=== PATIENT | male | born 1980 | race Caucasian/White ===

== ENCOUNTER 2018-01-22 21:05 | Emergency (ER) | payer SELFPAY ==
[2018-01-22 21:10] VITALS: BP 150/83; PULSE 120; RESP 18; TEMP 98.2
--- NOTE | 2018-01-22 21:35 | ED ---
General Adult HPI - General Chief complaint: Skin/Abscess/Foreign Body Stated complaint: Bug Bite/Leg Time Seen by Provider: 01/22/18 21:23 Source: patient, RN notes reviewed Mode of arrival: ambulatory Limitations: no limitations - History of Present Illness Initial comments: Patient 37-year-old male presented to the emergency room today with chief complaint of an abscess located to the perineum area. Patient states with a small bug bite that he noticed yesterday. States slightly larger this morning so he popped and squeezed the area. He states he got some bloody drainage out of it. Patient does not that swelling has gone down. He states he was concerned she's had similar this in the past Antibiotics for them. Patient denies any other complaints or symptoms currently. Patient denies any recent fever, chills, shortness of breath, chest pain, back pain, abdominal pain, nausea or vomiting, numbness or tingling, headaches or visual changes, or any other complaints. - Related Data Previous Rx's Medication Instructions Recorded Sulfamethox-Tmp 800-160Mg [Bactrim 1 tab PO Q12HR #20 tab 01/22/18 DS 800-160 mg] Allergies Allergy/AdvReac Type Severity Reaction Status Date / Time No Known Allergies Allergy Verified 01/22/18 21:10 Review of Systems ROS Statement: Those systems with pertinent positive or pertinent negative responses have been documented in the HPI. ROS Other: All systems not noted in ROS Statement are negative. Past Medical History Additional Past Medical History / Comment(s): ulcerative colitis, History of Any Multi-Drug Resistant Organisms: None Reported Past Surgical History: No Surgical Hx Reported Past Psychological History: No Psychological Hx Reported Smoking Status: Current every day smoker Past Alcohol Use History: Rare Past Drug Use History: Marijuana General Exam - General Exam Comments Initial Comments: General: The patient is awake and alert, in no distress, and does not appear acutely ill. Eye: Pupils are equal, round and reactive to light, extra-ocular movements are intact. No nystagmus. There is normal conjunctiva bilaterally. No signs of icterus. Ears, nose, mouth and throat: There are moist mucous membranes and no oral lesions. Neck: The neck is supple, there is no tenderness or JVD. Musculoskeletal: Normal ROM, no tenderness. Strength 5/5. Sensation intact. Pulses equal bilaterally 2+. Neurological: A&O x 3. CN II-XII intact, There are no obvious motor or sensory deficits. Coordination appears grossly intact. Speech is normal. Skin: Skin is warm and dry and no rashes. Mild swelling to the left perineal area. No real fluctuant abscess. Ulcerated area no current drainage. Measures approximately half to 1 cm in size. Not involved into the scrotum. Psychiatric: Cooperative, appropriate mood & affect, normal judgment. Limitations: no limitations Course Vital Signs 01/22/18 21:06 Temperature 98.2 F Pulse Rate 120 H Respiratory 18 Rate Blood Pressure 150/83 O2 Sat by Pulse 97 Oximetry Medical Decision Making - Medical Decision Making Patient is a small abscess to the left side of the perineum. Patient advised to do sitz baths or warm compresses. Will be given antibiotic to cover for infection advised return if symptoms increase or worsen. Disposition Clinical Impression: Abscess Disposition: HOME SELF-CARE Condition: Good Instructions: Abscess (ED) Additional Instructions: Please use antibiotic as prescribed warm compresses the areas discussed. Please follow-up with family doctor in the next 2 days of symptoms have not improved. Please return to emergency room if the symptoms increase or worsen or for any other concerns. Prescriptions: Sulfamethox-Tmp 800-160Mg [Bactrim DS 800-160 mg] 1 tab PO Q12HR #20 tab Is patient prescribed a controlled substance at d/c from ED?: No Referrals: None,Stated [Primary Care Provider] - 1-2 days Time of Disposition: 21:35
== END 2018-01-22 21:39 | disposition home or self-care (01) ==
LOC: EC 21:05
DX: L02.215 Cutaneous abscess of perineum (principal); F17.200 Nicotine dependence, unspecified, uncomplicated
CPT/HCPCS: 99282

== ENCOUNTER 2020-04-09 05:43 | Inpatient (IN) | payer OTHER ==
[2020-04-09] MEDS ORDERED: MORPHINE SULFATE 4 MG/ML SYRINGE IVP STA (06:16)
--- NOTE | 2020-04-09 06:18 | ED ---
Abdominal Pain HPI - General Chief Complaint: Abdominal Pain Stated Complaint: GI Issues Time Seen by Provider: 04/09/20 06:02 Source: patient, RN/MD, EMS, RN notes reviewed, old records reviewed Mode of arrival: EMS Limitations: no limitations - History of Present Illness Initial Comments: Patient is a 39-year-old male presents emergency department today for evaluation with complaints of flareup of ulcerative colitis for the past 3 weeks. Patient states that he's been having bloody stools. Patient reports that he was initially treated today at [facility] transferred due to an abnormal CT finding of the spleen. At that time the ER doctor consult to surgery and patient's admitting physician Dr. Plata recommended transfer to this facility to have further intervention with interventional radiology on regards to the spleen abnormality. Patient states that he was treated due to the bloody stools and colitis with IV antibiotics and steroids. Does complain of some. Umbilical pain. He states he typically can manage his ulcerative colitis flareups with diet changes, denies history of GI specialist.. After being incarcerated and discharged from detention on February 28 3 weeks he started to have this flareup. Patient states that he has had no fevers or chills. Patient denies any abdominal or back trauma in the past few weeks. - Related Data Previous Rx's Medication Instructions Recorded Sulfamethox-Tmp 800-160Mg [Bactrim 1 tab PO Q12HR #20 tab 01/22/18 DS 800-160 mg] Allergies Allergy/AdvReac Type Severity Reaction Status Date / Time No Known Allergies Allergy Verified 01/22/18 21:10 Review of Systems ROS Statement: Those systems with pertinent positive or pertinent negative responses have been documented in the HPI. ROS Other: All systems not noted in ROS Statement are negative. Past Medical History Additional Past Medical History / Comment(s): ulcerative colitis, History of Any Multi-Drug Resistant Organisms: None Reported Past Surgical History: No Surgical Hx Reported Past Psychological History: No Psychological Hx Reported Smoking Status: Current every day smoker Past Alcohol Use History: Rare Past Drug Use History: Marijuana General Exam - General Exam Comments Initial Comments: Alert and oriented 39-year-old male. No significant distress. Limitations: no limitations General appearance: alert, in no apparent distress Head exam: Present: atraumatic, normocephalic, normal inspection Eye exam: Present: normal appearance, PERRL, EOMI. Absent: scleral icterus, conjunctival injection, periorbital swelling ENT exam: Present: normal exam, mucous membranes moist Neck exam: Present: normal inspection. Absent: tenderness, meningismus, lymphadenopathy Respiratory exam: Present: normal lung sounds bilaterally. Absent: respiratory distress, wheezes, rales, rhonchi, stridor Cardiovascular Exam: Present: regular rate, normal rhythm, normal heart sounds. Absent: systolic murmur, diastolic murmur, rubs, gallop, clicks GI/Abdominal exam: Present: soft, tenderness (LLQ tenderness), normal bowel sounds. Absent: distended, guarding, rebound, rigid Back exam: Present: normal inspection Neurological exam: Present: alert, oriented X3, CN II-XII intact Psychiatric exam: Present: normal affect, normal mood Skin exam: Present: warm, dry, intact, normal color. Absent: rash Course Vital Signs 04/09/20 05:45 Temperature 98.2 F Pulse Rate 86 Respiratory 16 Rate Blood Pressure 107/92 O2 Sat by Pulse 97 Oximetry Medical Decision Making - Medical Decision Making 39-year-old male history of ulcerative colitis and reported flareup for the past 3 weeks with bloody stool presents emergency room today for a transfer from [facility]. He had an abnormal computed tomography scan finding showing 3 cm cortical cysts on the spleen which could relate to trauma but was a change compared to previous exam. There is also evidence of colitis. Patient's white blood cell count 16,000. Hemoglobin of 10.7. No previous chemical sick. Per. He is not on blood thinners. He did have a positive occult. Patient was transferred here for further evaluation due to the spleen finding and consult interventional radiology. Patient was 29 treated at this time with Levaquin and Flagyl. We'll continue this. He was given steroids as well. Patient will be admitted at this time to admitting physician (Dr. Plata), will consult surgery (Dr. Foster) and interventional radiology. PEr previous [facility] ER record these physician's are already aware of the transfer. - Lab Data Labs from [facility] reviewed. A did receive 15.4. Hemoglobin of 10.4. Platelets of 452. Lymphocytes of 10.1. Sodium 127. Potassium 3.7. Chloride 95. CO2 24. BUN 11. Creatinine 1.0. Glucose 111. Calcium 9.0. AST 23. ALT 28. ALP 73. Protein 8.2. Albumin 2.7. Lipase 42. Urinalysis negative for infection. Urine drug screen is positive for marijuana. CRP of 21.8. Sed rate 81. Fecal occult was positive. - Radiology Data Radiology results: report reviewed CT impression shows wall thickening on the right colon could relate to some colitis that appears new compared old exam. Fluid levels and rectum consistent with diarrhea. Patchy atelectasis along base. Had infiltration of liver and change. There is heterogeneity of the spleen with small simple cortical cyst measuring 3 cm. This could relate to trauma and is a change compared old exam. Acute spleen laceration is possible. Measures 2 cm in depth. Abnormal right colon is a change compared to old exam. This was read by Dr. Russo. Disposition Clinical Impression: Ulcerative colitis, Spleen anomaly Clinical Impression: (Ruled Out): Acute infection of female upper reproductive tract Disposition: ADMITTED IP TO THIS HOSP Condition: Stable Is patient prescribed a controlled substance at d/c from ED?: No Referrals: None,Stated [Primary Care Provider] - 1-2 days Time of Disposition: 06:24
[2020-04-09] MEDS ORDERED: MORPHINE SULFATE 4 MG/ML SYRINGE IV PRN (06:27)
[2020-04-09] MEDS ORDERED: ONDANSETRON 4 MG/2 ML VIAL IVP PRN (06:27)
[2020-04-09] MEDS ORDERED: LEVOFLOXACIN 750MG-D5W PMX 750 MG in DEXTROSE/WATER 1 150ML.BAG IVPB STA (06:27)
[2020-04-09] MEDS ORDERED: NALOXONE 0.4 MG/ML 1 ML VIAL IV PRN (06:27)
[2020-04-09] MEDS ORDERED: metroNIDAZOLE-NS PMX 500 MG in SALINE 1 100ML.BAG IVPB STA (06:28)
[2020-04-09] MEDS ORDERED: LEVOFLOXACIN 750MG-D5W PMX 750 MG in DEXTROSE/WATER 1 150ML.BAG IVPB SCH (06:30)
[2020-04-09] MEDS ORDERED: metroNIDAZOLE-NS PMX 500 MG in SALINE 1 100ML.BAG IVPB SCH (06:30)
[2020-04-09] MEDS: SODIUM CHLORIDE 0.9% 1,000 ML IV SCH ×3 (06:48→22:09)
[2020-04-09] MEDS: HYDROmorphone 0.5 MG/0.5 ML SYRINGE IVP PRN ×2 (06:51→09:35)
[2020-04-09 07:09] LABS: Basophils % (A) 0 %; Eosinophils # (A) 0.1 k/uL (0-0.7); Eosinophils % (A) 0 %; HCT 34.6 % (39.0-53.0); HGB 10.6 gm/dL (13.0-17.5); Hypochromasia Marked; Lymphocytes # (A) 0.6 k/uL (1.0-4.8); Lymphocytes % (A) 4 %; MCH 21.6 pg (25.0-35.0); MCHC 30.5 g/dL (31.0-37.0); MCV 70.6 fL (80.0-100.0); Mean Platelet Volume 6.2; Microcytosis Moderate; Monocytes # (A) 0.1 k/uL (0-1.0); Monocytes % (A) 1 %; Neutrophils # (A) 12.2 k/uL (1.3-7.7); Neutrophils % (A) 94 %; Platelet Count 355 k/uL (150-450); RDW 13.8 % (11.5-15.5); WBC 13.1 k/uL (3.8-10.6)
[2020-04-09] MEDS: PANTOPRAZOLE 40 MG/10 ML VIAL IV SCH (09:37)
--- NOTE | 2020-04-09 11:59 | P.GSCN ---
History of Present Illness Consult date: 04/09/20 History of present illness: This 39-year-old male presented to the hospital with a chief complaint of bloody bowel movements and abdominal pain. He has a known history of ulcerative colitis. He states this flares up occasionally especially when [facility]. He recently was incarcerated and states that his diet changed during that time and he noticed that his flareups started. These usually managed with medication that he is unsure of at the [facility]. He does not have a regular physician he follows up with. His last colonoscopy he states his in 2017 and he states he was told that there is no abnormalities. He states he has flareups occasionally couple times a year. Today he still is having abdominal pain minimal in his left lower quadrant. Past Medical History Additional Past Medical History / Comment(s): ulcerative colitis, History of Any Multi-Drug Resistant Organisms: None Reported Past Surgical History: No Surgical Hx Reported Past Psychological History: No Psychological Hx Reported Smoking Status: Current every day smoker Past Drug Use History: Marijuana - Past Family History Father Family Medical History: Seizure Disorder Medications and Allergies Home Medications Medication Instructions Recorded Confirmed Type Ibuprofen [Motrin Ib] 600 mg PO Q8H PRN 04/09/20 04/09/20 History Allergies Allergy/AdvReac Type Severity Reaction Status Date / Time No Known Allergies Allergy Verified 04/09/20 06:43 Surgical - Exam Osteopathic Statement: *. No significant issues noted on an osteopathic st ructural exam other than those noted in the History and Physical/Consult. Vital Signs Temp Pulse Resp BP Pulse Ox 98.2 F 86 16 107/92 97 04/09/20 05:45 04/09/20 05:45 04/09/20 05:45 04/09/20 05:45 04/09/20 05:45 - General well developed, well nourished, no distress - Neck trachea midline - Respiratory normal expansion, normal respiratory effort - Cardiovascular Rhythm: regular - Abdomen Nontender nondistended no rebound rigidity or guarding Abdomen: soft - Psychiatric oriented to time, oriented to person, oriented to place Results - Labs 04/09/20 07:01 Abnormal Lab Results - Last 24 Hours (Table) 04/09/20 Range/Units 07:01 WBC 13.1 H (3.8-10.6) k/uL Hgb 10.6 L (13.0-17.5) gm/dL Hct 34.6 L (39.0-53.0) % MCV 70.6 L (80.0-100.0) fL MCH 21.6 L (25.0-35.0) pg MCHC 30.5 L (31.0-37.0) g/dL Neutrophils # 12.2 H (1.3-7.7) k/uL Lymphocytes # 0.6 L (1.0-4.8) k/uL Assessment and Plan Assessment: Ulcerative colitis Plan: Patient appears to be having a exacerbation of ulcerative colitis. Recommend medical management no surgical management recommended at this time CT was discussed with radiologist to did state that there was no concern for splenic laceration upon looking at old images. There is a questionable cyst or lesion on the spleen which be worked up by primary care physician as an outpatient. Continue monitor hemoglobin. Follow-up GI Rec
[2020-04-09 12:27] LABS: HCT 32.7 % (39.0-53.0); Hypochromasia Marked; MCHC 30.6 g/dL (31.0-37.0); MCV 71.9 fL (80.0-100.0); Mean Platelet Volume 6.7; Microcytosis Slight; Platelet Count 366 k/uL (150-450); RBC 4.56 m/uL (4.30-5.90); RDW 13.9 % (11.5-15.5); WBC 13.5 k/uL (3.8-10.6)
[2020-04-09] MEDS ORDERED: DICYCLOMINE 10 MG CAP PO PRN (12:38)
[2020-04-09] MEDS: HYDROmorphone 1 MG/ML 1 ML SYRINGE IVP PRN ×3 (13:29→22:18)
[2020-04-09 13:47] VITALS: BMI 24.4
--- NOTE | 2020-04-09 14:22 | P.HPIM ---
History of Present Illness H&P Date: 04/09/20 Chief Complaint: Abdominal pain This is a 39-year-old male patient with past medical history of ulcerative colitis, tobacco use and dependence, marijuana use. Patient does not have a PCP and has not followed with a GI physician in many years. He states he was diagnosed with ulcerative colitis when he was 15 years of age and he is not on any treatment at that time. He states that he is normally able to manage the ulcerative colitis and control symptoms with diet at home but unfortunately he was recently incarcerated. While he was incarcerated, patient was on sulfasal azine 1000 mg twice daily for 5 weeks he was in long-term. He was released from long-term on February 28 and he felt good at that time. For the past 2-3 weeks he has had increasing stool with small amount of blood in it, joint soreness. He states he had an episode with significant left-sided lateral abdominal pain about one and half weeks ago that was so severe he couldn't stand up. He thought it was rela federico to ulcerative colitis but this particular pain had resolved. He is now having pain in the left upper quadrant. Patient initially presented to [facility] and CAT scan was concerning for wall thickening on the right colon could relate colitis and appears new. Fluid levels and rectum consistent with diarrhea. Patchy atelectasis along the base. There is heterogeneity of the spleen was small simple cortical cyst 3 cm. This could relate to trauma and is new. Acute splenic laceration is possible and measures 2 cm in depth. Lab work at [facility] revealed WBC 15.4, hemoglobin 10.4, platelet count 452. Sodium 127, potassium 3.7, chloride 95, CO2 24, BUN 11 creatinine 1. Blood sugar 111. AST 23, ALT 28, alkaline phosphatase 73. Albumin 2.7. Lipase 42. Urinalysis negative for infection. Urine drug screen positive for marijuana. CRP 21.8. Sed rate 81. Stool for occult blood positive. [facility] Patient states that since last evening he has had 3 stools, minimal blood. He complains of pain in the left upper quadrant with deep breathing. He is hungry and would like to have diet advanced. Patient will be started on clear liquid diet. He states his last colonoscopy was in 2016 or 2017 at [facility]. Consult in place with GI and general surgery. Patient was seen by Dr. Echevarria and CAT scan was reviewed by him and radiologist and no concern for splenic laceration was conclusion. Questionable cyst on the spleen could be worked up as an outpatient. Review of Systems Constitutional: Reports fatigue, Reports poor appetite, Reports weight loss, Denies chills, Denies fever, Denies weakness Eyes: denies blurred vision, denies pain Ears, nose, mouth and throat: Denies headache, Denies nasal congestion, Denies nasal discharge, Denies sore throat, Denies vertigo Cardiovascular: Denies chest pain, Denies decreased exercise tolerance, Denies dyspnea on exertion, Denies leg edema, Denies lightheadedness, Denies shortness of breath, Denies syncope Respiratory: Denies cough, Denies cough with sputum, Denies dyspnea, Denies excessive sputum, Denies hemoptysis, Denies home oxygen, Denies respiratory infections, Denies sleep apnea, Denies wheezing Gastrointestinal: Reports abdominal pain, Reports diarrhea, Reports loss of appetite, Reports melena, Denies nausea, Denies vomiting Genitourinary: Denies dysuria, Denies urinary frequency, Denies urinary retention Musculoskeletal: Reports redness of joints (joint discomfort), Denies frequent falls, Denies gait dysfunction, Denies leg numbness/tingling, Denies myalgias Integumentary: Denies pruritus, Denies rash, Denies wounds Neurological: Denies change in mentation, Denies change in speech, Denies gait dysfunction, Denies numbness, Denies vertigo, Denies weakness Psychiatric: Denies anxiety, Denies depression Endocrine: Denies fatigue, Denies weight change Past Medical History Additional Past Medical History / Comment(s): ulcerative colitis History of Any Multi-Drug Resistant Organisms: None Reported Past Surgical History: No Surgical Hx Reported Past Psychological History: No Psychological Hx Reported Smoking Status: Current every day smoker Additional Past Alcohol Use History / Comment(s): Patient is a smoker of less than one pack per day since he was 15 years of age. He has history of drinking 4-5 times per week, liquor but since 2007 he only drinks about 2 times per year. He uses marijuana on a regular basis including edibles. The patient is single and lives alone. Past Drug Use History: Marijuana - Past Family History Father Family Medical History: Seizure Disorder Additional Family Medical History / Comment(s): Father is alive at age 64 with history of seizures and hypertension. Mother Additional Family Medical History / Comment(s): Mother in her late 50s with complications from CABG. Brother(s) Additional Family Medical History / Comment(s): Patient has 2 brothers with no major medical problems. He does not have any sisters. He does not have any children. No family members have ulcerative colitis. Medications and Allergies Home Medications Medication Instructions Recorded Confirmed Type Ibuprofen [Motrin Ib] 600 mg PO Q8H PRN 04/09/20 04/09/20 History Allergies Allergy/AdvReac Type Severity Reaction Status Date / Time No Known Allergies Allergy Verified 04/09/20 06:43 Physical Exam Vitals: Vital Signs Temp Pulse Pulse Resp BP BP Pulse Ox 04/09/20 08:20 98.3 F 79 18 114/60 97 04/09/20 07:39 98.2 F 77 18 110/64 97 04/09/20 07:00 78 18 117/71 96 04/09/20 05:45 98.2 F 86 16 107/92 97 Intake and Output 04/08/20 04/09/20 04/09/20 22:59 06:59 14:59 Other: Voiding Method Toilet Weight 83.915 kg 83.915 kg Gen: This is a 39-year-old male. He is resting in bed and appears comfortable and in no acute distress. HEENT: Head is atraumatic, normocephalic. Pupils equal, round. Sclerae is anicteric. Oral mucous membranes are slightly dry. NECK: Supple. No JVD. No lymphadenopathy. No thyromegaly. LUNGS: Clear to auscultation. No wheezes or rhonchi. No intercostal retractions. HEART: Regular rate and rhythm. No murmur. ABDOMEN: Soft. Bowel sounds are present. No masses. Left upper quadrant tenderness. EXTREMITIES: No pedal edema. No calf tenderness. Dorsalis pedis +2 bilaterally. Enlarged MPJ bilaterally NEUROLOGICAL: Patient is awake, alert and oriented x3. Cranial nerves 2 through 12 are grossly intact. Results CBC & Chem 7: 04/09/20 12:01 Labs: Abnormal Lab Results - Last 24 Hours (Table) 04/09/20 04/09/20 Range/Units 07:01 12:01 WBC 13.1 H 13.5 H (3.8-10.6) k/uL Hgb 10.6 L 10.0 L (13.0-17.5) gm/dL Hct 34.6 L 32.7 L (39.0-53.0) % MCV 70.6 L 71.9 L (80.0-100.0) fL MCH 21.6 L 22.0 L (25.0-35.0) pg MCHC 30.5 L 30.6 L (31.0-37.0) g/dL Neutrophils # 12.2 H (1.3-7.7) k/uL Lymphocytes # 0.6 L (1.0-4.8) k/uL Thrombosis Risk Factor Assmnt - DVT/VTE Prophylaxis DVT/VTE Prophylaxis: Pharmacologic Prophylaxis ordered - Choose All That Apply Any of the Below Risk Factors Present?: No Other Risk Factors: No Other congenital or acquired thrombophilia - If yes, enter type in comment: No Thrombosis Risk Factor Assessment Level: Very Low Risk Assessment and Plan Plan: 1. Acute exacerbation of ulcerative colitis. Consult with GI. Continue Levaquin 500 mg IV daily, Flagyl 500 mg 3 times IV daily, IV fluids and 130s cc per hour. Patient will be started on Bentyl 10 mg 3 times daily. Dilaudid increased to 1 mg every 3 hours as needed and morphine discontinued. 2. Splenic laceration ruled out by radiology and general surgery. Consult with Dr. Swathi serrano. 3. Possible cysts on the spleen. Workup as outpatient. 4. Tobacco use and dependence. Nicotine patch. 5. GI prophylaxis. Protonix 40 mg IV daily. 6. DVT prophylaxis. Heparin subcu. 7. Regular marijuana use. Patient will be admitted to the hospital for a minimum of 2 night stay. Discharge plan: home Impression and plan of care have been directed as dictated by the signing physician. Teri Walter nurse practitioner acting as scribe for signing physician.
[2020-04-09] MEDS: NICOTINE 21MG/24HR PATCH TRANSDERM SCH (15:06)
[2020-04-09] MEDS: HEPARIN SODIUM,PORCINE 5,000 UNIT/ML 1 ML VIAL SQ SCH ×2 (15:06→23:40)
[2020-04-09] MEDS: metroNIDAZOLE-NS PMX 500 MG in SALINE 1 100ML.BAG IVPB SCH ×2 (15:06→22:09)
--- NOTE | 2020-04-09 17:48 | P.GSCN ---
History of Present Illness Consult date: 04/09/20 Reason for Consult: splenic angiogram History of present illness: Interventional Radiology consultation and recommendations: Patient presents with inflammatory bowel disease exacerbation. Splenic abnormalities seen on CT A/P performed at [facility] demonstrated multiple hypodensities and small perisplenic fluid vs hematoma. IR consulted for splenic angiogram. There was question of anterior splenic linear laceration, however upon additio nal review and comparison, this was also present on a [facility] [address] exam and related to splenic fold/lobular contour. The small perisplenic fluid/hematoma is new. The splenic hypodensities are also new, and wide differential includes age indeterminate hematomas or infarcts, cysts, hemangiomas. Splenic abscesses considered less likely at this time but are included in the differential. Patient is hemodynamically stable with no evidence of acute splenic hemorrhage at this time. No invention recommended at this time. If patient becomes hemodynamically unstable, consider CTA to assess for active hemorrhage. As far as the splenic lesions and small persplenic hematoma/fluid, patient reports several weeks of symptoms, and they are age indeterminate. Recommend short term repeat CT abdomen with contrast within a day or 2 to assess for any resolution/worsening. Past Medical History Additional Past Medical History / Comment(s): ulcerative colitis History of Any Multi-Drug Resistant Organisms: None Reported Past Surgical History: No Surgical Hx Reported Past Psychological History: No Psychological Hx Reported Smoking Status: Current every day smoker Additional Past Alcohol Use History / Comment(s): Patient is a smoker of less than one pack per day since he was 15 years of age. He has history of drinking 4-5 times per week, liquor but since 2007 he only drinks about 2 times per year. He uses marijuana on a regular basis including edibles. The patient is single and lives alone. Past Drug Use History: Marijuana - Past Family History Father Family Medical History: Seizure Disorder Additional Family Medical History / Comment(s): Father is alive at age 64 with history of seizures and hypertension. Mother Additional Family Medical History / Comment(s): Mother in her late 50s with complications from CABG. Brother(s) Additional Family Medical History / Comment(s): Patient has 2 brothers with no major medical problems. He does not have any sisters. He does not have any children. No family members have ulcerative colitis. Medications and Allergies Home Medications Medication Instructions Recorded Confirmed Type Ibuprofen [Motrin Ib] 600 mg PO Q8H PRN 04/09/20 04/09/20 History Allergies Allergy/AdvReac Type Severity Reaction Status Date / Time No Known Allergies Allergy Verified 04/09/20 06:43 Surgical - Exam Osteopathic Statement: *. No significant issues noted on an osteopathic structural exam other than those noted in the History and Physical/Consult. Vital Signs Temp Pulse Resp BP Pulse Ox 98.2 F 86 16 107/92 97 04/09/20 05:45 04/09/20 05:45 04/09/20 05:45 04/09/20 05:45 04/09/20 05:45 Results - Labs 04/09/20 12:01 Abnormal Lab Results - Last 24 Hours (Table) 04/09/20 04/09/20 Range/Units 07:01 12:01 WBC 13.1 H 13.5 H (3.8-10.6) k/uL Hgb 10.6 L 10.0 L (13.0-17.5) gm/dL Hct 34.6 L 32.7 L (39.0-53.0) % MCV 70.6 L 71.9 L (80.0-100.0) fL MCH 21.6 L 22.0 L (25.0-35.0) pg MCHC 30.5 L 30.6 L (31.0-37.0) g/dL Neutrophils # 12.2 H (1.3-7.7) k/uL Lymphocytes # 0.6 L (1.0-4.8) k/uL
[2020-04-09 18:28] LABS: HCT 31.9 % (39.0-53.0); HGB 9.6 gm/dL (13.0-17.5); Hypochromasia Marked; MCH 21.1 pg (25.0-35.0); MCV 70.5 fL (80.0-100.0); Mean Platelet Volume 7.6; Microcytosis Moderate; Platelet Count 390 k/uL (150-450); RBC 4.53 m/uL (4.30-5.90); RDW 13.8 % (11.5-15.5); WBC 15.2 k/uL (3.8-10.6)
[2020-04-09 20:00] LABS: Erythrocyte Sedimentation Rate 77 mm/Hr (0-15)
[2020-04-09] MEDS: sulfaSALAzine 500 MG TAB PO SCH (22:09)
[2020-04-10 01:20] LABS: HCT 29.8 % (39.0-53.0); Hypochromasia Marked; MCH 21.8 pg (25.0-35.0); MCHC 30.3 g/dL (31.0-37.0); MCV 71.9 fL (80.0-100.0); Mean Platelet Volume 7.3; Microcytosis Slight; Platelet Count 389 k/uL (150-450); RBC 4.15 m/uL (4.30-5.90); WBC 15.4 k/uL (3.8-10.6)
[2020-04-10] MEDS: HYDROmorphone 1 MG/ML 1 ML SYRINGE IVP PRN ×6 (04:38→23:30)
[2020-04-10] MEDS: SODIUM CHLORIDE 0.9% 1,000 ML IV SCH ×3 (04:38→17:06)
[2020-04-10] MEDS: metroNIDAZOLE-NS PMX 500 MG in SALINE 1 100ML.BAG IVPB SCH ×3 (05:32→20:04)
--- NOTE | 2020-04-10 07:21 | P.CONS ---
History of Present Illness - Reason for Consult Consult date: 04/09/20 colitis Requesting physician: Adalid Plata - Chief Complaint diarrhea - History of Present Illness 39-year-old male with a medical history significant for ulcerative colitis, tobacco abuse and marijuana use who presented to the hospital due to concerns of diarrhea and abdominal pain. Patient has known history of ulcerative colitis diagnosed at the age of 15 and treated in the past with steroid therapy [id number] agents. Last colonoscopy in 2016 at [facility] was significant for discontinuous active colitis. The patient presents to the hospital with com plaints of abdominal pain and frequent loose bowel movements. The patient reports having loose watery stools approximately 8 per day worsened over the past 2 days prior to presentation. Baseline patient has 2-3 bowel movements per day. He reports his last episode of active colitis was in December which time he was treated with prednisone and antibiotic therapy. Patienthad a computed tomography scan significant for wall thickening of the right colon which could relate to colitis performed prior to his transfer from outside hospital. Currently he is receiving antibiotic therapy with levofloxacin and Flagyl. Laboratory evaluation significant for WBC 13.1, hemoglobin 10.6, platelet count [id number]. Review of Systems REVIEW OF SYSTEMS: CONSTITUTIONAL: Denies any fevers, chills, weight change or fatigue. CARDIOVASCULAR: Denies any chest pain, palpitations high or low blood pressures RESPIRATORY: Denies any shortness of breath, hemoptysis or cough. GENITOURINARY: No dysuria or hematuria. MUSCULOSKELETAL: No weakness reported. SKIN: Denies any new rashes or lesions, jaundice or pallor. PSYCHIATRIC: Denies any depression or anxiety. NEUROLOGY: Denies headache, denies any new focal deficits. EARS/NOSE/THROAT: No recent hearing change, congestion, nasal discharge or sore throat. EYES: No pain in eyes, discharge or change in vision. GASTROINTESTINAL: As per HPI. Past Medical History Additional Past Medical History / Comment(s): ulcerative colitis History of Any Multi-Drug Resistant Organisms: None Reported Past Surgical History: No Surgical Hx Reported Past Psychological History: No Psychological Hx Reported Smoking Status: Current every day smoker Additional Past Alcohol Use History / Comment(s): Patient is a smoker of less than one pack per day since he was 15 years of age. He has history of drinking 4-5 times per week, liquor but since 2007 he only drinks about 2 times per year. He uses marijuana on a regular basis including edibles. The patient is single and lives alone. Past Drug Use History: Marijuana - Past Family History Father Family Medical History: Seizure Disorder Additional Family Medical History / Comment(s): Father is alive at age 64 with history of seizures and hypertension. Mother Additional Family Medical History / Comment(s): Mother in her late 50s with complications from CABG. Brother(s) Additional Family Medical History / Comment(s): Patient has 2 brothers with no major medical problems. He does not have any sisters. He does not have any children. No family members have ulcerative colitis. Medications and Allergies Home Medications Medication Instructions Recorded Confirmed Type Ibuprofen [Motrin Ib] 600 mg PO Q8H PRN 04/09/20 04/09/20 History Allergies Allergy/AdvReac Type Severity Reaction Status Date / Time No Known Allergies Allergy Verified 04/09/20 06:43 Physical Exam Vitals: Vital Signs Temp Pulse Pulse Resp BP BP Pulse Ox 04/09/20 15:00 97.9 F 80 18 116/65 96 04/09/20 08:20 98.3 F 79 18 114/60 97 04/09/20 07:39 98.2 F 77 18 110/64 97 04/09/20 07:00 78 18 117/71 96 04/09/20 05:45 98.2 F 86 16 107/92 97 Intake and Output 04/09/20 04/09/20 04/09/20 06:59 14:59 22:59 Other: Voiding Method Toilet # Voids 3 Weight 83.915 kg 83.915 kg On physical examination, patient appears comfortable in no apparent distress. HEAD: Normocephalic, atraumatic. EYES: No scleral icterus. No conjunctival injection. MOUTH: No lesions, tongue midline. NECK: Trachea midline, no gross abnormalities. CHEST: Clear to auscultation with no wheezing or rhonchi appreciated. HEART: Regular rate and rhythm. ABDOMEN: Soft, mildly tender to palpation. Bowel sounds are positive. No organomegaly. No guarding or rigidity. EXTREMITIES: No pedal edema. SKIN: No rashes, no jaundice. NEUROLOGIC: Alert and oriented x3. No focal deficits. Results CBC & Chem 7: 04/10/20 00:25 Labs: Abnormal Lab Results - Last 24 Hours (Table) 04/09/20 04/09/20 Range/Units 07:01 12:01 WBC 13.1 H 13.5 H (3.8-10.6) k/uL Hgb 10.6 L 10.0 L (13.0-17.5) gm/dL Hct 34.6 L 32.7 L (39.0-53.0) % MCV 70.6 L 71.9 L (80.0-100.0) fL MCH 21.6 L 22.0 L (25.0-35.0) pg MCHC 30.5 L 30.6 L (31.0-37.0) g/dL Neutrophils # 12.2 H (1.3-7.7) k/uL Lymphocytes # 0.6 L (1.0-4.8) k/uL CT scan - abdomen: report reviewed (computed tomography scan of the abdomen significant for right-sided colitis) Assessment and Plan (1) Diarrhea Narrative/Plan: 39-year-old male with a medical history significant for tobacco abuse as well as ulcerative colitis diagnosed at the age of 15 currently not on medical treatment who presented due to worsening diarrhea. Computed tomography scan at outside facility showed right-sided colitis. Patient has been having increased frequency of bowel movements worsened over the 2 days prior to presentation up to 8 loose bowel movements per day. He reports last taking antibiotic therapy and prednisone therapy in December of this year. In the past he has been treated with 5ASA agents, but he is never been treated with any biologic therapy. Last colonoscopy in 2016 showed active colitis throughout the colon in discontinuous fashion. Symptoms likely related to a exacerbation of his inflammatory bowel disease, testing for Clostridium difficile will be ordered to rule out underlying infection. Current Visit: Yes Status: Acute Code(s): R19.7 - DIARRHEA, UNSPECIFIED SNOMED Code(s): 98528435 (2) Ulcerative colitis Current Visit: Yes Status: Acute Code(s): K51.90 - ULCERATIVE COLITIS, U NSPECIFIED, WITHOUT COMPLICATIONS SNOMED Code(s): 92317403 Plan: supportive care Okay for full liquid diet Continue antibiotic therapy Testing for Clostridium difficile order, if negative will initiate steroid therapy Continue monitor ESR and CRP Patient will need follow-up after discharge for continued management We'll reinitiate treatment with 5ASA agent Thank you for allowing us to participate in care of the patient
[2020-04-10] MEDS ORDERED: LEVOFLOXACIN 750MG-D5W PMX 750 MG in DEXTROSE/WATER 1 150ML.BAG IVPB SCH (08:00)
[2020-04-10] MEDS: NICOTINE 21MG/24HR PATCH TRANSDERM SCH ×2 (08:55→09:11)
[2020-04-10] MEDS: sulfaSALAzine 500 MG TAB PO SCH ×2 (08:55→20:04)
[2020-04-10] MEDS: PANTOPRAZOLE 40 MG/10 ML VIAL IV SCH (08:55)
[2020-04-10] MEDS: HEPARIN SODIUM,PORCINE 5,000 UNIT/ML 1 ML VIAL SQ SCH ×3 (08:55→23:38)
[2020-04-10] MEDS: LEVOFLOXACIN 500MG-D5W PMX 500 MG in DEXTROSE/WATER 1 100ML.BAG IVPB SCH (09:01)
[2020-04-10] MEDS: methylPREDNISolone SOD SUCCI 40 MG/ML 1 ML VIAL IV SCH ×3 (09:54→23:39)
--- NOTE | 2020-04-10 12:47 | P.PN ---
Subjective Progress Note Date: 04/10/20 Patient seen and examined at bedside. States abdominal pain is better. Asked once again about any recent trauma to the abdomen or to the left side of his body and patient denies. Objective - Vital Signs Vital signs: Vital Signs Temp 98.1 F 04/10/20 07:00 Pulse 67 04/10/20 07:00 Resp 18 04/10/20 07:00 BP 115/71 04/10/20 07:00 Pulse Ox 98 04/10/20 07:00 Intake & Output 04/09/20 04/10/20 04/10/20 18:59 06:59 18:59 Intake Total 1600 Balance 1600 Weight 83.915 kg Intake: Intake, IV Titration 1500 Amount Sodium Chloride 0.9% 1, 1300 000 ml @ 130 mls/hr IV . Q7H42M [facility] Rx#:[id number] metroNIDAZOLE-NS PMX 500 200 mg In Saline 1 100ml.bag @ 100 mls/hr IVPB Q8H [facility] Rx#:[id number] Oral 100 Other: Voiding Method Toilet Toilet # Voids 3 1 # Bowel Movements 1 - Constitutional General appearance: Present: cooperative, no acute distress - Respiratory Details: No difficulty with respiration - Gastrointestinal Gastrointestinal Comment(s): Soft, generalized soreness, nondistended, no rebound, no guarding - Psychiatric Psychiatric: Present: A&O x's 3 - Labs CBC & Chem 7: 04/10/20 00:25 Labs: Abnormal Lab Results - Last 24 Hours (Table) 04/09/20 04/09/20 04/10/20 Range/Units 12:01 17:52 00:25 WBC 15.2 H 15.4 H (3.8-10.6) k/uL RBC 4.15 L (4.30-5.90) m/uL Hgb 9.6 L 9.0 L (13.0-17.5) gm/dL Hct 31.9 L 29.8 L (39.0-53.0) % MCV 70.5 L 71.9 L (80.0-100.0) fL MCH 21.1 L 21.8 L (25.0-35.0) pg MCHC 30.0 L 30.3 L (31.0-37.0) g/dL ESR 77 H (0-15) mm/Hr C-Reactive Protein (0.0-0.8) mg/dL 04/10/20 Range/Units 05:15 WBC (3.8-10.6) k/uL RBC (4.30-5.90) m/uL Hgb (13.0-17.5) gm/dL Hct (39.0-53.0) % MCV (80.0-100.0) fL MCH (25.0-35.0) pg MCHC (31.0-37.0) g/dL ESR (0-15) mm/Hr C-Reactive Protein 5.6 H (0.0-0.8) mg/dL Assessment and Plan (1) Spleen anomaly Narrative/Plan: Following hemoglobin. Hemoglobin has gone from 10.6-9.0. No other signs of blood loss shock. He is not tachycardic or hypotensive. We'll continue to monitor. At this point, low likelihood of active splenic bleed. Current Visit: Yes Status: Acute Code(s): Q89.09 - CONGENITAL MALFORMATIONS OF SPLEEN SNOMED Code(s): 13754647 (2) Ulcerative colitis Narrative/Plan: Continue GI recommendations. IV antibiotics. Current Visit: Yes Status: Acute Code(s): K51.90 - ULCERATIVE COLITIS, UNSPECIFIED, WITHOUT COMPLICATIONS SNOMED Code(s): 82918144
--- NOTE | 2020-04-10 12:59 | P.PN ---
Subjective Progress Note Date: 04/10/20 Principal diagnosis: Ulcerative colitis The patient was seen and examined at bedside. He states that his diarrhea has improved some. He states he had 2 bowel movements yesterday evening that were loose, however nonbloody. His Clostridium difficile stool testing came back negative. He has been on a full liquid diet and is tolerating well. Denies any abdominal pain, nausea, or vomiting. Objective - Vital Signs Vital signs: Vital Signs Temp 98.1 F 04/10/20 07:00 Pulse 67 04/10/20 07:00 Resp 18 04/10/20 07:00 BP 115/71 04/10/20 07:00 Pulse Ox 98 04/10/20 07:00 Intake & Output 04/09/20 04/10/20 04/10/20 18:59 06:59 18:59 Intake Total 1600 Balance 1600 Weight 83.915 kg Intake: Intake, IV Titration 1500 Amount Sodium Chloride 0.9% 1, 1300 000 ml @ 130 mls/hr IV . Q7H42M [facility] Rx#:[id number] metroNIDAZOLE-NS PMX 500 200 mg In Saline 1 100ml.bag @ 100 mls/hr IVPB Q8H [facility] Rx#:[id number] Oral 100 Other: Voiding Method Toilet Toilet # Voids 3 1 # Bowel Movements 1 - Exam General appearance: The patient is alert, oriented, in no acute distress. HET: Head is normocephalic and atraumatic. Conjunctiva pink. Sclera and icteric. Neck: Supple without lymphadenopathy. Abdomen: Soft, mild tenderness in the lower abdomen, nondistended with bowel sounds. No guarding or rigidity. Extremities: Normal skin color and turgor. No pedal edema Neurological: No focal deficits. Alert and oriented 3. - Labs CBC & Chem 7: 04/10/20 00:25 Labs: Abnormal Lab Results - Last 24 Hours (Table) 04/09/20 04/09/20 04/10/20 Range/Units 12:01 17:52 00:25 WBC 13.5 H 15.2 H 15.4 H (3.8-10.6) k/uL RBC 4.15 L (4.30-5.90) m/uL Hgb 10.0 L 9.6 L 9.0 L (13.0-17.5) gm/dL Hct 32.7 L 31.9 L 29.8 L (39.0-53.0) % MCV 71.9 L 70.5 L 71.9 L (80.0-100.0) fL MCH 22.0 L 21.1 L 21.8 L (25.0-35.0) pg MCHC 30.6 L 30.0 L 30.3 L (31.0-37.0) g/dL ESR 77 H (0-15) mm/Hr Assessment and Plan (1) Diarrhea Narrative/Plan: This a 39-year-old male with a medical history significant for tobacco abuse as well as ulcerative colitis who was diagnosed at the age of 15. He is currently not on any medical treatment who presented due to worsening of diarrhea. Computed tomography scan at outside facility showed right-sided colitis. Patient has been having increased frequency of bowel movements worsen over the last 2 days prior to presentation up to 8 loose bowel movements per day. He reports is taking antibiotic therapy and prednisone therapy in December of this year. In the past he has been treated with 5-MELY agents, but he has never been treated with any biologic therapy. His last colonoscopy was in 2016 that showed active colitis throughout the colon and discontinuous fashion. Symptoms likely related to an exacerbation of his inflammatory bowel disease, testing for Clostridium difficile was ordered to rule out underlying infection, which was negative. Current Visit: Yes Status: Acute Code(s): R19.7 - DIARRHEA, UNSPECIFIED SNOMED Code(s): 92019977 (2) Ulcerative colitis Current Visit: Yes Status: Acute Code(s): K51.90 - ULCERATIVE COLITIS, UNSPECIFIED, WITHOUT COMPLICATIONS SNOMED Code(s): 79249689 Plan: Supportive care Increased to a low fiber diet Continue antibiotic therapy Testing for Clostridium difficile ordered, results negative Continue to monitor ESR and CRP Sulfalazine started Will add Solu-Medrol 20 mg IV every 8 hours The patient will need follow-up after discharge for continued management Thank you for allowing us to participate in the care of the patient The impression and plan of care has been dictated as directed. I performed a history and examination of this patient, discussed the same with the dictator. I agree with the dictator's note ,documented as a scribe. Any additional findings or plans will be noted.
--- NOTE | 2020-04-10 15:39 | P.PN ---
Subjective Progress Note Date: 04/10/20 This is a 39-year-old male patient with past medical history of ulcerative colitis, tobacco use and dependence, marijuana use. Patient does not have a PCP and has not followed with a GI physician in many years. He states he was diagnosed with ulcerative colitis when he was 15 years of age and he is not on any treatment at that time. He states that he is normally able to manage the ulcerative colitis and control symptoms with diet at home but unfortunately he was recently incarcerated. While he was incarcerated, patient was on sulfasalazine 1000 mg twice daily for 5 weeks he was in penitentiary. He was released from penitentiary on February 28 and he felt good at that time. For the past 2-3 weeks he has had increasing stool with small amount of blood in it, joint soreness. He states he had an episode with significant left-sided lateral abdominal pain about one and half weeks ago that was so severe he couldn't stand up. He thought it was related to ulcerative colitis but this particular pain had resolved. He is now having pain in the left upper quadrant. Patient initially presented to [facility] and CAT scan was concerning for wall thickening on the right colon could relate colitis and appears new. Fluid levels and rectum consistent with diarrhea. Patchy atelectasis along the base. There is heterogeneity of the spleen was small simple cortical cyst 3 cm. This could relate to trauma and is new. Acute splenic laceration is possible and measures 2 cm in depth. Lab work at [facility] revealed WBC 15.4, hemoglobin 10.4, platelet count 452. Sodium 127, potassium 3.7, chloride 95, CO2 24, BUN 11 creatinine 1. Blood sugar 111. AST 23, ALT 28, alkaline phosphatase 73. Albumin 2.7. Lipase 42. Urinalysis negative for infection. Urine drug screen positive for marijuana. CRP 21.8. Sed rate 81. Stool for occult blood positive. Patient was then transferred to [facility] Patient states that since last evening he has had 3 stools, minimal blood. He complains of pain in the left upper quadrant with deep breathing. He is hungry and would like to have diet advanced. Patient will be started on clear liquid diet. He states his last colonoscopy was in 2016 or 2017 at [facility]. Consult in place with GI and general surgery. Patient was seen by Dr. Echevarria and CAT scan was reviewed by him and radiologist and no concern for splenic laceration was conclusion. Questionable cyst on the spleen could be worked up as an outpatient. 04/10: The patient has had a couple bowel movements that are loose but starting to form, no blood. He is tolerating a full liquid diet. GI his started him on sulfasalazine 1000 mg twice daily and Solu-Medrol 20 mg IV every 8 hours. Liliana ent complains of not sleeping well. Patient has been afebrile, heart rate 67, blood pressure 115/71, pulse ox 98% on room air. Repeat CBC reveals WBC of 15.4, hemoglobin 9, platelet count 389. C-reactive protein is 5.6. C. difficile toxin was negative. Objective - Vital Signs Vital signs: Vital Signs Temp 98.1 F 04/10/20 07:00 Pulse 67 04/10/20 07:00 Resp 18 04/10/20 07:00 BP 115/71 04/10/20 07:00 Pulse Ox 98 04/10/20 07:00 Intake & Output 04/09/20 04/10/20 04/10/20 18:59 06:59 18:59 Intake Total 1600 Balance 1600 Weight 83.915 kg Intake: Intake, IV Titration 1500 Amount Sodium Chloride 0.9% 1, 1300 000 ml @ 130 mls/hr IV . Q7H42M [facility] Rx#:[id number] metroNIDAZOLE-NS PMX 500 200 mg In Saline 1 100ml.bag @ 100 mls/hr IVPB Q8H [facility] Rx#:[id number] Oral 100 Other: Voiding Method Toilet Toilet # Voids 3 1 # Bowel Movements 1 - Exam Review of Systems Constitutional: Reports fatigue, Reports poor appetite, Reports weight loss, Denies chills, Denies fever, Denies weakness Eyes: denies blurred vision, denies pain Ears, nose, mouth and throat: Denies headache, Denies nasal congestion, Denies nasal discharge, Denies sore throat, Denies vertigo Cardiovascular: Denies chest pain, Denies decreased exercise tolerance, Denies dyspnea on exertion, Denies leg edema, Denies lightheadedness, Denies shortness of breath, Denies syncope Respiratory: Denies cough, Denies cough with sputum, Denies dyspnea, Denies excessive sputum, Denies hemoptysis, Denies home oxygen, Denies respiratory infections, Denies sleep apnea, Denies wheezing Gastrointestinal: Reports abdominal pain, Reports diarrhea, Reports loss of appetite, Reports melena, Denies nausea, Denies vomiting Genitourinary: Denies dysuria, Denies urinary retention Musculoskeletal: Reports redness of joints (joint discomfort), Denies frequent falls, Denies gait dysfunction, Denies leg numbness/tingling, Denies myalgias Integumentary: Denies pruritus, Denies rash, Denies wounds Neurological: Denies change in mentation, Denies change in speech, Denies gait dysfunction, Denies numbness, Denies vertigo, Denies weakness Psychiatric: Denies anxiety, Denies depression Endocrine: Denies fatigue, Denies weight change Physical examination Gen: This is a 39-year-old male. He is resting in bed and appears comfortable and in no acute distress. HEENT: Head is atraumatic, normocephalic. Pupils equal, round. Sclerae is anicteric. Oral mucous membranes are slightly dry. NECK: Supple. No JVD. No lymphadenopathy. No thyromegaly. LUNGS: Clear to auscultation. No wheezes or rhonchi. No intercostal retractions. HEART: Regular rate and rhythm. No murmur. ABDOMEN: Soft. Bowel sounds are present. No masses. mild left upper quadrant tenderness. EXTREMITIES: No pedal edema. No calf tenderness. Dorsalis pedis +2 bilaterally. Enlarged MPJ bilaterally NEUROLOGICAL: Patient is awake, alert and oriented x3. Cranial nerves 2 through 12 are grossly intact. - Labs CBC & Chem 7: 04/10/20 00:25 Labs: Abnormal Lab Results - Last 24 Hours (Table) 04/09/20 04/09/20 04/10/20 Range/Units 12:01 17:52 00:25 WBC 15.2 H 15.4 H (3.8-10.6) k/uL RBC 4.15 L (4.30-5.90) m/uL Hgb 9.6 L 9.0 L (13.0-17.5) gm/dL Hct 31.9 L 29.8 L (39.0-53.0) % MCV 70.5 L 71.9 L (80.0-100.0) fL MCH 21.1 L 21.8 L (25.0-35.0) pg MCHC 30.0 L 30.3 L (31.0-37.0) g/dL ESR 77 H (0-15) mm/Hr C-Reactive Protein (0.0-0.8) mg/dL 04/10/20 Range/Units 05:15 WBC (3.8-10.6) k/uL RBC (4.30-5.90) m/uL Hgb (13.0-17.5) gm/dL Hct (39.0-53.0) % MCV (80.0-100.0) fL MCH (25.0-35.0) pg MCHC (31.0-37.0) g/dL ESR (0-15) mm/Hr C-Reactive Protein 5.6 H (0.0-0.8) mg/dL Assessment and Plan Plan: 1. Acute exacerbation of ulcerative colitis. Consult with GI appreciated. Continue Levaquin 500 mg IV daily, Flagyl 500 mg 3 times IV daily, IV fluids. Continue Bentyl 10 mg 3 times daily. Dilaudid increased to 1 mg every 3 hours as needed and morphine discontinued. GI started the patient on sulfasalazine 1000 mg twice daily and IV Solu-Medrol 20 mg IV every 8 hours. Patient will follow up with GI in the office. 2. Splenic laceration ruled out by radiology and general surgery. Consult with Dr. Echevarria appreciated. 3. Possible cysts on the spleen. Workup as outpatient. 4. Tobacco use and dependence. Nicotine patch. 5. GI prophylaxis. Protonix 40 mg IV daily. 6. DVT prophylaxis. Heparin subcu. 7. Regular marijuana use. Discharge plan: home most likely on Monday Impression and plan of care have been directed as dictated by the signing physician. Teri Walter nurse practitioner acting as scribe for signing physician.
[2020-04-11] MEDS: HYDROmorphone 1 MG/ML 1 ML SYRINGE IVP PRN ×2 (03:39→06:20)
[2020-04-11] MEDS: SODIUM CHLORIDE 0.9% 1,000 ML IV SCH (03:43)
[2020-04-11] MEDS: metroNIDAZOLE-NS PMX 500 MG in SALINE 1 100ML.BAG IVPB SCH (05:26)
[2020-04-11 06:33] LABS: Basophils % (A) 0 %; Eosinophils # (A) 0.1 k/uL (0-0.7); Eosinophils % (A) 1 %; HCT 31.9 % (39.0-53.0); HGB 9.7 gm/dL (13.0-17.5); Hypochromasia Marked; Lymphocytes # (A) 0.7 k/uL (1.0-4.8); Lymphocytes % (A) 7 %; MCH 21.9 pg (25.0-35.0); MCHC 30.4 g/dL (31.0-37.0); Mean Platelet Volume 8.3; Microcytosis Slight; Monocytes # (A) 0.3 k/uL (0-1.0); Monocytes % (A) 3 %; Neutrophils # (A) 9.4 k/uL (1.3-7.7); Neutrophils % (A) 90 %; Platelet Count 427 k/uL (150-450); RBC 4.42 m/uL (4.30-5.90); RDW 13.9 % (11.5-15.5); WBC 10.5 k/uL (3.8-10.6)
[2020-04-11 07:41] VITALS: BP 126/75; PULSE 61; RESP 17; TEMP 98.1
[2020-04-11] MEDS: methylPREDNISolone SOD SUCCI 40 MG/ML 1 ML VIAL IV SCH (08:00)
[2020-04-11] MEDS: PANTOPRAZOLE 40 MG/10 ML VIAL IV SCH (09:00)
[2020-04-11] MEDS ORDERED: SODIUM CHLORIDE 0.9% 1,000 ML IV SCH (09:15)
[2020-04-11] MEDS ORDERED: HYDROmorphone 1 MG/ML 1 ML SYRINGE IVP PRN (09:24)
[2020-04-11] MEDS ORDERED: methylPREDNISolone SOD SUCCI 40 MG/ML 1 ML VIAL IV SCH (09:30)
[2020-04-11] MEDS: HEPARIN SODIUM,PORCINE 5,000 UNIT/ML 1 ML VIAL SQ SCH (09:35)
[2020-04-11] MEDS: LEVOFLOXACIN 500MG-D5W PMX 500 MG in DEXTROSE/WATER 1 100ML.BAG IVPB SCH (09:36)
[2020-04-11] MEDS: sulfaSALAzine 500 MG TAB PO SCH (09:36)
[2020-04-11] MEDS: NICOTINE 21MG/24HR PATCH TRANSDERM SCH (09:37)
--- NOTE | 2020-04-11 09:37 | P.PN ---
Subjective Progress Note Date: 04/11/20 This is a 39-year-old male patient with past medical history of ulcerative colitis, tobacco use and dependence, marijuana use. Patient does not have a PCP and has not followed with a GI physician in many years. He states he was diagnosed with ulcerative colitis when he was 15 years of age and he is not on any treatment at that time. He states that he is normally able to manage the ulcerative colitis and control symptoms with diet at home but unfortunately he was recently incarcerated. While he was incarcerated, patient was on sulfasalazine 1000 mg twice daily for 5 [facility] on [facility] 28 and he felt good at that time. For the past 2-3 weeks he has had increasing stool with small amount of blood in it, joint soreness. He states he had an episode with significant left-sided lateral abdominal pain about one and half weeks ago that was so severe he couldn't stand up. He thought it was related to ulcerative colitis but this particular pain had resolved. He is now having pain in the left upper quadrant. Patient initially presented to [facility] and CAT scan was concerning for wall thickening on the right colon could relate colitis and appears new. Fluid levels and rectum consistent with diarrhea. Patchy atelectasis along the base. There is heterogeneity of the spleen was small simple cortical cyst 3 cm. This could relate to trauma and is new. Acute splenic laceration is possible and measures 2 cm in depth. Lab work at [facility] revealed WBC 15.4, hemoglobin 10.4, platelet count 452. Sodium 127, potassium 3.7, chloride 95, CO2 24, BUN 11 creatinine 1. Blood sugar 111. AST 23, ALT 28, alkaline phosphatase 73. Albumin 2.7. Lipase 42. Urinalysis negative for infection. Urine drug screen positive for marijuana. CRP 21.8. Sed rate 81. Stool for occult blood positive. Patient was then transferred to [facility] and [facility] Patient states that since last evening he has had 3 stools, minimal blood. He complains of pain in the left upper quadrant with deep breathing. He is hungry and would like to have diet advanced. Patient will be started on clear liquid diet. He states his last colonoscopy was in 2016 or 2017 at [facility]. Consult in place with GI and general surgery. Patient was seen by Dr. Echevarria and CAT scan was reviewed by him and radiologist and no concern for splenic laceration was conclusion. Questionable cyst on the spleen could be worked up as an outpatient. 04/10: The patient has had a couple bowel movements that are loose but starting to form, no blood. He is tolerating a full liquid diet. GI his started him on sulfasalazine 1000 mg twice daily and Solu-Medrol 20 mg IV every 8 hours. Liliana ent complains of not sleeping well. Patient has been afebrile, heart rate 67, blood pressure 115/71, pulse ox 98% on room air. Repeat CBC reveals WBC of 15.4, hemoglobin 9, platelet count 389. C-reactive protein is 5.6. C. difficile toxin was negative. 04/11: Patient sitting up in bed in no apparent distress, he denies any chest pain or shortness breath is abdominal tenderness, he denies any nausea or vomiting his diarrhea is better, we will discontinue Dilaudid and start the patient on [place] 7.5/325 one tablet every 12 hours as needed, we will discontinue centimeters start the patient on prednisone 40 mg orally once every day, discontinue IV Protonix and we will plan to discharge the patient later on today. Patient is follow-up with me as an outpatient in the next week Objective - Vital Signs Vital signs: Vital Signs Temp 98.1 F 04/11/20 07:00 Pulse 61 04/11/20 07:00 Resp 17 04/11/20 07:00 BP 126/75 04/11/20 07:00 Pulse Ox 100 04/11/20 07:00 Intake & Output 04/10/20 04/11/20 04/11/20 18:59 06:59 18:59 Intake Total 1480 1370 Output Total 0 Balance 1480 1370 Intake: Intake, IV Titration 1240 1370 Amount Levofloxacin 500Mg-D5w 100 Pmx 500 mg In Dextrose/ Water 1 100ml.bag @ 100 mls/hr IVPB Q24HR ARETHA Rx# :[id number] Sodium Chloride 0.9% 1, 1040 1170 000 ml @ 130 mls/hr IV . Q7H42M ARETHA Rx#:[id number] metroNIDAZOLE-NS PMX 500 100 200 mg In Saline 1 100ml.bag @ 100 mls/hr IVPB Q8H ARETHA Rx#:[id number] Oral 240 Output: Stool 0 Other: Voiding Method Toilet Toilet # Voids 1 5 # Bowel Movements 2 3 - Exam - Exam Review of Systems Constitutional: Reports fatigue, Reports poor appetite, Reports weight loss, Denies chills, Denies fever, Denies weakness Eyes: denies blurred vision, denies pain Ears, nose, mouth and throat: Denies headache, Denies nasal congestion, Denies nasal discharge, Denies sore throat, Denies vertigo Cardiovascular: Denies chest pain, Denies decreased exercise tolerance, Denies dyspnea on exertion, Denies leg edema, Denies lightheadedness, Denies shortness of breath, Denies syncope Respiratory: Denies cough, Denies cough with sputum, Denies dyspnea, Denies excessive sputum, Denies hemoptysis, Denies home oxygen, Denies respiratory infections, Denies sleep apnea, Denies wheezing Gastrointestinal: Reports abdominal pain, Reports diarrhea, Reports loss of appetite, Reports melena, Denies nausea, Denies vomiting Genitourinary: Denies dysuria, Denies urinary retention Musculoskeletal: Reports redness of joints (joint discomfort), Denies frequent falls, Denies gait dysfunction, Denies leg numbness/tingling, Denies myalgias Integumentary: Denies pruritus, Denies rash, Denies wounds Neurological: Denies change in mentation, Denies change in speech, Denies gait dysfunction, Denies numbness, Denies vertigo, Denies weakness Psychiatric: Denies anxiety, Denies depression Endocrine: Denies fatigue, Denies weight change Physical examination Gen: This is a 39-year-old male. He is resting in bed and appears comfortable and in no acute distress. HEENT: Head is atraumatic, normocephalic. Pupils equal, round. Sclerae is anicteric. Oral mucous membranes are slightly dry. NECK: Supple. No JVD. No lymphadenopathy. No thyromegaly. LUNGS: Clear to auscultation. No wheezes or rhonchi. No intercostal retractions. HEART: Regular rate and rhythm. No murmur. ABDOMEN: Soft. Bowel sounds are present. No masses. mild left upper quadrant tenderness. EXTREMITIES: No pedal edema. No calf tenderness. Dorsalis pedis +2 bilaterally. Enlarged MPJ bilaterally NEUROLOGICAL: Patient is awake, alert and oriented x3. Cranial nerves 2 through 12 are grossly intact. - Labs CBC & Chem 7: 04/11/20 05:13 Labs: Abnormal Lab Results - Last 24 Hours (Table) 04/10/20 04/11/20 Range/Units 05:15 05:13 Hgb 9.7 L (13.0-17.5) gm/dL Hct 31.9 L (39.0-53.0) % MCV 72.0 L (80.0-100.0) fL MCH 21.9 L (25.0-35.0) pg MCHC 30.4 L (31.0-37.0) g/dL Neutrophils # 9.4 H (1.3-7.7) k/uL Lymphocytes # 0.7 L (1.0-4.8) k/uL C-Reactive Protein 5.6 H (0.0-0.8) mg/dL Assessment and Plan Assessment: Assessment and Plan Plan: 1. Acute exacerbation of ulcerative colitis. Consult with GI appreciated. We will change patient to Levaquin 500 mg orally once every day as well as Flagyl 500 mg orally 3 times every day, continue Bentyl 10 mg orally twice every day as needed, continue sulfasalazine 1000 mg orally twice every day, switch the patient to oral prednisone 40 mg orally once every day and taper over the next few weeks. Discontinue Dilaudid and start the patient on Lorida 7.5/25 one tablet orally twice every day, hopefully patient will be discharged home later on today.. 2. Splenic laceration ruled out by radiology and general surgery. After discussing the matter with general surgery there is no evidence of any splenic laceration. 3. Possible cysts on the spleen. Workup as outpatient. 4. Tobacco use and dependence. Nicotine patch. 5. GI prophylaxis. Protonix 40 mg orally once every day.. 6. DVT prophylaxis. Heparin subcu. 7. Regular marijuana use. Discharge plan: home today.
--- NOTE | 2020-04-11 09:38 | P.DS ---
Providers Date of admission: 04/09/20 06:27 Expected date of discharge: 04/11/20 Attending physician: Adalid Plata Consults: 04/09/20 06:27 Consult Physician Stat Consulting Provider: Cate Foster Consult Reason/Comments: UC, Abnormal spleen on CT Do you want consulting provider notified?: Yes 04/09/20 09:14 Consult Physician Stat Consulting Provider: Shawn Sheth Consult Reason/Comments: ulcerative colitis exacerbation Do you want consulting provider notified?: Yes Primary care physician: Stated None Hospital Course: This is a 39-year-old male patient with past medical history of ulcerative colitis, tobacco use and dependence, marijuana use. Patient does not have a PCP and has not followed with a GI physician in many years. He states he was diagnosed with ulcerative colitis when he was 15 years of age and he is not on any treatment at that time. He states that he is normally able to manage the ulcerative colitis and control symptoms with diet at home but unfortunately he was recently incarcerated. While he was incarcerated, patient was on sulfasalazine 1000 mg twice daily for 5 weeks [facility] on February 28 and he felt good at that time. For the past 2-3 weeks he has had increasing stool with small amount of blood in it, joint soreness. He states he had an episode with significant left-sided lateral abdominal pain about one and half weeks ago that was so severe he couldn't stand up. He thought it was related to ulcerative colitis but this particular pain had resolved. He is now having pain in the left upper quadrant. Patient initially presented to [facility] and CAT scan was concerning for wall thickening on the right colon could relate colitis and appears new. Fluid levels and rectum consistent with diarrhea. Patchy atelectasis along the base. There is heterogeneity of the spleen was small simple cortical cyst 3 cm. This could relate to trauma and is new. Acute splenic laceration is possible and measures 2 cm in depth. Lab work at [facility] revealed WBC 15.4, hemoglobin 10.4, platelet count 452. Sodium 127, potassium 3.7, chloride 95, CO2 24, BUN 11 creatinine 1. Blood sugar 111. AST 23, ALT 28, alkaline phosphatase 73. Albumin 2.7. Lipase 42. Urinalysis negative for infection. Urine drug screen positive for marijuana. CRP 21.8. Sed rate 81. Stool for occult blood positive. Patient was then transferred to [facility] Patient states that since last evening he has had 3 stools, minimal blood. He complains of pain in the left upper quadrant with deep breathing. He is hungry and would like to have diet advanced. Patient will be started on clear liquid diet. He states h is last colonoscopy was in 2015 or 2016 at [facility]. Consult in place with GI and general surgery. Patient was seen by Dr. Echevarria and CAT scan was reviewed by him and radiologist and no concern for splenic laceration was conclusion. Questionable cyst on the spleen could be worked up as an outpatient. 04/10: The patient has had a couple bowel movements that are loose but starting to form, no blood. He is tolerating a full liquid diet. GI his started him on sulfasalazine 1000 mg twice daily and Solu-Medrol 20 mg IV every 8 hours. Patient complains of not sleeping well. Patient has been afebrile, heart rate 67, blood pressure 115/71, pulse ox 98% on room air. Repeat CBC reveals WBC of 15.4, hemoglobin 9, platelet count 389. C-reactive protein is 5.6. C. difficile toxin was negative. 04/11: Patient sitting up in bed in no apparent distress, he denies any chest pain or shortness breath is abdominal tenderness, he denies any nausea or vomiting his diarrhea is better, we will discontinue Dilaudid and start the patient on [place] 7.5/325 one tablet every 12 hours as needed, we will discontinue centimeters start the patient on prednisone 40 mg orally once every day, discontinue IV Protonix and we will plan to discharge the patient later on today. Patient is follow-up with me as an outpatient in the next week Discharge diagnoses: 1. Acute exacerbation of ulcerative colitis. 2. Splenic laceration ruled out by radiology and general surgery. 3. Possible cysts on the spleen. 4. Tobacco use and dependence. Patient Condition at Discharge: Stable Plan - Discharge Summary Discharge Rx Participant: Yes New Discharge Prescriptions: No Action Ibuprofen [Motrin Ib] 600 mg PO Q8H PRN PRN Reason: Pain Or Fever > 100.5 Discharge Medication List Ibuprofen [Motrin Ib] 600 mg PO Q8H PRN 04/09/20 [History] Follow up Appointment(s)/Referral(s): Adalid Plata MD [STAFF PHYSICIAN] - 1 Week Shawn Sheth MD [STAFF PHYSICIAN] - 1 Week Discharge Disposition: HOME SELF-CARE
[2020-04-11] MEDS ORDERED: LEVOFLOXACIN 500 MG TAB PO STA (09:39)
[2020-04-11 12:59] LABS: Erythrocyte Sedimentation Rate 59 mm/Hr (0-15)
[2020-04-11] MEDS ORDERED: metroNIDAZOLE 500 MG TAB PO SCH (16:00)
[2020-04-12] MEDS ORDERED: PANTOPRAZOLE 40 MG TABLET PO SCH (07:30)
[2020-04-12] MEDS ORDERED: predniSONE 20 MG TAB PO SCH (09:00)
== END 2020-04-11 16:24 | disposition home or self-care (01) | DRG 386 ==
LOC: EC 05:43 → 4SSUR 06:27
PROVIDERS: ADMIT Internal Medicine; ATTEND Internal Medicine
DX: K51.90 Ulcerative colitis, unspecified, without complications (principal); J98.11 Atelectasis; D73.4 Cyst of spleen; F17.200 Nicotine dependence, unspecified, uncomplicated; Z71.3 Dietary counseling and surveillance; Z82.49 Family history of ischemic heart disease and other diseases of the circulatory system; Z82.0 Family history of epilepsy and other diseases of the nervous system
CPT/HCPCS: 36415; 85025; 85027; 85652; 86140; 87324; 96374; 99285

== ENCOUNTER 2020-05-12 01:44 | Inpatient (IN) | payer OTHER ==
[2020-05-12] MEDS ORDERED: SODIUM CHLORIDE 0.9% 1,000 ML IV STA ×2 (02:44)
--- NOTE | 2020-05-12 03:55 | ED ---
Abdominal Pain HPI - General Chief Complaint: Abdominal Pain Stated Complaint: abd pain Time Seen by Provider: 05/12/20 02:18 Source: patient Mode of arrival: ambulatory Limitations: no limitations - History of Present Illness Initial Comments: Al is a 39-year-old male with a history of ulcerative colitis which she reports was diagnosed 15 years old. Patient has previously been on medications but nothing recently. He was admitted in April for diarrhea advised that he had colitis and was discharged home on oral antibiotics. Patient reports that since that time he's developed worsening diarrhea, has multiple episodes of diarrhea daily. He's also had worsening abdominal pain over the past week and today the pain became unbearable. Patient also notes a significant weight loss since his admission last month he has lost 13 kg Patient has also developed sores in his mouth which limited his ability to eat or drink. Patient states that he just feels like he is getting sicker and sicker needs some help. 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 He has been tested for HIV in the past and was negative. - Related Data Previous Rx's Medication Instructions Recorded Dicyclomine [Bentyl] 10 mg PO TID PRN #90 cap 04/11/20 HYDROcodone/APAP 7.5-325MG [[place] 1 tab PO Q6H PRN 3 Days #12 tab 04/11/20 7.5-325] Levofloxacin [Levaquin] 500 mg PO ONCE #10 tab 04/11/20 Nicotine 21Mg/24Hr Patch [Habitrol] 1 patch TRANSDERM DAILY #30 patch 04/11/20 Pantoprazole [Protonix] 40 mg PO AC-BRKFST #30 tablet.dr 04/11/20 metroNIDAZOLE [Flagyl] 500 mg PO TID #30 tab 04/11/20 predniSONE [Deltasone] 40 mg PO DAILY #16 tab 04/11/20 sulfaSALAzine [Azulfidine] 1,000 mg PO BID #60 tab 04/11/20 Allergies Allergy/AdvReac Type Severity Reaction Status Date / Time No Known Allergies Allergy Verified 05/12/20 02:03 Review of Systems ROS Statement: Those systems with pertinent positive or pertinent negative responses have been documented in the HPI. ROS Other: All systems not noted in ROS Statement are negative. Past Medical History Additional Past Medical History / Comment(s): ulcerative colitis, spleen problems, Hep C History of Any Multi-Drug Resistant Organisms: None Reported Past Surgical History: No Surgical Hx Reported Past Psychological History: No Psychological Hx Reported Smoking Status: Current every day smoker Past Alcohol Use History: None Reported Past Drug Use History: Marijuana - Past Family History Father Family Medical History: Seizure Disorder Additional Family Medical History / Comment(s): Father is alive at age 64 with history of seizures and hypertension. Mother Additional Family Medical History / Comment(s): Mother in her late 50s with complications from CABG. Brother(s) Additional Family Medical History / Comment(s): Patient has 2 brothers with no major medical problems. He does not have any sisters. He does not have any children. No family members have ulcerative colitis. General Exam - General Exam Comments Initial Comments: Physical Exam GENERAL: Chronically ill appearing HENT: Normocephalic, Atraumatic. Temporal wasting White plaque on tongue - discolored from recent blue/gree drink Ulcers on buccal mucosa and tongue EYES: PERRL, EOMI PULMONARY: Unlabored respirations. No audible rales rhonchi or wheezing was noted. CARDIOVASCULAR: tachycardic, regular ABDOMEN: Scaphoid Diffuse mild tenderness SKIN: Sallow, skin tenting : Deferred NEUROLOGIC: Patient is alert and oriented x3. Moving all extremities spontaneously MUSCULOSKELETAL: Normal extremities with adequate strength and full range of motion. No lower extremity swelling or edema. No calf tenderness. PSYCHIATRIC: Normal psychiatric evaluation. Limitations: no limitations Course Vital Signs 05/12/20 05/12/20 01:57 06:00 Temperature 98.2 F Pulse Rate 117 H 70 Respiratory 20 18 Rate Blood Pressure 131/88 140/50 O2 Sat by Pulse 100 96 Oximetry Medical Decision Making - Medical Decision Making Chronically ill appearing male Labs and imaging ordered labs with multiple significant abnormalities most noted for leukocytosis Computed tomography scan was obtained and again confirms colitis now suggestive of a possible mass in the spleen as opposed to previous concern for traumatic injury patient care was discussed with his primary care physician Dr. Plata who admitted the patient last month, states that the patient hasn't followed up, stress to him my concern over the patient's weight loss and very gaunt appearance, he will accept the readmission, recommends Flagyl and Zosyn for antibiotics, steroids for ulcerative colitis flare and a consult to GI. admission orders were placed - Lab Data Result diagrams: 05/12/20 04:05 05/12/20 04:05 Lab Results 05/12/20 05/12/20 05/12/20 Range/Units 04:05 04:05 04:05 WBC 17.9 H (3.8-10.6) k/uL RBC 4.83 (4.30-5.90) m/uL Hgb 9.4 L (13.0-17.5) gm/dL Hct 32.0 L (39.0-53.0) % MCV 66.2 L D (80.0-100.0) fL MCH 19.4 L (25.0-35.0) pg MCHC 29.2 L (31.0-37.0) g/dL RDW 16.0 H (11.5-15.5) % Plt Count 635 H (150-450) k/uL Neutrophils % Not Reportable Neutrophils % (Manual) 83 % Lymphocytes % Not Reportable Lymphocytes % (Manual) 12 % Monocytes % Not Reportable Monocytes % (Manual) 5 % Eosinophils % Not Reportable Basophils % Not Reportable Neutrophils # Not Reportable Neutrophils # (Manual) 14.86 H (1.3-7.7) k/uL Lymphocytes # Not Reportable Lymphocytes # (Manual) 2.15 (1.0-4.8) k/uL Monocytes # Not Reportable Monocytes # (Manual) 0.90 (0-1.0) k/uL Eosinophils # Not Reportable Basophils # Not Reportable Nucleated RBCs 0 (0-0) /100 WBC Manual Slide Review Performed Hypochromasia Marked Poikilocytosis Slight Microcytosis Marked Sodium 130 L (137-145) mmol/L Potassium 3.5 (3.5-5.1) mmol/L Chloride 98 (98-107) mmol/L Carbon Dioxide 23 (22-30) mmol/L Anion Gap 9 mmol/L BUN 10 (9-20) mg/dL Creatinine 0.79 (0.66-1.25) mg/dL Est GFR (CKD-EPI)AfAm >90 (>60 ml/min/1.73 sqM) Est GFR (CKD-EPI)NonAf >90 (>60 ml/min/1.73 sqM) Glucose 126 H (74-99) mg/dL Plasma Lactic Acid Terence (0.7-2.0) mmol/L Calcium 9.2 (8.4-10.2) mg/dL Total Bilirubin 0.4 (0.2-1.3) mg/dL AST 42 (17-59) U/L ALT 32 (4-49) U/L Alkaline Phosphatase 99 (38-126) U/L Total Protein 7.7 (6.3-8.2) g/dL Albumin 3.3 L (3.5-5.0) g/dL Amylase 34 (30-110) U/L Lipase 16 L (23-300) U/L Urine Color Yellow Urine Appearance Cloudy (Clear) Urine pH 6.0 (5.0-8.0) Ur Specific [place] 1.023 (1.001-1.035) Urine Protein 2+ H (Negative) Urine Glucose (UA) Trace H (Negative) Urine Ketones Negative (Negative) Urine Blood Negative (Negative) Urine Nitrite Negative (Negative) Urine Bilirubin Negative (Negative) Urine Urobilinogen <2.0 (<2.0) mg/dL Ur Leukocyte Esterase Negative (Negative) Urine RBC 2 (0-5) /hpf Urine WBC 15 H (0-5) /hpf Ur Squamous Epith Cells 1 (0-4) /hpf Hyaline Casts 72 H (0-2) /lpf Urine Mucus Many H (None) /hpf 05/12/20 Range/Units 04:05 WBC (3.8-10.6) k/uL RBC (4.30-5.90) m/uL Hgb (13.0-17.5) gm/dL Hct (39.0-53.0) % MCV (80.0-100.0) fL MCH (25.0-35.0) pg MCHC (31.0-37.0) g/dL RDW (11.5-15.5) % Plt Count (150-450) k/uL Neutrophils % Neutrophils % (Manual) % Lymphocytes % Lymphocytes % (Manual) % Monocytes % Monocytes % (Manual) % Eosinophils % Basophils % Neutrophils # Neutrophils # (Manual) (1.3-7.7) k/uL Lymphocytes # Lymphocytes # (Manual) (1.0-4.8) k/uL Monocytes # Monocytes # (Manual) (0-1.0) k/uL Eosinophils # Basophils # Nucleated RBCs (0-0) /100 WBC Manual Slide Review Hypochromasia Poikilocytosis Microcytosis Sodium (137-145) mmol/L Potassium (3.5-5.1) mmol/L Chloride (98-107) mmol/L Carbon Dioxide (22-30) mmol/L Anion Gap mmol/L BUN (9-20) mg/dL Creatinine (0.66-1.25) mg/dL Est GFR (CKD-EPI)AfAm (>60 ml/min/1.73 sqM) Est GFR (CKD-EPI)NonAf (>60 ml/min/1.73 sqM) Glucose (74-99) mg/dL Plasma Lactic Acid Terence 1.5 (0.7-2.0) mmol/L Calcium (8.4-10.2) mg/dL Total Bilirubin (0.2-1.3) mg/dL AST (17-59) U/L ALT (4-49) U/L Alkaline Phosphatase (38-126) U/L Total Protein (6.3-8.2) g/dL Albumin (3.5-5.0) g/dL Amylase (30-110) U/L Lipase (23-300) U/L Urine Color Urine Appearance (Clear) Urine pH (5.0-8.0) Ur Specific [place] (1.001-1.035) Urine Protein (Negative) Urine Glucose (UA) (Negative) Urine Ketones (Negative) Urine Blood (Negative) Urine Nitrite (Negative) Urine Bilirubin (Negative) Urine Urobilinogen (<2.0) mg/dL Ur Leukocyte Esterase (Negative) Urine RBC (0-5) /hpf Urine WBC (0-5) /hpf Ur Squamous Epith Cells (0-4) /hpf Hyaline Casts (0-2) /lpf Urine Mucus (None) /hpf Disposition Clinical Impression: Ulcerative colitis, Spleen anomaly, Diarrhea, Weight loss, unintentional Disposition: ADMITTED IP TO THIS [facility] Condition: Serious Is patient prescribed a controlled substance at d/c from ED?: No Referrals: Adalid Plata MD [Primary Care Provider] - 1-2 days
[2020-05-12 04:41] LABS: HGB 9.4 gm/dL (13.0-17.5); Hypochromasia Marked; MCH 19.4 pg (25.0-35.0); MCHC 29.2 g/dL (31.0-37.0); Mean Platelet Volume 6.1; Microcytosis Marked; Platelet Count 635 k/uL (150-450); Poikilocytosis Slight; RBC 4.83 m/uL (4.30-5.90); WBC 17.9 k/uL (3.8-10.6)
[2020-05-12 04:42] LABS: Appearance,Urine Cloudy (Clear); Bilirubin,Urine Negative (Negative); Blood,Urine Negative (Negative); Color,Urine Yellow; Glucose,Urine (UA) Trace (Negative); Hyaline Casts,Urine 72 /lpf (0-2); Ketones,Urine Negative (Negative); Leukocyte Esterase,Urine Negative (Negative); MCV 66.2 fL (80.0-100.0); Mucus,Urine Many /hpf; Nitrite,Urine Negative (Negative); Protein,Urine 2+ (Negative); RBC,Urine 2 /hpf (0-5); Specific Gravity,Urine 1.023 (1.001-1.035); Squamous Epithelial Cell,Urine 1 /hpf (0-4); Urobilinogen,Urine <2.0 mg/dL (<2.0); WBC,Urine 15 /hpf (0-5)
[2020-05-12 04:45] LABS: ALT 32 U/L (4-49); AST 42 U/L (17-59); African American GFR (CKD) >90 (>60 ml/min/1.73 sqM); Albumin 3.3 g/dL (3.5-5.0); Alkaline Phosphatase 99 U/L (38-126); Amylase 34 U/L (30-110); Anion Gap 9 mmol/L; Blood Urea Nitrogen 10 mg/dL (9-20); Calcium 9.2 mg/dL (8.4-10.2); Carbon Dioxide 23 mmol/L (22-30); Chloride 98 mmol/L (98-107); Glucose 126 mg/dL (74-99); Lipase 16 U/L (23-300); Non-African American GFR(CKD) >90 (>60 ml/min/1.73 sqM); Potassium 3.5 mmol/L (3.5-5.1); Sodium 130 mmol/L (137-145); Total Bilirubin 0.4 mg/dL (0.2-1.3); Total Protein 7.7 g/dL (6.3-8.2)
[2020-05-12 04:58] LABS: Lymphocytes # (M) 2.15 k/uL (1.0-4.8); Neutrophils # (M) 14.86 k/uL (1.3-7.7); Neutrophils % (M) 83 %; Nucleated Red Blood Cells 0 /100 WBC (0-0); Total Cells Counted 100
--- NOTE | 2020-05-12 05:09 | XR ---
EXAM: XR Abdomen, 1 View CLINICAL HISTORY: Abdominal pain TECHNIQUE: Frontal supine view of the abdomen/pelvis. COMPARISON: No relevant prior studies available. FINDINGS: Gastrointestinal tract: Unremarkable. No dilation. Organs: The spleen appears enlarged. Bones/joints: Unremarkable. IMPRESSION: No acute findings. Splenomegaly.
--- NOTE | 2020-05-12 06:03 | CT ---
EXAM: CT Abdomen and Pelvis With Intravenous Contrast CLINICAL HISTORY: Abdominal pain. TECHNIQUE: Axial computed tomography images of the abdomen and pelvis with intravenous contrast. CTDI is 16.47 mGy and DLP is 767.4 mGy-cm. This CT exam was performed using one or more of the following dose reduction techniques: automated exposure control, adjustment of the mA and/or kV according to patient size, and/or use of iterative reconstruction technique. COMPARISON: Previous study April 08, 2020 FINDINGS: Lung bases: Unremarkable. No mass. No consolidation. ABDOMEN: Liver: Hepatic steatosis. Gallbladder and bile ducts: Unremarkable. No calcified stones. No ductal dilation. Pancreas: Unremarkable. No mass. No ductal dilation. Spleen: There is been interval increase in splenic size. There is also significant enlargement of numerous low-density lesions within the spleen concerning for metastases. Adrenals: Unremarkable. No mass. Kidneys and ureters: Unremarkable. No solid mass. No hydronephrosis. Stomach and bowel: Wall thickening of the right colon with mild infiltrates or changes in the surrounding fat consistent with nonspecific colitis. There is also more equivocal wall thickening in the left:. Chest No obstruction. PELVIS: Appendix: No findings to suggest acute appendicitis. Bladder: Unremarkable. No mass. Reproductive: Unremarkable as visualized. ABDOMEN and PELVIS: Intraperitoneal space: Unremarkable. No free air. No significant fluid collection. Bones/joints: No acute fracture. No dislocation. Soft tissues: Unremarkable. Vasculature: Unremarkable. No abdominal aortic aneurysm. Lymph nodes: Unremarkable. No enlarged lymph nodes. IMPRESSION: Findings suggestive of right colon colitis. Enlarging spleen with enlarging irregular low-density lesions. Recommend further evaluation with PET, abdominal MRI or biopsy.
[2020-05-12] MEDS ORDERED: NALOXONE 0.4 MG/ML 1 ML VIAL IV PRN (07:15)
[2020-05-12] MEDS ORDERED: ONDANSETRON 4 MG/2 ML VIAL IVP PRN (07:15)
[2020-05-12] MEDS ORDERED: metroNIDAZOLE-NS PMX 500 MG in SALINE 1 100ML.BAG IVPB STA (07:19)
[2020-05-12] MEDS: methylPREDNISolone SOD SUCCI 40 MG/ML 1 ML VIAL IV SCH ×3 (09:50→23:45)
[2020-05-12] MEDS: PANTOPRAZOLE 40 MG/10 ML VIAL IV SCH (09:50)
[2020-05-12] MEDS: SODIUM CHLORIDE 0.9% 1,000 ML IV SCH ×3 (09:52→22:35)
[2020-05-12] MEDS ORDERED: metroNIDAZOLE-NS PMX 500 MG in SALINE 1 100ML.BAG IVPB ONE (10:00)
[2020-05-12] MEDS: HYDROmorphone 0.5 MG/0.5 ML SYRINGE IVP PRN ×3 (10:14→21:42)
[2020-05-12] MEDS: PIPERACILLIN-TAZOBACTAM 3.375 GM in SODIUM CHLORIDE 0.9% 100 ML IVPB SCH ×3 (11:29→18:14)
[2020-05-12 12:39] LABS: HIV 2 AB Non-Reactive (Non-Reactive); HIV AB P24 Non-Reactive (Non-Reactive); HIV P24 AG Non-Reactive (Non-Reactive)
[2020-05-12] MEDS: MORPHINE SULFATE 4 MG/ML SYRINGE IV PRN ×3 (14:21→23:40)
--- NOTE | 2020-05-12 15:04 | P.HPIM ---
History of Present Illness H&P Date: 05/12/20 This is a 39-year-old male patient recently established with me during hospitalization last month but did not follow up in the office as instructed. He has past medical history of ulcerative colitis, tobacco use and dependence, marijuana use. He was recently hospitalized for acute ulcerative colitis and that time was seen by GI. He was started on sulfasalazine 1000 mg twice daily at that time, discharged on tapering prednisone and Flagyl/Levaquin. Patient complains of worsening diarrhea with multiple episodes daily as well as worsening abdominal pain over the past week. Pain became unbearable and he came into the hospital. He does complain of weight loss and sores on his mouth that are limiting his ability to eat or drink. He was afebrile, heart rate 117 initially, blood pressure 131/88 and pulse ox 100%. White count was 17.9, hemoglobin 9.4, platelet count 625. Sodium 130, potassium 3.5, creatinine 0.79, blood sugar 126. Liver function tests normal. Lactic acid 1.5. C. difficile toxin negative. HIV negative. CAT scan of the abdomen and pelvis with IV contrast revealed right colon colitis. Enlarging spleen with enlarging irregular low density lesions. Recommend further evaluation with PET scan, abdominal MRI or biopsy. Patient was made nothing by mouth, IV fluids were started as well as Flagyl and Zosyn, IV Solu-Medrol and consult with GI. Review of Systems Constitutional: Reports anorexia, Reports fatigue, Reports malaise, Reports poor appetite, Reports weakness, Reports weight loss Eyes: denies blurred vision, denies pain Ears, nose, mouth and throat: Reports mouth pain, Denies headache, Denies sore throat Cardiovascular: Denies chest pain, Denies edema, Denies syncope Respiratory: Denies cough, Denies cough with sputum, Denies dyspnea, Denies hemoptysis Gastrointestinal: Reports abdominal pain, Reports diarrhea, Reports loss of appetite, Reports nausea, Denies vomiting Genitourinary: Denies dysuria, Denies urinary frequency, Denies urinary retention Musculoskeletal: Denies frequent falls, Denies gait dysfunction, Denies muscle w eakness, Denies myalgias Integumentary: Denies pruritus, Denies rash, Denies wounds Neurological: Denies change in mentation, Denies change in speech, Denies numbness, Denies weakness Psychiatric: Denies anxiety, Denies depression Past Medical History Additional Past Medical History / Comment(s): ulcerative colitis, spleen problems, Hep C History of Any Multi-Drug Resistant Organisms: None Reported Past Surgical History: No Surgical Hx Reported Past Psychological History: No Psychological Hx Reported Smoking Status: Current every day smoker Past Alcohol Use History: None Reported Additional Past Alcohol Use History / Comment(s): Patient is a smoker of less than one pack per day since he was 15 years of age. He has history of drinking 4-5 times per week, liquor but since 2007 he only drinks about 2 times per year. He uses marijuana on a regular basis including edibles. The patient is single and lives alone. Past Drug Use History: Marijuana - Past Family History Father Family Medical History: Seizure Disorder Additional Family Medical History / Comment(s): Father is alive at age 64 with history of seizures and hypertension. Mother Additional Family Medical History / Comment(s): Mother in her late 50s with complications from CABG. Brother(s) Additional Family Medical History / Comment(s): Patient has 2 brothers with no major medical problems. He does not have any sisters. He does not have any children. No family members have ulcerative colitis. Medications and Allergies Home Medications Medication Instructions Recorded Confirmed Type No Known Home Medications 05/12/20 05/12/20 History Allergies Allergy/AdvReac Type Severity Reaction Status Date / Time No Known Allergies Allergy Verified 05/12/20 07:46 Physical Exam Vitals: Vital Signs Temp Pulse Resp BP Pulse Ox 05/12/20 06:00 70 18 140/50 96 05/12/20 01:57 98.2 F 117 H 20 131/88 100 Intake and Output 05/11/20 05/12/20 05/12/20 22:59 06:59 14:59 Other: Weight 70.307 kg Gen: This is a 39-year-old male. He is resting in bed and appears comfortable and in no acute distress. HEENT: Head is atraumatic, normocephalic. Pupils equal, round. Sclerae is anicteric. Oral mucous membranes are slightly dry. NECK: Supple. No JVD. No lymphadenopathy. No thyromegaly. LUNGS: Clear to auscultation. No wheezes or rhonchi. No intercostal retractions. HEART: Regular rate and rhythm. No murmur. ABDOMEN: Soft. Bowel sounds are present. No masses. Left upper quadrant tende rness. EXTREMITIES: No pedal edema. No calf tenderness. Dorsalis pedis +2 bilaterally. Enlarged MPJ bilaterally NEUROLOGICAL: Patient is awake, alert and oriented x3. Cranial nerves 2 through 12 are grossly intact. Results CBC & Chem 7: 05/12/20 04:05 05/12/20 04:05 Labs: Abnormal Lab Results - Last 24 Hours (Table) 05/12/20 05/12/20 05/12/20 Range/Units 04:05 04:05 04:05 WBC 17.9 H (3.8-10.6) k/uL Hgb 9.4 L (13.0-17.5) gm/dL Hct 32.0 L (39.0-53.0) % MCV 66.2 L D (80.0-100.0) fL MCH 19.4 L (25.0-35.0) pg MCHC 29.2 L (31.0-37.0) g/dL RDW 16.0 H (11.5-15.5) % Plt Count 635 H (150-450) k/uL Neutrophils # (Manual) 14.86 H (1.3-7.7) k/uL Sodium 130 L (137-145) mmol/L Glucose 126 H (74-99) mg/dL Albumin 3.3 L (3.5-5.0) g/dL Lipase 16 L (23-300) U/L Urine Protein 2+ H (Negative) Urine Glucose (UA) Trace H (Negative) Urine WBC 15 H (0-5) /hpf Hyaline Casts 72 H (0-2) /lpf Urine Mucus Many H (None) /hpf Thrombosis Risk Factor Assmnt - DVT/VTE Prophylaxis DVT/VTE Prophylaxis: Pharmacologic Prophylaxis ordered Assessment and Plan Assessment: Assessment and Plan Plan: 1. Acute exacerbation of ulcerative colitis. Consult with GI. we will start Zosyn 3.375 gr IVPB q 6 hours and Metronidazole 500 mg IVPB q 8 hours, we will start Solu-medrol 40 mg IVP q 8 hours, GI consult, npo for now and pain control, we will check stool for cultures, gram stain, WBCs and O+P. 2. Spleen mass. we will consult to rule out lymphoma. 3. Leukocytosis due to acute colitis, we will continue with IVF and IV antibiotics. 4. Aphthous stomatitis. we will start Oralone paste 0.1% apply bid along with magic mouth wash. 5. GI prophylaxis. Protonix 40 mg IV daily. 6. DVT prophylaxis. Heparin subcu. 7. Regular marijuana use. 8. IVDU in the form of heroin last use was in December, has been clean according to him. 9. Hepatitis C. we will consult GI. 10. Patient will be admitted to the hospital for a minimum of 2 night stay. 11. Discharge plan: home
[2020-05-12] MEDS: TRIAMCINOLONE ACET 0.1% ORAL PASTE 5 GM TUBE MUCOUS MEM SCH (17:38)
[2020-05-12] MEDS: sulfaSALAzine 500 MG TAB PO SCH (21:33)
[2020-05-13] MEDS: PIPERACILLIN-TAZOBACTAM 3.375 GM in SODIUM CHLORIDE 0.9% 100 ML IVPB SCH ×3 (03:41→18:16)
[2020-05-13] MEDS: HYDROmorphone 0.5 MG/0.5 ML SYRINGE IVP PRN ×4 (03:46→14:19)
[2020-05-13] MEDS: SODIUM CHLORIDE 0.9% 1,000 ML IV SCH ×3 (06:14→23:55)
[2020-05-13 07:16] LABS: Anisocytosis Slight; Basophils % (A) 0 %; Eosinophils % (A) 0 %; HCT 31.9 % (39.0-53.0); Hypochromasia Marked; Lymphocytes % (A) 8 %; MCH 19.9 pg (25.0-35.0); MCHC 28.4 g/dL (31.0-37.0); MCV 70.2 fL (80.0-100.0); Mean Platelet Volume 7.6; Microcytosis Moderate; Monocytes # (A) 0.2 k/uL (0-1.0); Monocytes % (A) 2 %; Neutrophils # (A) 11.1 k/uL (1.3-7.7); Neutrophils % (A) 89 %; Platelet Count 530 k/uL (150-450); Poikilocytosis Slight; RBC 4.54 m/uL (4.30-5.90); RDW 16.3 % (11.5-15.5); WBC 12.4 k/uL (3.8-10.6)
[2020-05-13] MEDS: methylPREDNISolone SOD SUCCI 40 MG/ML 1 ML VIAL IV SCH ×3 (08:06→23:55)
[2020-05-13] MEDS: PANTOPRAZOLE 40 MG/10 ML VIAL IV SCH (08:06)
[2020-05-13] MEDS: sulfaSALAzine 500 MG TAB PO SCH ×2 (08:06→21:19)
[2020-05-13] MEDS: MORPHINE SULFATE 4 MG/ML SYRINGE IV PRN ×2 (09:13→17:00)
[2020-05-13] MEDS: TRIAMCINOLONE ACET 0.1% ORAL PASTE 5 GM TUBE MUCOUS MEM SCH ×3 (09:15→18:16)
--- NOTE | 2020-05-13 10:57 | P.CONS ---
History of Present Illness - Reason for Consult Consult date: 05/12/20 Ulcerative colitis Requesting physician: Adalid Plata - Chief Complaint Diarrhea, blood per rectum - History of Present Illness 39-year-old male with a medical history significant for ulcerative colitis, tobacco abuse and marijuana use who presented to the hospital due to concerns of diarrhea and blood per rectum. Patient has known history of ulcerative colitis diagnosed at the age of 15 and treated in the past with steroid therapy and 5ASA agents and, however he was not recently on any treatment. Last colonoscopy in 2017 at [facility] was significant for discontinuous active colitis. The patient presents to the hospital with complaints of abdominal pain and frequent loose bowel movements and blood per rectum. The patient had recently been hospitalized at which time he was found to have elevation in his ESR and CRP as well as computed tomography scan findings of right-sided colitis as well as an enlarged spleen with multiple irregular lesions noted in recommendation for a PET scan. at that time the patient was treated with steroid therapy and restarted on a 5ASA agent. Symptomatically improved and was discharged home. He reports completing the short steroid taper however the patient once again developed symptoms of frequent loose watery bowel movements with associated blood per rectum. He did not follow up in the GI clinic. He reports that he could have up to 6 bowel movements per day with associated urgency. On current presentation he was found to have ESR 66, CRP 4.4, WBC 17.9, hemoglobin 9.6, platelet count 635,000 with total bilirubin 0.4, alkaline phosphatase 99, AST 42 and ALT 32. He denies any nausea or vomiting but complains of dry mouth. Repeat computed tomography scan again consistent with right-sided colitis and abnormalities of the spleen Review of Systems REVIEW OF SYSTEMS: CONSTITUTIONAL: Denies any fevers, chills, no fatigue but does report weight los s. CARDIOVASCULAR: Denies any chest pain, palpitations high or low blood pressures RESPIRATORY: Denies any shortness of breath, hemoptysis or cough. GENITOURINARY: No dysuria or hematuria. MUSCULOSKELETAL: No weakness reported. SKIN: Denies any new rashes or lesions, jaundice or pallor. PSYCHIATRIC: Denies any depression or anxiety. NEUROLOGY: Denies headache, denies any new focal deficits. EARS/NOSE/THROAT: No recent hearing change, congestion, nasal discharge or sore throat. EYES: No pain in eyes, discharge or change in vision. GASTROINTESTINAL: As per HPI. Past Medical History Additional Past Medical History / Comment(s): ulcerative colitis, spleen problems, Hep C History of Any Multi-Drug Resistant Organisms: None Reported Past Surgical History: No Surgical Hx Reported Past Psychological History: No Psychological Hx Reported Smoking Status: Current every day smoker Past Alcohol Use History: None Reported Additional Past Alcohol Use History / Comment(s): Patient is a smoker of less than one pack per day since he was 15 years of age. He has history of drinking 4-5 times per week, liquor but since 2007 he only drinks about 2 times per year. He uses marijuana on a regular basis including edibles. The patient is single and lives alone. Past Drug Use History: Marijuana - Past Family History Father Family Medical History: Seizure Disorder Additional Family Medical History / Comment(s): Father is alive at age 64 with history of seizures and hypertension. Mother Additional Family Medical History / Comment(s): Mother in her late 50s with complications from CABG. Brother(s) Additional Family Medical History / Comment(s): Patient has 2 brothers with no major medical problems. He does not have any sisters. He does not have any children. No family members have ulcerative colitis. Medications and Allergies Home Medications Medication Instructions Recorded Confirmed Type No Known Home Medications 05/12/20 05/12/20 History Allergies Allergy/AdvReac Type Severity Reaction Status Date / Time No Known Allergies Allergy Verified 05/12/20 07:46 Physical Exam Vitals: Vital Signs Temp Pulse Resp BP Pulse Ox 05/12/20 14:23 98.1 F 81 16 113/77 99 05/12/20 07:36 86 16 136/79 99 05/12/20 06:00 70 18 140/50 96 05/12/20 01:57 98.2 F 117 H 20 131/88 100 Intake and Output 05/12/20 05/12/20 05/12/20 06:59 14:59 22:59 Other: Weight 70.307 kg On physical examination, patient appears comfortable in no apparent distress. HEAD: Normocephalic, atraumatic. EYES: No scleral icterus. No conjunctival injection. MOUTH: No lesions, tongue midline. NECK: Trachea midline, no gross abnormalities. CHEST: Clear to auscultation with no wheezing or rhonchi appreciated. HEART: Regular rate and rhythm. ABDOMEN: Soft, thin and mildly tender to palpation. Bowel sounds are positive. No organomegaly. No guarding or rigidity. EXTREMITIES: No pedal edema. SKIN: No rashes, no jaundice. NEUROLOGIC: Alert and oriented x3. No focal deficits. Results CBC & Chem 7: 05/13/20 05:28 05/12/20 04:05 Labs: Abnormal Lab Results - Last 24 Hours (Table) 05/12/20 05/12/20 05/12/20 Range/Units 04:05 04:05 04:05 WBC 17.9 H (3.8-10.6) k/uL Hgb 9.4 L (13.0-17.5) gm/dL Hct 32.0 L (39.0-53.0) % MCV 66.2 L D (80.0-100.0) fL MCH 19.4 L (25.0-35.0) pg MCHC 29.2 L (31.0-37.0) g/dL RDW 16.0 H (11.5-15.5) % Plt Count 635 H (150-450) k/uL Neutrophils # (Manual) 14.86 H (1.3-7.7) k/uL ESR (0-15) mm/hr Sodium 130 L (137-145) mmol/L Glucose 126 H (74-99) mg/dL C-Reactive Protein (0.0-0.8) mg/dL Albumin 3.3 L (3.5-5.0) g/dL Lipase 16 L (23-300) U/L Urine Protein 2+ H (Negative) Urine Glucose (UA) Trace H (Negative) Urine WBC 15 H (0-5) /hpf Hyaline Casts 72 H (0-2) /lpf Urine Mucus Many H (None) /hpf 05/12/20 05/12/20 Range/Units 04:18 04:18 WBC (3.8-10.6) k/uL Hgb (13.0-17.5) gm/dL Hct (39.0-53.0) % MCV (80.0-100.0) fL MCH (25.0-35.0) pg MCHC (31.0-37.0) g/dL RDW (11.5-15.5) % Plt Count (150-450) k/uL Neutrophils # (Manual) (1.3-7.7) k/uL ESR 66 H (0-15) mm/hr Sodium (137-145) mmol/L Glucose (74-99) mg/dL C-Reactive Protein 4.4 H (0.0-0.8) mg/dL Albumin (3.5-5.0) g/dL Lipase (23-300) U/L Urine Protein (Negative) Urine Glucose (UA) (Negative) Urine WBC (0-5) /hpf Hyaline Casts (0-2) /lpf Urine Mucus (None) /hpf Microbiology - Last 24 Hours (Table) 05/12/20 04:05 Urine Culture - Preliminary Urine,Clean Catch CT scan - abdomen: report reviewed (Computed tomography scan with right-sided colitis again noted, as well as abnormalities of the spleen as dictated.) Assessment and Plan (1) Ulcerative colitis Narrative/Plan: 3-year-old male with a known history of ulcerative colitis diagnosed at the age of 15 who had been off of therapy and was recently seen for an exacerbation of his ulcerative colitis. Last colonoscopy was in 2017 at [facility] significant for discontinuous active colitis. He presented back to the hospital after completing his steroid taper in discontinuing 5ASA agents with complaints of blood per rectum and frequent loose bowel movements. ESR 66 and CRP 4.4. Hemoglobin 9.4 stable from prior hospitalization. Symptoms likely related to uncontrolled disease is a patient had completed steroids and stopped taking 5ASA agent, With plan to rule out C. diff infection. Current Visit: Yes Status: Acute Code(s): K51.90 - ULCERATIVE COLITIS, UNSPECIFIED, WITHOUT COMPLICATIONS SNOMED Code(s): 47447529 (2) Diarrhea Current Visit: Yes Status: Acute Code(s): R19.7 - DIARRHEA, UNSPECIFIED SNOMED Code(s): 59979385 (3) Weight loss, unintentional Current Visit: Yes Status: Acute Code(s): R63.4 - ABNORMAL WEIGHT LOSS SNOMED Code(s): 371389564 Plan: Supportive care Clear liquid diet Continue to monitor CBC, ESR and CRP IV steroid therapy initiated Mesalamine restarted Continue to monitor her symptomatically Again stressed the need for follow-up with GI after discharge as patient will need to remain on maintenance medication, and may require escalation of his therapy Thank you for allowing us to participate in the care of the patient
--- NOTE | 2020-05-13 14:07 | P.PN ---
Subjective Progress Note Date: 05/13/20 Principal diagnosis: Diarrhea, blood per rectum, ulcerative colitis She was seen and examined lying in bed. He states his abdominal pain has improved. Diarrhea has improved and is nonbloody. He states he had only 3 loose bowel movements through the night until this morning. He has been afebrile with no acute changes through the night. He is requesting his diabetes increased. Objective - Vital Signs Vital signs: Vital Signs Temp 97.8 F 05/13/20 07:00 Pulse 56 L 05/13/20 07:00 Resp 16 05/13/20 07:00 BP 106/70 05/13/20 07:00 Pulse Ox 99 05/13/20 07:00 Intake & Output 05/12/20 05/13/20 05/13/20 18:59 06:59 18:59 Intake Total 600 Balance 600 Weight 70.307 kg Intake: Oral 600 Other: # Voids 1 - Exam General appearance: The patient is alert, oriented, in no acute distress. Thin. HET: Head is normocephalic and atraumatic. Conjunctiva pink. Sclera anicteric. Neck: Supple without lymphadenopathy. Abdomen: Soft, thin, nontender, nondistended with bowel sounds. No guarding or rigidity. Extremities: Normal skin color and turgor. No pedal edema Neurological: No focal deficits. Alert and oriented 3. - Labs CBC & Chem 7: 05/13/20 05:28 05/12/20 04:05 Labs: Abnormal Lab Results - Last 24 Hours (Table) 05/12/20 05/13/20 05/13/20 Range/Units 04:18 05:28 05:28 WBC 12.4 H (3.8-10.6) k/uL Hgb 9.0 L (13.0-17.5) gm/dL Hct 31.9 L (39.0-53.0) % MCV 70.2 L (80.0-100.0) fL MCH 19.9 L (25.0-35.0) pg MCHC 28.4 L (31.0-37.0) g/dL RDW 16.3 H (11.5-15.5) % Plt Count 530 H (150-450) k/uL Neutrophils # 11.1 H (1.3-7.7) k/uL C-Reactive Protein 4.4 H (0.0-0.8) mg/dL Hep C IgG Ab Reactive A (Non-Reactive) 05/13/20 Range/Units 05:28 WBC (3.8-10.6) k/uL Hgb (13.0-17.5) gm/dL Hct (39.0-53.0) % MCV (80.0-100.0) fL MCH (25.0-35.0) pg MCHC (31.0-37.0) g/dL RDW (11.5-15.5) % Plt Count (150-450) k/uL Neutrophils # (1.3-7.7) k/uL C-Reactive Protein 3.6 H (0.0-0.8) mg/dL Hep C IgG Ab (Non-Reactive) Microbiology - Last 24 Hours (Table) 05/12/20 04:05 Urine Culture - Final Urine,Clean Catch 05/12/20 05:42 Blood Culture - Preliminary Blood No Growth after 24 hours Assessment and Plan (1) Ulcerative colitis Narrative/Plan: 39-year-old male with a known history of ulcerative colitis diagnosed at the age of 15 who had been off of therapy and was recently seen for an exacerbation of his ulcerative colitis. Last colonoscopy was in 2017 at [facility] significant for discontinuous active colitis. He presented back to the hospital after completing his steroid taper in discontinuing 5ASA agents with complaints of blood per rectum and frequent loose bowel movements. ESR 66 and CRP 4.4. Hemoglobin 9.4 stable from prior hospitalization. Symptoms likely related to uncontrolled disease is a patient had completed steroids and stopped taking 5ASA agent. C. difficile toxin was negative Current Visit: Yes Status: Acute Code(s): K51.90 - ULCERATIVE COLITIS, UNSPECIFIED, WITHOUT COMPLICATIONS SNOMED Code(s): 49843216 (2) Diarrhea Current Visit: Yes Status: Acute Code(s): R19.7 - DIARRHEA, UNSPECIFIED SNOMED Code(s): 49070356 (3) Weight loss, unintentional Current Visit: Yes Status: Acute Code(s): R63.4 - ABNORMAL WEIGHT LOSS SNOMED Code(s): 903654146 Plan: Supportive care Advance to full liquid diet Continue to monitor CBC, ESR and CRP Decrease IV Solu-Medrol to 20 mg IV every 8 hours Mesalamine restarted Continue antibiotics as ordered Continue to monitor her symptomatically Again stressed the need for follow-up with GI after discharge as patient will need to remain on maintenance medication, and may require escalation of his therapy Will need a 40 mg prednisone taper dose when going home to taper by 5mg weekly Thank you for allowing us to participate in the care of the patient The impression and plan of care has been dictated as directed. I performed a history and examination of this patient, discussed the same with the dictator. I agree with the dictator's note ,documented as a scribe. Any additional findings or plans will be noted.
--- NOTE | 2020-05-13 14:51 | P.PN ---
Subjective Progress Note Date: 05/13/20 This is a 39-year-old male patient recently established with me during hospitalization last month but did not follow up in the office as instructed. He has past medical history of ulcerative colitis, tobacco use and dependence, marijuana use. He was recently hospitalized for acute ulcerative colitis and that time was seen by GI. He was started on sulfasalazine 1000 mg twice daily at that time, discharged on tapering prednisone and Flagyl/Levaquin. Patient complains of worsening diarrhea with multiple episodes daily as well as worsening abdominal pain over the past week. Pain became unbearable and he came into the hospital. He does complain of weight loss and sores on his mouth that are limiting his ability to eat or drink. He was afebrile, heart rate 117 initially, blood pressure 131/88 and pulse ox 100%. White count was 17.9, hemoglobin 9.4, platelet count 625. Sodium 130, potassium 3.5, creatinine 0.79, blood sugar 126. Liver function tests normal. Lactic acid 1.5. C. difficile toxin negative. HIV negative. CAT scan of the abdomen and pelvis with IV contrast revealed right colon colitis. Enlarging spleen with enlarging irregular low density lesions. Recommend further evaluation with PET scan, abdominal MRI or biopsy. Patient was made nothing by mouth, IV fluids were started as well as Flagyl and Zosyn, IV Solu-Medrol and consult with GI. 05/13:Patient is doing a bit better today , he feels hungry, not able t sleep well last night, he denies any chest pain or shortness of breath, continues to have abdominal pain, no nausea, the stool continues to be foamy, and no blood in it today.we will advance his diet to soft diet and we will continue with monitoring, he asking to increase his pain medication for now. Objective - Vital Signs Vital signs: Vital Signs Temp 97.9 F 05/13/20 01:00 Pulse 70 05/13/20 01:00 Resp 18 05/13/20 01:00 BP 108/75 05/13/20 01:00 Pulse Ox 100 05/13/20 01:00 Intake & Output 05/12/20 05/12/20 05/13/20 06:59 18:59 06:59 Intake Total 600 Balance 600 Weight 70.307 kg 70.307 kg Intake: Oral 600 Other: # Voids 1 - Exam Review of Systems Constitutional: Reports anorexia, Reports fatigue, Reports malaise, Reports poor appetite, Reports weakness, Reports weight loss Eyes: denies blurred vision, denies pain Ears, nose, mouth and throat: Reports mouth pain, Denies headache, Denies sore throat Cardiovascular: Denies chest pain, Denies edema, Denies syncope Respiratory: Denies cough, Denies cough with sputum, Denies dyspnea, Denies hemoptysis Gastrointestinal: Reports abdominal pain, Reports diarrhea, Reports loss of appetite, Reports nausea, Denies vomiting Genitourinary: Denies dysuria, Denies urinary frequency, Denies urinary retention Musculoskeletal: Denies frequent falls, Denies gait dysfunction, Denies muscle weakness, Denies myalgias Integumentary: Denies pruritus, Denies rash, Denies wounds Neurological: Denies change in mentation, Denies change in speech, Denies numbness, Denies weakness Psychiatric: Denies anxiety, Denies depression en: This is a 39-year-old male. He is resting in bed in mild distress. HEENT: Head is atraumatic, normocephalic. Pupils equal, round. Sclerae is anicteric. Oral mucous membranes are slightly dry. NECK: Supple. No JVD. No lymphadenopathy. No thyromegaly. LUNGS: Clear to auscultation. No wheezes or rhonchi. No intercostal retractions. HEART: Regular rate and rhythm. No murmur. ABDOMEN: Soft. Bowel sounds are present. No masses. Left upper quadrant tenderness. EXTREMITIES: No pedal edema. No calf tenderness. Dorsalis pedis +2 bilaterally. Enlarged MPJ bilaterally NEUROLOGICAL: Patient is awake, alert and oriented x3. Cranial nerves 2 through 12 are grossly intact., mucous membranes of the mouth are dry with aphthous ulcers. - Labs CBC & Chem 7: 05/13/20 05:28 05/12/20 04:05 Labs: Abnormal Lab Results - Last 24 Hours (Table) 05/12/20 05/12/20 Range/Units 04:18 04:18 ESR 66 H (0-15) mm/hr C-Reactive Protein 4.4 H (0.0-0.8) mg/dL Microbiology - Last 24 Hours (Table) 05/12/20 04:05 Urine Culture - Preliminary Urine,Clean Catch Assessment and Plan Assessment: Assessment and Plan Plan: 1. Acute exacerbation of ulcerative colitis. we will start Zosyn 3.375 gr IVPB q 6 hours , we will continue Solu-medrol 20 mg IVP q 8 hours, we will continue with Sulfasalazine 1000 mg po bid, we will increase diet from clear liquids to soft diet, and we will adjust pain management , and we will continue to monitor. 2. Spleen mass. we will consult to rule out lymphoma. 3. Leukocytosis due to acute colitis, we will continue with IVF and IV antibiotics. 4. Aphthous stomatitis. we will start Oralone paste 0.1% apply bid along with magic mouth wash. 5. Anemia of chronic disease likely related to underlying ulcerative colitis. we will continue to monitor, we start Feso4 325 mg orally daily. 6. Hepatitis C. stable. 7. IV drug use in the form of Heroin. has been clean since December.. 8. Regular marijuana use. 9. GI prophylaxis we will continue with Protonix 40 mg IVP daily. 10. DVT prophylaxis. we will continue with bilateral Knee -high Ross hose. 11. Insomnia. we will start Melatonin 5 mg at bedtime. 12. disposition: back home with his brother.
[2020-05-13 15:46] VITALS: BMI 20.4
--- NOTE | 2020-05-13 17:25 | P.CONS ---
History of Present Illness - Reason for Consult Consult date: 05/13/20 Rule out lymphoma Requesting physician: Adalid Plata - Chief Complaint Diarrhea. - History of Present Illness Mr. Austin is a 39-year-old male patient who recently started following with Dr. Plata. He has known history of drug abuse, tobacco dependence and marijuana use. He has a known medical history of ulcerative colitis and was recently admitted with the same. GI evaluated at that time and he was started on sulfasalazine, and a course of antibiotics and tapering steroids. He re-presents to [facility] with complaints of worsening diarrhea, abdominal pain, and overall pain. Mucocytis and Weight loss, difficult to eat due to mouth sores. He had a CT abdomen and Pelvis which showed splenomegaly with enlarging low density lesions and Right colitis in colon. WBC - increased, Microcytic anemia Hemoglobin 9.2 today, mcv - 66.2. THis is likely secondary to ulcerative colitis and iron deficiency for GI blood loss. Review of Systems All systems: negative Constitutional: Reports as per HPI Past Medical History Additional Past Medical History / Comment(s): ulcerative colitis, spleen problems, Hep C History of Any Multi-Drug Resistant Organisms: None Reported Past Surgical History: No Surgical Hx Reported Past Anesthesia/Blood Transfusion Reactions: No Reported Reaction Past Psychological History: No Psychological Hx Reported Smoking Status: Current every day smoker Past Alcohol Use History: None Reported Additional Past Alcohol Use History / Comment(s): Patient is a smoker of less than one pack per day since he was 15 years of age. He has history of drinking 4-5 times per week, liquor but since 2007 he only drinks about 2 times per year. He uses marijuana on a regular basis including edibles. The patient is single and lives alone. Past Drug Use History: Marijuana - Past Family History Father Family Medical History: Seizure Disorder Additional Family Medical History / Comment(s): Father is alive at age 64 with history of seizures and hypertension. Mother Additional Family Medical History / Comment(s): Mother in her late 50s with complications from CABG. Brother(s) Additional Family Medical History / Comment(s): Patient has 2 brothers with no major medical problems. He does not have any sisters. He does not have any children. No family members have ulcerative colitis. Medications and Allergies Home Medications Medication Instructions Recorded Confirmed Type No Known Home Medications 05/12/20 05/12/20 History Allergies Allergy/AdvReac Type Severity Reaction Status Date / Time No Known Allergies Allergy Verified 05/12/20 07:46 Physical Exam Vitals: Vital Signs Temp Pulse Resp BP Pulse Ox 05/13/20 15:00 97.9 F 68 18 106/64 100 05/13/20 07:00 97.8 F 56 L 16 106/70 99 05/13/20 01:00 97.9 F 70 18 108/75 100 05/12/20 19:20 97.8 F 72 18 117/74 99 05/12/20 15:58 97.7 F 76 18 110/80 96 Intake and Output 05/13/20 05/13/20 05/13/20 06:59 14:59 22:59 Intake Total 400 Balance 400 Intake: Oral 400 Other: # Voids 1 2 # Bowel Movements 1 Weight 70.307 kg - Constitutional General appearance: cooperative, no acute distress - EENT Eyes: PERRLA, poor dentition ENT: NA/AT - Neck Neck: normal ROM - Respiratory Respiratory: bilateral: CTA, diminished - Cardiovascular Rhythm: regular Heart sounds: normal: S1, S2 - Gastrointestinal General gastrointestinal: hepatomegaly, soft, splenomegaly, tenderness - Integumentary Integumentary: pale - Neurologic non-focal - Musculoskeletal Musculoskeletal: generalized weakness, strength equal bilaterally - Psychiatric Psychiatric: A&O x's 3 Results CBC & Chem 7: 05/13/20 05:28 05/12/20 04:05 Labs: Abnormal Lab Results - Last 24 Hours (Table) 05/13/20 05/13/20 05/13/20 Range/Units 05:28 05:28 05:28 WBC 12.4 H (3.8-10.6) k/uL Hgb 9.0 L (13.0-17.5) gm/dL Hct 31.9 L (39.0-53.0) % MCV 70.2 L (80.0-100.0) fL MCH 19.9 L (25.0-35.0) pg MCHC 28.4 L (31.0-37.0) g/dL RDW 16.3 H (11.5-15.5) % Plt Count 530 H (150-450) k/uL Neutrophils # 11.1 H (1.3-7.7) k/uL C-Reactive Protein 3.6 H (0.0-0.8) mg/dL Hep C IgG Ab Reactive A (Non-Reactive) Microbiology - Last 24 Hours (Table) 05/12/20 04:05 Urine Culture - Final Urine,Clean Catch 05/12/20 05:42 Blood Culture - Preliminary Blood No Growth after [address] scan - abdomen: report reviewed CT scan - pelvis: report reviewed Assessment and Plan (1) Microcytic anemia Narrative/Plan: Likely secondary to Ulcerative Colitis multifactorial: GI blood loss and Chronic inflammation and possibly underlying liver disease with history Hep C and IVDA - Full Anemia work-up ordered and Iron or other nutritional deficiencies will be supplemented as appropriate - GI following and managing medications for ulcerative colitis, last colonoscopy ?2016 Current Visit: Yes Status: Acute Code(s): D50.9 - IRON DEFICIENCY ANEMIA, UNSPECIFIED SNOMED Code(s): 359488076 (2) Diarrhea Current Visit: Yes Status: Acute Code(s): R19.7 - DIARRHEA, UNSPECIFIED SNOMED Code(s): 66485705 (3) Spleen anomaly Narrative/Plan: Low denisity lesions seen in CT abdomen and Pelvis on spleen. - MRI of Spleen ordered to further evaluate - HIV testing, prior negative. Recheck today Current Visit: Yes Status: Acute Code(s): Q89.09 - CONGENITAL MALFORMATIONS OF SPLEEN SNOMED Code(s): 26419170 (4) Ulcerative colitis Current Visit: Yes Status: Acute Code(s): K51.90 - ULCERATIVE COLITIS, UNSPECIFIED, WITHOUT COMPLICATIONS SNOMED Code(s): 03218875 (5) Weight loss, unintentional Current Visit: Yes Status: Acute Code(s): R63.4 - ABNORMAL WEIGHT LOSS SNOMED Code(s): 158708805 Plan: Physician Attest: I have completed the full history and physical and developed the above impression and plan, agree with dictation by Zaina Pendleton NP, Dictated as a scribe
[2020-05-13] MEDS: MELATONIN 5 MG TABLET PO SCH (21:19)
[2020-05-13] MEDS: HYDROmorphone 1 MG/ML 1 ML SYRINGE IVP PRN ×2 (21:20→23:55)
[2020-05-13 21:33] LABS: Erythrocyte Sedimentation Rate 70 mm/Hr (0-15)
[2020-05-14] MEDS: MORPHINE SULFATE 4 MG/ML SYRINGE IV PRN ×5 (02:06→22:58)
[2020-05-14] MEDS: PIPERACILLIN-TAZOBACTAM 3.375 GM in SODIUM CHLORIDE 0.9% 100 ML IVPB SCH ×3 (02:09→18:37)
[2020-05-14] MEDS: HYDROmorphone 1 MG/ML 1 ML SYRINGE IVP PRN ×5 (03:15→20:29)
[2020-05-14 06:19] LABS: Anisocytosis Slight; Basophils % (A) 0 %; Eosinophils % (A) 0 %; HCT 25.7 % (39.0-53.0); Hypochromasia Marked; Lymphocytes # (A) 1.2 k/uL (1.0-4.8); Lymphocytes % (A) 11 %; MCH 19.1 pg (25.0-35.0); MCHC 27.9 g/dL (31.0-37.0); MCV 68.4 fL (80.0-100.0); Mean Platelet Volume 6.4; Microcytosis Marked; Monocytes # (A) 0.2 k/uL (0-1.0); Monocytes % (A) 2 %; Neutrophils # (A) 9.2 k/uL (1.3-7.7); Neutrophils % (A) 86 %; Platelet Count 491 k/uL (150-450); Poikilocytosis Slight; RBC 3.76 m/uL (4.30-5.90); RDW 16.5 % (11.5-15.5); Reticulocyte % 3.2 % (0.5-2.0); WBC 10.8 k/uL (3.8-10.6)
[2020-05-14 06:26] LABS: HGB 7.2 gm/dL (13.0-17.5)
[2020-05-14] MEDS: PANTOPRAZOLE 40 MG/10 ML VIAL IV SCH (08:43)
[2020-05-14] MEDS: methylPREDNISolone SOD SUCCI 40 MG/ML 1 ML VIAL IV SCH ×2 (08:43→16:18)
[2020-05-14] MEDS: TRIAMCINOLONE ACET 0.1% ORAL PASTE 5 GM TUBE MUCOUS MEM SCH ×3 (08:45→16:25)
[2020-05-14] MEDS: SODIUM CHLORIDE 0.9% 1,000 ML IV SCH ×2 (08:46→16:24)
[2020-05-14] MEDS: sulfaSALAzine 500 MG TAB PO SCH ×2 (08:48→20:32)
--- NOTE | 2020-05-14 10:19 | MR ---
EXAMINATION TYPE: MR abdomen wo/w con DATE OF EXAM: 05/14/2020 COMPARISON: CT abdomen and pelvis May 12, 2020. Outside CT April 08, 2020. HISTORY: Abdominal pain, abnormal CT. Abnormal findings in the spleen. History of ulcerative colitis. CONTRAST: Standard multiplanar, multisequence MRI departmental protocol utilizing 7 mL intravenous Gadavist roberta olinium contrast. Imaging is performed of the abdomen focusing on the spleen. FINDINGS: Spleen: Splenomegaly is redemonstrated. Postcontrast images show large areas of nonenhancement corres ponding to most recent CT which are enlarging in size from outside CT. There is a irregular shaped ar ea anteriorly measuring roughly 4.2 x 4.1 cm of T1 hypointensity and T2 hyperintensity and second mor e vague lobulated lesion posteriorly inferiorly slightly larger in size which may have internal septa . No surrounding ascites is present. The splenic artery has some tortuous course with no obvious fill ing defect identified. Other: Linear scarring and/or atelectasis in the left lung base is redemonstrated. There are geograph ic areas of signal dropout in the liver consistent with diffuse fatty infiltration. Gallbladder is co ntracted in appearance on current study and is best suboptimally evaluated. No biliary dilatation not ed. Pancreas and both adrenal glands remain within normal limits. There is a roughly 1 cm thin-walled cyst posteriorly in the left kidney mid to lower pole level axial image 17 series 501 redemonstrated . No hydronephrosis is present bilaterally. No suspicious small or large bowel dilatation. No intra-a bdominal ascites. Visualized osseous structures are intact. IMPRESSION: Worsening splenomegaly and enlarging cystic lesions in the spleen. Etiology uncertain. One must consi kory infectious process such as hydatid cyst other etiologies not excluded including cystic metastatic disease and atypical lymphoma. Inflammatory splenic granuloma also in differential. Vascular etiolog y not excluded though felt less likely. Wall not suspiciously thickened.
[2020-05-14 10:45] LABS: Ferritin 45.9 ng/mL (22.0-322.0)
[2020-05-14 10:46] LABS: Folate, Serum 6.2 ng/mL
[2020-05-14 10:54] LABS: % Iron Saturation 4.76 (15.00-50.00); African American GFR (CKD) 145.8 (60.0-200.0); Albumin 2.6 g/dL (3.80-4.90); Albumin/Globulin Ratio 1.04 (1.60-3.17); Anion Gap 5.9 mmol/L (4.00-12.00); C Reactive Protein 1.1 mg/dL (0.0-0.8); Calcium 8.1 mg/dL (8.7-10.3); Carbon Dioxide 21.1 mmol/L (21.6-31.8); Globulin 2.5 g/dL (1.6-3.3); Non-African American GFR(CKD) 125.8 (60.0-200.0); Potassium 4.3 mmol/L (3.5-5.5); Total Bilirubin 0.2 mg/dL (0.3-1.2); Total Protein 5.1 g/dL (6.2-8.2)
[2020-05-14 10:59] LABS: Free Kappa Lt Chain Qnt, Serum 3.09 mg/dL (0.33-1.94)
[2020-05-14 11:49] LABS: Protein, Total 5.1 g/dL (6.2-8.2)
[2020-05-14 16:48] LABS: HCV Qualitative Result DETECTED (Not detected); HCV Quant Log 6.79 (<1.08)
[2020-05-14] MEDS: MELATONIN 5 MG TABLET PO SCH (20:32)
[2020-05-14 21:48] LABS: HIV 2 AB Non-Reactive (Non-Reactive); HIV AB P24 Non-Reactive (Non-Reactive); HIV P24 AG Non-Reactive (Non-Reactive)
[2020-05-15] MEDS: HYDROmorphone 1 MG/ML 1 ML SYRINGE IVP PRN ×5 (00:55→21:01)
[2020-05-15] MEDS: methylPREDNISolone SOD SUCCI 40 MG/ML 1 ML VIAL IV SCH ×4 (00:55→23:34)
[2020-05-15] MEDS: PIPERACILLIN-TAZOBACTAM 3.375 GM in SODIUM CHLORIDE 0.9% 100 ML IVPB SCH ×3 (04:02→21:02)
[2020-05-15] MEDS: MORPHINE SULFATE 4 MG/ML SYRINGE IV PRN ×5 (04:02→22:41)
[2020-05-15] MEDS: SODIUM CHLORIDE 0.9% 1,000 ML IV SCH ×2 (04:08→15:04)
--- NOTE | 2020-05-15 06:32 | P.PN ---
Subjective Progress Note Date: 05/14/20 This is a 39-year-old male patient recently established with me during hospitalization last month but did not follow up in the office as instructed. He has past medical history of ulcerative colitis, tobacco use and dependence, marijuana use. He was recently hospitalized for acute ulcerative colitis and that time was seen by GI. He was started on sulfasalazine 1000 mg twice daily at that time, discharged on tapering prednisone and Flagyl/Levaquin. Patient complains of worsening diarrhea with multiple episodes daily as well as worsening abdominal pain over the past week. Pain became unbearable and he came into the hospital. He does complain of weight loss and sores on his mouth that are limiting his ability to eat or drink. He was afebrile, heart rate 117 initially, blood pressure 131/88 and pulse ox 100%. White count was 17.9, hemoglobin 9.4, platelet count 625. Sodium 130, potassium 3.5, creatinine 0.79, blood sugar 126. Liver function tests normal. Lactic acid 1.5. C. difficile toxin negative. HIV negative. CAT scan of the abdomen and pelvis with IV contrast revealed right colon colitis. Enlarging spleen with enlarging irregular low density lesions. Recommend further evaluation with PET scan, abdominal MRI or biopsy. Patient was made nothing by mouth, IV fluids were started as well as Flagyl and Zosyn, IV Solu-Medrol and consult with GI. 05/13:Patient is doing a bit better today , he feels hungry, not able t sleep well last night, he denies any chest pain or shortness of breath, continues to have abdominal pain, no nausea, the stool continues to be foamy, and no blood in it today.we will advance his diet to soft diet and we will continue with monitoring, he asking to increase his pain medication for now. 05/14: Patient is feeling better today, with better appetite, he denies any chest pain or shortness of breath, he continues to be weak, no blood stool and he still have some abdominal cramps, slept better last night and and he is Hep C titers were reviewed and confirmed, his hemoglobin did drop to 7.2 will likley require blood transfusion in AM, HIV titer were negative, we ill continue to monitor, was seen by GI and Hem-Onc , MRI of the abdomen showed a cystic mass with multiple possibilities from Hydatid cyst to cystic neoplasm such as lymphoma,. Objective - Vital Signs Vital signs: Vital Signs Temp 97.6 F 05/14/20 02:52 Pulse 65 05/14/20 02:52 Resp 17 05/14/20 02:52 BP 121/78 05/14/20 02:52 Pulse Ox 96 05/14/20 02:52 Intake & Output 05/13/20 05/13/20 05/14/20 06:59 18:59 06:59 Intake Total 600 Balance 600 Weight 70.307 kg Intake: Oral 600 Other: Voiding Method Toilet # Voids 1 2 # Bowel Movements 1 - Exam Review of Systems Constitutional: Reports anorexia, Reports fatigue, Reports malaise, Reports poor appetite, Reports weakness, Reports weight loss Eyes: denies blurred vision, denies pain Ears, nose, mouth and throat: Reports mouth pain, Denies headache, Denies sore throat Cardiovascular: Denies chest pain, Denies edema, Denies syncope Respiratory: Denies cough, Denies cough with sputum, Denies dyspnea, Denies hemoptysis Gastrointestinal: Reports abdominal pain, Reports diarrhea, Reports loss of appetite, Reports nausea, Denies vomiting Genitourinary: Denies dysuria, Denies urinary frequency, Denies urinary retention Musculoskeletal: Denies frequent falls, Denies gait dysfunction, Denies muscle weakness, Denies myalgias Integumentary: Denies pruritus, Denies rash, Denies wounds Neurological: Denies change in mentation, Denies change in speech, Denies numbness, Denies weakness Psychiatric: Denies anxiety, Denies depression en: This is a 39-year-old male. He is resting in bed in mild distress. HEENT: Head is atraumatic, normocephalic. Pupils equal, round. Sclerae is anicteric. Oral mucous membranes are slightly dry. NECK: Supple. No JVD. No lymphadenopathy. No thyromegaly. LUNGS: Clear to auscultation. No wheezes or rhonchi. No intercostal retractions. HEART: Regular rate and rhythm. No murmur. ABDOMEN: Soft. Bowel sounds are present. No masses. Left upper quadrant tenderness. EXTREMITIES: No pedal edema. No calf tenderness. Dorsalis pedis +2 bilaterally. Enlarged MPJ bilaterally NEUROLOGICAL: Patient is awake, alert and oriented x3. Cranial nerves 2 through 12 are grossly intact., mucous membranes of the mouth are dry with aphthous ulcers. - Labs CBC & Chem 7: 05/14/20 06:04 05/14/20 06:04 Labs: Abnormal Lab Results - Last 24 Hours (Table) 05/13/20 05/13/20 05/13/20 Range/Units 05:28 05:28 05:28 WBC 12.4 H (3.8-10.6) k/uL Hgb 9.0 L (13.0-17.5) gm/dL Hct 31.9 L (39.0-53.0) % MCV 70.2 L (80.0-100.0) fL MCH 19.9 L (25.0-35.0) pg MCHC 28.4 L (31.0-37.0) g/dL RDW 16.3 H (11.5-15.5) % Plt Count 530 H (150-450) k/uL Neutrophils # 11.1 H (1.3-7.7) k/uL ESR 70 H (0-15) mm/Hr C-Reactive Protein 3.6 H (0.0-0.8) mg/dL Hep C IgG Ab Reactive A (Non-Reactive) Microbiology - Last 24 Hours (Table) 05/12/20 04:05 Urine Culture - Final Urine,Clean Catch 05/12/20 05:42 Blood Culture - Preliminary Blood No Growth after 24 hours Assessment and Plan Assessment: Assessment and Plan Plan: 1. Acute exacerbation of ulcerative colitis. we will start Zosyn 3.375 gr IVPB q 6 hours , we will continue Solu-medrol 20 mg IVP q 8 hours, we will continue with Sulfasalazine 1000 mg po bid, we will increase diet from clear liquids to soft diet, and we will adjust pain management , and we will continue to monitor. 2. Spleen mass post MRO of the abdomen that showed cystic mass suggestive of either cystic neoplasm Vs infectious etiology such as Hydatid cyst or splenic granuloma. 3. Leukocytosis due to acute colitis. resolved. 4. Aphthous stomatitis. we will start Oralone paste 0.1% apply bid . 5. Iron deficiency anemia due to chronic blood loss and chronic inflammation due to ulcerative colitis and possibly chronic hepatitis C along wit IVDU. hgb is down to 7.2 may need blood transfusion in AM. 6. Hepatitis C. stable. viral loads is high. 7. IV drug use in the form of Heroin. has been clean since December.. he is nega tive for HIV. 8. Regular marijuana use. counseled against its use. 9. GI prophylaxis we will continue with Protonix 40 mg IVP daily. 10. DVT prophylaxis. we will continue with bilateral Knee -high Ross hose. 11. Insomnia. we will start Melatonin 5 mg at bedtime. 12. disposition: back home with his brother.
--- NOTE | 2020-05-15 06:56 | P.PN ---
Subjective Progress Note Date: 05/14/20 Principal diagnosis: ulcerative colitis, diarrhea, blood per rectum Patient is seen lying in bed. He reports only 2 nonbloody bowel movements today. Tolerating full liquid diet Objective - Vital Signs Vital signs: Vital Signs Temp 97.5 F L 05/14/20 12:55 Pulse 72 05/14/20 12:55 Resp 18 05/14/20 12:55 BP 105/62 05/14/20 12:55 Pulse Ox 100 05/14/20 12:55 Intake & Output 05/13/20 05/14/20 05/14/20 18:59 06:59 18:59 Weight 70.307 kg Other: Voiding Method Toilet # Voids 2 1 # Bowel Movements 1 - Exam On physical examination, patient appears comfortable in no apparent distress. HEAD: Normocephalic, atraumatic. EYES: No scleral icterus. No conjunctival injection. MOUTH: No lesions, tongue midline. NECK: Trachea midline, no gross abnormalities. ABDOMEN: Soft, mildly tender to palpation. Bowel sounds are positive. No organomegaly. No guarding or rigidity. EXTREMITIES: No pedal edema. SKIN: No rashes, no jaundice. NEUROLOGIC: Alert and oriented x3. No focal deficits. - Labs CBC & Chem 7: 05/14/20 06:04 05/14/20 06:04 Labs: Abnormal Lab Results - Last 24 Hours (Table) 05/13/20 05/14/20 05/14/20 Range/Units 05:28 06:04 06:04 WBC 10.8 H (3.8-10.6) k/uL RBC 3.76 L (4.30-5.90) m/uL Hgb 7.2 L D (13.0-17.5) gm/dL Hct 25.7 L (39.0-53.0) % MCV 68.4 L (80.0-100.0) fL MCH 19.1 L (25.0-35.0) pg MCHC 27.9 L (31.0-37.0) g/dL RDW 16.5 H (11.5-15.5) % Plt Count 491 H (150-450) k/uL Neutrophils # 9.2 H (1.3-7.7) k/uL ESR 70 H (0-15) mm/Hr Retic Count 3.2 H (0.5-2.0) % Carbon Dioxide 21.1 L (21.6-31.8) mmol/L Glucose 128 H (70-110) mg/dL Calcium 8.1 L (8.7-10.3) mg/dL Iron 10 L (65-175) ug/dL TIBC 210 L (228-460) ug/dL % Saturation 4.76 L (15.00-50.00) Total Bilirubin 0.2 L (0.3-1.2) mg/dL AST 38 H (14-35) U/L C-Reactive Protein 1.1 H (0.0-0.8) mg/dL Total Protein 5.1 L (6.2-8.2) g/dL Total Protein (PEP) (6.2-8.2) g/dL Albumin 2.60 L (3.80-4.90) g/dL Albumin/Globulin Ratio 1.04 L (1.60-3.17) g/dL Free [place] LC, Quant (0.33-1.94) mg/dL 05/14/20 Range/Units 06:04 WBC (3.8-10.6) k/uL RBC (4.30-5.90) m/uL Hgb (13.0-17.5) gm/dL Hct (39.0-53.0) % MCV (80.0-100.0) fL MCH (25.0-35.0) pg MCHC (31.0-37.0) g/dL RDW (11.5-15.5) % Plt Count (150-450) k/uL Neutrophils # (1.3-7.7) k/uL ESR (0-15) mm/Hr Retic Count (0.5-2.0) % Carbon Dioxide (21.6-31.8) mmol/L Glucose (70-110) mg/dL Calcium (8.7-10.3) mg/dL Iron (65-175) ug/dL TIBC (228-460) ug/dL % Saturation (15.00-50.00) Total Bilirubin (0.3-1.2) mg/dL AST (14-35) U/L C-Reactive Protein (0.0-0.8) mg/dL Total Protein (6.2-8.2) g/dL Total Protein (PEP) 5.1 L (6.2-8.2) g/dL Albumin (3.80-4.90) g/dL Albumin/Globulin Ratio (1.60-3.17) g/dL Free [place] LC, Quant 3.09 H (0.33-1.94) mg/dL Microbiology - Last 24 Hours (Table) 05/12/20 05:42 Blood Culture - Preliminary Blood No Growth after 48 hours 05/12/20 04:05 Urine Culture - Final Urine,Clean Catch Assessment and Plan (1) Ulcerative colitis Narrative/Plan: 3-year-old male with a known history of ulcerative colitis diagnosed at the age of 15 who had been off of therapy and was recently seen for an exacerbation of his ulcerative colitis. Last colonoscopy was in [address] [facility] significant for discontinuous active colitis. He presented back to the hospital after completing his steroid taper in discontinuing 5ASA agents with complaints of blood per rectum and frequent loose bowel movements. ESR 66 and CRP 4.4. Hemoglobin 9.4 stable from prior hospitalization. Symptoms likely related to uncontrolled disease is a patient had completed steroids and stopped taking 5ASA agent. Current Visit: Yes Status: Acute Code(s): K51.90 - ULCERATIVE COLITIS, UNSPECIFIED, WITHOUT COMPLICATIONS SNOMED Code(s): 95194467 (2) Diarrhea Current Visit: Yes Status: Acute Code(s): R19.7 - DIARRHEA, UNSPECIFIED SNOMED Code(s): 09898509 (3) Weight loss, unintentional Current Visit: Yes Status: Acute Code(s): R63.4 - ABNORMAL WEIGHT LOSS SNOMED Code(s): 266920305 (4) Hepatitis C Narrative/Plan: testing positive for hepatitis C, treatment kaylin. Current Visit: Yes Status: Acute Code(s): B19.20 - UNSPECIFIED VIRAL HEPATITIS C WITHOUT HEPATIC COMA SNOMED Code(s): 52596514 Plan: Supportive care full liquid diet, advance to low fiber low residual Continue to monitor CBC, ESR and CRP IV steroid therapy initiated Mesalamine restarted Continue to monitor her symptomatically Again stressed the need for follow-up with GI after discharge as patient will need to remain on maintenance medication, and may require escalation of his therapy, patient also will require follow-up for chronic hepatitis C Thank you for allowing us to participate in the care of the patient
[2020-05-15] MEDS: sulfaSALAzine 500 MG TAB PO SCH ×2 (08:25→21:02)
[2020-05-15] MEDS: PANTOPRAZOLE 40 MG/10 ML VIAL IV SCH (08:26)
[2020-05-15] MEDS ORDERED: FUROSEMIDE 10 MG/ML 2 ML VIAL IV PRN (09:16)
[2020-05-15] MEDS: TRIAMCINOLONE ACET 0.1% ORAL PASTE 5 GM TUBE MUCOUS MEM SCH ×3 (10:00→17:55)
--- NOTE | 2020-05-15 11:28 | CDI ---
Documentation Clarification Form Date: 05/15/2020 11:04:53 AM From: Sara Pitt RN, CCDS Admit Date: 05/12/2020 07:15:00 AM Patient Name: Al Austin Visit Number: [id number] Discharge Date: ATTENTION: The Clinical Documentation Specialists (CDI) and [facility] Coding Staff appreciate your assistance in clarifying documentation. Please respond to the clarification below the line at the bottom and electronically sign. The CDI & [facility] Coding staff will review the response and follow-up if needed. Please note: Queries are made part of the Legal Health Record. If you have any questions, please contact the author of this message via ITS. Dr. Adalid Plata ED and consults document unintentional weight loss, chronically ill appearing. He reports anorexia, fatigue, malaise, poor appetite, weakness. Please render your opinion of these findings. History/Risk Factors: Ulcerative Colitis, Splenomegaly, Hep C, Current smoker Clinical Indicators: 39-year-old male present on 05/12 to ED with complaints of worsening diarrhea with past medical history of ulcerative colitis. Patient complaints of weight loss and sores on his mouth that are limiting his ability to eat or drink. 05/12 Labs: WBC 17.9, HGB 9.4, HCT 32.0, Albumin 3.3(2.60 on 05/14); Total protein 7.7 (5.1 on 05/14) Current BMI: 20.4 Insufficient energy intake: Yes Weight Loss: 16 kg wt. loss in 3 months per dietary assessment Treatment: Dietary Consult: Yes, with Nutrition Education for colitis General/healthful diet Ensure TID Monitor PO In your professional opinion, can you please clarify if these findings signify one of the following conditions? Mild Protein-Calorie Malnutrition Moderate Protein-Calorie Malnutrition Severe Protein-Calorie Malnutrition Other condition, please specify Unable to determine (Last Revision: December 2018) Moderate protein calorie malnutrition _ MTDD
[2020-05-15 14:19] LABS: Gamma Globulin 1.38 g/dL (0.70-1.50)
--- NOTE | 2020-05-15 14:34 | P.PN ---
Subjective Progress Note Date: 05/15/20 This is a 39-year-old male patient recently established with me during hospitalization last month but did not follow up in the office as instructed. He has past medical history of ulcerative colitis, tobacco use and dependence, marijuana use. He was recently hospitalized for acute ulcerative colitis and that time was seen by GI. He was started on sulfasalazine 1000 mg twice daily at that time, discharged on tapering prednisone and Flagyl/Levaquin. Patient complains of worsening diarrhea with multiple episodes daily as well as worsening abdominal pain over the past week. Pain became unbearable and he came into the hospital. He does complain of weight loss and sores on his mouth that are limiting his ability to eat or drink. He was afebrile, heart rate 117 initially, blood pressure 131/88 and pulse ox 100%. White count was 17.9, hemoglobin 9.4, platelet count 625. Sodium 130, potassium 3.5, creatinine 0.79, blood sugar 126. Liver function tests normal. Lactic acid 1.5. C. difficile toxin negative. HIV negative. CAT scan of the abdomen and pelvis with IV contrast revealed right colon colitis. Enlarging spleen with enlarging irregular low density lesions. Recommend further evaluation with PET scan, abdominal MRI or biopsy. Patient was made nothing by mouth, IV fluids were started as well as Flagyl and Zosyn, IV Solu-Medrol and consult with GI. 05/13:Patient is doing a bit better today , he feels hungry, not able t sleep well last night, he denies any chest pain or shortness of breath, continues to have abdominal pain, no nausea, the stool continues to be foamy, and no blood in it today.we will advance his diet to soft diet and we will continue with monitoring, he asking to increase his pain medication for now. 05/14: Patient is feeling better today, with better appetite, he denies any chest pain or shortness of breath, he continues to be weak, no blood stool and he still have some abdominal cramps, slept better last night and and he is Hep C titers were reviewed and confirmed, his hemoglobin did drop to 7.2 will likley require blood transfusion in AM, HIV titer were negative, we ill continue to monitor, was seen by GI and Hem-Onc , MRI of the abdomen showed a cystic mass with multiple possibilities from Hydatid cyst to cystic neoplasm such as lymphoma,. 05/15: Patient be transfused 1 unit packed RBCs today. Repeat CBC tomorrow. Patient has been afebrile, heart rate 61, blood pressure 111/62, pulse ox 100% on room air. Urine culture finalized with no growth and blood culture no growth. C-reactive protein is down to 1.1. patient is continued on IV Solu- Medrol and IV antibiotics in the form of Zosyn. Patient hand stools during the night. No blood. He is eating 100% of his meals and tolerating without nausea or vomiting. Objective - Vital Signs Vital signs: Vital Signs Temp 97.8 F 05/15/20 03:08 Pulse 61 05/14/20 18:47 Resp 18 05/15/20 03:08 BP 114/72 05/15/20 03:08 Pulse Ox 98 05/15/20 03:08 Intake & Output 05/14/20 05/14/20 05/15/20 06:59 18:59 06:59 Other: Voiding Method Toilet Toilet # Voids 1 2 # Bowel Movements 2 - Exam Review of Systems Constitutional: Reports anorexia, Reports fatigue, Reports malaise, Reports poor appetite, Reports weakness, Reports weight loss Eyes: denies blurred vision, denies pain Ears, nose, mouth and throat: Reports mouth pain, Denies headache, Denies sore throat Cardiovascular: Denies chest pain, Denies edema, Denies syncope Respiratory: Denies cough, Denies cough with sputum, Denies dyspnea, Denies hemoptysis Gastrointestinal: Reports abdominal pain, Reports diarrhea, Reports loss of appetite, denies nausea, Denies vomiting Genitourinary: Denies dysuria, Denies urinary frequency, Denies urinary retention Musculoskeletal: Denies frequent falls, Denies gait dysfunction, Denies muscle weakness, Denies myalgias Integumentary: Denies pruritus, Denies rash, Denies wounds Neurological: Denies change in mentation, Denies change in speech, Denies numbness, Denies weakness Psychiatric: Denies anxiety, Denies depression en: This is a 39-year-old male. He is resting in bed in no distress. HEENT: Head is atraumatic, normocephalic. Pupils equal, round. Sclerae is anicteric. Oral mucous membranes are slightly dry. NECK: Supple. No JVD. No lymphadenopathy. No thyromegaly. LUNGS: Clear to auscultation. No wheezes or rhonchi. No intercostal retractions. HEART: Regular rate and rhythm. No murmur. ABDOMEN: Soft. Bowel sounds are present. No masses. Left upper quadrant tenderness. EXTREMITIES: No pedal edema. No calf tenderness. Dorsalis pedis +2 bilaterally. Enlarged MPJ bilaterally NEUROLOGICAL: Patient is awake, alert and oriented x3. Cranial nerves 2 through 12 are grossly intact., mucous membranes of the mouth are dry with aphthous ulcers. - Labs CBC & Chem 7: 05/14/20 06:04 05/14/20 06:04 Labs: Abnormal Lab Results - Last 24 Hours (Table) 05/13/20 05/14/20 05/14/20 Range/Units 05:28 06:04 06:04 Carbon Dioxide 21.1 L (21.6-31.8) mmol/L Glucose 128 H (70-110) mg/dL Calcium 8.1 L (8.7-10.3) mg/dL Iron 10 L (65-175) ug/dL TIBC 210 L (228-460) ug/dL % Saturation 4.76 L (15.00-50.00) Total Bilirubin 0.2 L (0.3-1.2) mg/dL AST 38 H (14-35) U/L C-Reactive Protein 1.1 H (0.0-0.8) mg/dL Total Protein 5.1 L (6.2-8.2) g/dL Total Protein (PEP) 5.1 L (6.2-8.2) g/dL Albumin 2.60 L (3.80-4.90) g/dL Albumin/Globulin Ratio 1.04 L (1.60-3.17) g/dL Free [place] LC, Quant 3.09 H (0.33-1.94) mg/dL HCV RNA Qual (PCR) DETECTED A (Not detected) Hepatitis C RNA Quant 6,185,237 H (<12) IU/mL HCV RNA PCR log copper roller handler printing/ml 6.79 H (<1.08) Microbiology - Last 24 Hours (Table) 05/12/20 05:42 Blood Culture - Preliminary Blood No Growth after 48 hours Assessment and Plan Assessment: Assessment and Plan Plan: 1. Acute exacerbation of ulcerative colitis. we will start Zosyn 3.375 gr IVPB q 6 hours, continue Solu-medrol 20 mg IVP q 8 hours, we will continue with Sulfasalazine 1000 mg po bid, we will increase diet from clear liquids to soft diet, and we will adjust pain management , and we will continue to monitor. 2. Spleen mass post MRO of the abdomen that showed cystic mass suggestive of either cystic neoplasm Vs infectious etiology such as Hydatid cyst or splenic granuloma. 3. Leukocytosis due to acute colitis. resolved. 4. Aphthous stomatitis. we will start Oralone paste 0.1% apply bid . 5. Iron deficiency anemia due to chronic blood loss and chronic inflammation due to ulcerative colitis and possibly chronic hepatitis C along wit IVDU. hgb is down to 7.2 may need blood transfusion in AM. 6. Hepatitis C. stable. viral loads is high. 7. IV drug use in the form of Heroin. has been clean since December.. he is negative for HIV. 8. Regular marijuana use. counseled against its use. 9. GI prophylaxis we will continue with Protonix 40 mg IVP daily. 10. DVT prophylaxis. we will continue with bilateral Knee -high Ross hose. 11. Insomnia. we will start Melatonin 5 mg at bedtime. 12. Moderate protein calorie malnutrition. Continue ensure 3 times daily disposition Discharge plan: back home with his brother.
--- NOTE | 2020-05-15 16:58 | PN ---
PROGRESS NOTE DATE OF SERVICE: 05/15/2020 Patient is a 39-year-old white male diagnosed with ulcerative colitis at age 15. He was admitted to hospital with recent flare-up of ulcerative colitis. Presently on Solu- Medrol 20 mg q.8 hours. He is feeling better. He had two bowel movements today. No bleeding. Abdominal pain is improving. PHYSICAL EXAMINATION: Appears comfortable, no apparent distress. Blood pressure 137/83, pulse rate 51, temperature 97.9. HEENT examination unremarkable. Conjunctivae pink, sclerae anicteric. Oral cavity no lesions. NECK: No JVD or lymph node enlargement. CHEST: Clear to auscultation. HEART: Regular rate and rhythm. ABDOMEN: Soft. Bowel sounds are positive. No organomegaly. EXTREMITIES: No pedal edema. NEURO: Alert and oriented x3. No focal deficits. WBC 10.8, hemoglobin 7.2, platelets 491. Sedimentation rate was 70 yesterday. Iron is 10, TIBC 210, iron saturation 4.7, and ferritin is 45. CRP is 1.1. IMPRESSION: 1. Exacerbation of ulcerative colitis, presently on IV Solu-Medrol 20 mg q.8 hours. Symptoms are gradually improving. 2. Iron deficiency anemia secondary to ulcerative colitis. RECOMMENDATIONS: 1. Continue with Solu-Medrol 20 mg q.8 hours. 2. Advance to a regular diet. 3. Repeat labs in the morning. 4. Start iron supplements for microcytic anemia for iron deficiency anemia. 5. The patient is being switched to oral steroids tomorrow morning. 6. We will follow with you closely/. Thank you for this consultation. MMODL / IJN: [id number] /
[2020-05-15] MEDS: MELATONIN 5 MG TABLET PO SCH (21:01)
[2020-05-15 21:29] LABS: African American GFR (CKD) 145.8 (60.0-200.0); Albumin 2.8 g/dL (3.80-4.90); Albumin/Globulin Ratio 0.93 (1.60-3.17); Calcium 8.3 mg/dL (8.7-10.3); Non-African American GFR(CKD) 125.8 (60.0-200.0); Potassium 4.6 mmol/L (3.5-5.5); Total Bilirubin 0.2 mg/dL (0.2-1.2); Total Protein 5.8 g/dL (6.2-8.2)
--- NOTE | 2020-05-15 21:33 | P.PN ---
Subjective Progress Note Date: 05/15/20 Vision continues to complain of some generalized abdominal discomfort, including left upper quadrant. He denied any fever, chills, nausea or vomiting. Bowel movements are still dose frequency is diminishing Objective - Vital Signs Vital signs: Vital Signs Temp 97.8 F 05/15/20 20:15 Pulse 60 05/15/20 20:15 Resp 16 05/15/20 20:15 BP 113/67 05/15/20 20:15 Pulse Ox 100 05/15/20 20:15 Intake & Output 05/15/20 05/15/20 05/16/20 06:59 18:59 06:59 Intake Total 400 310 Balance 400 310 Intake: Oral 400 Blood Product 0 310 Rc As-3 Unit 0 310 [id number] Other: Voiding Method Toilet # Voids 2 3 1 # Bowel Movements 2 - Constitutional General appearance: Present: no acute distress - EENT Eyes: Present: EOMI ENT: Present: hearing grossly normal, normal oropharynx - Respiratory Respiratory: bilateral: CTA - Cardiovascular Rhythm: regular Heart sounds: normal: S1, S2 - Gastrointestinal General gastrointestinal: Present: normal bowel sounds, soft, splenomegaly (3 fingers below costal margin extending towards midline) - Integumentary Integumentary: Present: normal - Neurologic Neurologic: Present: CNII-XII intact - Musculoskeletal Musculoskeletal: Present: generalized weakness, strength equal bilaterally - Psychiatric Psychiatric: Present: A&O x's 3, appropriate affect - Labs CBC & Chem 7: 05/14/20 06:04 05/14/20 06:04 Labs: Abnormal Lab Results - Last 24 Hours (Table) 05/14/20 05/15/20 Range/Units 06:04 11:43 Albumin (PEP) 2.00 L (3.80-4.90) g/dL [id number] 0.41 H (0.10-0.40) g/dL Crossmatch See Detail Microbiology - Last 24 Hours (Table) 05/12/20 05:42 Blood Culture - Preliminary Blood No Growth after 72 hours Assessment and Plan (1) Spleen anomaly Narrative/Plan: The patient's MRI Results reviewed with him. Also discussed in detail with the admitting service. MRI notes multiple differential diagnoses, and therefore a definite etiology is still not available. Based on the "cystic" nature described on MRI ischemic or lymphomatous lesions are less likely. Therefore concern for pathologic entity, which could potentially be involved in the patient's weight loss and other symptoms remains. It was discussed with the patient that those lesions are not amenable to biopsy. Abdominal imaging shows no other potential targets. He has no adenopathy on exam. Lab workup for splenomegaly/adenopathy also negative. Check imaging of the chest. If no other target is present, then splenectomy will need to be considered. Current Visit: Yes Status: Acute Code(s): Q89.09 - CONGENITAL MALFORMATIONS OF SPLEEN SNOMED Code(s): 73930840 (2) Microcytic anemia Narrative/Plan: Anemia labs show evidence of iron deficiency. Patient has been having some bleeding in the stool. Given his long-standing history of ulcerative colitis, GI workup with upper and lower endoscopy strongly recommended. Current Visit: Yes Status: Acute Code(s): D50.9 - IRON DEFICIENCY ANEMIA, UNSPECIFIED SNOMED Code(s): 769561509 Plan: Defer to the Admitting service and other consultants for management of his other medical problems
[2020-05-15] MEDS ORDERED: RX INFO: IV CONTRAST WAS GIVEN 1 EACH MISC MISCELLANE PRN (21:34)
[2020-05-16] MEDS: HYDROmorphone 1 MG/ML 1 ML SYRINGE IVP PRN ×6 (00:56→21:22)
[2020-05-16] MEDS: MORPHINE SULFATE 4 MG/ML SYRINGE IV PRN ×2 (03:09→08:13)
[2020-05-16] MEDS: PIPERACILLIN-TAZOBACTAM 3.375 GM in SODIUM CHLORIDE 0.9% 100 ML IVPB SCH ×3 (04:22→17:50)
[2020-05-16 07:17] LABS: Anisocytosis Slight; Basophils % (A) 0 %; Eosinophils # (A) 0.2 k/uL (0-0.7); Eosinophils % (A) 2 %; Hypochromasia Marked; Lymphocytes # (A) 2.3 k/uL (1.0-4.8); Lymphocytes % (A) 18 %; MCHC 29.6 g/dL (31.0-37.0); MCV 67.6 fL (80.0-100.0); Mean Platelet Volume 6.8; Microcytosis Marked; Monocytes # (A) 0.5 k/uL (0-1.0); Monocytes % (A) 3 %; Neutrophils % (A) 76 %; Platelet Count 515 k/uL (150-450); Poikilocytosis Moderate; RBC 4.73 m/uL (4.30-5.90); WBC 13.1 k/uL (3.8-10.6)
[2020-05-16 07:19] LABS: HGB 9.5 gm/dL (13.0-17.5)
[2020-05-16] MEDS: sulfaSALAzine 500 MG TAB PO SCH ×2 (08:12→20:07)
[2020-05-16] MEDS: TRIAMCINOLONE ACET 0.1% ORAL PASTE 5 GM TUBE MUCOUS MEM SCH ×3 (08:12→16:43)
[2020-05-16] MEDS: methylPREDNISolone SOD SUCCI 40 MG/ML 1 ML VIAL IV SCH (08:12)
[2020-05-16] MEDS: PANTOPRAZOLE 40 MG/10 ML VIAL IV SCH (08:12)
--- NOTE | 2020-05-16 10:02 | CT ---
"EXAMINATION TYPE: CT chest w con DATE OF EXAM: 05/16/2020 COMPARISON: CT abdomen pelvis 05/12/2020 HISTORY: Lymphadenopathy CT DLP: 306.5 mGycm Automated exposure control for dose reduction was used. CONTRAST: CT scan of the chest is performed with IV Contrast, patient injected with 100 mL of Isovue 300. FINDINGS: The spleen is enlarged. Peripheral areas of low-attenuation are again noted. At the inferio r margin of the spleen there is some gas density present at the peripheral margin which has progresse d compared to prior exam. LUNGS: The lungs show some changes as compared to prior, there is basilar atelectatic changes which i s progressed somewhat on the right with some minimal right pleural effusion, left lower lobe atelecta sis or possibly pneumonia with air bronchograms, small effusion which may be sympathetic, there is no concerning parenchymal mass or nodule identified. There is no pleural effusion or pneumothorax see n. The tracheobronchial tree is patent. MEDIASTINUM: There are no greater than 1 cm hilar or mediastinal lymph nodes. No pericardial effusi on is seen. AORTA: No additional significant abnormality is seen. OTHER: There is some local fluid the level of the patient's spleen, some local colonic wall thickeni ng. 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 Additional fin dings above. A Red level critical message alert has been initiated for Daniel Duffy MD~[id number] via the [employer] 0 | Critical Results System on 05/16/2020 9:58 AM. This message alert has been sent to Daniel Duffy MD~V [id number] via the preferences provided by the clinician for the receipt of Radiology Critical Findings. Message ID [id number]."
--- NOTE | 2020-05-16 10:46 | P.PN ---
Subjective Progress Note Date: 05/16/20 This is a 39-year-old male patient recently established with me during hospitalization last month but did not follow up in the office as instructed. He has past medical history of ulcerative colitis, tobacco use and dependence, marijuana use. He was recently hospitalized for acute ulcerative colitis and that time was seen by GI. He was started on sulfasalazine 1000 mg twice daily at that time, discharged on tapering prednisone and Flagyl/Levaquin. Patient complains of worsening diarrhea with multiple episodes daily as well as worsening abdominal pain over the past week. Pain became unbearable and he came into the hospital. He does complain of weight loss and sores on his mouth that are limiting his ability to eat or drink. He was afebrile, heart rate 117 initially, blood pressure 131/88 and pulse ox 100%. White count was 17.9, hemoglobin 9.4, platelet count 625. Sodium 130, potassium 3.5, creatinine 0.79, blood sugar 126. Liver function tests normal. Lactic acid 1.5. C. difficile toxin negative. HIV negative. CAT scan of the abdomen and pelvis with IV contrast revealed right colon colitis. Enlarging spleen with enlarging irregular low density lesions. Recommend further evaluation with PET scan, abdominal MRI or biopsy. Patient was made nothing by mouth, IV fluids were started as well as Flagyl and Zosyn, IV Solu-Medrol and consult with GI. 05/13:Patient is doing a bit better today , he feels hungry, not able t sleep well last night, he denies any chest pain or shortness of breath, continues to have abdominal pain, no nausea, the stool continues to be foamy, and no blood in it today.we will advance his diet to soft diet and we will continue with monitoring, he asking to increase his pain medication for now. 05/14: Patient is feeling better today, with better appetite, he denies any chest pain or shortness of breath, he continues to be weak, no blood stool and he still have some abdominal cramps, slept better last night and and he is Hep C titers were reviewed and confirmed, his hemoglobin did drop to 7.2 will likley require blood transfusion in AM, HIV titer were negative, we ill continue to monitor, was seen by GI and Hem-Onc , MRI of the abdomen showed a cystic mass with multiple possibilities from Hydatid cyst to cystic neoplasm such as lymphoma,. 05/15: Patient be transfused 1 unit packed RBCs today. Repeat CBC tomorrow. Patient has been afebrile, heart rate 61, blood pressure 111/62, pulse ox 100% on room air. Urine culture finalized with no growth and blood culture no growth. C-reactive protein is down to 1.1. patient is continued on IV Solu- Medrol and IV antibiotics in the form of Zosyn. Patient hand stools during the night. No blood. He is eating 100% of his meals and tolerating without nausea or vomiting. 05/16: Patient is laying down in bed is complaining increased pain in the left upper quadrant, he denies any fever or chills, he did receive 1 units of packed red blood cells his hemoglobin is better today, is a bit nauseated, is asking for pain medication, we took him off the morphine we will maintain the patient on Dilaudid 1 mg IV push every 3 hours, added Toradol 15 mg IV push every 6 hours as needed, computed tomography scan of the chest reviewed and showed possible screen infarct, we will consult general surgery for possible splenectomy for diagnostic and therapeutic purposes, patient was informed about the finding he will be staying in the hospital for now awaiting surgical input. Objective - Vital Signs Vital signs: Vital Signs Temp 98.8 F 05/16/20 07:00 Pulse 50 L 05/16/20 07:00 Resp 17 05/16/20 02:27 BP 142/84 05/16/20 07:00 Pulse Ox 99 05/16/20 07:00 Intake & Output 05/15/20 05/16/20 05/16/20 18:59 06:59 18:59 Intake Total 400 310 Balance 400 310 Intake: Oral 400 Blood Product 0 310 Rc As-3 Unit 0 310 [id number] Other: Voiding Method Toilet # Voids 3 1 - Exam Review of Systems Constitutional: Reports anorexia, Reports fatigue, Reports malaise, Reports poor appetite, Reports weakness, Reports weight loss Eyes: denies blurred vision, denies pain Ears, nose, mouth and throat: Reports mouth pain, Denies headache, Denies sore throat Cardiovascular: Denies chest pain, Denies edema, Denies syncope Respiratory: Denies cough, Denies cough with sputum, Denies dyspnea, Denies hemoptysis Gastrointestinal: Reports abdominal pain, Reports diarrhea, Reports loss of appetite, denies nausea, Denies vomiting Genitourinary: Denies dysuria, Denies urinary frequency, Denies urinary retention Musculoskeletal: Denies frequent falls, Denies gait dysfunction, Denies muscle weakness, Denies myalgias Integumentary: Denies pruritus, Denies rash, Denies wounds Neurological: Denies change in mentation, Denies change in speech, Denies numbness, Denies weakness Psychiatric: Denies anxiety, Denies depression en: This is a 39-year-old male. He is resting in bed in no distress. HEENT: Head is atraumatic, normocephalic. Pupils equal, round. Sclerae is anicteric. Oral mucous membranes are slightly dry. NECK: Supple. No JVD. No lymphadenopathy. No thyromegaly. LUNGS: Clear to auscultation. No wheezes or rhonchi. No intercostal retractions. HEART: Regular rate and rhythm. No murmur. ABDOMEN: Soft. Bowel sounds are present. No masses. Left upper quadrant tenderness. EXTREMITIES: No pedal edema. No calf tenderness. Dorsalis pedis +2 bilaterally. Enlarged MPJ bilaterally NEUROLOGICAL: Patient is awake, alert and oriented x3. Cranial nerves 2 through 12 are grossly intact., mucous membranes of the mouth are dry with aphthous ulcers. - Labs CBC & Chem 7: 05/16/20 07:02 05/15/20 11:43 Labs: Abnormal Lab Results - Last 24 Hours (Table) 05/14/20 05/15/20 05/15/20 Range/Units 06:04 11:43 11:43 WBC (3.8-10.6) k/uL Hgb (13.0-17.5) gm/dL Hct (39.0-53.0) % MCV (80.0-100.0) fL MCH (25.0-35.0) pg MCHC (31.0-37.0) g/dL RDW (11.5-15.5) % Plt Count (150-450) k/uL Neutrophils # (1.3-7.7) k/uL Glucose 144 H (70-110) mg/dL Calcium 8.3 L (8.7-10.3) mg/dL AST 44 H (14-35) U/L Total Protein 5.8 L (6.2-8.2) g/dL Albumin 2.80 L (3.80-4.90) g/dL Albumin (PEP) 2.00 L (3.80-4.90) g/dL Albumin/Globulin Ratio 0.93 L (1.60-3.17) g/dL [id number] 0.41 H (0.10-0.40) g/dL Crossmatch See Detail 05/16/20 Range/Units 07:02 WBC 13.1 H (3.8-10.6) k/uL Hgb 9.5 L D (13.0-17.5) gm/dL Hct 32.0 L (39.0-53.0) % MCV 67.6 L (80.0-100.0) fL MCH 20.0 L (25.0-35.0) pg MCHC 29.6 L (31.0-37.0) g/dL RDW 18.0 H (11.5-15.5) % Plt Count 515 H (150-450) k/uL Neutrophils # 10.0 H (1.3-7.7) k/uL Glucose (70-110) mg/dL Calcium (8.7-10.3) mg/dL AST (14-35) U/L Total Protein (6.2-8.2) g/dL Albumin (3.80-4.90) g/dL Albumin (PEP) (3.80-4.90) g/dL Albumin/Globulin Ratio (1.60-3.17) g/dL [id number]-4-Hqounxqtq (0.10-0.40) g/dL Crossmatch Microbiology - Last 24 Hours (Table) 05/12/20 05:42 Blood Culture - Preliminary Blood No Growth after 96 hours Assessment and Plan Assessment: Assessment and Plan Plan: 1. Acute exacerbation of ulcerative colitis. we will start Zosyn 3.375 gr IVPB q 6 hours, continue Solu-medrol 20 mg IVP q 8 hours, we will continue with Sulfasalazine 1000 mg po bid, we will increase diet from clear liquids to soft diet, and we will adjust pain management , and we will continue to monitor. 2. Spleen mass post MRI of the abdomen that showed cystic mass discussed with hematology oncology that this is unlikely be lymphoma, however because the computed tomography scan of the chest showed an infarct of the spleen we will consult general surgery for possible splenectomy at this point in time. 3. Leukocytosis due to acute colitis. resolved. 4. Aphthous stomatitis. we will start Oralone paste 0.1% apply bid . 5. Iron deficiency anemia due to chronic blood loss and chronic inflammation due to ulcerative colitis and possibly chronic hepatitis C along wit IVDU. hgb is do wn to 7.2 may need blood transfusion in AM. 6. Hepatitis C. stable. viral loads is high. 7. IV drug use in the form of Heroin. has been clean since December.. he is negative for HIV. 8. Regular marijuana use. counseled against its use. 9. GI prophylaxis we will continue with Protonix 40 mg IVP daily. 10. DVT prophylaxis. we will continue with bilateral Knee -high Ross hose. 11. Insomnia. we will start Melatonin 5 mg at bedtime. 12. Moderate protein calorie malnutrition. Continue ensure 3 times daily disposition Discharge plan: back home with his brother.
[2020-05-16] MEDS: KETOROLAC 15 MG/ML 1 ML VIAL IVP PRN ×2 (11:18→23:23)
[2020-05-16] MEDS: predniSONE 20 MG TAB PO SCH (11:19)
--- NOTE | 2020-05-16 11:56 | PN ---
PROGRESS NOTE HISTORY: The patient is a 39-year-old white male with history of longstanding history of ulcerative colitis, admitted to hospital with exacerbation of ulcerative colitis. He was started on Solu-Medrol 20 mg every 8 hours 3 days ago. He is gradually improving. He had no bowel movements today. He had 2 yesterday. Bleeding has subsided. Diet was advanced to a regular diet, tolerating well. PHYSICAL EXAMINATION: He appears comfortable. No apparent distress vital signs stable blood pressure 133/82, pulse rate 86 per minute and afebrile, HEENT examination unremarkable. Conjunctivae pink. Sclerae anicteric. Oral cavity no lesions neck no JVD or lymph node enlargement. CHEST: Clear to auscultation. HEART: Regular rate and rhythm. ABDOMEN: Soft. Bowel sounds are positive. No organomegaly. EXTREMITIES: No pedal edema. NEURO: He is alert and oriented x3. No focal deficits. LABS: From today, WBC 13.1, hemoglobin 9.5, MCV 67, platelets normal. He received one unit of PRBC transfusion yesterday. IMPRESSION: 1. Exacerbation of ulcerative colitis on IV Solu-Medrol 20 mg every 8 hours. The bleeding has subsided. He had only 2 bowel movements yesterday, doing much better. 2. Microcytic hypochromic anemia secondary to occult gastrointestinal blood loss from longstanding history of ulcerative colitis. RECOMMENDATIONS: 1. Discontinue IV Solu-Medrol. 2. Start oral prednisone 40 mg daily and he was advised to taper it by 5 mg every week on an outpatient basis. 3. Continue with iron supplementation. 4. Continue Protonix 40 mg daily. 5. Azulfidine 1 gram 4 times daily. 6. Follow up in office in [address] Sheth once he is discharged home. Thank you for this consultation. MMODL / IJN: [id number] /
--- NOTE | 2020-05-16 14:19 | P.GSCN ---
History of Present Illness Consult date: 05/16/20 History of present illness: 39-year-old male presents to the emergency department with complaints of abdominal pain. He is noted to have a history of ulcerative colitis and has had multiple flareups in the past. He was recently treated for a flareup within the last 6 weeks. He has had continued findings of splenic abnormalities over his last 2 admissions. He is also undergone a workup with hematology/oncology for this issue. He states that he has been in and out of skilled nursing and has a history with IV drug abuse. He states that the last time he has used IV drugs was in December or December of this year. He is currently being followed by gastroenterology for ulcerative colitis and consult has been placed due to recent findings of splenic abnormality. He has undergone workup with CT of the abdomen and pelvis along with MRI of the abdomen for evaluation of the spleen. A solid diagnosis of the splenic lesions has not been found as of yet. Most recent CT of the [facility] st was performed this morning. CT of the chest did catch the superior portion of the abdomen and spleen was examined. The spleen was known to have a inferior portion containing air. The patient states that he is having some left upper quadrant discomfort. He has not had any febrile episodes. No evidence of tachycardia throughout his admission. No signs of sepsis at this time. His blood cultures have been negative during this admission. Review of Systems All systems: negative Past Medical History Additional Past Medical History / Comment(s): ulcerative colitis, spleen problems, Hep C History of Any Multi-Drug Resistant Organisms: None Reported Past Surgical History: No Surgical Hx Reported Past Anesthesia/Blood Transfusion Reactions: No Reported Reaction Past Psychological History: No Psychological Hx Reported Smoking Status: Current every day smoker Past Alcohol Use History: None Reported Additional Past Alcohol Use History / Comment(s): Patient is a smoker of less than one pack per day since he was 15 years of age. He has history of drinking 4-5 times per week, liquor but since 2007 he only drinks about 2 times per year. He uses marijuana on a regular basis including edibles. The patient is single and lives alone. Past Drug Use History: Marijuana - Past Family History Father Family Medical History: Seizure Disorder Additional Family Medical History / Comment(s): Father is alive at age 64 with history of seizures and hypertension. Mother Additional Family Medical History / Comment(s): Mother in her late 50s with complications from CABG. Brother(s) Additional Family Medical History / Comment(s): Patient has 2 brothers with no major medical problems. He does not have any sisters. He does not have any children. No family members have ulcerative colitis. Medications and Allergies Home Medications Medication Instructions Recorded Confirmed Type No Known Home Medications 05/12/20 05/12/20 History Allergies Allergy/AdvReac Type Severity Reaction Status Date / Time No Known Allergies Allergy Verified 05/12/20 07:46 Surgical - Exam Osteopathic Statement: *. No significant issues noted on an osteopathic structural exam other than those noted in the History and Physical/Consult. Vital Signs Temp Pulse Resp BP Pulse Ox 98.2 F 117 H 20 131/88 100 05/12/20 01:57 05/12/20 01:57 05/12/20 01:57 05/12/20 01:57 05/12/20 01:57 - General well developed, well nourished, no distress - Eyes PERRL, normal ocular movement - ENT normal mucosa, no hearing loss - Neck trachea midline - Respiratory normal respiratory effort - Abdomen Soft, nontender, nondistended, no rebound, no guarding - Psychiatric oriented to time, oriented to person, oriented to place Results - Labs 05/16/20 07:02 05/15/20 11:43 Abnormal Lab Results - Last 24 Hours (Table) 05/14/20 05/15/20 05/15/20 Range/Units 06:04 11:43 11:43 WBC (3.8-10.6) k/uL Hgb (13.0-17.5) gm/dL Hct (39.0-53.0) % MCV (80.0-100.0) fL MCH (25.0-35.0) pg MCHC (31.0-37.0) g/dL RDW (11.5-15.5) % Plt Count (150-450) k/uL Neutrophils # (1.3-7.7) k/uL Glucose 144 H (70-110) mg/dL Calcium 8.3 L (8.7-10.3) mg/dL AST 44 H (14-35) U/L Total Protein 5.8 L (6.2-8.2) g/dL Albumin 2.80 L (3.80-4.90) g/dL Albumin (PEP) 2.00 L (3.80-4.90) g/dL Albumin/Globulin Ratio 0.93 L (1.60-3.17) g/dL Prygk-2-Unkobwapj 0.41 H (0.10-0.40) g/dL Crossmatch See Detail 05/16/20 Range/Units 07:02 WBC 13.1 H (3.8-10.6) k/uL Hgb 9.5 L D (13.0-17.5) gm/dL Hct 32.0 L (39.0-53.0) % MCV 67.6 L (80.0-100.0) fL MCH 20.0 L (25.0-35.0) pg MCHC 29.6 L (31.0-37.0) g/dL RDW 18.0 H (11.5-15.5) % Plt Count 515 H (150-450) k/uL Neutrophils # 10.0 H (1.3-7.7) k/uL Glucose (70-110) mg/dL Calcium (8.7-10.3) mg/dL AST (14-35) U/L Total Protein (6.2-8.2) g/dL Albumin (3.80-4.90) g/dL Albumin (PEP) (3.80-4.90) g/dL Albumin/Globulin Ratio (1.60-3.17) g/dL Jwqor-4-Xlenlgbdm (0.10-0.40) g/dL Crossmatch Microbiology - Last 24 Hours (Table) 05/12/20 05:42 Blood Culture - Preliminary Blood No Growth after 96 hours Diabetes panel 05/15/20 Range/Units 11:43 Sodium 138 (135-145) mmol/L Potassium 4.6 (3.5-5.5) mmol/L Chloride 108 (96-109) mmol/L Carbon Dioxide 22.0 (21.6-31.8) mmol/L BUN 9.0 (9.0-27.0) mg/dL Creatinine 0.6 (0.6-1.5) mg/dL Glucose 144 H (70-110) mg/dL Calcium 8.3 L (8.7-10.3) mg/dL AST 44 H (14-35) U/L ALT 42 (10-49) U/L Alkaline Phosphatase 91 (41-126) U/L Total Protein 5.8 L (6.2-8.2) g/dL Albumin 2.80 L (3.80-4.90) g/dL Calcium panel 05/15/20 Range/Units 11:43 Calcium 8.3 L (8.7-10.3) mg/dL Albumin 2.80 L (3.80-4.90) g/dL Pituitary panel 05/15/20 Range/Units 11:43 Sodium 138 (135-145) mmol/L Potassium 4.6 (3.5-5.5) mmol/L Chloride 108 (96-109) mmol/L Carbon Dioxide 22.0 (21.6-31.8) mmol/L BUN 9.0 (9.0-27.0) mg/dL Creatinine 0.6 (0.6-1.5) mg/dL Glucose 144 H (70-110) mg/dL Calcium 8.3 L (8.7-10.3) mg/dL Adrenal panel 05/15/20 Range/Units 11:43 Sodium 138 (135-145) mmol/L Potassium 4.6 (3.5-5.5) mmol/L Chloride 108 (96-109) mmol/L Carbon Dioxide 22.0 (21.6-31.8) mmol/L BUN 9.0 (9.0-27.0) mg/dL Creatinine 0.6 (0.6-1.5) mg/dL Glucose 144 H (70-110) mg/dL Calcium 8.3 L (8.7-10.3) mg/dL Total Bilirubin 0.2 (0.2-1.2) mg/dL AST 44 H (14-35) U/L ALT 42 (10-49) U/L Alkaline Phosphatase 91 (41-126) U/L Total Protein 5.8 L (6.2-8.2) g/dL Albumin 2.80 L (3.80-4.90) g/dL Assessment and Plan Plan: I discussed this case in depth with multiple of the physicians that are involved in the case. I did discuss with infectious disease, oncology and medical services. At this point, there is no certain etiology or diagnosis of the splenic lesions and a wide differential is noted at this time. So far, workup for splenic lymphoma has been negative. Hepatitis C panel has been positive. Patient is not showing any signs of sepsis at this time. Based on these findings, some expectation of positive blood cultures or systemic signs would be noted with a splenic abscess. Other consideration is that splenic infarct possibly secondary to previous IV drug abuse has resulted in this lesion. Patient is to have an evaluation by infectious disease and thought of possible IV antibiotic course with reevaluation of this area with a future computed tomography scan versus surgical planning for splenectomy. At this point, as the patient does not seem to have any systemic signs or picture of sepsis, we will await ID recommendations prior to planning any surgical intervention. We will continue to follow and make recommendations based on the patient's clinical progress.
--- NOTE | 2020-05-16 15:13 | P.PN ---
Subjective Progress Note Date: 05/16/20 Principal diagnosis: splenomegaly CT chest with possible splenic infarct and gas forming infection/phlegmon. Objective - Vital Signs Vital signs: Vital Signs Temp 98.8 F 05/16/20 07:00 Pulse 50 L 05/16/20 07:00 Resp 17 05/16/20 02:27 BP 142/84 05/16/20 07:00 Pulse Ox 99 05/16/20 07:00 Intake & Output 05/15/20 05/16/20 05/16/20 18:59 06:59 18:59 Intake Total 400 310 Balance 400 310 Intake: Oral 400 Blood Product 0 310 Rc As-3 Unit 0 310 [id number] Other: Voiding Method Toilet Toilet # Voids 3 1 3 - Exam Gen.: No acute distress. HEENT: No conjunctival pallor. No scleral icterus. Neck: Neck supple. Lungs: No respiratory distress. Heart: Regular rate. No lower extremity edema. Abdomen: Soft. MSK: Appropriate strength in all 4 extremities. Neuro: Alert and oriented 3. Skin: No jaundice. Psych: Appropriate affect. - Labs CBC & Chem 7: 05/16/20 07:02 05/15/20 11:43 Labs: Abnormal Lab Results - Last 24 Hours (Table) 05/15/20 05/15/20 05/16/20 Range/Units 11:43 11:43 07:02 WBC 13.1 H (3.8-10.6) k/uL Hgb 9.5 L D (13.0-17.5) gm/dL Hct 32.0 L (39.0-53.0) % MCV 67.6 L (80.0-100.0) fL MCH 20.0 L (25.0-35.0) pg MCHC 29.6 L (31.0-37.0) g/dL RDW 18.0 H (11.5-15.5) % Plt Count 515 H (150-450) k/uL Neutrophils # 10.0 H (1.3-7.7) k/uL Glucose 144 H (70-110) mg/dL Calcium 8.3 L (8.7-10.3) mg/dL AST 44 H (14-35) U/L Total Protein 5.8 L (6.2-8.2) g/dL Albumin 2.80 L (3.80-4.90) g/dL Albumin/Globulin Ratio 0.93 L (1.60-3.17) g/dL Crossmatch See Detail Microbiology - Last 24 Hours (Table) 05/12/20 05:42 Blood Culture - Preliminary Blood No Growth after 96 hours Assessment and Plan Assessment: splenomegaly splenic infarct microcytic anemia iron deficiency ulcerative colitis Plan: Mr. Austin is a very pleasant 39 yo male with multiple comorbidities here with abdominal pain. Work up with MRI abdomen revealed enlarged spleen with cystic lesions. CT chest obtained, which revealed findings concerning for possible splenic infarct and infection with possible gas forming organism/phlegmon. Continue supportive care and antibiotics. Surgery on board. Continue iron supplementation for his iron deficiency. Will continue to follow pt with you.
[2020-05-16] MEDS: MELATONIN 5 MG TABLET PO SCH (20:07)
[2020-05-16] MEDS ORDERED: methylPREDNISolone SOD SUCCI 40 MG/ML 1 ML VIAL IV SCH (21:00)
--- NOTE | 2020-05-17 00:05 | CONS ---
CONSULTATION DATE OF SERVICE: 05/16/2020. REASON FOR CONSULTATION: Spleen infection with concern for possible abscess versus infarct. HISTORY OF PRESENT ILLNESS: The patient is a 39-year-old male with a past medical history significant for ulcerative colitis in this patient who did have this disease for almost 16 years previously treated medication. Currently on no specific treatment for the same. Presented to the ER at [facility] 4 days ago on 05/12/2020 for evaluation of worsening diarrhea and abdominal pain. The patient symptoms had been getting worse for the last week or so. This patient complaining of multiple loose stools. He was also complaining of pain mostly lower abdominal area and some pain in the left upper quadrant, more of a dull aching intensity 5 to 6/10 and no radiation. Has felt nauseated but no vomiting. On presentation to hospital, the patient has been afebrile and no fever has been recorded since admission to the hospital. He did have a white count of 17.9 and came down to 10.8 yesterday and up to 13.1 today. The patient also did have mild elevated liver enzymes. Hepatitis C antibody and PCR came back positive. HIV testing was negative. The patient did have abdominal and pelvis CT on admission which did raise concern for right side colon colitis and enlarging spleen with large irregular low-density lesion. The patient also had a CT of the chest completed this morning which showed concern for possible infection of the spleen, tends to be within the inferior margin MRSA infection with gas-forming organism. The patient is currently being treated with Zosyn. Infectious Disease was consulted for further management and concern for abnormal CT. The patient does not look toxic. As mentioned earlier, he did not have any fever, some elevated white count which improved and slight worsening today. REVIEW OF SYSTEMS: Positive points have been mentioned in HPI. Rest of systems negative. PAST MEDICAL HISTORY: Chronic hepatitis, ulcerative colitis, . PAST SURGICAL HISTORY: No major surgery. SOCIAL HISTORY: Currently positive for smoking. Did admit to marijuana use. FAMILY HISTORY: Father history of seizure disorder, mother in her 50s complications of the heart, coronary artery bypass grafting. ALLERGIES: No known drug allergies. MEDICATIONS: The patient is currently on Dilaudid, Toradol, Melatonin, Narcan, Zofran, Protonix, Zosyn, sulfasalazine. PHYSICAL EXAMINATION: Blood pressure is 130/76, pulse of 52, temperature 97.8. He is 98% on room air. General description: The patient is a middle-aged male lying in bed in no distress. No tachypnea or accessory muscle of respiration use. HEENT: Shows slight pallor. No scleral icterus. Oral mucosa membranes dry. Neck: Trachea central. No thyromegaly. LUNGS unlabored breathing, clear to auscultation anteriorly. HEART S1, S2. Regular rate and rhythm. ABDOMEN: Soft, nontender. No guarding. No rigidity. No organomegaly. EXTREMITIES: No edema of the feet. SKIN examination: No rash or mass palpable. NEUROLOGIC: The patient is awake, alert, oriented. Mood and affect normal. LABS: Hemoglobin 9.5, white count 13.1, BUN of 9, creatinine 0.6. Electrolyte has been normal. ALT is normal. Blood culture negative. CT report mentioned above. DIAGNOSTIC IMPRESSION AND PLAN: Patient with abnormal CT as seen on the CT of the chest, possible infarct clinically not behaving as splenic abscess in this patient with no fever. Does not look toxic. Not bacteremic. PLAN: 1. May continue Zosyn empirically while his condition stabilizes. 2. If no worsening of his abdominal symptoms, no fever and culture remains negative, may transition to short course of oral antibiotic with plan for a repeat CT here in the next few weeks. If any worsening, he may need a splenectomy. If improvement, then to continue monitor closely. This was discussed in detail with the surgeon. Thank you for this consultation. We will follow this patient along with you. MMODL / IJN: [id number] /
[2020-05-17] MEDS: HYDROmorphone 1 MG/ML 1 ML SYRINGE IVP PRN ×6 (01:09→21:30)
[2020-05-17] MEDS: PIPERACILLIN-TAZOBACTAM 3.375 GM in SODIUM CHLORIDE 0.9% 100 ML IVPB SCH ×3 (02:42→17:55)
[2020-05-17 07:37] LABS: Anisocytosis Slight; Basophils % (A) 0 %; Eosinophils # (A) 0.1 k/uL (0-0.7); Eosinophils % (A) 1 %; HGB 10.1 gm/dL (13.0-17.5); Hypochromasia Marked; Lymphocytes # (A) 3.3 k/uL (1.0-4.8); Lymphocytes % (A) 21 %; MCH 20.3 pg (25.0-35.0); MCHC 28.9 g/dL (31.0-37.0); MCV 70.3 fL (80.0-100.0); Mean Platelet Volume 6.3; Microcytosis Marked; Monocytes # (A) 0.6 k/uL (0-1.0); Monocytes % (A) 4 %; Neutrophils # (A) 11.5 k/uL (1.3-7.7); Neutrophils % (A) 73 %; Platelet Count 531 k/uL (150-450); Poikilocytosis Slight; RBC 4.98 m/uL (4.30-5.90); RDW 18.2 % (11.5-15.5); WBC 15.8 k/uL (3.8-10.6)
[2020-05-17] MEDS: TRIAMCINOLONE ACET 0.1% ORAL PASTE 5 GM TUBE MUCOUS MEM SCH ×3 (07:40→15:52)
[2020-05-17] MEDS: PANTOPRAZOLE 40 MG/10 ML VIAL IV SCH (09:03)
[2020-05-17] MEDS: sulfaSALAzine 500 MG TAB PO SCH ×2 (09:03→20:23)
[2020-05-17] MEDS: predniSONE 20 MG TAB PO SCH (09:04)
--- NOTE | 2020-05-17 09:57 | P.PN ---
Subjective Progress Note Date: 05/17/20 This is a 39-year-old male patient recently established with me during hospitalization last month but did not follow up in the office as instructed. He has past medical history of ulcerative colitis, tobacco use and dependence, marijuana use. He was recently hospitalized for acute ulcerative colitis and that time was seen by GI. He was started on sulfasalazine 1000 mg twice daily at that time, discharged on tapering prednisone and Flagyl/Levaquin. Patient complains of worsening diarrhea with multiple episodes daily as well as worsening abdominal pain over the past week. Pain became unbearable and he came into the hospital. He does complain of weight loss and sores on his mouth that are limiting his ability to eat or drink. He was afebrile, heart rate 117 initially, blood pressure 131/88 and pulse ox 100%. White count was 17.9, hemoglobin 9.4, platelet count 625. Sodium 130, potassium 3.5, creatinine 0.79, blood sugar 126. Liver function tests normal. Lactic acid 1.5. C. difficile toxin negative. HIV negative. CAT scan of the abdomen and pelvis with IV contrast revealed right colon colitis. Enlarging spleen with enlarging irregular low density lesions. Recommend further evaluation with PET scan, abdominal MRI or biopsy. Patient was made nothing by mouth, IV fluids were started as well as Flagyl and Zosyn, IV Solu-Medrol and consult with GI. 05/13:Patient is doing a bit better today , he feels hungry, not able t sleep well last night, he denies any chest pain or shortness of breath, continues to have abdominal pain, no nausea, the stool continues to be foamy, and no blood in it today.we will advance his diet to soft diet and we will continue with monitoring, he asking to increase his pain medication for now. 05/14: Patient is feeling better today, with better appetite, he denies any chest pain or shortness of breath, he continues to be weak, no blood stool and he still have some abdominal cramps, slept better last night and and he is Hep C titers were reviewed and confirmed, his hemoglobin did drop to 7.2 will likley require blood transfusion in AM, HIV titer were negative, we ill continue to monitor, was seen by GI and Hem-Onc , MRI of the abdomen showed a cystic mass with multiple possibilities from Hydatid cyst to cystic neoplasm such as lymphoma,. 05/15: Patient be transfused 1 unit packed RBCs today. Repeat CBC tomorrow. Patient has been afebrile, heart rate 61, blood pressure 111/62, pulse ox 100% on room air. Urine culture finalized with no growth and blood culture no growth. C-reactive protein is down to 1.1. patient is continued on IV Solu- Medrol and IV antibiotics in the form of Zosyn. Patient hand stools during the night. No blood. He is eating 100% of his meals and tolerating without nausea or vomiting. 05/16: Patient is laying down in bed is complaining increased pain in the left upper quadrant, he denies any fever or chills, he did receive 1 units of packed red blood cells his hemoglobin is better today, is a bit nauseated, is asking for pain medication, we took him off the morphine we will maintain the patient on Dilaudid 1 mg IV push every 3 hours, added Toradol 15 mg IV push every 6 hours as needed, computed tomography scan of the chest reviewed and showed possible screen infarct, we will consult general surgery for possible splenectomy for diagnostic and therapeutic purposes, patient was informed about the finding he will be staying in the hospital for now awaiting surgical input. 05/17: Patient is sitting up in bed in no apparent distress is feeling better today he continues to have some pain in the left upper quadrant however not as bad as yesterday he did have a bowel movement is more firm than yesterday, he had no chest pain or chest with, I had a long conversation with the patient about the finding of the computed tomography scan and a consultation with general surgery and infectious disease at this time we'll continue the IV antibiotic for another day or so and then that when the patient is ready to get home we can switch him to oral antibiotic hold off any surgical intervention repeat his computed tomography scan about 2 weeks from now, it just too much risk to take his been out of his age with his underlying ulcerative colitis. We'll allow the patient to have a diet. Objective - Vital Signs Vital signs: Vital Signs Temp 98.0 F 05/17/20 07:00 Pulse 50 L 05/17/20 07:00 Resp 18 05/17/20 01:00 BP 152/77 05/17/20 07:00 Pulse Ox 99 05/17/20 07:00 Intake & Output 05/16/20 05/17/20 05/17/20 18:59 06:59 18:59 Intake Total 100 Balance 100 Intake: Intake, IV Titration 100 Amount Piperacillin-Tazobactam 3 100 .375 gm In Sodium Chloride 0.9% 100 ml @ 25 mls/hr IVPB Q8H [facility] Rx#: [id number] Other: Voiding Method Toilet Toilet # Voids 3 1 - Exam Review of Systems Constitutional: Reports anorexia, Reports fatigue, Reports malaise, Reports poor appetite, Reports weakness, Reports weight loss Eyes: denies blurred vision, denies pain Ears, nose, mouth and throat: Reports mouth pain, Denies headache, Denies sore throat Cardiovascular: Denies chest pain, Denies edema, Denies syncope Respiratory: Denies cough, Denies cough with sputum, Denies dyspnea, Denies hemoptysis Gastrointestinal: Reports abdominal pain, Reports diarrhea, Reports loss of appetite, denies nausea, Denies vomiting Genitourinary: Denies dysuria, Denies urinary frequency, Denies urinary retention Musculoskeletal: Denies frequent falls, Denies gait dysfunction, Denies muscle weakness, Denies myalgias Integumentary: Denies pruritus, Denies rash, Denies wounds Neurological: Denies change in mentation, Denies change in speech, Denies numbness, Denies weakness Psychiatric: Denies anxiety, Denies depression en: This is a 39-year-old male. He is resting in bed in no distress. HEENT: Head is atraumatic, normocephalic. Pupils equal, round. Sclerae is anicteric. Oral mucous membranes are slightly dry. NECK: Supple. No JVD. No lymphadenopathy. No thyromegaly. LUNGS: Clear to auscultation. No wheezes or rhonchi. No intercostal retractions. HEART: Regular rate and rhythm. No murmur. ABDOMEN: Soft. Bowel sounds are present. No masses. Left upper quadrant tenderness. EXTREMITIES: No pedal edema. No calf tenderness. Dorsalis pedis +2 bilaterally. Enlarged MPJ bilaterally NEUROLOGICAL: Patient is awake, alert and oriented x3. Cranial nerves 2 through 12 are grossly intact., mucous membranes of the mouth are dry with aphthous ulcers. - Labs CBC & Chem 7: 05/17/20 07:00 05/15/20 11:43 Labs: Abnormal Lab Results - Last 24 Hours (Table) 05/13/20 05/17/20 Range/Units 12:55 07:00 WBC 15.8 H (3.8-10.6) k/uL Hgb 10.1 L (13.0-17.5) gm/dL Hct 35.0 L (39.0-53.0) % MCV 70.3 L (80.0-100.0) fL MCH 20.3 L (25.0-35.0) pg MCHC 28.9 L (31.0-37.0) g/dL RDW 18.2 H (11.5-15.5) % Plt Count 531 H (150-450) k/uL Neutrophils # 11.5 H (1.3-7.7) k/uL Hepatitis C RNA Quant [id number] H (0-0) IU/mL Microbiology - Last 24 Hours (Table) 05/12/20 05:42 Blood Culture - Preliminary Blood No Growth after 120 hours Assessment and Plan Assessment: Assessment and Plan Plan: 1. Acute exacerbation of ulcerative colitis. we will start Zosyn 3.375 gr IVPB q 6 hours, discontinue insulin or continue prednisone 40 mg orally once every day, we will continue with Sulfasalazine 1000 mg po bid, we will advance diet as tolerated as the patient is steadily scheduled to be discharged home tomorrow morning. 2. Spleen mass post MRI of the abdomen that showed cystic mass discussed with hematology oncology that this is unlikely be lymphoma, however because the computed tomography scan of the chest showed an infarct of the spleen we will consult general surgery for possible splenectomy , after long conversation with general surgery as well as infectious disease and the patient himself we'll hold off any surgical intervention at this point in time continue the patient current IV antibiotic for another day that he will be switched to oral antibiotic and repeat computed tomography scan of the abdomen for further evaluation of of the splenic infarct in 2 weeks from now. 3. Leukocytosis due to acute colitis and the use of steroid. Monitor the CBC. 4. Aphthous stomatitis. Has been better using oral days. 5. Iron deficiency anemia due to chronic blood loss and chronic inflammation due to ulcerative colitis and possibly chronic hepatitis C along wit IVDU. his hemoglobin is better and 0.1. 6. Hepatitis C. stable. viral loads is high. 7. IV drug use in the form of Heroin. has been clean since December.. he is negative for HIV. 8. Regular marijuana use. counseled against its use. 9. GI prophylaxis we will continue with Protonix 40 mg orally once every day. 10. DVT prophylaxis. we will continue with bilateral Knee -high Ross hose. 11. Insomnia. we will start Melatonin 5 mg at bedtime. 12. Moderate protein calorie malnutrition. Continue ensure 3 times daily . 13. Discharge plan: Home tomorrow morning.
--- NOTE | 2020-05-17 10:17 | P.PN ---
Subjective Progress Note Date: 05/17/20 Patient seen and examined at bedside. No acute events. States abdominal pain is unchanged and is better with pain medication. Objective - Vital Signs Vital signs: Vital Signs Temp 98.0 F 05/17/20 07:00 Pulse 50 L 05/17/20 07:00 Resp 18 05/17/20 01:00 BP 152/77 05/17/20 07:00 Pulse Ox 99 05/17/20 07:00 Intake & Output 05/16/20 05/17/20 05/17/20 18:59 06:59 18:59 Intake Total 100 Balance 100 Intake: Intake, IV Titration 100 Amount Piperacillin-Tazobactam 3 100 .375 gm In Sodium Chloride 0.9% 100 ml @ 25 mls/hr IVPB Q8H [facility] Rx#: [id number] Other: Voiding Method Toilet Toilet Toilet # Voids 3 1 - Constitutional General appearance: Present: cooperative, no acute distress - Gastrointestinal Gastrointestinal Comment(s): Soft, nontender, nondistended, no rebound, no guarding - Labs CBC & Chem 7: 05/17/20 07:00 05/15/20 11:43 Labs: Abnormal Lab Results - Last 24 Hours (Table) 05/13/20 05/17/20 Range/Units 12:55 07:00 WBC 15.8 H (3.8-10.6) k/uL Hgb 10.1 L (13.0-17.5) gm/dL Hct 35.0 L (39.0-53.0) % MCV 70.3 L (80.0-100.0) fL MCH 20.3 L (25.0-35.0) pg MCHC 28.9 L (31.0-37.0) g/dL RDW 18.2 H (11.5-15.5) % Plt Count 531 H (150-450) k/uL Neutrophils # 11.5 H (1.3-7.7) k/uL Hepatitis C RNA Quant [id number] H (0-0) IU/mL Microbiology - Last 24 Hours (Table) 05/12/20 05:42 Blood Culture - Preliminary Blood No Growth after 120 hours Assessment and Plan Plan: 39-year-old male with splenomegaly and concern of splenic lesion. Case was discussed in depth with the primary team along with infectious disease and oncology. At this point, decision is for continuing antibiotics and rechecking CAT scan in 2 weeks to evaluate for progress. I did discuss with the patient with any significant worsening of symptoms or findings of sepsis, we may consider more urgent surgical intervention. However, at this time we will con tinue with the antibiotics as the patient does not appear septic. He will follow-up in the surgical clinic for further evaluation if he is discharged.
--- NOTE | 2020-05-17 10:41 | PN ---
PROGRESS NOTE DATE OF SERVICE: May 17, 2020 Patient is a 39-year-old white male admitted to hospital with exacerbation of ulcerative colitis. He was on IV steroids for 3 days. He was changed to oral prednisone yesterday. He is doing better. He had about 4 bowel movements yesterday and one bowel movement this morning. No bleeding. Abdominal pain is improving. The patient is being evaluated for a splenic lesion/splenic infarct and Dr. Foster was consulted yesterday. He does complain of some left upper quadrant abdominal pain. PHYSICAL EXAMINATION: He appears comfortable. No apparent distress. VITAL SIGNS: Stable. Blood pressure is 152/77, pulse rate 58, temperature 98. HEENT examination unremarkable. Conjunctivae pink. Sclerae anicteric. Oral cavity no lesions. Neck no JVD encouragement chest was clear to auscultation. HEART: Regular rate and rhythm. ABDOMEN: Soft. There was very mild tenderness in the left upper quadrant area. The rest of the abdomen was benign. EXTREMITIES: No pedal edema. NEURO: He is alert and oriented x3. No focal deficits. LABS: From today WBC 15.8, hemoglobin 10, platelets 531. IMPRESSION: 1. Acute exacerbation of ulcerative colitis on oral prednisone 40 mg daily, since yesterday he is doing better. No further bleeding. Diarrhea is improving. 2. Splenic lesion versus splenic abscess versus splenic infarct. Dr. Foster following the patient closely. He was started on antibiotics for possible splenic abscess. RECOMMENDATIONS: 1. Continue with prednisone 40 mg daily. 2. Continue with Azulfidine 1 gram 4 times daily. 3. Await further recommendations by Dr. Foster. 4. We will follow with you closely. Thank you for this consultation. MMODL / IJN: [id number] /
[2020-05-17] MEDS: KETOROLAC 15 MG/ML 1 ML VIAL IVP PRN ×2 (11:09→20:24)
[2020-05-17 12:09] LABS: Erythrocyte Sedimentation Rate 27 mm/Hr (0-15)
[2020-05-17] MEDS: MELATONIN 5 MG TABLET PO SCH (20:23)
[2020-05-18] MEDS: HYDROmorphone 1 MG/ML 1 ML SYRINGE IVP PRN ×5 (00:36→15:30)
[2020-05-18] MEDS: PIPERACILLIN-TAZOBACTAM 3.375 GM in SODIUM CHLORIDE 0.9% 100 ML IVPB SCH ×2 (02:03→10:33)
--- NOTE | 2020-05-18 04:28 | PN ---
PROGRESS NOTE DATE OF SERVICE: 05/17/2020 REASON FOR FOLLOWUP: Splenic lesion with question of infarct versus abscess. INTERVAL HISTORY: The patient is currently afebrile. He is feeling better. Breathing comfortably. Some discomfort to the left arm, but no worsening. No chest pain, shortness of breath or cough. PHYSICAL EXAMINATION: Blood pressure 120/74 with a pulse of 52, temperature 98.4. He is 99% on room air. General description is a middle-aged male lying in bed in no distress. RESPIRATORY SYSTEM: Unlabored breathing, clear to auscultation anteriorly. HEART: S1, S2, regular rate and rhythm. ABDOMEN: Soft, no tenderness. LABS: Hemoglobin is 10.3, white count 15.8. The patient's CRP came out to be 0.4. Blood culture negative. DIAGNOSTIC IMPRESSION AND PLAN: Patient with abnormality of the spleen, concern for possible infarct, not behaving as an abscess clinically in this patient with no fever. Blood culture has been negative and the patient's CRP came out to be less than 0.4. The patient is covered with empiric Zosyn. Will discuss further with a question of possible wait or watching versus surgical removal. His questions and concerns were answered. MMODL / IJN: [id number] /
[2020-05-18] MEDS ORDERED: PANTOPRAZOLE 40 MG TABLET PO SCH (07:30)
[2020-05-18] MEDS: sulfaSALAzine 500 MG TAB PO SCH (07:35)
[2020-05-18] MEDS: predniSONE 20 MG TAB PO SCH (07:35)
[2020-05-18] MEDS: TRIAMCINOLONE ACET 0.1% ORAL PASTE 5 GM TUBE MUCOUS MEM SCH (07:36)
[2020-05-18 07:46] VITALS: RESP 16
--- NOTE | 2020-05-18 08:29 | P.PN ---
Subjective Progress Note Date: 05/18/20 Patient seen and examined at bedside. No acute events. Tolerating diet. Objective - Vital Signs Vital signs: Vital Signs Temp 97.7 F 05/18/20 07:00 Pulse 54 L 05/18/20 07:00 Resp 16 05/18/20 07:00 BP 130/85 05/18/20 07:00 Pulse Ox 100 05/18/20 07:00 Intake & Output 05/17/20 05/18/20 05/18/20 18:59 06:59 18:59 Intake Total 900 200 296 Balance 900 200 296 Intake: Intake, IV Titration 200 Amount Piperacillin-Tazobactam 3 200 .375 gm In Sodium Chloride 0.9% 100 ml @ 25 mls/hr IVPB Q8H [facility] Rx#: [id number] Oral 900 296 Other: Voiding Method Toilet Toilet # Voids 3 - Constitutional General appearance: Present: cooperative, no acute distress - Respiratory Details: No difficulty with respiration - Gastrointestinal Gastrointestinal Comment(s): Soft, nontender, nondistended, no rebound, no guarding - Psychiatric Psychiatric: Present: A&O x's 3 - Labs CBC & Chem 7: 05/17/20 07:00 05/15/20 11:43 Labs: Abnormal Lab Results - Last 24 Hours (Table) 05/17/20 Range/Units 07:00 ESR 27 H (0-15) mm/Hr Microbiology - Last 24 Hours (Table) 05/12/20 05:42 Blood Culture - Final Blood No Growth after 144 hours Assessment and Plan Plan: 39-year-old male with splenomegaly and concern of splenic lesion. Case was discussed in depth with the primary team along with infectious disease and oncology. At this point, decision is for continuing antibiotics and rechecking CAT scan in 2 weeks to evaluate for progress. Apparent plan is for discharge today. The patient does understand the importance of following up closely for continued clinical decisions.
[2020-05-18] MEDS: KETOROLAC 15 MG/ML 1 ML VIAL IVP PRN (10:31)
--- NOTE | 2020-05-18 10:47 | P.DS ---
Providers Date of admission: 05/12/20 07:15 Expected date of discharge: 05/18/20 Attending physician: Adalid Plata Consults: 05/12/20 07:16 Consult Physician Urgent Consulting Provider: Shawn Sheth Consult Reason/Comments: ulcerative colitis Do you want consulting provider notified?: Yes, Notify in am 05/12/20 15:02 Consult Physician Routine Consulting Provider: Daniel Duffy Consult Reason/Comments: r/o lymphoma Do you want consulting provider notified?: Yes 05/16/20 10:25 Consult Physician Urgent Consulting Provider: Raheem Echevarria Consult Reason/Comments: Spleen infarct? Do you want consulting provider notified?: Yes 05/16/20 12:53 Consult Physician Routine Consulting Provider: Maryan Fields Consult Reason/Comments: Splenic lesion Do you want consulting provider notified?: Already Contacted Primary care physician: Adalid Plata [facility] Course: This is a 39-year-old male patient recently established with me during hospitalization last month but did not follow up in the office as instructed. He has past medical history of ulcerative colitis, tobacco use and dependence, marijuana use. He was recently hospitalized for acute ulcerative colitis and that time was seen by GI. He was started on sulfasalazine 1000 mg twice daily at that time, discharged on tapering prednisone and Flagyl/Levaquin. Patient complains of worsening diarrhea with multiple episodes daily as well as worsening abdominal pain over the past week. Pain became unbearable and he came into the hospital. He does complain of weight loss and sores on his mouth that are limiting his ability to eat or drink. He was afebrile, heart rate 117 initially, blood pressure 131/88 and pulse ox 100%. White count was 17.9, hemoglobin 9.4, platelet count 625. Sodium 130, potassium 3.5, creatinine 0.79, blood sugar 126. Liver function tests normal. Lactic acid 1.5. C. difficile toxin negative. HIV negative. CAT scan of the abdomen and pelvis with IV contrast revealed right colon colitis. Enlarging spleen with enlarging irregular low density lesions. Recommend further evaluation with PET scan, abdominal MRI or biopsy. Patient was made nothing by mouth, IV fluids were star federico as well as Flagyl and Zosyn, IV Solu-Medrol and consult with GI. 05/13:Patient is doing a bit better today , he feels hungry, not able t sleep well last night, he denies any chest pain or shortness of breath, continues to have abdominal pain, no nausea, the stool continues to be foamy, and no blood in it today.we will advance his diet to soft diet and we will continue with monitoring, he asking to increase his pain medication for now. 05/14: Patient is feeling better today, with better appetite, he denies any chest pain or shortness of breath, he continues to be weak, no blood stool and he still have some abdominal cramps, slept better last night and and he is Hep C titers were reviewed and confirmed, his hemoglobin did drop to 7.2 will bettie require blood transfusion in AM, HIV titer were negative, we ill continue to monitor, was seen by GI and Hem-Onc , MRI of the abdomen showed a cystic mass with multiple possibilities from Hydatid cyst to cystic neoplasm such as lymphoma,. 05/15: Patient be transfused 1 unit packed RBCs today. Repeat CBC tomorrow. Patient has been afebrile, heart rate 61, blood pressure 111/62, pulse ox 100% on room air. Urine culture finalized with no growth and blood culture no growth. C-reactive protein is down to 1.1. patient is continued on IV Solu- Medrol and IV antibiotics in the form of Zosyn. Patient hand stools during the night. No blood. He is eating 100% of his meals and tolerating without nausea or vomiting. 05/16: Patient is laying down in bed is complaining increased pain in the left upper quadrant, he denies any fever or chills, he did receive 1 units of packed red blood cells his hemoglobin is better today, is a bit nauseated, is asking for pain medication, we took him off the morphine we will maintain the patient on Dilaudid 1 mg IV push every 3 hours, added Toradol 15 mg IV push every 6 hours as needed, computed tomography scan of the chest reviewed and showed possible screen infarct, we will consult general surgery for possible splenectomy for diagnostic and therapeutic purposes, patient was informed about the finding he will be staying in the hospital for now awaiting surgical input. 05/17: Patient is sitting up in bed in no apparent distress is feeling better today he continues to have some pain in the left upper quadrant however not as bad as yesterday he did have a bowel movement is more firm than yesterday, he had no chest pain or chest with, I had a long conversation with the patient about the finding of the computed tomography scan and a consultation with general surgery and infectious disease at this time we'll continue the IV antibiotic for another day or so and then that when the patient is ready to get home we can switch him to oral antibiotic hold off any surgical intervention repeat his computed tomography scan about 2 weeks from now, it just too much risk to take his been out of his age with his underlying ulcerative colitis. We'll allow the patient to have a diet. 05/18: Patient is able to tolerate diet without any symptoms. No nausea or vomiting. Abdominal pain is also improved. Abdomen is soft. He has been afebrile, heart rate 54, blood pressure 130/85, pulse ox 100% on room air. Patient has been followed by Dr. Foster and Dr. Fields as well as GI during this hospitalization. Patient will be discharged home today in stable condition. Discharge diagnoses: 1. Acute exacerbation of ulcerative colitis. 2. Spleen mass post MRI of the abdomen that showed cystic mass discussed with hematology oncology that this is unlikely be lymphoma, however because the co mputed tomography scan of the chest showed an infarct of the spleen we will consult general surgery for possible splenectomy , after long conversation with general surgery as well as infectious disease and the patient himself we'll hold off any surgical intervention at this point. Repeat CAT scan in 2 weeks to evaluate progress. 3. Leukocytosis due to acute colitis and the use of steroid. 4. Aphthous stomatitis. 5. Iron deficiency anemia due to chronic blood loss and chronic inflammation due to ulcerative colitis and possibly chronic hepatitis C along wit IVDU. 6. Hepatitis C. stable. 7. IV drug use in the form of Heroin. 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 8. Regular marijuana use. counseled against its use. 9. Insomnia. we will start Melatonin 5 mg at bedtime. 10. Moderate protein calorie malnutrition. Discharge plan: Home Impression and plan of care have been directed as dictated by the signing physician. Teri Walter nurse practitioner acting as scribe for signing physician. Patient Condition at Discharge: Good Plan - Discharge Summary Discharge Rx Participant: Yes New Discharge Prescriptions: New Amoxicillin/Potassium Clav [Augmentin 875-125 Tablet] 1 tab PO BID 7 Days #14 tab sulfaSALAzine [Azulfidine] 1,000 mg PO BID #120 tab predniSONE 0 mg PO DIRECTED #30 tab Pantoprazole [Protonix] 40 mg PO AC-BRKFST #30 tablet. Discharge Medication List Amoxicillin/Potassium Clav [Augmentin 875-125 Tablet] 1 tab PO BID 7 Days #14 tab 05/18/20 [Rx] Pantoprazole [Protonix] 40 mg PO AC-BRKFST #30 tablet. 05/18/20 [Rx] predniSONE 0 mg PO DIRECTED #30 tab 05/18/20 [Rx] sulfaSALAzine [Azulfidine] 1,000 mg PO BID #120 tab 05/18/20 [Rx] Follow up Appointment(s)/Referral(s): Cate Foster DO [Doctor of Osteopathic Medicine] - 10 Days Adalid Plata MD [Primary Care Provider] - 1 Week Maria Antonia Gong MD [STAFF PHYSICIAN] - 2 Weeks Discharge Disposition: HOME SELF-CARE
--- NOTE | 2020-05-18 14:08 | PN ---
PROGRESS NOTE DATE OF SERVICE: 05/18/2020 REASON FOR FOLLOWUP: Abnormal CT and a question of splenic infarct with abscess. INTERVAL HISTORY: The patient is seen on rounds earlier today. The patient has been feeling better. Breathing comfortably. The patient's abdominal pain has improved. No nausea, no vomiting. No chest pain, shortness of breath, no cough. PHYSICAL EXAMINATION: Blood pressure 130/85, pulse of 56, temperature 97.7, he is 100% on room air. General description is a middle-aged male, up in the bed, in no distress. RESPIRATORY SYSTEM: Unlabored breathing, clear to auscultation anteriorly. HEART: S1, S2, regular rate and rhythm. ABDOMEN: Soft, no tenderness. EXTREMITIES: No edema of the feet. LAB: Hemoglobin is 10.8, white count of 15.8, creatinine 0.4. DIAGNOSTIC IMPRESSION AND PLAN: Patient abnormal CT of spleen, possible splenic infarct clinically with an abscess in a patient with no fever. Blood culture negative. CMV negative. He is going to be discharged with a short course of oral antibiotic. Follow closely with the surgeon. The patient has been advised if any development of fever and worsening, abdominal pain or vomiting, need to let us know or come back to the hospital. MMODL / IJN: [id number] /
[2020-05-18 15:03] VITALS: BP 106/65; PULSE 81; TEMP 98.1
--- NOTE | 2020-05-18 16:40 | PN ---
PROGRESS NOTE DATE OF DICTATION: 05/18/2020 Patient is a 39-year-old white male admitted to hospital with exacerbation of ulcerative colitis. He is on prednisone 40 mg daily, doing much better. Had 2 bowel movements today. He is being discharged home today. PHYSICAL EXAMINATION: Appears comfortable. VITAL SIGNS: Stable. Blood pressure 130/85, pulse rate 54, temperature 97.7. HEENT: Examination unremarkable, conjunctivae are pink, sclerae nonicteric, oral cavity no lesions. NECK: No JVD. No lymph node enlargement. CHEST: Clear to auscultation. HEART: Regular rate and rhythm. ABDOMEN: Soft, mild tenderness in the left upper quadrant area. Rest of the abdomen benign. EXTREMITIES: No pedal edema. SKIN: No rashes. NEUROLOGIC: Alert and oriented x3. No focal deficits. LABS: From yesterday WBC 15.8, hemoglobin 10, platelets 581, MCV 70. IMPRESSION: 1. Acute exacerbation of ulcerative colitis on oral steroids at prednisone 40 mg daily. The patient doing better. 2. Splenic infarct versus splenic abscess. ID and Dr. Foster following the patient closely. RECOMMENDATIONS: 1. Continue prednisone 40 mg daily and he was advised to taper it by 5 mg every week. 2. Continue Sulfate 1 g 4 times daily. 3. Follow up in the office in a week. Thank you for this consultation. MMODL / IJN: [id number] /
== END 2020-05-18 19:19 | disposition home or self-care (01) | DRG 386 ==
LOC: EC 01:44 → 6NMEDSUR 07:15 → 4SSUR 15:00
PROVIDERS: ADMIT Internal Medicine; ATTEND Internal Medicine
PROC: 30233N1 Transfusion of Nonautologous Red Blood Cells into Peripheral Vein, Percutaneous Approach (ICD-10-PCS; principal; 2020-05-15)
DX: K51.918 Ulcerative colitis, unspecified with other complication (principal); E44.0 Moderate protein-calorie malnutrition; K12.0 Recurrent oral aphthae; G47.00 Insomnia, unspecified; F11.11 Opioid abuse, in remission; Z68.20 Body mass index [BMI] 20.0-20.9, adult; F17.210 Nicotine dependence, cigarettes, uncomplicated; D73.89 Other diseases of spleen; D73.5 Infarction of spleen; B18.2 Chronic viral hepatitis C; D50.0 Iron deficiency anemia secondary to blood loss (chronic); E11.9 Type 2 diabetes mellitus without complications; Z82.0 Family history of epilepsy and other diseases of the nervous system; Z82.49 Family history of ischemic heart disease and other diseases of the circulatory system; D72.829 Elevated white blood cell count, unspecified; T38.0X5A Adverse effect of glucocorticoids and synthetic analogues, initial encounter; Z79.52 Long term (current) use of systemic steroids; Z79.899 Other long term (current) drug therapy
CPT/HCPCS: 36415; 71260; 74018; 74177; 74183; 80053; 81001; 82150; 82607; 82728; 82746; 83540; 83550; 83605; 83615; 83690; 83883; 83921; 84165; 85025; 85045; 85652; 86038; 86140; 86334; 86431; 86803; 86850; 86900; 86901; 86920; 87040; 87086; 87324; 87390; 87522; 96361; 96365; 96375; 99285

== ENCOUNTER 2021-03-18 20:09 | Inpatient (IN) | payer OTHER ==
[2021-03-18] MEDS ORDERED: AMPICILLIN-SULBACTAM 3 GM in SODIUM CHLORIDE 0.9% 100 ML IVPB STA (20:58)
--- NOTE | 2021-03-18 21:08 | ED ---
General Adult HPI - General Chief complaint: Abdominal Pain Stated complaint: Abd Pain Time Seen by Provider: 03/18/21 20:25 Source: patient Mode of arrival: ambulatory Limitations: no limitations - History of Present Illness Initial comments: Dictation was produced using [employer] dictation software. please excuse any grammatical, word or spelling errors. Chief Complaint: 40-year-old male presents with acute on chronic abdominal pain and purulent drainage from left jaw History of Present Illness: Patient is a 40-year-old male he has past medical history of ulcerative colitis, hepatitis C. Here for 2 reasons. First reason is for acute on chronic abdominal pain he states that he was admitted to the hospital diagnosed with ulcerative colitis earlier this year. He was prescribed UC medications however has not taken them since August. Last several days he's had worsening of acute on chronic ulcerative colitis pain. He localizes pain to the epigastric and lower suprapubic area. Complains of nausea. States that he's been having bloody diarrhea. Patient also reports several days of left lower jaw pain with purulent drainage from the gingival margin at the left lower jaw. Denies any fevers. He tried to drain it. The ROS documented in this emergency department record has been reviewed and confirmed by me. Those systems with pertinent positive or negative responses have been documented in the HPI. All other systems are other negative and/or noncontributory. PHYSICAL EXAM: General Impression: Alert and oriented x3, not in acute distress HEENT: Normocephalic atraumatic, extra-ocular movements intact, pupils equal and reactive to light bilaterally, mucous membranes moist. Oral exam: There is spontaneous purulent drainage coming from the lower jaw area, poor dentition Cardiovascular: Heart regular rate and rhythm Chest: Able to complete full sentences, no retractions, no tachypnea Abdomen: abdomen soft, diffuse mild tenderness with palpation, non-distended, no organomegaly Musculoskeletal: Pulses present and equal in all extremities, no peripheral edema Motor: no focal deficits noted Neurological: CN II-XII grossly intact, no focal motor or sensory deficits noted Skin: Intact with no visualized rashes Psych: Normal affect and mood ED course: 40-year-old male clinical presentation consistent with abdominal pain and dental abscess. Vital signs upon arrival are within acceptable limits. Even units and further abscess. Laboratory evaluation obtained showing white count of 18.5. Microcytic anemia look like iron deficiency. Metabolic panel is within acceptable limits. Abdominal labs are negative. Computed tomography scan abdomen and pelvis shows ileus. All other findings appear to be stable from recent CT scans. Patient reevaluated bedside still complains of pain. Patient be admitted for medical monitoring. Surgical be consulted. We do not have GI consult available today. Case discussed with Dr. tracy rawls except patient's care. - Related Data Previous Rx's Medication Instructions Recorded Amoxicillin/Potassium Clav 1 tab PO BID 7 Days #14 tab 05/18/20 [Augmentin 875-125 Tablet] Pantoprazole [Protonix] 40 mg PO AC-BRKFST #30 tablet. 05/18/20 predniSONE 0 mg PO DIRECTED #30 tab 05/18/20 sulfaSALAzine [Azulfidine] 1,000 mg PO BID #120 tab 05/18/20 Allergies Allergy/AdvReac Type Severity Reaction Status Date / Time No Known Allergies Allergy Verified 03/18/21 20:14 Review of Systems ROS Statement: Those systems with pertinent positive or pertinent negative responses have been documented in the HPI. ROS Other: All systems not noted in ROS Statement are negative. Past Medical History Additional Past Medical History / Comment(s): ulcerative colitis, spleen problems, Hep C History of Any Multi-Drug Resistant Organisms: None Reported Past Surgical History: No Surgical Hx Reported Past Anesthesia/Blood Transfusion Reactions: No Reported Reaction Past Psychological History: No Psychological Hx Reported Smoking Status: Current every day smoker Past Alcohol Use History: None Reported Past Drug Use History: Marijuana - Past Family History Father Family Medical History: Seizure Disorder Additional Family Medical History / Comment(s): Father is alive at age 64 with history of seizures and hypertension. Mother Additional Family Medical History / Comment(s): Mother in her late 50s with complications from CABG. Brother(s) Additional Family Medical History / Comment(s): Patient has 2 brothers with no major medical problems. He does not have any sisters. He does not have any children. No family members have ulcerative colitis. General Exam Limitations: no limitations Course Vital Signs 03/18/21 03/18/21 20:12 20:50 Temperature 97.9 F Pulse Rate 80 80 Respiratory 18 18 Rate Blood Pressure 139/84 129/79 O2 Sat by Pulse 98 98 Oximetry Medical Decision Making - Lab Data Result diagrams: 03/18/21 20:58 03/18/21 20:58 Lab Results 03/18/21 03/18/21 Range/Units 20:58 20:58 WBC 18.5 H (3.8-10.6) k/uL RBC 4.68 (4.30-5.90) m/uL Hgb 8.2 L (13.0-17.5) gm/dL Hct 29.4 L (39.0-53.0) % MCV 62.9 L (80.0-100.0) fL MCH 17.4 L (25.0-35.0) pg MCHC 27.7 L (31.0-37.0) g/dL RDW 16.6 H (11.5-15.5) % Plt Count 559 H (150-450) k/uL MPV 6.3 Neutrophils % 78 % Lymphocytes % 12 % Monocytes % 6 % Eosinophils % 2 % Basophils % 0 % Neutrophils # 14.5 H (1.3-7.7) k/uL Lymphocytes # 2.3 (1.0-4.8) k/uL Monocytes # 1.1 H (0-1.0) k/uL Eosinophils # 0.3 (0-0.7) k/uL Basophils # 0.1 (0-0.2) k/uL Manual Slide Review Performed Polychromasia Present Hypochromasia Marked Poikilocytosis Slight Anisocytosis Slight Microcytosis Marked Sodium 136 L (137-145) mmol/L Potassium 4.3 (3.5-5.1) mmol/L Chloride 102 (98-107) mmol/L Carbon Dioxide 23 (22-30) mmol/L Anion Gap 11 mmol/L BUN 13 (9-20) mg/dL Creatinine 0.70 (0.66-1.25) mg/dL Est GFR (CKD-EPI)AfAm >90 (>60 ml/min/1.73 sqM) Est GFR (CKD-EPI)NonAf >90 (>60 ml/min/1.73 sqM) Glucose 112 H (74-99) mg/dL Calcium 9.4 (8.4-10.2) mg/dL Total Bilirubin 0.5 (0.2-1.3) mg/dL AST 38 (17-59) U/L ALT 21 (4-49) U/L Alkaline Phosphatase 91 (38-126) U/L Total Protein 8.2 (6.3-8.2) g/dL Albumin 3.8 (3.5-5.0) g/dL Lipase 144 (23-300) U/L Disposition Clinical Impression: Dental abscess, Ileus Disposition: ADMITTED IP TO THIS HOSP Condition: Fair Referrals: Adalid Plata MD [Primary Care Provider] - 1-2 days
[2021-03-18 21:16] LABS: Anisocytosis Slight; Basophils # (A) 0.1 k/uL (0-0.2); Basophils % (A) 0 %; Eosinophils # (A) 0.3 k/uL (0-0.7); Eosinophils % (A) 2 %; HCT 29.4 % (39.0-53.0); HGB 8.2 gm/dL (13.0-17.5); Hypochromasia Marked; Lymphocytes # (A) 2.3 k/uL (1.0-4.8); Lymphocytes % (A) 12 %; MCH 17.4 pg (25.0-35.0); MCHC 27.7 g/dL (31.0-37.0); MCV 62.9 fL (80.0-100.0); Mean Platelet Volume 6.3; Microcytosis Marked; Monocytes # (A) 1.1 k/uL (0-1.0); Monocytes % (A) 6 %; Neutrophils # (A) 14.5 k/uL (1.3-7.7); Neutrophils % (A) 78 %; Platelet Count 559 k/uL (150-450); Poikilocytosis Slight; RBC 4.68 m/uL (4.30-5.90); RDW 16.6 % (11.5-15.5); WBC 18.5 k/uL (3.8-10.6)
[2021-03-18] MEDS ORDERED: MORPHINE SULFATE 4 MG/ML SYRINGE IV STA (21:20)
[2021-03-18] MEDS ORDERED: SODIUM CHLORIDE 0.9% 1,000 ML IV STA (21:21)
[2021-03-18 21:24] LABS: ALT 21 U/L (4-49); AST 38 U/L (17-59); African American GFR (CKD) >90 (>60 ml/min/1.73 sqM); Albumin 3.8 g/dL (3.5-5.0); Alkaline Phosphatase 91 U/L (38-126); Anion Gap 11 mmol/L; Blood Urea Nitrogen 13 mg/dL (9-20); Calcium 9.4 mg/dL (8.4-10.2); Carbon Dioxide 23 mmol/L (22-30); Chloride 102 mmol/L (98-107); Glucose 112 mg/dL (74-99); Lipase 144 U/L (23-300); Non-African American GFR(CKD) >90 (>60 ml/min/1.73 sqM); Potassium 4.3 mmol/L (3.5-5.1); Sodium 136 mmol/L (137-145); Total Bilirubin 0.5 mg/dL (0.2-1.3); Total Protein 8.2 g/dL (6.3-8.2)
[2021-03-18 21:53] LABS: Polychromasia Present
--- NOTE | 2021-03-18 22:20 | CT ---
EXAMINATION TYPE: CT abdomen pelvis w con DATE OF EXAM: 03/18/2021 COMPARISON: 05/12/2020 HISTORY: Severe abdominal pain CT DLP: 802.7 mGycm Automated exposure control for dose reduction was used. CONTRAST: Performed with IV Contrast, patient injected with 100 mL of Isovue 300. There is some linear density left posterior lung base. Heart size is normal. There is no pericardial effusion. There is no pleural effusion. Liver is intact. The bile ducts are not dilated. Gallbladder is intact. There are multiple cystic are as in the spleen. Stomach is intact there is no pancreatic mass. There is no adrenal mass. Kidneys show satisfactory contrast opacification. There is no hydronephrosi s. There are cysts in the left kidney that measure up to 2 cm. There is no evidence of solid renal ma ss. There is no retroperitoneal adenopathy. Ureters are not dilated. Bladder distends smoothly. There is no inguinal hernia. There is no mesenteric edema. There is no ascites or free air. There is no bowel obstruction. Appendi x not definitely seen. No sign of thickened appendix. There is wall thickening of the ascending colon and hepatic flexure of the colon. The bony structures are intact. There is no lumbar compression fracture. Bony pelvis is intact. The hip joints are intac t. IMPRESSION: Wall thickening of the right colon consistent with some nonspecific colitis and not significantly dif ferent than last exam. No bowel obstruction. Large bowel fluid levels down to the rectum consistent w ith diarrhea and ileus. 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 There is improvement in the atelectasis left lower lobe com pared to old exam.
[2021-03-18] MEDS ORDERED: NALOXONE 0.4 MG/ML 1 ML VIAL IV PRN (22:33)
[2021-03-18] MEDS ORDERED: TEMAZEPAM 15 MG CAP PO PRN (22:33)
[2021-03-18] MEDS: SODIUM CHLORIDE 0.9% 1,000 ML IV SCH (23:00)
[2021-03-18] MEDS: ONDANSETRON 4 MG/2 ML VIAL IVP PRN (23:43)
[2021-03-19] MEDS: MORPHINE SULFATE 4 MG/ML SYRINGE IV PRN ×7 (01:07→21:51)
[2021-03-19] MEDS: metroNIDAZOLE-NS PMX 500 MG in SALINE 1 100ML.BAG IVPB SCH ×2 (10:17→14:19)
[2021-03-19] MEDS: ONDANSETRON 4 MG/2 ML VIAL IVP PRN (10:57)
[2021-03-19] MEDS: PIPERACILLIN-TAZOBACTAM 3.375 GM in SODIUM CHLORIDE 0.9% 100 ML IVPB SCH ×2 (12:09→18:22)
--- NOTE | 2021-03-19 14:40 | P.HPIM ---
History of Present Illness H&P Date: 03/19/21 HISTORY OF PRESENT ILLNESS This is a 40-year-old male patient of Dr. Plata with past medical history of ulcerative colitis, tobacco use and dependence, marijuana use. He had 2 hospitalizations in 2019 for acute ulcerative colitis and that time was seen by GI. He was started on sulfasalazine 1000 mg twice daily but patient has not been taking medication since August. Patient had onset of acute on chronic abdominal pain to the epigastric and lower suprapubic area with nausea along with bloody diarrhea. He also complains of left lower jaw pain with purulent drainage from the tooth area. No fevers. Patient presented to [facility] emergency center for evaluation. Patient was afebrile, heart rate 80, blood pressure 139/84, pulse ox 98% on room air. WBC 18.5, hemoglobin 8.2, platelet count 559. Sodium 136, potassium 4.3, chloride 102, CO2 23, BUN 13 and creatinine 0.7. Blood sugar 112. Coronavirus not detected. CAT scan of the abdomen and pelvis with contrast revealed wall thickening of the right colon consistent with nonspecific colitis and not significantly different than last exam. No bowel obstruction. Large bowel fluid levels down to the rectum consistent with diarrhea and ileus. Patient [facility] and consult with general surgery. Patient has seen Dr. Foster in the past on 2 previous hospitalizations. REVIEW OF SYSTEMS Constitutional: No fever, no chills, no night sweats. No weight change. No weakness, fatigue or lethargy. No daytime sleepiness. EENT: No headache. No blurred vision or double vision, no loss of vision. No loss of Hearing, no ringing in the ears, no dizziness. No nasal drainage or congestion. No epistaxis. No sore throat. Reports dental pain. Lungs: No shortness of breath, cough, no sputum production. No wheezing. Cardiovascular: No chest pain, no lower extremity edema. No palpitations. No paroxysmal nocturnal dyspnea. No orthopnea. No lightheadedness or dizziness. No syncopal episodes. Abdominal: Reports abdominal pain. Reports nausea, no vomiting. Reports diarrhea. No constipation. Reports bloody or tarry stools.. Reports loss of appetite. Genitourinary: No dysuria, increased frequency, urgency. No urinary retention. Musculoskeletal: No myalgias. No muscle weakness, no gait dysfunction, no frequent falls. No back pain. No neck pain. Integumentary: No wounds, no lesions. No rash or pruritus. No unusual bruising. No change in hair or nails. Neurologic: No aphasia. No facial droop. No change in mentation. No head injury. No headache. No paralysis. No paresthesia. Psychiatric: No depression. No anxiety. No mood swings. Endocrine: No abnormal blood sugars. No weight change. No excessive sweating or thirst. No cold intolerance. MEDICAL HISTORY Ulcerative colitis Hepatitis C SURGICAL HISTORY None SOCIAL HISTORY Patient is a smoker of less than one pack per day since he was 15 years of age. He has history of drinking 4-5 times per week, liquor but since 2007 he only drinks about 2 times per year. He uses marijuana on a regular basis including edibles. The patient is single and lives alone. FAMILY HISTORY Father is alive at age 64 with history of seizures and hypertension. Mother in her late 50s with complications from CABG. Patient has 2 brothers with no major medical problems. He does not have any sisters. He does not have any children. No family members have ulcerative colitis. PHYSICAL EXAMINATION Gen: This is a 40-year-old HEENT: Head is atraumatic, normocephalic. Pupils equal, round. Sclerae is anicteric. NECK: Supple. No JVD. No lymphadenopathy. No thyromegaly. LUNGS: Clear to auscultation. No wheezes or rhonchi. No intercostal retractions. HEART: Regular rate and rhythm. No murmur. ABDOMEN: Soft. Bowel sounds are present. No masses. Generalized tenderness. EXTREMITIES: No pedal edema. No calf tenderness. Dorsalis pedis +2 bilaterally. NEUROLOGICAL: Patient is awake, alert and oriented x3. Cranial nerves 2 through 12 are grossly intact. ASSESSMENT AND PLAN 1. Acute exacerbation of ulcerative colitis. Consult with general surgery. we will start Zosyn 3.375 gr IVPB q 6 hours and Metronidazole 500 mg IVPB q 8 hours, we will start Solu-medrol 20 mg IVP q 8 hours, npo for now and pain control, we will check stool for cultures, c diff. 2. Dental abscess. Continue antibiotics. 3. Leukocytosis due to acute colitis, we will continue with IVF and IV antibiotics. 4. GI prophylaxis. Protonix 40 mg IV daily. 5. DVT prophylaxis. Heparin subcu. 6. Regular marijuana use. 8. 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 9. Hepatitis C. Patient will be admitted to the hospital for a minimum of 2 night stay. DISCHARGE PLAN Home. Impression and plan of care have been directed as dictated by the signing physician. Teri Walter nurse practitioner acting as scribe for signing physician. Past Medical History Additional Past Medical History / Comment(s): ulcerative colitis, spleen prob lems, Hep C History of Any Multi-Drug Resistant Organisms: None Reported Past Surgical History: No Surgical Hx Reported Past Anesthesia/Blood Transfusion Reactions: No Reported Reaction Past Psychological History: No Psychological Hx Reported Smoking Status: Current every day smoker Past Alcohol Use History: None Reported Additional Past Alcohol Use History / Comment(s): Patient is a smoker of less than one pack per day since he was 15 years of age. He has history of drinking 4-5 times per week, liquor but since 2007 he only drinks about 2 times per year. He uses marijuana on a regular basis including edibles. The patient is single and lives alone. Past Drug Use History: Marijuana Additional Drug Use History / Comment(s): pt admits so self medicating with percocet recently. - Past Family History Father Family Medical History: Seizure Disorder Additional Family Medical History / Comment(s): Father is alive at age 64 with history of seizures and hypertension. Mother Additional Family Medical History / Comment(s): Mother in her late 50s with complications from CABG. Brother(s) Additional Family Medical History / Comment(s): Patient has 2 brothers with no major medical problems. He does not have any sisters. He does not have any children. No family members have ulcerative colitis. Medications and Allergies Home Medications Medication Instructions Recorded Confirmed Type No Known Home Medications 03/18/21 03/18/21 History Allergies Allergy/AdvReac Type Severity Reaction Status Date / Time No Known Allergies Allergy Verified 03/18/21 22:52 Physical Exam Vitals: Vital Signs Temp Pulse Pulse Resp BP BP Pulse Ox 03/19/21 07:40 98.3 F 79 16 138/82 99 03/19/21 00:30 98.8 F 76 16 146/87 100 03/18/21 22:52 98.9 F 87 18 128/85 100 03/18/21 20:50 80 18 129/79 98 03/18/21 20:12 97.9 F 80 18 139/84 98 Intake and Output 03/18/21 03/19/21 03/19/21 22:59 06:59 14:59 Other: # Voids 2 Weight 77.111 kg 77.111 kg Results CBC & Chem 7: 03/18/21 20:58 03/18/21 20:58 Labs: Abnormal Lab Results - Last 24 Hours (Table) 03/18/21 03/18/21 Range/Units 20:58 20:58 WBC 18.5 H (3.8-10.6) k/uL Hgb 8.2 L (13.0-17.5) gm/dL Hct 29.4 L (39.0-53.0) % MCV 62.9 L (80.0-100.0) fL MCH 17.4 L (25.0-35.0) pg MCHC 27.7 L (31.0-37.0) g/dL RDW 16.6 H (11.5-15.5) % Plt Count 559 H (150-450) k/uL Neutrophils # 14.5 H (1.3-7.7) k/uL Monocytes # 1.1 H (0-1.0) k/uL Sodium 136 L (137-145) mmol/L Glucose 112 H (74-99) mg/dL Thrombosis Risk Factor Assmnt - Choose All That Apply Any of the Below Risk Factors Present?: No Other Risk Factors: No Other congenital or acquired thrombophilia - If yes, enter type in comment: No Thrombosis Risk Factor Assessment Level: Very Low Risk
[2021-03-19 15:05] LABS: C Reactive Protein 7.3 mg/dL (<1.0); Magnesium 1.8 mg/dL (1.6-2.3)
--- NOTE | 2021-03-19 16:36 | P.GSCN ---
History of Present Illness Consult date: 03/19/21 History of present illness: the patient is a 40-year-old man who presented to the ER with abdominal pain and diarrhea. He has a history of ulcerative colitis. He has not been very compliant with follow-up. The patient ran out of medication and was trying to manage his colitis with diet. He was seen by Dr. Foster during prior admissions due to splenic abnormality on computed tomography scan Review of Systems All systems: negative - Gastrointestinal Reports abdominal pain, Reports diarrhea Past Medical History Additional Past Medical History / Comment(s): ulcerative colitis, spleen problems, Hep C History of Any Multi-Drug Resistant Organisms: None Reported Past Surgical History: No Surgical Hx Reported Past Anesthesia/Blood Transfusion Reactions: No Reported Reaction Past Psychological History: No Psychological Hx Reported Smoking Status: Current every day smoker Past Alcohol Use History: None Reported Additional Past Alcohol Use History / Comment(s): Patient is a smoker of less than one pack per day since he was 15 years of age. He has history of drinking 4-5 times per week, liquor but since 2007 he only drinks about 2 times per year. He uses marijuana on a regular basis including edibles. The patient is single and lives alone. Past Drug Use History: Marijuana Additional Drug Use History / Comment(s): pt admits so self medicating with percocet recently. - Past Family History Father Family Medical History: Seizure Disorder Additional Family Medical History / Comment(s): Father is alive at age 64 with history of seizures and hypertension. Mother Additional Family Medical History / Comment(s): Mother in her late 50s with complications from CABG. Brother(s) Additional Family Medical History / Comment(s): Patient has 2 brothers with no major medical problems. He does not have any sisters. He does not have any children. No family members have ulcerative colitis. Medications and Allergies Home Medications Medication Instructions Recorded Confirmed Type No Known Home Medications 03/18/21 03/18/21 History Allergies Allergy/AdvReac Type Severity Reaction Status Date / Time No Known Allergies Allergy Verified 03/18/21 22:52 Surgical - Exam Osteopathic Statement: *. No significant issues noted on an osteopathic structural exam other than those noted in the History and Physical/Consult. Vital Signs Temp Pulse Resp BP Pulse Ox 97.9 F 80 18 139/84 98 03/18/21 20:12 03/18/21 20:12 03/18/21 20:12 03/18/21 20:12 03/18/21 20:12 - General Thin, well developed - Eyes normal ocular movement - Neck trachea midline - Respiratory normal respiratory effort - Cardiovascular Rhythm: regular - Abdomen Abdomen: soft, tender (diffuse), bowel sounds Results - Labs 03/18/21 20:58 03/18/21 20:58 Abnormal Lab Results - Last 24 Hours (Table) 03/18/21 03/18/21 03/19/21 Range/Units 20:58 20:58 14:32 WBC 18.5 H (3.8-10.6) k/uL Hgb 8.2 L (13.0-17.5) gm/dL Hct 29.4 L (39.0-53.0) % MCV 62.9 L (80.0-100.0) fL MCH 17.4 L (25.0-35.0) pg MCHC 27.7 L (31.0-37.0) g/dL RDW 16.6 H (11.5-15.5) % Plt Count 559 H (150-450) k/uL Neutrophils # 14.5 H (1.3-7.7) k/uL Monocytes # 1.1 H (0-1.0) k/uL Sodium 136 L (137-145) mmol/L Glucose 112 H (74-99) mg/dL C-Reactive Protein 7.3 H (<1.0) mg/dL Diabetes panel 03/18/21 Range/Units 20:58 Sodium 136 L (137-145) mmol/L Potassium 4.3 (3.5-5.1) mmol/L Chloride 102 (98-107) mmol/L Carbon Dioxide 23 (22-30) mmol/L BUN 13 (9-20) mg/dL Creatinine 0.70 (0.66-1.25) mg/dL Glucose 112 H (74-99) mg/dL Calcium 9.4 (8.4-10.2) mg/dL AST 38 (17-59) U/L ALT 21 (4-49) U/L Alkaline Phosphatase 91 (38-126) U/L Total Protein 8.2 (6.3-8.2) g/dL Albumin 3.8 (3.5-5.0) g/dL Calcium panel 03/18/21 Range/Units 20:58 Calcium 9.4 (8.4-10.2) mg/dL Albumin 3.8 (3.5-5.0) g/dL Pituitary panel 03/18/21 Range/Units 20:58 Sodium 136 L (137-145) mmol/L Potassium 4.3 (3.5-5.1) mmol/L Chloride 102 (98-107) mmol/L Carbon Dioxide 23 (22-30) mmol/L BUN 13 (9-20) mg/dL Creatinine 0.70 (0.66-1.25) mg/dL Glucose 112 H (74-99) mg/dL Calcium 9.4 (8.4-10.2) mg/dL Adrenal panel 03/18/21 Range/Units 20:58 Sodium 136 L (137-145) mmol/L Potassium 4.3 (3.5-5.1) mmol/L Chloride 102 (98-107) mmol/L Carbon Dioxide 23 (22-30) mmol/L BUN 13 (9-20) mg/dL Creatinine 0.70 (0.66-1.25) mg/dL Glucose 112 H (74-99) mg/dL Calcium 9.4 (8.4-10.2) mg/dL Total Bilirubin 0.5 (0.2-1.3) mg/dL AST 38 (17-59) U/L ALT 21 (4-49) U/L Alkaline Phosphatase 91 (38-126) U/L Total Protein 8.2 (6.3-8.2) g/dL Albumin 3.8 (3.5-5.0) g/dL - Imaging CT scan - abdomen: report reviewed, image reviewed Assessment and Plan (1) Dental abscess Current Visit: Yes Status: Acute Code(s): K04.7 - PERIAPICAL ABSCESS WITHOUT SINUS SNOMED Code(s): 061302631 (2) Microcytic anemia Current Visit: No Status: Acute Code(s): D50.9 - IRON DEFICIENCY ANEMIA, U NSPECIFIED SNOMED Code(s): 346951324 (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 He is on IV antibiotics and steroids for the ulcerative colitis. Antibiotics also for the dental abscess. The abnormality in the spleen appears to have decreased in size from prior exams. Patient is nonsurgical. He can follow up with GI as outpatient. He should be on consistent therapy for his ulcerative colitis. Case was discussed with Dr. Plata
[2021-03-19] MEDS: INSULIN ASPART (NovoLOG) 100 UNIT/ML VIAL SQ SCH ×2 (18:13→21:44)
[2021-03-19] MEDS: SUCRALFATE 1 GM TAB PO SCH (18:22)
[2021-03-19] MEDS: methylPREDNISolone SOD SUCCI 40 MG/ML 1 ML VIAL IV SCH (18:22)
[2021-03-19] MEDS: PANTOPRAZOLE 40 MG/10 ML VIAL IVP SCH (18:23)
[2021-03-19 20:46] LABS: Glucose,Whole Blood 111 mg/dL (75-99)
[2021-03-19] MEDS: SODIUM CHLORIDE 0.9% 1,000 ML IV SCH (21:42)
[2021-03-19] MEDS: sulfaSALAzine 500 MG TAB PO SCH (21:50)
[2021-03-20] MEDS: PIPERACILLIN-TAZOBACTAM 3.375 GM in SODIUM CHLORIDE 0.9% 100 ML IVPB SCH ×3 (00:59→16:35)
[2021-03-20] MEDS: methylPREDNISolone SOD SUCCI 40 MG/ML 1 ML VIAL IV SCH ×3 (01:37→16:35)
[2021-03-20] MEDS: metroNIDAZOLE-NS PMX 500 MG in SALINE 1 100ML.BAG IVPB SCH ×4 (01:40→22:36)
[2021-03-20] MEDS: SODIUM CHLORIDE 0.9% 1,000 ML IV SCH ×4 (03:12→22:34)
[2021-03-20] MEDS: MORPHINE SULFATE 4 MG/ML SYRINGE IV PRN ×5 (03:49→21:20)
[2021-03-20 07:07] LABS: Glucose,Whole Blood 145 mg/dL (75-99)
[2021-03-20] MEDS: SUCRALFATE 1 GM TAB PO SCH ×2 (07:38→17:14)
[2021-03-20] MEDS: INSULIN ASPART (NovoLOG) 100 UNIT/ML VIAL SQ SCH ×4 (07:40→21:14)
[2021-03-20] MEDS: PANTOPRAZOLE 40 MG/10 ML VIAL IVP SCH (09:08)
[2021-03-20] MEDS: sulfaSALAzine 500 MG TAB PO SCH ×2 (09:08→21:20)
[2021-03-20] MEDS: ENOXAPARIN 40 MG/0.4 ML SYRINGE SQ SCH (09:08)
--- NOTE | 2021-03-20 10:58 | P.PN ---
Subjective Progress Note Date: 03/20/21 The patient is seen on rounds. He says he is having less abdominal pain. Denies LUQ pain as he had with prior admission. Denies nausea. Tolerating a diet. Continuing to have a lot of diarrhea. Complaining that his legs are "driving me nuts ". Feels that a "benzo" would help him relax Objective - Vital Signs Vital signs: Vital Signs Temp 98.0 F 03/20/21 07:18 Pulse 73 03/20/21 07:18 Resp 16 03/20/21 07:18 BP 128/75 03/20/21 07:18 Pulse Ox 100 03/20/21 07:18 Intake & Output 03/19/21 03/20/21 03/20/21 18:59 06:59 18:59 Intake Total 3260 Balance 3260 Intake: Intake, IV Titration 1760 Amount Piperacillin-Tazobactam 3 100 .375 gm In Sodium Chloride 0.9% 100 ml @ 25 mls/hr IVPB Q8HR [facility] Rx# :[id number] Sodium Chloride 0.9% 1, 1560 000 ml @ 130 mls/hr IV . Q7H42M [facility] Rx#:[id number] metroNIDAZOLE-NS PMX 500 100 mg In Saline 1 100ml.bag @ 100 mls/hr IVPB Q8HR@ 0700,1500,2300 [facility] Rx#: [id number] Oral 1500 Other: # Voids 3 6 2 # Bowel Movements 0 - Constitutional Constitutional Comment(s): Appears somewhat anxious. Rhythmically slapping his thighs General appearance: Present: cooperative - Gastrointestinal General gastrointestinal: Present: normal bowel sounds, soft, tenderness (mild nonspecific) - Labs CBC & Chem 7: 03/18/21 20:58 03/18/21 20:58 Labs: Abnormal Lab Results - Last 24 Hours (Table) 03/19/21 03/19/21 03/19/21 Range/Units 14:32 14:32 20:39 ESR 82 H (0-15) mm/hr POC Glucose (mg/dL) 111 H (75-99) mg/dL C-Reactive Protein 7.3 H (<1.0) mg/dL 03/20/21 Range/Units 07:05 ESR (0-15) mm/hr POC Glucose (mg/dL) 145 H (75-99) mg/dL C-Reactive Protein (<1.0) mg/dL Assessment and Plan (1) Dental abscess Current Visit: Yes Status: Acute Code(s): K04.7 - PERIAPICAL ABSCESS WITHOUT SINUS SNOMED Code(s): 508738547 (2) Microcytic anemia Current Visit: No Status: Acute Code(s): D50.9 - IRON DEFICIENCY ANEMIA, UNSPECIFIED SNOMED Code(s): 496269878 (3) Spleen anomaly Current Visit: No Status: Acute Code(s): Q89.09 - CONGENITAL MALFORMATIONS OF SPLEEN SNOMED Code(s): 70451348 (4) Ulcerative colitis Current Visit: No Status: Acute Code(s): K51.90 - ULCERATIVE COLITIS, UNSPECIFIED, WITHOUT COMPLICATIONS SNOMED Code(s): 43839463 Plan: The abdominal pain is improving with steroids and antibiotics. The splenic abnormality seen on CT is improved. Recommend medical therapy. Encourage outpatient follow up with gastroenterology
[2021-03-20 11:32] LABS: Glucose,Whole Blood 146 mg/dL (75-99)
--- NOTE | 2021-03-20 11:56 | P.PN ---
Subjective Progress Note Date: 03/20/21 HISTORY OF PRESENT ILLNESS This is a 40-year-old male patient of Dr. Plata with past medical history of ulcerative colitis, tobacco use and dependence, marijuana use. He had 2 hosp italizations in 2019 for acute ulcerative colitis and that time was seen by GI. He was started on sulfasalazine 1000 mg twice daily but patient has not been taking medication since August. Patient had onset of acute on chronic abdominal pain to the epigastric and lower suprapubic area with nausea along with bloody diarrhea. He also complains of left lower jaw pain with purulent drainage from the tooth area. No fevers. Patient presented to [facility] emergency center for eval uation. Patient was afebrile, heart rate 80, blood pressure 139/84, pulse ox 98% on room air. WBC 18.5, hemoglobin 8.2, platelet count 559. Sodium 136, potassium 4.3, chloride 102, CO2 23, BUN 13 and creatinine 0.7. Blood sugar 112. Coronavirus not detected. CAT scan of the abdomen and pelvis with contrast revealed wall thickening of the right colon consistent with nonspecific colitis and not significantly different than last exam. No bowel obstruction. Large bowel fluid levels down to the rectum consistent with diarrhea and ileus. [facility] and consult with general surgery. Patient has seen Dr. Foster in the past on 2 previous hospitalizations. 03/20: Patient is laying down in bed in no apparent distress, he continues to have an increased abdominal pain in the left lower quadrant associated with the diarrhea with minimal bright red blood, he is having a good appetite and is asking for more fluid, he has tolerated liquid diet very well, we'll start him on a soft diet, continue Solu-Medrol, continue IV antibiotic, continue sulfasalazine, monitor the patient very closely, patient is complaining of increased restless leg syndrome and he is asking for a small dose of Xanax 0.25 mg orally twice every day and we'll discontinue temazepam. REVIEW OF SYSTEMS Constitutional: No fever, no chills, no night sweats. No weight change. positive for weakness, fatigue or lethargy. No daytime sleepiness. EENT: No headache. No blurred vision or double vision, no loss of vision. No loss of Hearing, no ringing in the ears, no dizziness. No nasal drainage or congestion. No epistaxis. No sore throat. Reports dental pain. Lungs: No shortness of breath, cough, no sputum production. No wheezing. Cardiovascular: No chest pain, no lower extremity edema. No palpitations. No paroxysmal nocturnal dyspnea. No orthopnea. No lightheadedness or dizziness. No syncopal episodes. Abdominal: Reports abdominal pain. Reports nausea, no vomiting. Reports diarrhea. No constipation. Reports bloody or tarry stools.. Reports loss of appetite. Genitourinary: No dysuria, increased frequency, urgency. No urinary retention. Musculoskeletal: No myalgias. No muscle weakness, no gait dysfunction, no frequent falls. No back pain. No neck pain. Integumentary: No wounds, no lesions. No rash or pruritus. No unusual bruising. No change in hair or nails. Neurologic: No aphasia. No facial droop. No change in mentation. No head injury. No headache. No paralysis. No paresthesia. Psychiatric: No depression. No anxiety. No mood swings. Endocrine: No abnormal blood sugars. No weight change. No excessive sweating or thirst. No cold intolerance. PHYSICAL EXAMINATION Gen: This is a 40-year-old laying down in bed in no apparent distress. HEENT: Head is atraumatic, normocephalic. Pupils equal, round. Sclerae is anicteric, Mucous membranes of the mouth are somewhat dry. NECK: Supple. No JVD. No lymphadenopathy. No thyromegaly. LUNGS: Decreased breath sounds at the bases, few rhonchi, no expiratory wheezes, no chest wall tenderness, no intercostal retractions. HEART: first heart sound is depressed second heart sound is normal, there is no gallop or murmur. ABDOMEN: Soft moderate tenderness to the left lower quadrant, , Bowel sounds are present. No masses, there is no guarding or rebound. EXTREMITIES: No pedal edema. No calf tenderness. Dorsalis pedis +2 bilaterally. NEUROLOGICAL: Patient is awake, alert and oriented x3. Cranial nerves 2 through 12 are grossly intact, cranial nerves II-12 appear grossly intact, muscle power 5 out of 5 in upper and lower extremity's bilaterally. ASSESSMENT AND PLAN 1. Acute exacerbation of ulcerative colitis. continue IV fluid resuscitation in the form of normal saline, continue patient on IV antibiotic in the form of Zosyn 3.375 g IV piggyback every 8 hours, continue metronidazole 500 mg IV piggyback every 8 hours, advance diet to soft diet, continue morphine sulfate 4 mg IV push every 4 hours as needed, increase protein intake, monitor the patient very closely, general surgery consultation appreciated. Continue patient on sulfasalazine 1000 mg orally twice every day. 2. Dental abscess. Recommended to continue IV Zosyn as well as IV Metronidazole , he was instructed to see his dentist as soon as possible for possible root canal. 3. Leukocytosis due to acute colitis, we will continue with IVF and IV antibiotics monitor the patient's CBC the next 24 hours. 4. Restless leg with anxiety start the patient on Xanax 0.5 mg orally twice every day discontinue temazepam 5. GI prophylaxis along with severe GERD Protonix 40 mg IV daily and Carafate 1 g orally twice every day. 6. DVT prophylaxis.Lovenox 40 mg subcutaneously every 24 hours. 7. Regular marijuana use. counseled against its use. 8. 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 9. Acute blood loss anemia likely related to ulcerative colitis. Patient will need follow-up with field test engineer, he will need to have a colonoscopy as an outpatient, monitor the patient's CBC transfuse for hemoglobin less than 7. Patient will be given Venofer or its substitute iron dextran 125 mg IV piggyback 1 today . Objective - Vital Signs Vital signs: Vital Signs Temp 98.0 F 03/20/21 07:18 Pulse 73 03/20/21 07:18 Resp 16 03/20/21 07:18 BP 128/75 03/20/21 07:18 Pulse Ox 100 03/20/21 07:18 Intake & Output 03/19/21 03/20/21 03/20/21 18:59 06:59 18:59 Intake Total 3260 Balance 3260 Intake: Intake, IV Titration 1760 Amount Piperacillin-Tazobactam 3 100 .375 gm In Sodium Chloride 0.9% 100 ml @ 25 mls/hr IVPB Q8HR [facility] Rx# :[id number] Sodium Chloride 0.9% 1, 1560 000 ml @ 130 mls/hr IV . Q7H42M [facility] Rx#:[id number] metroNIDAZOLE-NS PMX 500 100 mg In Saline 1 100ml.bag @ 100 mls/hr IVPB Q8HR@ 0700,1500,2300 [facility] Rx#: [id number] Oral 1500 Other: # Voids 3 6 2 # Bowel Movements 0 - Labs CBC & Chem 7: 03/20/21 11:06 03/20/21 11:06 Labs: Abnormal Lab Results - Last 24 Hours (Table) 03/19/21 03/19/21 03/19/21 Range/Units 14:32 14:32 20:39 ESR 82 H (0-15) mm/hr POC Glucose (mg/dL) 111 H (75-99) mg/dL C-Reactive Protein 7.3 H (<1.0) mg/dL 03/20/21 03/20/21 Range/Units 07:05 11:31 ESR (0-15) mm/hr POC Glucose (mg/dL) 145 H 146 H (75-99) mg/dL C-Reactive Protein (<1.0) mg/dL
[2021-03-20 12:02] LABS: Anisocytosis Slight; Basophils % (A) 0 %; Eosinophils % (A) 0 %; HCT 26.9 % (39.0-53.0); HGB 7.2 gm/dL (13.0-17.5); Hypochromasia Marked; Lymphocytes % (A) 9 %; MCH 17.7 pg (25.0-35.0); MCHC 26.7 g/dL (31.0-37.0); MCV 66.3 fL (80.0-100.0); Mean Platelet Volume 6.8; Microcytosis Marked; Monocytes # (A) 0.3 k/uL (0-1.0); Monocytes % (A) 2 %; Neutrophils # (A) 9.8 k/uL (1.3-7.7); Neutrophils % (A) 87 %; Platelet Count 419 k/uL (150-450); RBC 4.06 m/uL (4.30-5.90); RDW 16.8 % (11.5-15.5); WBC 11.2 k/uL (3.8-10.6)
[2021-03-20 12:25] LABS: ALT 16 U/L (4-49); AST 27 U/L (17-59); African American GFR (CKD) >90 (>60 ml/min/1.73 sqM); Albumin 2.8 g/dL (3.5-5.0); Albumin/Globulin Ratio 0.7; Alkaline Phosphatase 64 U/L (38-126); Anion Gap 11 mmol/L; Blood Urea Nitrogen 10 mg/dL (9-20); Calcium 8.4 mg/dL (8.4-10.2); Carbon Dioxide 18 mmol/L (22-30); Chloride 105 mmol/L (98-107); Globulin 3.9 g/dL; Glucose 125 mg/dL (74-99); Non-African American GFR(CKD) >90 (>60 ml/min/1.73 sqM); Potassium 3.9 mmol/L (3.5-5.1); Sodium 134 mmol/L (137-145); Total Bilirubin 0.3 mg/dL (0.2-1.3); Total Protein 6.7 g/dL (6.3-8.2)
[2021-03-20] MEDS ORDERED: ALPRAZolam 0.25 MG TAB PO STA (12:31)
[2021-03-20] MEDS ORDERED: SODIUM FERRIC GLUCONAT-SUCROSE 125 MG in SODIUM CHLORIDE 0.9% 100 ML IVPB ONE (13:00)
[2021-03-20 16:38] LABS: Glucose,Whole Blood 142 mg/dL (75-99)
[2021-03-20 21:04] LABS: Glucose,Whole Blood 130 mg/dL (75-99)
[2021-03-20] MEDS: ALPRAZolam 0.25 MG TAB PO SCH (21:20)
[2021-03-21] MEDS: methylPREDNISolone SOD SUCCI 40 MG/ML 1 ML VIAL IV SCH ×4 (00:19→23:48)
[2021-03-21] MEDS: PIPERACILLIN-TAZOBACTAM 3.375 GM in SODIUM CHLORIDE 0.9% 100 ML IVPB SCH ×4 (00:20→23:51)
[2021-03-21] MEDS: MORPHINE SULFATE 4 MG/ML SYRINGE IV PRN ×5 (03:41→20:23)
[2021-03-21] MEDS: SODIUM CHLORIDE 0.9% 1,000 ML IV SCH ×2 (05:24→17:30)
[2021-03-21 07:06] LABS: Glucose,Whole Blood 162 mg/dL (75-99)
[2021-03-21] MEDS: SUCRALFATE 1 GM TAB PO SCH ×2 (07:19→18:07)
[2021-03-21] MEDS: INSULIN ASPART (NovoLOG) 100 UNIT/ML VIAL SQ SCH ×4 (07:19→22:56)
[2021-03-21] MEDS: metroNIDAZOLE-NS PMX 500 MG in SALINE 1 100ML.BAG IVPB SCH ×3 (07:19→23:45)
[2021-03-21] MEDS: ALPRAZolam 0.25 MG TAB PO SCH ×2 (09:11→20:23)
[2021-03-21] MEDS: ENOXAPARIN 40 MG/0.4 ML SYRINGE SQ SCH (09:11)
[2021-03-21] MEDS: PANTOPRAZOLE 40 MG TABLET PO SCH (09:11)
[2021-03-21] MEDS: sulfaSALAzine 500 MG TAB PO SCH ×2 (09:12→20:24)
[2021-03-21 11:06] LABS: Glucose,Whole Blood 126 mg/dL (75-99)
--- NOTE | 2021-03-21 11:25 | P.PN ---
Subjective Progress Note Date: 03/21/21 HISTORY OF PRESENT ILLNESS This is a 40-year-old male patient of Dr. Plata with past medical history of ulcerative colitis, tobacco use and dependence, marijuana use. He had 2 hosp italizations in 2019 for acute ulcerative colitis and that time was seen by GI. He was started on sulfasalazine 1000 mg twice daily but patient has not been taking medication since August. Patient had onset of acute on chronic abdominal pain to the epigastric and lower suprapubic area with nausea along with bloody diarrhea. He also complains of left lower jaw pain with purulent drainage from the tooth area. No fevers. Patient presented to [facility] emergency center for eval uation. Patient was afebrile, heart rate 80, blood pressure 139/84, pulse ox 98% on room air. WBC 18.5, hemoglobin 8.2, platelet count 559. Sodium 136, potassium 4.3, chloride 102, CO2 23, BUN 13 and creatinine 0.7. Blood sugar 112. Coronavirus not detected. CAT scan of the abdomen and pelvis with contrast revealed wall thickening of the right colon consistent with nonspecific colitis and not significantly different than last exam. No bowel obstruction. Large bowel fluid levels down to the rectum consistent with diarrhea and ileus. [facility] and [facility] with general surgery. Patient has seen Dr. Foster in the past on 2 previous hospitalizations. 03/20: Patient is laying down in bed in no apparent distress, he continues to have an increased abdominal pain in the left lower quadrant associated with the diarrhea with minimal bright red blood, he is having a good appetite and is asking for more fluid, he has tolerated liquid diet very well, we'll start him on a soft diet, continue Solu-Medrol, continue IV antibiotic, continue sulfasalazine, monitor the patient very closely, patient is complaining of increased restless leg syndrome and he is asking for a small dose of Xanax 0.25 mg orally twice every day and we'll discontinue temazepam. 03/21: Patient is lying down in bed complaining of increased abdominal pain, and bloody diarrhea, soft diet was a bit too much for him yesterday, feels better now, did receive iron , HGB is down to 7.2 yesterday await the results from today, we will continue with current treatmebt plan, continue with Solu-Medrol, sulfasalazine, and monitor very closley REVIEW OF SYSTEMS Constitutional: No fever, no chills, no night sweats. No weight change. positive for weakness, fatigue or lethargy. No daytime sleepiness. EENT: No headache. No blurred vision or double vision, no loss of vision. No loss of Hearing, no ringing in the ears, no dizziness. No nasal drainage or congestion. No epistaxis. No sore throat. Reports dental pain. Lungs: No shortness of breath, cough, no sputum production. No wheezing. Cardiovascular: No chest pain, no lower extremity edema. No palpitations. No paroxysmal nocturnal dyspnea. No orthopnea. No lightheadedness or dizziness. No syncopal episodes. Abdominal: Reports abdominal pain. Reports nausea, no vomiting. Reports diarrhea. No constipation. Reports bloody no tarry stools, better appetite. Genitourinary: No dysuria, increased frequency, urgency. No urinary retention. Musculoskeletal: No myalgias. No muscle weakness, no gait dysfunction, no frequent falls. No back pain. No neck pain. Integumentary: No wounds, no lesions. No rash or pruritus. No unusual bruising. No change in hair or nails. Neurologic: No aphasia. No facial droop. No change in mentation. No head injury. No headache. No paralysis. No paresthesia. Psychiatric: No depression. No anxiety. No mood swings. Endocrine: No abnormal blood sugars. No weight change. No excessive sweating or thirst. No cold intolerance. PHYSICAL EXAMINATION Gen: This is a 40-year-old laying down in bed in no apparent distress. HEENT: Head is atraumatic, normocephalic. Pupils equal, round. Sclerae is anicteric, Mucous membranes of the mouth are somewhat dry. NECK: Supple. No JVD. No lymphadenopathy. No thyromegaly. LUNGS: Decreased breath sounds at the bases, few rhonchi, no expiratory wheezes, no chest wall tenderness, no intercostal retractions. HEART: first heart sound is depressed second heart sound is normal, there is no gallop or murmur. ABDOMEN: Soft moderate tenderness to the left lower quadrant, , Bowel sounds are present. No masses, there is no guarding or rebound. EXTREMITIES: No pedal edema. No calf tenderness. Dorsalis pedis +2 bilaterally. NEUROLOGICAL: Patient is awake, alert and oriented x3. Cranial nerves 2 through 12 are grossly intact, cranial nerves II-12 appear grossly intact, muscle power 5 out of 5 in upper and lower extremity's bilaterally. ASSESSMENT AND PLAN 1. Acute exacerbation of ulcerative colitis, continue patient on IV antibiotic in the form of Zosyn 3.375 g IV piggyback every 8 hours, continue metronidazole 500 mg IV piggyback every 8 hours, advance diet to soft diet, continue morphine sulfate 4 mg IV push every 4 hours as needed, increase protein intake, monitor the patient very closely, Continue patient on sulfasalazine 1000 mg orally twice every day. 2. Dental abscess. Recommended to continue IV Zosyn as well as IV Metronidazole or, he was instructed to see his dentist as soon as possible for possible root canal. 3. Leukocytosis due to acute colitis, we will continue IV antibiotics, appears better. 4. Restless leg with anxiety start the patient on Xanax 0.5 mg orally twice every day discontinue temazepam 5. GI prophylaxis along with severe GERD Protonix 40 mg IV daily and Carafate 1 g orally twice every day. 6. DVT prophylaxis.Lovenox 40 mg subcutaneously every 24 hours. 7. Regular marijuana use. counseled against its use. 8. 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 9. Acute blood loss anemia likely related to ulcerative colitis. Patient will need follow-up with greenstone polisher operator, he will need to have a colonoscopy as an outpatient, monitor the patient's CBC transfuse for hemoglobin less than 7. Patient will be given Venofer or its substitute iron dextran 125 mg IV piggyback 1 again today . Objective - Vital Signs Vital signs: Vital Signs Temp 97.9 F 03/21/21 07:59 Pulse 59 L 03/21/21 07:59 Resp 17 03/21/21 07:59 BP 126/76 03/21/21 07:59 Pulse Ox 100 03/21/21 07:59 Intake & Output 03/20/21 03/21/21 03/21/21 18:59 06:59 18:59 Intake Total 3760 Output Total 600 Balance 3160 Intake: Intake, IV Titration 1760 Amount Piperacillin-Tazobactam 3 100 .375 gm In Sodium Chloride 0.9% 100 ml @ 25 mls/hr IVPB Q8HR [facility] Rx# :[id number] Sodium Chloride 0.9% 1, 1560 000 ml @ 130 mls/hr IV . Q7H42M [facility] Rx#:[id number] metroNIDAZOLE-NS PMX 500 100 mg In Saline 1 100ml.bag @ 100 mls/hr IVPB Q8HR@ 0700,1500,2300 [facility] Rx#: [id number] Oral 2000 Output: Urine 600 Other: # Voids 3 2 # Bowel Movements 0 2 - Labs CBC & Chem 7: 03/20/21 11:06 03/20/21 11:06 Labs: Abnormal Lab Results - Last 24 Hours (Table) 03/20/21 03/20/21 03/20/21 Range/Units 11:06 11:06 11:31 WBC 11.2 H (3.8-10.6) k/uL RBC 4.06 L (4.30-5.90) m/uL Hgb 7.2 L (13.0-17.5) gm/dL Hct 26.9 L (39.0-53.0) % MCV 66.3 L (80.0-100.0) fL MCH 17.7 L (25.0-35.0) pg MCHC 26.7 L (31.0-37.0) g/dL RDW 16.8 H (11.5-15.5) % Neutrophils # 9.8 H (1.3-7.7) k/uL Sodium 134 L (137-145) mmol/L Carbon Dioxide 18 L (22-30) mmol/L Creatinine 0.50 L (0.66-1.25) mg/dL Glucose 125 H (74-99) mg/dL POC Glucose (mg/dL) 146 H (75-99) mg/dL Albumin 2.8 L (3.5-5.0) g/dL 03/20/21 03/20/21 03/21/21 Range/Units 16:35 21:03 07:05 WBC (3.8-10.6) k/uL RBC (4.30-5.90) m/uL Hgb (13.0-17.5) gm/dL Hct (39.0-53.0) % MCV (80.0-100.0) fL MCH (25.0-35.0) pg MCHC (31.0-37.0) g/dL RDW (11.5-15.5) % Neutrophils # (1.3-7.7) k/uL Sodium (137-145) mmol/L Carbon Dioxide (22-30) mmol/L Creatinine (0.66-1.25) mg/dL Glucose (74-99) mg/dL POC Glucose (mg/dL) 142 H 130 H 162 H (75-99) mg/dL Albumin (3.5-5.0) g/dL 03/21/21 Range/Units 11:05 WBC (3.8-10.6) k/uL RBC (4.30-5.90) m/uL Hgb (13.0-17.5) gm/dL Hct (39.0-53.0) % MCV (80.0-100.0) fL MCH (25.0-35.0) pg MCHC (31.0-37.0) g/dL RDW (11.5-15.5) % Neutrophils # (1.3-7.7) k/uL Sodium (137-145) mmol/L Carbon Dioxide (22-30) mmol/L Creatinine (0.66-1.25) mg/dL Glucose (74-99) mg/dL POC Glucose (mg/dL) 126 H (75-99) mg/dL Albumin (3.5-5.0) g/dL
[2021-03-21 11:54] LABS: African American GFR (CKD) 135.9 (60.0-200.0); Albumin 3.1 g/dL (3.80-4.90); Albumin/Globulin Ratio 0.89 (1.60-3.17); Anion Gap 7.1 mmol/L (4.00-12.00); BUN/Creat Ratio 14.29 Ratio (12.00-20.00); Calcium 8.3 mg/dL (8.7-10.3); Carbon Dioxide 20.9 mmol/L (21.6-31.8); Globulin 3.5 g/dL (1.6-3.3); Non-African American GFR(CKD) 117.2 (60.0-200.0); Potassium 3.9 mmol/L (3.5-5.5); Total Bilirubin 0.2 mg/dL (0.2-1.2); Total Protein 6.6 g/dL (6.2-8.2)
[2021-03-21 12:37] LABS: Basophils # (A) 0.01 X 10*3/uL (0.00-0.10); Basophils % (A) 0.1 %; Eosinophils # (A) 0 X 10*3/uL (0.04-0.35); Eosinophils % (A) 0 %; HGB 6.3 g/dL (13.0-17.0); Lymphocytes % (A) 10.7 %; MCH 16.1 pg (27.0-32.0); MCHC 25.2 g/dL (32.0-37.0); MCV 63.9 fL (80.0-97.0); Mean Platelet Volume 9.9 fL (9.5-12.2); Monocytes # (A) 0.47 X 10*3/uL (0.20-1.00); Monocytes % (A) 3.1 %; Neutrophils # (A) 12.64 X 10*3/uL (1.80-7.70); Neutrophils % (A) 84.7 %; Platelet Count 339 X 10*3/uL (140-440); RBC 3.91 X 10*6/uL (4.40-5.60); RDW 18.2 % (11.5-14.5); WBC 14.93 X 10*3/uL (4.50-10.00)
[2021-03-21 12:38] LABS: Hypochromasia (M) 2+; Microcytosis (M) 2+
[2021-03-21] MEDS: SODIUM FERRIC GLUCONAT-SUCROSE 125 MG in SODIUM CHLORIDE 0.9% 100 ML IVPB SCH (13:12)
[2021-03-21 16:40] LABS: Glucose,Whole Blood 106 mg/dL (75-99)
[2021-03-21 22:28] LABS: Glucose,Whole Blood 117 mg/dL (75-99)
[2021-03-22] MEDS: MORPHINE SULFATE 4 MG/ML SYRINGE IV PRN ×6 (00:42→23:16)
[2021-03-22] MEDS: SODIUM CHLORIDE 0.9% 1,000 ML IV SCH ×4 (00:52→20:07)
[2021-03-22 07:33] LABS: Glucose,Whole Blood 115 mg/dL (75-99)
[2021-03-22] MEDS: INSULIN ASPART (NovoLOG) 100 UNIT/ML VIAL SQ SCH ×4 (07:36→21:13)
[2021-03-22] MEDS: ENOXAPARIN 40 MG/0.4 ML SYRINGE SQ SCH (07:39)
[2021-03-22] MEDS: metroNIDAZOLE 500 MG TAB PO SCH ×3 (07:40→21:18)
[2021-03-22] MEDS: PANTOPRAZOLE 40 MG TABLET PO SCH (07:40)
[2021-03-22] MEDS: methylPREDNISolone SOD SUCCI 40 MG/ML 1 ML VIAL IV SCH ×3 (07:40→23:16)
[2021-03-22] MEDS: SUCRALFATE 1 GM TAB PO SCH ×2 (07:40→17:18)
[2021-03-22] MEDS: ALPRAZolam 0.25 MG TAB PO SCH ×2 (07:41→20:09)
[2021-03-22] MEDS: sulfaSALAzine 500 MG TAB PO SCH ×2 (07:41→21:14)
[2021-03-22] MEDS: SODIUM FERRIC GLUCONAT-SUCROSE 125 MG in SODIUM CHLORIDE 0.9% 100 ML IVPB SCH (08:29)
[2021-03-22 09:56] LABS: African American GFR (CKD) 135.9 (60.0-200.0); Anion Gap 6.9 mmol/L (4.00-12.00); BUN/Creat Ratio 12.86 Ratio (12.00-20.00); Calcium 7.9 mg/dL (8.7-10.3); Carbon Dioxide 21.1 mmol/L (21.6-31.8); Non-African American GFR(CKD) 117.2 (60.0-200.0); Potassium 3.9 mmol/L (3.5-5.5)
[2021-03-22 10:19] LABS: Basophils # (A) 0.03 X 10*3/uL (0.00-0.10); Basophils % (A) 0.2 %; Eosinophils # (A) 0.01 X 10*3/uL (0.04-0.35); Eosinophils % (A) 0.1 %; Lymphocytes # (A) 2.24 X 10*3/uL (0.90-5.00); Lymphocytes % (A) 14.7 %; MCH 17.9 pg (27.0-32.0); MCHC 26.9 g/dL (32.0-37.0); MCV 66.5 fL (80.0-97.0); Mean Platelet Volume 9.2 fL (9.5-12.2); Monocytes # (A) 0.96 X 10*3/uL (0.20-1.00); Monocytes % (A) 6.3 %; Neutrophils % (A) 76.8 %; Platelet Count 244 X 10*3/uL (140-440); RBC 3.91 X 10*6/uL (4.40-5.60); RDW 21.1 % (11.5-14.5); WBC 15.23 X 10*3/uL (4.50-10.00)
[2021-03-22] MEDS: PIPERACILLIN-TAZOBACTAM 3.375 GM in SODIUM CHLORIDE 0.9% 100 ML IVPB SCH ×3 (10:30→23:17)
[2021-03-22 12:41] LABS: Glucose,Whole Blood 149 mg/dL (75-99)
[2021-03-22 17:09] LABS: Glucose,Whole Blood 97 mg/dL (75-99)
[2021-03-22 20:35] LABS: Glucose,Whole Blood 117 mg/dL (75-99)
[2021-03-23] MEDS: MORPHINE SULFATE 4 MG/ML SYRINGE IV PRN ×3 (03:06→12:30)
[2021-03-23] MEDS: SODIUM CHLORIDE 0.9% 1,000 ML IV SCH ×2 (04:45→14:26)
[2021-03-23] MEDS ORDERED: methylPREDNISolone SOD SUCCI 40 MG/ML 1 ML VIAL IV SCH (05:00)
--- NOTE | 2021-03-23 05:02 | P.PN ---
Subjective Progress Note Date: 03/22/21 Progress Note Date: 03/22/21 HISTORY OF PRESENT ILLNESS This is a 40-year-old male patient of Dr. Plata with past medical history of ulcerative colitis, tobacco use and dependence, marijuana use. He had 2 hospitalizations in 2019 for acute ulcerative colitis and that time was seen by GI. He was started on sulfasalazine 1000 mg twice daily but patient has not been taking medication since August. Patient had onset of acute on chronic abdominal pain to the epigastric and lower suprapubic area with nausea along with bloody diarrhea. He also complains of left lower jaw pain with purulent drainage from the tooth area. No fevers. Patient presented to [facility] emergency center for evaluation. Patient was afebrile, heart rate 80, blood pressure 139/84, pulse ox 98% on room air. WBC 18.5, hemoglobin 8.2, platelet count 559. Sodium 136, potassium 4.3, chloride 102, CO2 23, BUN 13 and creatinine 0.7. Blood sugar 112. Coronavirus not detected. CAT scan of the abdomen and pelvis with contrast revealed wall thickening of the right colon consistent with nonspecific colitis and not significantly different than last exam. No bowel obstruction. Large bowel fluid levels down to the rectum consistent with diarrhea and ileus. [facility] and [facility] with general surgery. Patient has seen Dr. Foster in the past on 2 previous hospitalizations. 03/20: Patient is laying down in bed in no apparent distress, he continues to have an increased abdominal pain in the left lower quadrant associated with the diarrhea with minimal bright red blood, he is having a good appetite and is asking for more fluid, he has tolerated liquid diet very well, we'll start him on a soft diet, continue Solu-Medrol, continue IV antibiotic, continue sulfasalazine, monitor the patient very closely, patient is complaining of increased restless leg syndrome and he is asking for a small dose of Xanax 0.25 mg orally twice every day and we'll discontinue temazepam. 03/21: Patient is lying down in bed complaining of increased abdominal pain, and bloody diarrhea, soft diet was a bit too much for him yesterday, feels better now, did receive iron , HGB is down to 7.2 yesterday await the results from today, we will continue with current treatmebt plan, continue with Solu-Medrol, sulfasalazine, and monitor very closely. 03/22: Patient is lying down in bed, continues to have minimal abdominal cramps, with minimal bleeding, no chest pain or shortness of breath, his tooth abscess is better, his appetite is better, continues to be generally weak, he denies any chest pain or shortness of breath, minimal coughing, seems to be tolerating treatment well. REVIEW OF SYSTEMS Constitutional: No fever, no chills, no night sweats. No weight change. positive for weakness, fatigue or lethargy. No daytime sleepiness. HEENT: No headache. No blurred vision or double vision, no loss of vision. No loss of Hearing, no ringing in the ears, no dizziness. No nasal drainage or congestion. No epistaxis. No sore throat. Reports dental pain. Lungs: No shortness of breath, cough, no sputum production. No wheezing. Cardiovascular: No chest pain, no lower extremity edema. No palpitations. No paroxysmal nocturnal dyspnea. No orthopnea. No lightheadedness or dizziness. No syncopal episodes. Abdominal: Reports abdominal pain. Reports nausea, no vomiting. Reports diarrhea. No constipation. Reports bloody no tarry stools, better appetite. Genitourinary: No dysuria, increased frequency, urgency. No urinary retention. Musculoskeletal: No myalgias. No muscle weakness, no gait dysfunction, no frequent falls. No back pain. No neck pain. Integumentary: No wounds, no lesions. No rash or pruritus. No unusual bruising. No change in hair or nails. Neurologic: No aphasia. No facial droop. No change in mentation. No head injury. No headache. No paralysis. No paresthesia. Psychiatric: No depression. No anxiety. No mood swings. Endocrine: No abnormal blood sugars. No weight change. No excessive sweating or thirst. No cold intolerance. PHYSICAL EXAMINATION Gen: This is a 40-year-old laying down in bed in no apparent distress. HEENT: Head is atraumatic, normocephalic. Pupils equal, round. Sclerae is anicteric, Mucous membranes of the mouth are somewhat dry. NECK: Supple. No JVD. No lymphadenopathy. No thyromegaly. LUNGS: Decreased breath sounds at the bases, few rhonchi, no expiratory wheezes, no chest wall tenderness, no intercostal retractions. HEART: first heart sound is depressed second heart sound is normal, there is no gallop or murmur. ABDOMEN: Soft moderate tenderness to the left lower quadrant, , Bowel sounds are present. No masses, there is no guarding or rebound. EXTREMITIES: No pedal edema. No calf tenderness. Dorsalis pedis +2 bilaterally. NEUROLOGICAL: Patient is awake, alert and oriented x3. Cranial nerves 2 through 12 are grossly intact, cranial nerves II-12 appear grossly intact, muscle power 5 out of 5 in upper and lower extremity's bilaterally. ASSESSMENT AND PLAN 1. Acute exacerbation of ulcerative colitis, continue patient on IV antibiotic in the form of Zosyn 3.375 g IV piggyback every 8 hours, continue metronidazole 500 mg orally every 8 hours, soft diet, continue morphine sulfate 4 mg IV push every 4 hours as needed, increase protein intake, monitor the patient very closely, Continue patient on sulfasalazine 1000 mg orally twice every day, decrease Solu-Medrol to 20 mg IVP Q 12 hours, and he will be switched to oral in AM. 2. Dental abscess. Recommended to continue IV Zosyn he was instructed to see his dentist as soon as possible for possible root canal. 3. Leukocytosis due to acute colitis, we will continue IV antibiotics, appears better. 4. Restless leg with anxiety start the patient on Xanax 0.5 mg orally twice every day discontinue temazepam 5. GI prophylaxis along with severe GERD Protonix 40 mg IV daily and Carafate 1 g orally twice every day. 6. DVT prophylaxis.Lovenox 40 mg subcutaneously every 24 hours. 7. Regular marijuana use. counseled against its use. 8. 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 9. Acute blood loss anemia likely related to ulcerative colitis. Patient will need follow-up with pipe bending machine operator, he will need to have a colonoscopy as an outpatient, monitor the patient's CBC transfuse for hemoglobin less than 7. Patient will be given Venofer or its substitute iron dextran 125 mg twice and he did receive one unit of PRBCs. Objective - Vital Signs Vital signs: Vital Signs Temp 98.5 F 03/23/21 02:45 Pulse 64 03/23/21 02:45 Resp 17 03/23/21 02:45 BP 135/89 03/23/21 02:45 Pulse Ox 92 L 03/23/21 02:45 Intake & Output 03/22/21 03/22/21 03/23/21 06:59 18:59 06:59 Intake Total 1810 Output Total 1200 Balance 610 Intake: Intake, IV Titration 1500 Amount Piperacillin-Tazobactam 3 100 .375 gm In Sodium Chloride 0.9% 100 ml @ 25 mls/hr IVPB Q8HR [facility] Rx# :[id number] Sodium Chloride 0.9% 1, 1300 000 ml @ 130 mls/hr IV . Q7H42M [facility] Rx#:[id number] metroNIDAZOLE-NS PMX 500 100 mg In Saline 1 100ml.bag @ 100 mls/hr IVPB Q8HR@ 0700,1500,2300 [facility] Rx#: [id number] Blood Product 310 Rc As-1 Unit 310 [id number] Output: Urine 1200 Other: Voiding Method Urinal Urinal # Voids 2 2 - Labs CBC & Chem 7: 03/22/21 06:59 03/22/21 06:59 Labs: Abnormal Lab Results - Last 24 Hours (Table) 03/22/21 03/22/21 03/22/21 Range/Units 06:59 06:59 07:31 WBC 15.23 H (4.50-10.00) X 10*3/uL RBC 3.91 L (4.40-5.60) X 10*6/uL Hgb 7.0 L (13.0-17.0) g/dL Hct 26.0 L (39.6-50.0) % MCV 66.5 L (80.0-97.0) fL MCH 17.9 L (27.0-32.0) pg MCHC 26.9 L (32.0-37.0) g/dL RDW 21.1 H (11.5-14.5) % MPV 9.2 L (9.5-12.2) fL Absolute Nucleated RBC 0.07 H (0.00-0.00) X 10*3/uL Immature Gran # 0.29 H (0.00-0.04) X 10*3/uL Neutrophils # 11.70 H (1.80-7.70) X 10*3/uL Eosinophils # 0.01 L (0.04-0.35) X 10*3/uL NRBC/100 WBC Diff 0.5 H (0.0-0.0) /100 WBCS Carbon Dioxide 21.1 L (21.6-31.8) mmol/L POC Glucose (mg/dL) 115 H (75-99) mg/dL Calcium 7.9 L (8.7-10.3) mg/dL 03/22/21 03/22/21 Range/Units 12:37 20:33 WBC (4.50-10.00) X 10*3/uL RBC (4.40-5.60) X 10*6/uL Hgb (13.0-17.0) g/dL Hct (39.6-50.0) % MCV (80.0-97.0) fL MCH (27.0-32.0) pg MCHC (32.0-37.0) g/dL RDW (11.5-14.5) % MPV (9.5-12.2) fL Absolute Nucleated RBC (0.00-0.00) X 10*3/uL Immature Gran # (0.00-0.04) X 10*3/uL Neutrophils # (1.80-7.70) X 10*3/uL Eosinophils # (0.04-0.35) X 10*3/uL NRBC/100 WBC Diff (0.0-0.0) /100 WBCS Carbon Dioxide (21.6-31.8) mmol/L POC Glucose (mg/dL) 149 H 117 H (75-99) mg/dL Calcium (8.7-10.3) mg/dL
[2021-03-23] MEDS: INSULIN ASPART (NovoLOG) 100 UNIT/ML VIAL SQ SCH ×4 (07:17→21:09)
[2021-03-23] MEDS: SUCRALFATE 1 GM TAB PO SCH ×2 (07:18→17:46)
[2021-03-23] MEDS: metroNIDAZOLE 500 MG TAB PO SCH ×3 (07:18→20:07)
[2021-03-23] MEDS: sulfaSALAzine 500 MG TAB PO SCH ×4 (07:18→20:07)
[2021-03-23] MEDS: ALPRAZolam 0.25 MG TAB PO SCH ×2 (07:18→20:07)
[2021-03-23] MEDS: ENOXAPARIN 40 MG/0.4 ML SYRINGE SQ SCH (07:18)
[2021-03-23 07:19] LABS: Glucose,Whole Blood 146 mg/dL (75-99)
[2021-03-23] MEDS: PANTOPRAZOLE 40 MG TABLET PO SCH (07:19)
--- NOTE | 2021-03-23 08:13 | XR ---
EXAMINATION TYPE: XR chest 2V DATE OF EXAM: 03/23/2021 COMPARISON: NONE TECHNIQUE: PA and lateral views submitted. HISTORY: Cough FINDINGS: Heart size normal. Hyperinflation suggests COPD. There is left basilar infiltrate and small effusion. No interstitial edema. IMPRESSION: 1. Left lower lobe infiltrate and small effusion. 2. COPD..
[2021-03-23] MEDS: SODIUM FERRIC GLUCONAT-SUCROSE 125 MG in SODIUM CHLORIDE 0.9% 100 ML IVPB SCH (08:54)
[2021-03-23] MEDS: PIPERACILLIN-TAZOBACTAM 3.375 GM in SODIUM CHLORIDE 0.9% 100 ML IVPB SCH ×2 (10:55→20:29)
[2021-03-23 11:40] LABS: Glucose,Whole Blood 133 mg/dL (75-99)
[2021-03-23 11:42] LABS: Basophils # (A) 0.02 X 10*3/uL (0.00-0.10); Basophils % (A) 0.1 %; Eosinophils # (A) 0 X 10*3/uL (0.04-0.35); Eosinophils % (A) 0 %; HCT 25.9 % (39.6-50.0); Lymphocytes # (A) 1.74 X 10*3/uL (0.90-5.00); Lymphocytes % (A) 9.7 %; MCH 18.4 pg (27.0-32.0); MCV 68.2 fL (80.0-97.0); Mean Platelet Volume 9.8 fL (9.5-12.2); Monocytes # (A) 0.84 X 10*3/uL (0.20-1.00); Monocytes % (A) 4.7 %; Neutrophils # (A) 14.69 X 10*3/uL (1.80-7.70); Neutrophils % (A) 82.2 %; Platelet Count 242 X 10*3/uL (140-440); RDW 21.7 % (11.5-14.5); WBC 17.88 X 10*3/uL (4.50-10.00)
--- NOTE | 2021-03-23 13:29 | P.PN ---
Subjective Progress Note Date: 03/23/21 Progress Note Date: 03/22/21 HISTORY OF PRESENT ILLNESS This is a 40-year-old male patient of Dr. Plata with past medical history of ulcerative colitis, tobacco use and dependence, marijuana use. He had 2 hospitalizations in 2019 for acute ulcerative colitis and that time was seen by GI. He was started on sulfasalazine 1000 mg twice daily but patient has not been taking medication since August. Patient had onset of acute on chronic abdominal pain to the epigastric and lower suprapubic area with nausea along with bloody diarrhea. He also complains of left lower jaw pain with purulent drainage from the tooth area. No fevers. Patient presented to [facility] emergency center for evaluation. Patient was afebrile, heart rate 80, blood pressure 139/84, pulse ox 98% on room air. WBC 18.5, hemoglobin 8.2, platelet count 559. Sodium 136, potassium 4.3, chloride 102, CO2 23, BUN 13 and creatinine 0.7. Blood sugar 112. Coronavirus not detected. CAT scan of the abdomen and pelvis with contrast revealed wall thickening of the right colon consistent with nonspecific colitis and not significantly different than last exam. No bowel obstruction. Large bowel fluid levels down to the rectum consistent with diarrhea and ileus. [facility] with general surgery. Patient has seen Dr. Foster in the past on 2 previous hospitalizations. 03/20: Patient is laying down in bed in no apparent distress, he continues to have an increased abdominal pain in the left lower quadrant associated with the diarrhea with minimal bright red blood, he is having a good appetite and is asking for more fluid, he has tolerated liquid diet very well, we'll start him on a soft diet, continue Solu-Medrol, continue IV antibiotic, continue sulfasalazine, monitor the patient very closely, patient is complaining of increased restless leg syndrome and he is asking for a small dose of Xanax 0.25 mg orally twice every day and we'll discontinue temazepam. 03/21: Patient is lying down in bed complaining of increased abdominal pain, and bloody diarrhea, soft diet was a bit too much for him yesterday, feels better now, did receive iron , HGB is down to 7.2 yesterday await the results from today, we will continue with current treatmebt plan, continue with Solu-Medrol, sulfasalazine, and monitor very closely. 03/22: Patient is lying down in bed, continues to have minimal abdominal cramps, with minimal bleeding, no chest pain or shortness of breath, his tooth abscess is better, his appetite is better, continues to be generally weak, he denies any chest pain or shortness of breath, minimal coughing, seems to be tolerating treatment well. 03/23: Patient has been afebrile, heart rate 64, blood pressure 135/89, pulse ox 92-98% on room air. Blood sugars are running between 97 and 146. Stool cultures positive for Mylene. Patient states that he had 2-3 bowel movements this morning which are watery but no blood. He states he is having 5-6 bowel movements per day for 24 hour period. Discussed with patient the need to get off IV morphine and transitioned to [place] and preparation for discharge soon. Patient has been seen by GI and IV Solu-Medrol transitioned to oral prednisone. WBC 17.8, hemoglobin 7, platelet count 242. Sugars are running between 97 and 146. Chemistry panel reporting is pending at 1:26 PM. Patient is status post 3 doses of IV iron as be discontinued. REVIEW OF SYSTEMS Constitutional: No fever, no chills, no night sweats. No weight change. pos itive for weakness, fatigue or lethargy. No daytime sleepiness. HEENT: No headache. No blurred vision or double vision, no loss of vision. No loss of Hearing, no ringing in the ears, no dizziness. No nasal drainage or congestion. No epistaxis. No sore throat. Reports dental pain. Lungs: No shortness of breath, cough, no sputum production. No wheezing. Cardiovascular: No chest pain, no lower extremity edema. No palpitations. No paroxysmal nocturnal dyspnea. No orthopnea. No lightheadedness or dizziness. No syncopal episodes. Abdominal: Reports abdominal pain. Reports nausea, no vomiting. Reports moderate diarrhea. No constipation. Denies bloody no tarry stools, better appetite. Genitourinary: No dysuria, increased frequency, urgency. No urinary retention. Musculoskeletal: No myalgias. No muscle weakness, no gait dysfunction, no frequent falls. No back pain. No neck pain. Integumentary: No wounds, no lesions. No rash or pruritus. No unusual bruising. No change in hair or nails. Neurologic: No aphasia. No facial droop. No change in mentation. No head injury. No headache. No paralysis. No paresthesia. Psychiatric: No depression. No anxiety. No mood swings. Endocrine: No abnormal blood sugars. No weight change. No excessive sweating or thirst. No cold intolerance. PHYSICAL EXAMINATION Gen: This is a 40-year-old laying down in bed in no apparent distress. HEENT: Head is atraumatic, normocephalic. Pupils equal, round. Sclerae is anicteric, Mucous membranes of the mouth are somewhat dry. NECK: Supple. No JVD. No lymphadenopathy. No thyromegaly. LUNGS: Decreased breath sounds at the bases, few rhonchi, no expiratory wheezes, no chest wall tenderness, no intercostal retractions. HEART: first heart sound is depressed second heart sound is normal, there is no gallop or murmur. ABDOMEN: Soft no tenderness to the left lower quadrant, , Bowel sounds are present. No masses, there is no guarding or rebound. EXTREMITIES: No pedal edema. No calf tenderness. Dorsalis pedis +2 bilaterally. NEUROLOGICAL: Patient is awake, alert and oriented x3. Cranial nerves 2 through 12 are grossly intact, cranial nerves II-12 appear grossly intact, muscle power 5 out of 5 in upper and lower extremity's bilaterally. ASSESSMENT AND PLAN 1. Acute exacerbation of ulcerative colitis, continue Zosyn 3.375 g IV piggyback every 8 hours, continue metronidazole 500 mg orally every 8 hours, soft diet, continue morphine sulfate 4 mg IV push every 4 hours as needed, increase protein intake, monitor the patient very closely, Continue patient on sulfasalazine 1000 mg orally twice every day, transition IV Solu-Medrol to oral prednisone. GI consult appreciated. 2. Dental abscess. Recommended to continue IV Zosyn he was instructed to see his dentist as soon as possible for possible root canal. 3. Leukocytosis due to acute colitis, we will continue IV antibiotics, appears better. 4. Restless leg with anxiety start the patient on Xanax 0.5 mg orally twice every day discontinue temazepam 5. GI prophylaxis along with severe GERD Protonix 40 mg IV daily and Carafate 1 g orally twice every day. 6. DVT prophylaxis.Lovenox 40 mg subcutaneously every 24 hours. 7. Regular marijuana use. counseled against its use. 8. 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 9. Acute blood loss anemia likely related to ulcerative colitis. Patient will need follow-up with clothes model, he will need to have a colonoscopy as an outpatient, monitor the patient's CBC transfuse for hemoglobin less than 7. Patient will be given Venofer or its substitute iron dextran 125 mg twice and he did receive one unit of PRBCs. 10. increase activity, likely home in AM Objective - Vital Signs Vital signs: Vital Signs Temp 98.5 F 03/23/21 02:45 Pulse 64 03/23/21 02:45 Resp 17 03/23/21 02:45 BP 135/89 03/23/21 02:45 Pulse Ox 92 L 03/23/21 02:45 Intake & Output 03/22/21 03/22/21 03/23/21 06:59 18:59 06:59 Intake Total 1810 Output Total 1200 Balance 610 Intake: Intake, IV Titration 1500 Amount Piperacillin-Tazobactam 3 100 .375 gm In Sodium Chloride 0.9% 100 ml @ 25 mls/hr IVPB Q8HR [facility] Rx# :[id number] Sodium Chloride 0.9% 1, 1300 000 ml @ 130 mls/hr IV . Q7H42M [facility] Rx#:[id number] metroNIDAZOLE-NS PMX 500 100 mg In Saline 1 100ml.bag @ 100 mls/hr IVPB Q8HR@ 0700,1500,2300 [facility] Rx#: [id number] Blood Product 310 Rc As-1 Unit 310 [id number] Output: Urine 1200 Other: Voiding Method Urinal Urinal # Voids 2 2 - Labs CBC & Chem 7: 03/23/21 07:28 03/22/21 06:59 Labs: Abnormal Lab Results - Last 24 Hours (Table) 03/22/21 03/22/21 03/22/21 Range/Units 06:59 06:59 07:31 WBC 15.23 H (4.50-10.00) X 10*3/uL RBC 3.91 L (4.40-5.60) X 10*6/uL Hgb 7.0 L (13.0-17.0) g/dL Hct 26.0 L (39.6-50.0) % MCV 66.5 L (80.0-97.0) fL MCH 17.9 L (27.0-32.0) pg MCHC 26.9 L (32.0-37.0) g/dL RDW 21.1 H (11.5-14.5) % MPV 9.2 L (9.5-12.2) fL Absolute Nucleated RBC 0.07 H (0.00-0.00) X 10*3/uL Immature Gran # 0.29 H (0.00-0.04) X 10*3/uL Neutrophils # 11.70 H (1.80-7.70) X 10*3/uL Eosinophils # 0.01 L (0.04-0.35) X 10*3/uL NRBC/100 WBC Diff 0.5 H (0.0-0.0) /100 WBCS Carbon Dioxide 21.1 L (21.6-31.8) mmol/L POC Glucose (mg/dL) 115 H (75-99) mg/dL Calcium 7.9 L (8.7-10.3) mg/dL 03/22/21 03/22/21 Range/Units 12:37 20:33 WBC (4.50-10.00) X 10*3/uL RBC (4.40-5.60) X 10*6/uL Hgb (13.0-17.0) g/dL Hct (39.6-50.0) % MCV (80.0-97.0) fL MCH (27.0-32.0) pg MCHC (32.0-37.0) g/dL RDW (11.5-14.5) % MPV (9.5-12.2) fL Absolute Nucleated RBC (0.00-0.00) X 10*3/uL Immature Gran # (0.00-0.04) X 10*3/uL Neutrophils # (1.80-7.70) X 10*3/uL Eosinophils # (0.04-0.35) X 10*3/uL NRBC/100 WBC Diff (0.0-0.0) /100 WBCS Carbon Dioxide (21.6-31.8) mmol/L POC Glucose (mg/dL) 149 H 117 H (75-99) mg/dL Calcium (8.7-10.3) mg/dL
[2021-03-23] MEDS: predniSONE 20 MG TAB PO SCH (14:31)
[2021-03-23] MEDS: HYDROcodone/APAP 5-325MG 1 EACH TAB PO PRN ×2 (16:04→20:16)
[2021-03-23 16:36] LABS: Glucose,Whole Blood 131 mg/dL (75-99)
--- NOTE | 2021-03-23 17:09 | P.CONS ---
History of Present Illness - Reason for Consult Consult date: 03/23/21 ulcerative colitis Requesting physician: Adalid Plata - Chief Complaint Abdominal pain, rectal bleeding - History of Present Illness 40-year-old male with a medical history significant for ulcerative colitis, tobacco abuse and marijuana use who presented to the hospital five days ago due to concerns of abdominal pain, diarrhea, and blood per rectum. Patient has known history of ulcerative colitis diagnosed at the age of 15 and treated in the past with steroid therapy and 5ASA agents and, however he was not recently on any treatment. Last colonoscopy in 2016 at [facility] was significant for discontinuous active colitis. The patient presents to the hospital with complaints of abdominal pain and frequent loose bowel movements and blood per rectum. The patient has been noncompliant with medication regimen. He has not followed up with gastroenterology and has only seen his primary care physician once in the last year. His last exacerbation and hospitalization was in May 2020. At that time he was discharged home on prednisone and sulfasalazine. Once he ran out he did not renew his prescription. Patient states he's normally having 5-6 loose stools a day. He was having bright red blood per rectum therefore he presented to the emergency department. He is status post 1 unit of PRBC transfusion. C. difficile toxin was negative. He is on Zosyn and Flagyl for presentation of leukocytosis on admission. Patient states abdominal pain is improving, however he states he has diffuse abdominal pain that is chronic. He has not had any further bleeding in the last 1-2 days duration. Still having 5-6 loose stools. He had a CT of the abdomen and pelvis on admission that showed wall thickening of the right colon consistent with some nonspecific colitis and not significantly different than last exam. No bowel obstruction. Large bowel fluid levels down to the rectum consistent with diarrhea and ileus. Multiple splenic defects and cystic areas that could be due to multiple splenic infarcts and appear decreased in size compared to old computed tomography scan. There is improvement in the atelectasis left lower lobe compared to old exam. Patient denies any fever or chills. He denies any nausea or vomiting. He is on a soft diet and tolerating it well. On admission sed rate was 82 and CRP 7.3. Today's labs WBC 7.8 hem oglobin 7 hematocrit 25.9 platelet count 242,000 sed rate 60 CRP pending Review of Systems REVIEW OF SYSTEMS: CARDIOPULMONARY: No chest pain or shortness of breath. Gastrointestinal: Lower abdominal pain.. No nausea or vomiting. No hematemesis, coffee-ground emesis. Patient had rectal bleeding on presentation, resolved. Diarrhea 5-6 bowel movements per day.. GENITOURINARY: No dysuria or hematuria. MUSCULOSKELETAL: Reports normal range of motion., Joint pain. SKIN: No rashes. No jaundice. ENDOCRINE: No chills, fevers. No excessive weight gain or loss. No polydipsia or polyuria. PSYCHIATRIC: Unremarkable. NEUROLOGY: No change in mental status. Denies dizziness, headache. ENT: Vision unremarkable. CONSTITUTIONAL: No recent weight loss. No fever, chills, night sweats. Past Medical History Additional Past Medical History / Comment(s): ulcerative colitis, spleen problems, Hep C History of Any Multi-Drug Resistant Organisms: None Reported Past Surgical History: No Surgical Hx Reported Past Anesthesia/Blood Transfusion Reactions: No Reported Reaction Past Psychological History: No Psychological Hx Reported Smoking Status: Current every day smoker Past Alcohol Use History: None Reported Additional Past Alcohol Use History / Comment(s): Patient is a smoker of less than one pack per day since he was 15 years of age. He has history of drinking 4-5 times per week, liquor but since 2007 he only drinks about 2 times per year. He uses marijuana on a regular basis including edibles. The patient is single and lives alone. Past Drug Use History: Marijuana Additional Drug Use History / Comment(s): pt admits so self medicating with percocet recently. - Past Family History Father Family Medical History: Seizure Disorder Additional Family Medical History / Comment(s): Father is alive at age 64 with history of seizures and hypertension. Mother Additional Family Medical History / Comment(s): Mother in her late 50s with complications from CABG. Brother(s) Additional Family Medical History / Comment(s): Patient has 2 brothers with no major medical problems. He does not have any sisters. He does not have any children. No family members have ulcerative colitis. Medications and Allergies Home Medications Medication Instructions Recorded Confirmed Type No Known Home Medications 03/18/21 03/18/21 History Allergies Allergy/AdvReac Type Severity Reaction Status Date / Time No Known Allergies Allergy Verified 03/18/21 22:52 Physical Exam Vitals: Vital Signs Temp Pulse Resp BP Pulse Ox 03/23/21 08:00 97.7 F 57 L 16 136/82 98 03/23/21 02:45 98.5 F 64 17 135/89 92 L 03/22/21 20:00 73 16 03/22/21 19:20 98.3 F 73 16 122/76 95 03/22/21 14:00 98.3 F 64 13 124/73 98 Intake and Output 03/22/21 03/23/21 03/23/21 22:59 06:59 14:59 Other: Voiding Method Urinal # Voids 2 3 General appearance: The patient is alert, oriented, appears in no acute distress. HET: Head is normocephalic and atraumatic. Conjunctiva pink. Sclera anicteric. Neck: Supple without lymphadenopathy. Trachea midline. Heart: S1 S2. Regular rate and rhythm. Lungs: Clear to auscultation. Abdomen: Soft, thin, lower abdominal tenderness nondistended with bowel sounds. No guarding or rigidity. Skin: No rashes. No jaundice. Extremities: Normal skin color and turgor. No pedal edema. Neurological: No focal deficits. Alert and oriented 3.. Results CBC & Chem 7: 03/23/21 07:28 03/22/21 06:59 Labs: Abnormal Lab Results - Last 24 Hours (Table) 03/22/21 03/22/21 03/23/21 Range/Units 12:37 20:33 07:17 POC Glucose (mg/dL) 149 H 117 H 146 H (75-99) mg/dL Microbiology - Last 24 Hours (Table) 03/20/21 23:30 Stool Culture - Preliminary Stool Mylene albicans Comments: CT of the abdomen and pelvis on admission that showed wall thickening of the right colon consistent with some nonspecific colitis and not significantly different than last exam. No bowel obstruction. Large bowel fluid levels down to the rectum consistent with diarrhea and ileus. Multiple splenic defects and cystic areas that could be due to multiple splenic infarcts and appear decreased in size compared to old computed tomography scan. There is improvement in the atelectasis left lower lobe compared to old exam. Assessment and Plan (1) Ulcerative colitis Narrative/Plan: 40-year-old male with a history of ulcerative colitis presented to the hospital 5 days ago with concerns of diarrhea and blood per rectum. Patient has a known history of ulcerative colitis diagnosed at the age of 15 and treated in the past with steroid therapy and 5 ASA agents however has been noncompliant and recent medical treatment. Patient's last exacerbation and hospitalization was in May 2020. His last colonoscopy was in 2016 significant for discontinuous active colitis. On admission the patient had an elevated CRP and ESR. He was started on IV Solu-Medrol 20 mg every 8 hours and was decreased today to 20 mg IV every 12 hours. Patient presented with severe abdominal pain, associated with multiple episodes of diarrhea and bloody stools. Patient denies any further rectal bleeding. He is status post 1 unit of PRBC transfusion this admission. He's had leukocytosis on presentation, with increased WBC likely related to steroid therapy. He's been afebrile, pain in proving, denies any nausea or vomiting. Will transition to oral steroids and increase sulfasalazine to 1000 mg 4 times a day. Stressed importance of medication compliance with patient. Will need outpatient follow-up and surveillance. No plans on endoscopic evaluation at this time. Current Visit: No Status: Acute Code(s): K51.90 - ULCERATIVE COLITIS, UNSPECIFIED, WITHOUT COMPLICATIONS SNOMED Code(s): 89973763 (2) Anemia due to gastrointestinal blood loss Current Visit: Yes Status: Acute Code(s): D50.0 - IRON DEFICIENCY ANEMIA SECONDARY TO BLOOD LOSS (CHRONIC) SNOMED Code(s): 414837739 (3) Ileus Current Visit: Yes Status: Acute Code(s): K56.7 - ILEUS, UNSPECIFIED SNOMED Code(s): 477411864 (4) Diarrhea Current Visit: No Status: Acute Code(s): R19.7 - DIARRHEA, UNSPECIFIED SNOMED Code(s): 58221379 Plan: 1. Continue symptomatic and supportive care 2. Encourage ambulation 3. Diet as tolerated 4. Will transition to oral prednisone 40 mg daily, will discharge home with a tapered dose decreasing by 5 mg a week 5. Increase sulfasalazine to 1000mg 4 times a day 6. Sed rate and CRP were ordered 7. Repeat CBC in the morning 8. Discussed importance of medication compliance with patient, will need outpatient follow-up and surveillance Thank you for this consultation, will continue to follow.
[2021-03-23 19:29] LABS: African American GFR (CKD) 135.9 (60.0-200.0); Albumin 2.9 g/dL (3.80-4.90); Albumin/Globulin Ratio 0.94 (1.60-3.17); Anion Gap 11.5 mmol/L (4.00-12.00); BUN/Creat Ratio 14.29 Ratio (12.00-20.00); Carbon Dioxide 16.5 mmol/L (21.6-31.8); Globulin 3.1 g/dL (1.6-3.3); Non-African American GFR(CKD) 117.2 (60.0-200.0); Potassium 4.2 mmol/L (3.5-5.5); Total Bilirubin 0.2 mg/dL (0.2-1.2)
[2021-03-23 20:54] LABS: Glucose,Whole Blood 131 mg/dL (75-99)
[2021-03-23] MEDS: AMOXIC-POT CLAV 875-125MG 1 EACH TAB PO SCH (21:09)
[2021-03-24] MEDS: HYDROcodone/APAP 5-325MG 1 EACH TAB PO PRN ×3 (00:43→10:12)
[2021-03-24 07:03] LABS: Glucose,Whole Blood 94 mg/dL (75-99)
[2021-03-24] MEDS: INSULIN ASPART (NovoLOG) 100 UNIT/ML VIAL SQ SCH ×4 (07:29→21:19)
[2021-03-24] MEDS: PANTOPRAZOLE 40 MG TABLET PO SCH (07:37)
[2021-03-24] MEDS: ENOXAPARIN 40 MG/0.4 ML SYRINGE SQ SCH (07:37)
[2021-03-24] MEDS: SUCRALFATE 1 GM TAB PO SCH ×2 (07:37→17:26)
[2021-03-24] MEDS: ALPRAZolam 0.25 MG TAB PO SCH ×2 (07:38→21:18)
[2021-03-24] MEDS: metroNIDAZOLE 500 MG TAB PO SCH ×3 (07:38→21:18)
[2021-03-24] MEDS: predniSONE 20 MG TAB PO SCH (07:38)
[2021-03-24] MEDS: AMOXIC-POT CLAV 875-125MG 1 EACH TAB PO SCH (07:38)
[2021-03-24] MEDS: sulfaSALAzine 500 MG TAB PO SCH ×4 (07:38→22:31)
--- NOTE | 2021-03-24 09:15 | P.PN ---
Subjective Progress Note Date: 03/24/21 HISTORY OF PRESENT ILLNESS This is a 40-year-old male patient of Dr. Plata with past medical history of ulcerative colitis, tobacco use and dependence, marijuana use. He had 2 hosp italizations in 2019 for acute ulcerative colitis and that time was seen by GI. He was started on sulfasalazine 1000 mg twice daily but patient has not been taking medication since August. Patient had onset of acute on chronic abdominal pain to the epigastric and lower suprapubic area with nausea along with bloody diarrhea. He also complains of left lower jaw pain with purulent drainage from the tooth area. No fevers. Patient presented to [facility] emergency center for eval uation. Patient was afebrile, heart rate 80, blood pressure 139/84, pulse ox 98% on room air. WBC 18.5, hemoglobin 8.2, platelet count 559. Sodium 136, potassium 4.3, chloride 102, CO2 23, BUN 13 and creatinine 0.7. Blood sugar 112. Coronavirus not detected. CAT scan of the abdomen and pelvis with contrast revealed wall thickening of the right colon consistent with nonspecific colitis and not significantly different than last exam. No bowel obstruction. Large bowel fluid levels down to the rectum consistent with diarrhea and ileus. [facility] with [facility]. Patient has seen Dr. Foster in the past on 2 previous hospitalizations. 03/20: Patient is laying down in bed in no apparent distress, he continues to have an increased abdominal pain in the left lower quadrant associated with the diarrhea with minimal bright red blood, he is having a good appetite and is asking for more fluid, he has tolerated liquid diet very well, we'll start him on a soft diet, continue Solu-Medrol, continue IV antibiotic, continue sulfasalazine, monitor the patient very closely, patient is complaining of increased restless leg syndrome and he is asking for a small dose of Xanax 0.25 mg orally twice every day and we'll discontinue temazepam. 03/21: Patient is lying down in bed complaining of increased abdominal pain, and bloody diarrhea, soft diet was a bit too much for him yesterday, feels better now, did receive iron , HGB is down to 7.2 yesterday await the results from today, we will continue with current treatmebt plan, continue with Solu-Medrol, sulfasalazine, and monitor very closely. 03/22: Patient is lying down in bed, continues to have minimal abdominal cramps, with minimal bleeding, no chest pain or shortness of breath, his tooth abscess is better, his appetite is better, continues to be generally weak, he denies any chest pain or shortness of breath, minimal coughing, seems to be tolerating treatment well. 03/23: Patient has been afebrile, heart rate 64, blood pressure 135/89, pulse ox 92-98% on room air. Blood sugars are running between 97 and 146. Stool cultures positive for Mylene. Patient states that he had 2-3 bowel movements this morning which are watery but no blood. He states he is having 5-6 bowel movements per day for 24 hour period. Discussed with patient the need to get off IV morphine and transitioned to [place] and preparation for discharge soon. Patient has been seen by GI and IV Solu-Medrol transitioned to oral prednisone. WBC 17.8, hemoglobin 7, platelet count 242. Sugars are running between 97 and 146. Chemistry panel reporting is pending at 1:26 PM. Patient is status post 3 doses of IV iron as be discontinued. 03/24: Patient has had bloody stools and discharge plan for today will be held. He is continued on sulfasalazine as well as antibiotics changed to Augmentin. Midline will be ordered for IV access. Repeat CBC as an ordered. Patient will be transfused if hemoglobin is less than 7. REVIEW OF SYSTEMS Constitutional: No fever, no chills, no night sweats. No weight change. positive for weakness, fatigue or lethargy. No daytime sleepiness. HEENT: No headache. No blurred vision or double vision, no loss of vision. No dizziness. No nasal drainage or congestion. No epistaxis. No sore throat. Reports dental pain. Lungs: No shortness of breath, cough, no sputum production. No wheezing. Cardiovascular: No chest pain, no lower extremity edema. No palpitations. No paroxysmal nocturnal dyspnea. No orthopnea. No lightheadedness or dizziness. No syncopal episodes. Abdominal: Reports abdominal pain. Reports nausea, no vomiting. Reports moderate diarrhea. No constipation. Reports bloody no tarry stools, better appetite. Genitourinary: No dysuria, increased frequency, urgency. No urinary retention. Musculoskeletal: No myalgias. No muscle weakness, no gait dysfunction, no frequent falls. No back pain. No neck pain. Integumentary: No wounds, no lesions. No rash or pruritus. No unusual bruising. No change in hair or nails. Neurologic: No aphasia. No facial droop. No change in mentation. No head injury. No headache. No paralysis. No paresthesia. Psychiatric: No depression. No anxiety. No mood swings. Endocrine: No abnormal blood sugars. No weight change. No excessive sweating or thirst. No cold intolerance. PHYSICAL EXAMINATION Gen: This is a 40-year-old laying down in bed in no apparent distress. HEENT: Head is atraumatic, normocephalic. Pupils equal, round. Sclerae is anicteric, Mucous membranes of the mouth are somewhat dry. NECK: Supple. No JVD. No lymphadenopathy. No thyromegaly. LUNGS: Decreased breath sounds at the bases, few rhonchi, no expiratory wheezes, no chest wall tenderness, no intercostal retractions. HEART: first heart sound is depressed second heart sound is normal, there is no gallop or murmur. ABDOMEN: Soft mild tenderness to the left lower quadrant, , Bowel sounds are present. No masses, there is no guarding or rebound. EXTREMITIES: No pedal edema. No calf tenderness. Dorsalis pedis +2 bilaterally. NEUROLOGICAL: Patient is awake, alert and oriented x3. Cranial nerves 2 through 12 are grossly intact, cranial nerves II-12 appear grossly intact, muscle power 5 out of 5 in upper and lower extremity's bilaterally. ASSESSMENT AND PLAN 1. Acute exacerbation of ulcerative colitis, continue oral Augmentin, continue metronidazole 500 mg orally every 8 hours, soft diet, continue morphine sulfate 4 mg IV push every 4 hours as needed, increase protein intake, monitor the patient very closely, Continue patient on sulfasalazine 1000 mg orally twice every day, transition IV Solu-Medrol to oral prednisone. GI consult appreciated. Midline to be ordered for IV access. 2. Dental abscess. Recommended to continue oral Augmentin he was instructed to see his dentist as soon as possible for possible root canal. 3. Leukocytosis due to acute colitis, we will continue IV antibiotics, appears better. 4. Restless leg with anxiety start the patient on Xanax 0.5 mg orally twice every day discontinue temazepam 5. GI prophylaxis along with severe GERD Protonix 40 mg IV daily and Carafate 1 g orally twice every day. 6. DVT prophylaxis.Lovenox 40 mg subcutaneously every 24 hours. 7. Regular marijuana use. counseled against its use. 8. 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 9. Acute blood loss anemia likely related to ulcerative colitis. Patient will need follow-up with research epidemiologist, he will need to have a colonoscopy as an outpatient, monitor the patient's CBC transfuse for hemoglobin less than 7. Patient will be given Venofer or its substitute iron dextran 125 mg twice and he did receive one unit of PRBCs. DISCHARGE DIAGNOSES Home Impression and plan of care have been directed as dictated by the signing physician. Teri Walter nurse practitioner acting as scribe for signing physician. Objective - Vital Signs Vital signs: Vital Signs Temp 98.2 F 03/24/21 07:41 Pulse 66 03/24/21 07:41 Resp 16 03/24/21 07:41 BP 140/79 03/24/21 07:41 Pulse Ox 97 03/24/21 07:41 Intake & Output 03/23/21 03/24/21 03/24/21 18:59 06:59 18:59 Other: Voiding Method Urinal # Voids 4 1 # Bowel Movements 1 - Labs CBC & Chem 7: 03/23/21 07:28 03/23/21 07:28 Labs: Abnormal Lab Results - Last 24 Hours (Table) 03/23/21 03/23/21 03/23/21 Range/Units 07:28 07:28 07:28 WBC 17.88 H (4.50-10.00) X 10*3/uL RBC 3.80 L (4.40-5.60) X 10*6/uL Hgb 7.0 L (13.0-17.0) g/dL Hct 25.9 L (39.6-50.0) % MCV 68.2 L (80.0-97.0) fL MCH 18.4 L (27.0-32.0) pg MCHC 27.0 L (32.0-37.0) g/dL RDW 21.7 H (11.5-14.5) % Absolute Nucleated RBC 0.06 H (0.00-0.00) X 10*3/uL Immature Gran # 0.59 H (0.00-0.04) X 10*3/uL Neutrophils # 14.69 H (1.80-7.70) X 10*3/uL Eosinophils # 0 L (0.04-0.35) X 10*3/uL NRBC/100 WBC Diff 0.3 H (0.0-0.0) /100 WBCS ESR 60 H (0-15) mm/Hr Sodium 133 L (135-145) mmol/L Carbon Dioxide 16.5 L (21.6-31.8) mmol/L Glucose 115 H (70-110) mg/dL POC Glucose (mg/dL) (75-99) mg/dL Calcium 8.0 L (8.7-10.3) mg/dL Total Protein 6.0 L (6.2-8.2) g/dL Albumin 2.90 L (3.80-4.90) g/dL Albumin/Globulin Ratio 0.94 L (1.60-3.17) g/dL 03/23/21 03/23/21 03/23/21 Range/Units 11:38 16:35 20:53 WBC (4.50-10.00) X 10*3/uL RBC (4.40-5.60) X 10*6/uL Hgb (13.0-17.0) g/dL Hct (39.6-50.0) % MCV (80.0-97.0) fL MCH (27.0-32.0) pg MCHC (32.0-37.0) g/dL RDW (11.5-14.5) % Absolute Nucleated RBC (0.00-0.00) X 10*3/uL Immature Gran # (0.00-0.04) X 10*3/uL Neutrophils # (1.80-7.70) X 10*3/uL Eosinophils # (0.04-0.35) X 10*3/uL NRBC/100 WBC Diff (0.0-0.0) /100 WBCS ESR (0-15) mm/Hr Sodium (135-145) mmol/L Carbon Dioxide (21.6-31.8) mmol/L Glucose (70-110) mg/dL POC Glucose (mg/dL) 133 H 131 H 131 H (75-99) mg/dL Calcium (8.7-10.3) mg/dL Total Protein (6.2-8.2) g/dL Albumin (3.80-4.90) g/dL Albumin/Globulin Ratio (1.60-3.17) g/dL Microbiology - Last 24 Hours (Table) 03/20/21 23:30 Stool Culture - Preliminary Stool Mylene albicans
[2021-03-24 10:16] LABS: Anisocytosis Marked; Basophils % (A) 0 %; Eosinophils # (A) 0.1 k/uL (0-0.7); Eosinophils % (A) 1 %; HCT 28.7 % (39.0-53.0); HGB 8.1 gm/dL (13.0-17.5); Hypochromasia Marked; Lymphocytes # (A) 2.3 k/uL (1.0-4.8); Lymphocytes % (A) 14 %; MCH 19.3 pg (25.0-35.0); MCHC 28.4 g/dL (31.0-37.0); Mean Platelet Volume 7.7; Microcytosis Marked; Monocytes # (A) 0.7 k/uL (0-1.0); Monocytes % (A) 4 %; Neutrophils # (A) 13.3 k/uL (1.3-7.7); Neutrophils % (A) 80 %; Platelet Count 271 k/uL (150-450); Poikilocytosis Marked; RBC 4.22 m/uL (4.30-5.90); RDW 24.1 % (11.5-15.5); WBC 16.8 k/uL (3.8-10.6)
[2021-03-24 11:53] LABS: Glucose,Whole Blood 110 mg/dL (75-99)
[2021-03-24 13:12] VITALS: BMI 22.4
--- NOTE | 2021-03-24 15:50 | P.PN ---
Subjective Progress Note Date: 03/24/21 Principal diagnosis: Ulcerative colitis 1-year-old male with a known history of ulcerative colitis who presented to the emergency department with abdominal pain and bloody stools. Patient was initially improving with symptoms and having no further lead per stool however this morning he did have bright red blood mixed with his stool. Yesterday he was transitioned to oral prednisone 40 mg daily. He states his abdominal pain is a little bit worse than Monday. Has some mild nausea but no vomiting. He has had several stools through the night and this morning. Stool culture came back with Mylene. He is on Flagyl. He has been afebrile. Objective - Vital Signs Vital signs: Vital Signs Temp 98.2 F 03/24/21 07:41 Pulse 66 03/24/21 07:41 Resp 16 03/24/21 07:41 BP 140/79 03/24/21 07:41 Pulse Ox 97 03/24/21 07:41 Intake & Output 03/23/21 03/24/21 03/24/21 18:59 06:59 18:59 Other: Voiding Method Urinal # Voids 4 1 # Bowel Movements 1 - Exam General appearance: The patient is alert, oriented, appears in no acute distress. HET: Head is normocephalic and atraumatic. Conjunctiva pink. Sclera anicteric. Neck: Supple without lymphadenopathy. Abdomen: Soft, lower abdominal tenderness, nondistended with bowel sounds. No guarding or rigidity. Extremities: Normal skin color and turgor. No pedal edema Skin: No rashes, no jaundice Neurological: No focal deficits. Alert and oriented 3. - Labs CBC & Chem 7: 03/24/21 09:16 03/23/21 07:28 Labs: Abnormal Lab Results - Last 24 Hours (Table) 03/23/21 03/23/21 03/23/21 Range/Units 07:28 07:28 07:28 WBC (3.8-10.6) k/uL RBC (4.30-5.90) m/uL Hgb (13.0-17.5) gm/dL Hct (39.0-53.0) % MCV (80.0-100.0) fL MCH (25.0-35.0) pg MCHC (31.0-37.0) g/dL RDW (11.5-15.5) % Neutrophils # (1.3-7.7) k/uL ESR 60 H (0-15) mm/Hr Sodium 133 L (135-145) mmol/L Carbon Dioxide 16.5 L (21.6-31.8) mmol/L Glucose 115 H (70-110) mg/dL POC Glucose (mg/dL) (75-99) mg/dL Calcium 8.0 L (8.7-10.3) mg/dL C-Reactive Protein 1.8 H (0.0-0.8) mg/dL Total Protein 6.0 L (6.2-8.2) g/dL Albumin 2.90 L (3.80-4.90) g/dL Albumin/Globulin Ratio 0.94 L (1.60-3.17) g/dL 03/23/21 03/23/21 03/24/21 Range/Units 16:35 20:53 09:16 WBC 16.8 H (3.8-10.6) k/uL RBC 4.22 L (4.30-5.90) m/uL Hgb 8.1 L (13.0-17.5) gm/dL Hct 28.7 L (39.0-53.0) % MCV 68.0 L (80.0-100.0) fL MCH 19.3 L (25.0-35.0) pg MCHC 28.4 L (31.0-37.0) g/dL RDW 24.1 H (11.5-15.5) % Neutrophils # 13.3 H (1.3-7.7) k/uL ESR (0-15) mm/Hr Sodium (135-145) mmol/L Carbon Dioxide (21.6-31.8) mmol/L Glucose (70-110) mg/dL POC Glucose (mg/dL) 131 H 131 H (75-99) mg/dL Calcium (8.7-10.3) mg/dL C-Reactive Protein (0.0-0.8) mg/dL Total Protein (6.2-8.2) g/dL Albumin (3.80-4.90) g/dL Albumin/Globulin Ratio (1.60-3.17) g/dL 03/24/21 Range/Units 11:51 WBC (3.8-10.6) k/uL RBC (4.30-5.90) m/uL Hgb (13.0-17.5) gm/dL Hct (39.0-53.0) % MCV (80.0-100.0) fL MCH (25.0-35.0) pg MCHC (31.0-37.0) g/dL RDW (11.5-15.5) % Neutrophils # (1.3-7.7) k/uL ESR (0-15) mm/Hr Sodium (135-145) mmol/L Carbon Dioxide (21.6-31.8) mmol/L Glucose (70-110) mg/dL POC Glucose (mg/dL) 110 H (75-99) mg/dL Calcium (8.7-10.3) mg/dL C-Reactive Protein (0.0-0.8) mg/dL Total Protein (6.2-8.2) g/dL Albumin (3.80-4.90) g/dL Albumin/Globulin Ratio (1.60-3.17) g/dL Assessment and Plan (1) Ulcerative colitis Narrative/Plan: 40-year-old male with a history of ulcerative colitis presented to the hospital 5 days ago with concerns of diarrhea and blood per rectum. Patient has a known history of ulcerative colitis diagnosed at the age of 15 and treated in the past with steroid therapy and 5 ASA agents however has been noncompliant and recent medical treatment. Patient's last exacerbation and hospitalization was in May 2020. His last colonoscopy was in 2016 significant for discontinuous active colitis. On admission the patient had an elevated CRP and ESR. He was started on IV Solu-Medrol 20 mg every 8 hours and was decreased today to 20 mg IV every 12 hours. Patient presented with severe abdominal pain, associated with multiple episodes of diarrhea and bloody stools. Patient denies any further rectal bleeding. He is status post 1 unit of PRBC transfusion this admission. He's had leukocytosis on presentation, with increased WBC likely related to steroid therapy. He's been afebrile, pain in proving, denies any nausea or vomiting. Will transition to oral steroids and increase sulfasalazine to 1000 mg 4 times a day. Stressed importance of medication compliance with patient. Will need outpatient follow-up and surveillance. No plans on endoscopic evaluation at this time. Current Visit: No Status: Acute Code(s): K51.90 - ULCERATIVE COLITIS, UNSPECIFIED, WITHOUT COMPLICATIONS SNOMED Code(s): 14566787 (2) Anemia due to gastrointestinal blood loss Narrative/Plan: Patient is status post 1 unit PRBC transfusion repeat hemoglobin stable. Current Visit: Yes Status: Acute Code(s): D50.0 - IRON DEFICIENCY ANEMIA SECONDARY TO BLOOD LOSS (CHRONIC) SNOMED Code(s): 246867806 (3) Ileus Current Visit: Yes Status: Acute Code(s): K56.7 - ILEUS, UNSPECIFIED SNOMED Code(s): 724546496 (4) Diarrhea Current Visit: No Status: Acute Code(s): R19.7 - DIARRHEA, UNSPECIFIED SNOMED Code(s): 40306024 Plan: 1. Continue symptomatic and supportive care 2. Encourage ambulation 3. Diet as tolerated, recommend soft diet 4. Continue oral prednisone 40 mg daily, will discharge home with a tapered dose decreasing by 5 mg a week 5. Continue sulfasalazine to 1000mg 4 times a day 6. Repeat CBC in the morning 7. Discussed importance of medication compliance with patient, will need outpa tient follow-up and surveillance Thank you for this consultation, will continue to follow. Dr. Merlin Gong I agree with the dictator's note, documented as a scribe by Nallely Kaur.
[2021-03-24] MEDS: HYDROcodone/APAP 7.5-325MG 1 EACH TAB PO PRN ×2 (16:19→21:18)
[2021-03-24 17:04] LABS: Glucose,Whole Blood 154 mg/dL (75-99)
[2021-03-24 19:54] LABS: Glucose,Whole Blood 141 mg/dL (75-99)
[2021-03-24] MEDS: CIPROFLOXACIN HCL 500 MG TAB PO SCH (22:31)
[2021-03-25] MEDS: HYDROcodone/APAP 7.5-325MG 1 EACH TAB PO PRN ×3 (01:18→11:00)
[2021-03-25 04:05] VITALS: RESP 16
[2021-03-25] MEDS: INSULIN ASPART (NovoLOG) 100 UNIT/ML VIAL SQ SCH ×2 (07:19→10:25)
[2021-03-25] MEDS: ALPRAZolam 0.25 MG TAB PO SCH (07:37)
[2021-03-25] MEDS: SUCRALFATE 1 GM TAB PO SCH (07:37)
[2021-03-25] MEDS: sulfaSALAzine 500 MG TAB PO SCH ×2 (07:37→12:03)
[2021-03-25] MEDS: predniSONE 20 MG TAB PO SCH (07:37)
[2021-03-25] MEDS: metroNIDAZOLE 500 MG TAB PO SCH (07:37)
[2021-03-25 07:38] LABS: Glucose,Whole Blood 88 mg/dL (75-99)
[2021-03-25] MEDS: ENOXAPARIN 40 MG/0.4 ML SYRINGE SQ SCH (07:38)
[2021-03-25] MEDS: PANTOPRAZOLE 40 MG TABLET PO SCH (07:38)
[2021-03-25 08:35] VITALS: BP 160/84; PULSE 58; TEMP 98
--- NOTE | 2021-03-25 09:09 | P.DS ---
Providers Date of admission: 03/18/21 22:33 Expected date of discharge: 03/25/21 Attending physician: Adalid Plata Consults: 03/19/21 08:27 Consult Physician Routine Consulting Provider: Cate Foster Consult Reason/Comments: ileus, seen in 2019 Ulcer colitis Do you want consulting provider notified?: Yes 03/23/21 07:59 Consult Physician Routine Consulting Provider: Maria Antonia Gong Consult Reason/Comments: Ulcerative colitis Do you want consulting provider notified?: Yes Primary care physician: Adalid Plata Hospital Course: HISTORY OF PRESENT ILLNESS This is a 40-year-old male patient of Dr. Plata with past medical history of ulcerative colitis, tobacco use and dependence, marijuana use. He had 2 hospitalizations in 2019 for acute ulcerative colitis and that time was seen by GI. He was started on sulfasalazine 1000 mg twice daily but patient has not been taking medication since August. Patient had onset of acute on chronic abdominal pain to the epigastric and lower suprapubic area with nausea along with bloody diarrhea. He also complains of left lower jaw pain with purulent drainage from the tooth area. No fevers. Patient presented to [facility] emergency center for evaluation. Patient was afebrile, heart rate 80, blood pressure 139/84, pulse ox 98% on room air. WBC 18.5, hemoglobin 8.2, platelet count 559. Sodium 136, potassium 4.3, chloride 102, CO2 23, BUN 13 and creatinine 0.7. Blood sugar 112. Coronavirus not detected. CAT scan of the abdomen and pelvis with contrast revealed wall thickening of the right colon consistent with nonspecific colitis and not significantly different than last exam. No bowel obstruction. Large bowel fluid levels down to the rectum consistent with diarrhea and ileus. [facility] and consult with general surgery. Patient has seen Dr. Foster in the past on 2 previous hospitalizations. 03/20: Patient is laying down in bed in no apparent distress, he continues to have an increased abdominal pain in the left lower quadrant associated with the diarrhea with minimal bright red blood, he is having a good appetite and is asking for more fluid, he has tolerated liquid diet very well, we'll start him on a soft diet, continue Solu-Medrol, continue IV antibiotic, continue sulfasalazine, monitor the patient very closely, patient is complaining of increased restless leg syndrome and he is asking for a small dose of Xanax 0.25 mg orally twice every day and we'll discontinue temazepam. 03/21: Patient is lying down in bed complaining of increased abdominal pain, and bloody diarrhea, soft diet was a bit too much for him yesterday, feels better now, did receive iron , HGB is down to 7.2 yesterday await the results from today, we will continue with current treatmebt plan, continue with Solu-Medrol, sulfasalazine, and monitor very closely. 03/22: Patient is lying down in bed, continues to have minimal abdominal cramps, with minimal bleeding, no chest pain or shortness of breath, his tooth abscess is better, his appetite is better, continues to be generally weak, he denies any chest pain or shortness of breath, minimal coughing, seems to be tolerating treatment well. 03/23: Patient has been afebrile, heart rate 64, blood pressure 135/89, pulse ox 92-98% on room air. Blood sugars are running between 97 and 146. Stool cultures positive for Mylene. Patient states that he had 2-3 bowel movements this morning which are watery but no blood. He states he is having 5-6 bowel movements per day for 24 hour period. Discussed with patient the need to get off IV morphine and transitioned to [place] and preparation for discharge soon. Patient has been seen by GI and IV Solu-Medrol transitioned to oral prednisone. WBC 17.8, hemoglobin 7, platelet count 242. Sugars are running between 97 and 146. Chemistry panel reporting is pending at 1:26 PM. Patient is status post 3 doses of IV iron as be discontinued. 03/24: Patient has had bloody stools and discharge plan for today will be held. He is continued on sulfasalazine as well as antibiotics changed to Augmentin. Midline will be ordered for IV access. Repeat CBC as an ordered. Patient will be transfused if hemoglobin is less than 7. 03/25: Patient states that he had a little blood in a couple bowel movements overnight. He has been afebrile, heart rate 58, blood pressure 160/84, pulse ox 94% on room air. Repeat hemoglobin is Opioid start talking form has been completed and patient verbalizes understanding. DISCHARGE DIAGNOSES 1. Acute exacerbation of ulcerative colitis 2. Dental abscess. 3. Leukocytosis due to acute colitis 4. Restless leg with anxiety 5. Severe GERD 6. Regular marijuana use. 7. 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 8. Acute blood loss anemia likely related to ulcerative colitis. DISCHARGE DIAGNOSES Home Impression and plan of care have been directed as dictated by the signing physician. Teri Walter nurse practitioner acting as scribe for signing physician. Patient Condition at Discharge: Good Plan - Discharge Summary Discharge Rx Participant: No New Discharge Prescriptions: New metroNIDAZOLE [Flagyl] 500 mg PO TID #30 tab HYDROcodone/APAP 7.5-325MG [[place] 7.5-325] 1 each PO QID PRN #12 tab PRN Reason: Pain sulfaSALAzine [Azulfidine] 1,000 mg PO QID #240 tab predniSONE 10 mg PO DAILY #126 tab Ciprofloxacin HCl [Cipro] 500 mg PO BID #20 tab Pantoprazole [Protonix] 40 mg PO DAILY #30 tab ALPRAZolam [Xanax] 0.25 mg PO BID #6 tab Discharge Medication List predniSONE 10 mg PO DAILY #126 tab 03/24/21 [Rx] sulfaSALAzine [Azulfidine] 1,000 mg PO QID #240 tab 03/24/21 [Rx] ALPRAZolam [Xanax] 0.25 mg PO BID #6 tab 03/25/21 [Rx] Ciprofloxacin HCl [Cipro] 500 mg PO BID #20 tab 03/25/21 [Rx] HYDROcodone/APAP 7.5-325MG [[place] 7.5-325] 1 each PO QID PRN #12 tab 03/25/21 [Rx] Pantoprazole [Protonix] 40 mg PO DAILY #30 tab 03/25/21 [Rx] metroNIDAZOLE [Flagyl] 500 mg PO TID #30 tab 03/25/21 [Rx] Follow up Appointment(s)/Referral(s): Adalid Plata MD [Primary Care Provider] - 1 Week Maria Antonia Gong MD [STAFF PHYSICIAN] - 2 Weeks Discharge Disposition: HOME SELF-CARE
[2021-03-25] MEDS: CIPROFLOXACIN HCL 500 MG TAB PO SCH (10:24)
[2021-03-25 10:31] LABS: HCT 27.3 % (39.6-50.0); HGB 7.4 g/dL (13.0-17.0); Hypochromasia (M) 2+; MCH 18.9 pg (27.0-32.0); MCHC 27.1 g/dL (32.0-37.0); MCV 69.8 fL (80.0-97.0); Mean Platelet Volume 9.9 fL (9.5-12.2); Microcytosis (M) 2+; Platelet Count 234 X 10*3/uL (140-440); RBC 3.91 X 10*6/uL (4.40-5.60); RDW 26.2 % (11.5-14.5); WBC 16.54 X 10*3/uL (4.50-10.00)
--- NOTE | 2021-03-25 15:10 | P.PN ---
Subjective Progress Note Date: 03/25/21 Principal diagnosis: Ulcerative colitis 40-year-old male with a known history of ulcerative colitis who presented to the emergency department with abdominal pain and bloody stools. Patient was initially improving with symptoms and having no further lead per stool however this morning he did have bright red blood mixed with his stool. He was transitioned to oral prednisone 40 mg daily. He is seen and examined lying in bed sleeping. He states his pain has improved. He has had 3 bowel movements this morning, states it was very small amount of bright red blood mixed in. He has been afebrile. Tolerating his diet. Objective - Vital Signs Vital signs: Vital Signs Temp 98.0 F 03/25/21 08:00 Pulse 58 L 03/25/21 08:00 Resp 16 03/25/21 08:00 BP 160/84 03/25/21 08:00 Pulse Ox 94 L 03/25/21 08:00 Intake & Output 03/24/21 03/25/21 03/25/21 18:59 06:59 18:59 Weight 77.111 kg Other: Voiding Method Urinal # Voids 4 3 # Bowel Movements 4 - Exam General appearance: The patient is alert, oriented, appears in no acute distress. HET: Head is normocephalic and atraumatic. Conjunctiva pink. Sclera anicteric. Neck: Supple without lymphadenopathy. Abdomen: Soft, mild lower abdominal tenderness, nondistended with bowel sounds. No guarding or rigidity. Extremities: Normal skin color and turgor. No pedal edema Skin: No rashes, no jaundice Neurological: No focal deficits. Alert and oriented 3. - Labs CBC & Chem 7: 03/25/21 05:47 03/23/21 07:28 Labs: Abnormal Lab Results - Last 24 Hours (Table) 03/23/21 03/24/21 03/24/21 Range/Units 07:28 09:16 11:51 WBC 16.8 H (3.8-10.6) k/uL RBC 4.22 L (4.30-5.90) m/uL Hgb 8.1 L (13.0-17.5) gm/dL Hct 28.7 L (39.0-53.0) % MCV 68.0 L (80.0-100.0) fL MCH 19.3 L (25.0-35.0) pg MCHC 28.4 L (31.0-37.0) g/dL RDW 24.1 H (11.5-15.5) % Neutrophils # 13.3 H (1.3-7.7) k/uL POC Glucose (mg/dL) 110 H (75-99) mg/dL C-Reactive Protein 1.8 H (0.0-0.8) mg/dL 03/24/21 03/24/21 Range/Units 17:01 19:53 WBC (3.8-10.6) k/uL RBC (4.30-5.90) m/uL Hgb (13.0-17.5) gm/dL Hct (39.0-53.0) % MCV (80.0-100.0) fL MCH (25.0-35.0) pg MCHC (31.0-37.0) g/dL RDW (11.5-15.5) % Neutrophils # (1.3-7.7) k/uL POC Glucose (mg/dL) 154 H 141 H (75-99) mg/dL C-Reactive Protein (0.0-0.8) mg/dL Microbiology - Last 24 Hours (Table) 03/20/21 23:30 Stool Culture - Final Stool Mylene albicans Assessment and Plan (1) Ulcerative colitis Narrative/Plan: 40-year-old male with a history of ulcerative colitis presented to the hospital 5 days ago with concerns of diarrhea and blood per rectum. Patient has a known history of ulcerative colitis diagnosed at the age of 15 and treated in the past with steroid therapy and 5 ASA agents however has been noncompliant and recent medical treatment. Patient's last exacerbation and hospitalization was in May 2020. His last colonoscopy was in 2016 significant for discontinuous active colitis. On admission the patient had an elevated CRP and ESR. He was started on IV Solu-Medrol 20 mg every 8 hours and was decreased today to 20 mg IV every 12 hours. Patient presented with severe abdominal pain, associated with multiple episodes of diarrhea and bloody stools. Patient denies any further rectal bleeding. He is status post 1 unit of PRBC transfusion this admission. He's had leukocytosis on presentation, with increased WBC likely related to steroid therapy. He's been afebrile, pain in proving, denies any nausea or vomiting. Will transition to oral steroids and increase sulfasalazine to 1000 mg 4 times a day. Stressed importance of medication compliance with patient. Will need outpatient follow-up and surveillance. No plans on endoscopic evaluation at this time. Status: Acute Code(s): K51.90 - ULCERATIVE COLITIS, UNSPECIFIED, WITHOUT COMPLICATIONS SNOMED Code(s): 90985610 (2) Anemia due to gastrointestinal blood loss Narrative/Plan: Patient is status post 1 unit PRBC transfusion repeat hemoglobin stable. Status: Acute Code(s): D50.0 - IRON DEFICIENCY ANEMIA SECONDARY TO BLOOD LOSS (CHRONIC) SNOMED Code(s): 203101716 (3) Ileus Status: Acute Code(s): K56.7 - ILEUS, UNSPECIFIED SNOMED Code(s): 268880739 (4) Diarrhea Status: Acute Code(s): R19.7 - DIARRHEA, UNSPECIFIED SNOMED Code(s): 96547588 Plan: 1. Continue symptomatic and supportive care 2. Encourage ambulation 3. Diet as tolerated, recommend soft diet 4. Continue oral prednisone 40 mg daily, will discharge home with a tapered dose decreasing by 5 mg a week 5. Continue sulfasalazine to 1000mg 4 times a day 6. Discussed importance of medication compliance with patient, will need outpatient follow-up and surveillance Thank you for this consultation, patient is stable for discharge from a gastroenterology standpoint. Dr. Merlin Gong I agree with the dictator's note, documented as a scribe by Nallely Kaur.
== END 2021-03-25 12:35 | disposition home or self-care (01) | DRG 386 ==
LOC: EC 20:09 → 4SSUR 22:33
PROVIDERS: ADMIT Internal Medicine; ATTEND Internal Medicine
PROC: 30233N1 Transfusion of Nonautologous Red Blood Cells into Peripheral Vein, Percutaneous Approach (ICD-10-PCS; 2021-03-21)
PROC: 05HD33Z Insertion of Infusion Device into Right Cephalic Vein, Percutaneous Approach (ICD-10-PCS; principal; 2021-03-24 10:25)
DX: K51.911 Ulcerative colitis, unspecified with rectal bleeding (principal); D62 Acute posthemorrhagic anemia; K56.7 Ileus, unspecified; J98.11 Atelectasis; Q89.8 Other specified congenital malformations; R10.9 Unspecified abdominal pain; F17.200 Nicotine dependence, unspecified, uncomplicated; F41.9 Anxiety disorder, unspecified; G25.81 Restless legs syndrome; G89.29 Other chronic pain; K04.7 Periapical abscess without sinus; K21.9 Gastro-esophageal reflux disease without esophagitis; B19.20 Unspecified viral hepatitis C without hepatic coma; T38.0X5A Adverse effect of glucocorticoids and synthetic analogues, initial encounter; D72.829 Elevated white blood cell count, unspecified; Z82.0 Family history of epilepsy and other diseases of the nervous system; Z82.49 Family history of ischemic heart disease and other diseases of the circulatory system; Z91.14 Patient's other noncompliance with medication regimen; Z91.19 Patient's noncompliance with other medical treatment and regimen
CPT/HCPCS: 36410; 36415; 71046; 74177; 76937; 80048; 80053; 83690; 83735; 85025; 85027; 85652; 86140; 86850; 86900; 86901; 86920; 87045; 87046; 87324; 87635; 93005; 96365; 96375; 99285

== ENCOUNTER 2022-01-03 22:36 | Inpatient (IN) | payer OTHER ==
--- NOTE | 2022-01-04 02:46 | ED ---
Wound/Laceration HPI - General Chief Complaint: Wound/Laceration Stated Complaint: Infected wound Time Seen by Provider: 01/04/22 02:45 Source: patient, RN notes reviewed, old records reviewed Mode of arrival: ambulatory Limitations: no limitations - History of Present Illness Initial Comments: This is a 41-year-old male to the emergency department for evaluation of also the left lower extremity. 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 No fevers. The patient states otherwise feels unwell -: days(s) Extremity Location: Left: Lower Leg Place: home Patient Tetanus UTD: Yes Context: accidental Associated Symptoms: pain Treatments Prior to Arrival: bandage - Related Data Previous Rx's Medication Instructions Recorded predniSONE 10 mg PO DAILY #126 tab 03/24/21 sulfaSALAzine [Azulfidine] 1,000 mg PO QID #240 tab 03/24/21 ALPRAZolam [Xanax] 0.25 mg PO BID #6 tab 03/25/21 Ciprofloxacin HCl [Cipro] 500 mg PO BID #20 tab 03/25/21 HYDROcodone/APAP 7.5-325MG [[place] 1 each PO QID PRN #12 tab 03/25/21 7.5-325] Nicotine 21Mg/24Hr Patch [Habitrol] 1 each TRANSDERM DAILY #30 patch 03/25/21 Pantoprazole [Protonix] 40 mg PO DAILY #30 tab 03/25/21 metroNIDAZOLE [Flagyl] 500 mg PO TID #30 tab 03/25/21 Allergies Allergy/AdvReac Type Severity Reaction Status Date / Time No Known Allergies Allergy Verified 01/03/22 22:40 Review of Systems ROS Statement: Those systems with pertinent positive or pertinent negative responses have been documented in the HPI. ROS Other: All systems not noted in ROS Statement are negative. Past Medical History Additional Past Medical History / Comment(s): ulcerative colitis, spleen problems, Hep C History of Any Multi-Drug Resistant Organisms: None Reported Past Surgical History: No Surgical Hx Reported Past Anesthesia/Blood Transfusion Reactions: No Reported Reaction Past Psychological History: No Psychological Hx Reported Smoking Status: Current every day smoker Past Alcohol Use History: None Reported Past Drug Use History: Marijuana - Past Family History Father Family Medical History: Seizure Disorder Additional Family Medical History / Comment(s): Father is alive at age 64 with history of seizures and hypertension. Mother Additional Family Medical History / Comment(s): Mother in her late 50s with complications from CABG. Brother(s) Additional Family Medical History / Comment(s): Patient has 2 brothers with no major medical problems. He does not have any sisters. He does not have any children. No family members have ulcerative colitis. General Exam Limitations: no limitations General appearance: alert, in no apparent distress Head exam: Present: atraumatic, normocephalic, normal inspection Eye exam: Present: normal appearance, PERRL, EOMI. Absent: scleral icterus, conjunctival injection, periorbital swelling ENT exam: Present: normal exam, mucous membranes moist Neck exam: Present: normal inspection. Absent: tenderness, meningismus, lymphadenopathy Respiratory exam: Present: normal lung sounds bilaterally. Absent: respiratory distress, wheezes, rales, rhonchi, stridor Cardiovascular Exam: Present: regular rate, normal rhythm, normal heart sounds. Absent: systolic murmur, diastolic murmur, rubs, gallop, clicks GI/Abdominal exam: Present: soft, normal bowel sounds. Absent: distended, tenderness, guarding, rebound, rigid Extremities exam: Present: normal inspection, full ROM, normal capillary refill, other (Significant left lower extremity ulcer 5 x 3). Absent: tenderness, pedal edema, joint swelling, calf tenderness Back exam: Present: normal inspection Neurological exam: Present: alert, oriented X3, CN II-XII intact Psychiatric exam: Present: normal affect, normal mood Skin exam: Present: warm, dry, intact, normal color. Absent: rash Course Vital Signs 01/03/22 01/04/22 22:37 03:32 Temperature 98.1 F Pulse Rate 89 74 Respiratory 20 16 Rate Blood Pressure 122/80 140/86 O2 Sat by Pulse 100 100 Oximetry - Reevaluation(s) Reevaluation #1: 01/04/22 03:31 Medical record is reviewed Reevaluation #2: 01/04/22 03:31 Patient informed of results and questions answered - Consultations Consultation #1: Spoke with Dr. Boni who agrees to admit this patient Medical Decision Making - Medical Decision Making 1 male with sort of Compcare medical history coming in with significant ulcer ulceration of the left lower extremity. Patient initially started with injury and externa and also surrounding cellulitis and pain. Patient will be admitted for IV antibiotics and wound care - Lab Data Lab Results 01/04/22 01/04/22 Range/Units 03:15 03:15 PT 11.0 (9.0-12.0) sec INR 1.0 (<1.2) APTT 27.5 (22.0-30.0) sec Plasma Lactic Acid Terence 1.3 (0.7-2.0) mmol/L Disposition Clinical Impression: Spleen anomaly, Leg ulcer, left, Left leg cellulitis Disposition: ADMITTED IP TO THIS [facility] Condition: Fair Is patient prescribed a controlled substance at d/c from ED?: No
[2022-01-04] MEDS ORDERED: SODIUM CHLORIDE 0.9% 1,000 ML IV STA ×2 (02:58)
[2022-01-04] MEDS ORDERED: VANCOMYCIN IV PER PHARMACY 1 EACH MISC MISCELLANE PRN (02:58)
[2022-01-04] MEDS ORDERED: NALOXONE 0.4 MG/ML 1 ML VIAL IV PRN (03:28)
[2022-01-04] MEDS ORDERED: ONDANSETRON 4 MG/2 ML VIAL IVP PRN (03:28)
[2022-01-04 03:45] LABS: Partial Thromboplastin Time 27.5 sec (22.0-30.0)
[2022-01-04 03:50] LABS: Anisocytosis Slight; Basophils % (A) 1 %; Eosinophils # (A) 0.1 k/uL (0-0.7); Eosinophils % (A) 1 %; HCT 44.3 % (39.0-53.0); HGB 12.8 gm/dL (13.0-17.5); Hypochromasia Marked; Lymphocytes # (A) 0.4 k/uL (1.0-4.8); Lymphocytes % (A) 7 %; MCH 19.9 pg (25.0-35.0); MCV 68.6 fL (80.0-100.0); Mean Platelet Volume 6.8; Microcytosis Marked; Monocytes # (A) 0.6 k/uL (0-1.0); Monocytes % (A) 9 %; Neutrophils # (A) 5.5 k/uL (1.3-7.7); Neutrophils % (A) 81 %; Platelet Count 250 k/uL (150-450); RBC 6.45 m/uL (4.30-5.90); RDW 17.2 % (11.5-15.5); WBC 6.8 k/uL (3.8-10.6)
[2022-01-04] MEDS ORDERED: VANCOMYCIN 1,250 MG in SODIUM CHLORIDE 0.9% 250 ML IVPB ONE (04:00)
[2022-01-04] MEDS ORDERED: MORPHINE SULFATE 4 MG/ML SYRINGE IVP STA (04:28)
[2022-01-04 06:19] LABS: ALT 31 U/L (4-49); AST 49 U/L (17-59); African American GFR (CKD) >90 (>60 ml/min/1.73 sqM); Albumin 2.5 g/dL (3.5-5.0); Alkaline Phosphatase 144 U/L (38-126); Anion Gap 7 mmol/L; Blood Urea Nitrogen 11 mg/dL (9-20); Calcium 7.2 mg/dL (8.4-10.2); Carbon Dioxide 19 mmol/L (22-30); Chloride 110 mmol/L (98-107); Glucose 106 mg/dL (74-99); Magnesium 1.6 mg/dL (1.6-2.3); Non-African American GFR(CKD) >90 (>60 ml/min/1.73 sqM); Phosphorus 3.5 mg/dL (2.5-4.5); Potassium 3.5 mmol/L (3.5-5.1); Sodium 136 mmol/L (137-145); Total Bilirubin 0.2 mg/dL (0.2-1.3); Total Protein 5.9 g/dL (6.3-8.2)
[2022-01-04] MEDS: MORPHINE SULFATE 4 MG/ML SYRINGE IV PRN ×4 (07:51→21:26)
[2022-01-04] MEDS: SODIUM CHLORIDE 0.9% 1,000 ML IV SCH (09:09)
[2022-01-04 09:57] LABS: Appearance,Urine Clear (Clear); Bilirubin,Urine Negative (Negative); Blood,Urine Negative (Negative); Color,Urine Yellow; Glucose,Urine (UA) Negative (Negative); Ketones,Urine Negative (Negative); Leukocyte Esterase,Urine Negative (Negative); Nitrite,Urine Negative (Negative); PH, Urine 6.5 (5.0-8.0); Protein,Urine Negative (Negative); Specific Gravity,Urine 1.016 (1.001-1.035); Urobilinogen,Urine <2.0 mg/dL (<2.0)
[2022-01-04] MEDS: VANCOMYCIN 1,250 MG in SODIUM CHLORIDE 0.9% 250 ML IVPB SCH ×3 (10:58→19:39)
[2022-01-04] MEDS ORDERED: TEMAZEPAM 15 MG CAP PO PRN (13:17)
--- NOTE | 2022-01-04 14:36 | P.HPIM ---
History of Present Illness H&P Date: 01/04/22 HISTORY OF PRESENT ILLNESS This is a 41-year-old male patient of Dr. Plata with past medical history of ulcerative colitis, tobacco use and dependence, marijuana use, para 1 use. He has had several admissions in the past for acute ulcerative colitis and that time was seen by GI recommended to be on sulfasalazine. Patient states he has chronic diarrhea but no abdominal pain and no bleeding. 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 He states he scraped it and then put Neosp pebbles on it and covered it for 18 hours and wound became significantly worse. Patient presented to [facility] emergency center for evaluation. Patient was afebrile, heart rate 89 blood pressure 122/80, pulse ox 100% on room air. WBC 6.8, hemoglobin 12.8, platelet count 250. INR 1.0. Sodium 136, potassium 3.5, chloride 110, CO2 19, BUN 11 creatinine 0.51. Blood sugar 106. Lactic acid 1.3. Calcium 7.2. Phosphorus 3.5. Magnesium 1.6. Total bilirubin 0.2, AST 49, ALT 31, alkaline phosphatase 144. Albumin 2.5. Urinalysis negative. In the emergency center, patient received 2 L of IV fluid, a dose of ceftriaxone and vancomycin and started on morphine 4 mg IV push every 4 hours for pain, admitted to the [facility] floor and consult in place with infectious disease. Consult added for vascular surgery evaluation. REVIEW OF SYSTEMS Constitutional: No fever, no chills, no night sweats. No weight change. No weakness, fatigue or lethargy. No daytime sleepiness. EENT: No headache. No blurred vision or double vision, no loss of vision. No loss of Hearing, no ringing in the ears, no dizziness. No nasal drainage or congestion. No epistaxis. No sore throat. Reports dental pain. Lungs: No shortness of breath, cough, no sputum production. No wheezing. Cardiovascular: No chest pain, no lower extremity edema. No palpitations. No paroxysmal nocturnal dyspnea. No orthopnea. No lightheadedness or dizziness. No syncopal episodes. Abdominal: Denies abdominal pain. Denies nausea, no vomiting. Reports diarrhea. No constipation. Denies bloody or tarry stools denies loss of appetite. Genitourinary: No dysuria, increased frequency, urgency. No urinary retention. Musculoskeletal: No myalgias. No muscle weakness, no gait dysfunction, no frequent falls. No back pain. No neck pain. Integumentary: Reports left lower extremity wounds, no lesions. No rash or pruritus. No unusual bruising. No change in hair or nails. Neurologic: No aphasia. No facial droop. No change in mentation. No head injury. No headache. No paralysis. No paresthesia. Psychiatric: No depression. No anxiety. No mood swings. Endocrine: No abnormal blood sugars. No weight change. No excessive sweating or thirst. No cold intolerance. MEDICAL HISTORY Ulcerative colitis Hepatitis C SURGICAL HISTORY None SOCIAL HISTORY Patient is a smoker of less than one pack per day since he was 15 years of age. He has history of drinking 4-5 times per week, liquor but since 2007 he only drinks about 2 times per year. He uses marijuana on a regular basis including edibles. Patient uses heroin IV at half a gram daily and states he only utilizes his arms. The patient is single and lives with his brother. FAMILY HISTORY Father is at age 66 with history of seizures and hypertension. Mother in her late 50s with complications from CABG. Patient has 2 brothers with no major medical problems. He does not have any sisters. He does not have any children. No family members have ulcerative colitis. PHYSICAL EXAMINATION Gen: This is a 41-year-old male, resting in bed appears to be fairly comfortable although he is having pain at the ulcer site left lower extremity HEENT: Head is atraumatic, normocephalic. Pupils equal, round. Sclerae is anicteric. NECK: Supple. No JVD. No lymphadenopathy. No thyromegaly. LUNGS: Clear to auscultation. No wheezes or rhonchi. No intercostal retractions. HEART: Regular rate and rhythm. No murmur. ABDOMEN: Soft. Bowel sounds are present. No masses. Generalized tenderness. EXTREMITIES: No pedal edema. No calf tenderness. Dorsalis pedis +2 bilaterally. Ulcer to the pretibial area left lower extremity. Please see nursing documentation for details NEUROLOGICAL: Patient is awake, alert and oriented x3. Cranial nerves 2 through 12 are grossly intact. ASSESSMENT AND PLAN 1. 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 Consult with vascular surgery and consult with ID appreciated. Patient is currently on ceftriaxone and vancomycin, morphine 4 mg IV push every 4 hours for pain. 2. History of ulcerative colitis, currently stable. 3. Daily IV drug use with heroin. Monitor for withdrawals 4. Tobacco use and dependence. Patient declines need for nicotine patch. 5. Insomnia. Patient started on Restoril 15 mg at bedtime as needed. 6. Regular marijuana use. 7. History of Hepatitis C. 8. GI prophylaxis. Protonix 40 mild grams IV push daily. 9. DVT prophylaxis. Heparin subcu. Patient will be admitted to the hospital for a minimum of 2 night stay. DISCHARGE PLAN Home. Impression and plan of care have been directed as dictated by the signing physician. Teri Walter nurse practitioner acting as scribe for signing ph ysician. Past Medical History Additional Past Medical History / Comment(s): ulcerative colitis, spleen problems, Hep C History of Any Multi-Drug Resistant Organisms: None Reported Past Surgical History: No Surgical Hx Reported Past Anesthesia/Blood Transfusion Reactions: No Reported Reaction Past Psychological History: No Psychological Hx Reported Smoking Status: Current every day smoker Past Alcohol Use History: None Reported Additional Past Alcohol Use History / Comment(s): Patient is a smoker of less than one pack per day since he was 15 years of age. He has history of drinking 4-5 times per week, liquor but since 2007 he only drinks about 2 times per year. He uses marijuana on a regular basis including edibles. The patient is single and lives alone. Past Drug Use History: Heroin, Marijuana Additional Drug Use History / Comment(s): pt admits so self medicating with percocet recently. Last Heroin use 01/03/22 - Past Family History Father Family Medical History: Seizure Disorder Additional Family Medical History / Comment(s): Father is alive at age 64 with history of seizures and hypertension. Mother Additional Family Medical History / Comment(s): Mother in her late 50s with complications from CABG. Brother(s) Additional Family Medical History / Comment(s): Patient has 2 brothers with no major medical problems. He does not have any sisters. He does not have any children. No family members have ulcerative colitis. Medications and Allergies Home Medications Medication Instructions Recorded Confirmed Type No Known Home Medications 01/04/22 01/04/22 History Allergies Allergy/AdvReac Type Severity Reaction Status Date / Time No Known Allergies Allergy Verified 01/04/22 06:53 Physical Exam Vitals: Vital Signs Temp Pulse Pulse Resp BP BP Pulse Ox 01/04/22 08:01 97.8 F 61 18 151/89 100 01/04/22 06:51 62 18 132/92 100 01/04/22 03:32 74 16 140/86 100 01/03/22 22:37 98.1 F 89 20 122/80 100 Intake and Output 01/03/22 01/04/22 01/04/22 22:59 06:59 14:59 Other: Weight 71.668 kg 71.668 kg Results CBC & Chem 7: 01/04/22 03:15 01/04/22 05:47 Labs: Abnormal Lab Results - Last 24 Hours (Table) 01/04/22 01/04/22 Range/Units 03:15 05:47 RBC 6.45 H (4.30-5.90) m/uL Hgb 12.8 L (13.0-17.5) gm/dL MCV 68.6 L (80.0-100.0) fL MCH 19.9 L (25.0-35.0) pg MCHC 29.0 L (31.0-37.0) g/dL RDW 17.2 H (11.5-15.5) % Lymphocytes # 0.4 L (1.0-4.8) k/uL Sodium 136 L (137-145) mmol/L Chloride 110 H (98-107) mmol/L Carbon Dioxide 19 L (22-30) mmol/L Creatinine 0.51 L (0.66-1.25) mg/dL Glucose 106 H (74-99) mg/dL Calcium 7.2 L (8.4-10.2) mg/dL Alkaline Phosphatase 144 H (38-126) U/L Total Protein 5.9 L (6.3-8.2) g/dL Albumin 2.5 L (3.5-5.0) g/dL Thrombosis Risk Factor Assmnt - Choose All That Apply Each Factor Represents 1 point: Age 41-60 years Thrombosis Risk Factor Assessment Total Risk Factor Score: 1 Thrombosis Risk Factor Assessment Level: Low Risk
[2022-01-04] MEDS: MELATONIN 3 MG TABLET PO SCH (21:26)
[2022-01-04] MEDS: HEPARIN SODIUM,PORCINE/PF 5,000 UNIT/0.5 ML SYRINGE SQ SCH (21:26)
--- NOTE | 2022-01-04 23:23 | P.CONS ---
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 [place] patient mention he has been using some Neosporin cream recorded however the patient noticed to have increasing pain swelling redness to the left leg for the patient presented to hospital patient has been describing the pain to be mostly sharp intensity is almost 10 or 10 in severity with no radiation with associated swelling redness a nd some drainage, patient on presentation to the hospital was afebrile and no fever have been recorded subsequently patient did have normal white count kidney function has been normal urine was negative patient was started on vancomycin and Rocephin admitted to hospital infectious disease was consulted for further management of antibiotic therapy Review of Systems Positive point has been mentioned in the HPI rest of the systems are negative Past Medical History Additional Past Medical History / Comment(s): ulcerative colitis, spleen problems, Hep C History of Any Multi-Drug Resistant Organisms: None Reported Past Surgical History: No Surgical Hx Reported Past Anesthesia/Blood Transfusion Reactions: No Reported Reaction Past Psychological History: No Psychological Hx Reported Smoking Status: Current every day smoker Past Alcohol Use History: None Reported Additional Past Alcohol Use History / Comment(s): Patient is a smoker of less than one pack per day since he was 15 years of age. He has history of drinking 4-5 times per week, liquor but since 2007 he only drinks about 2 times per year. He uses marijuana on a regular basis including edibles. The patient is single and lives alone. Past Drug Use History: Heroin, Marijuana Additional Drug Use History / Comment(s): pt admits so self medicating with percocet recently. Last Heroin use 01/03/22 - Past Family History Father Family Medical History: Seizure Disorder Additional Family Medical History / Comment(s): Father is alive at age 64 with history of seizures and hypertension. Mother Additional Family Medical History / Comment(s): Mother in her late 50s with complications from CABG. Brother(s) Additional Family Medical History / Comment(s): Patient has 2 brothers with no major medical problems. He does not have any sisters. He does not have any children. No family members have ulcerative colitis. Medications and Allergies Home Medications Medication Instructions Recorded Confirmed Type No Known Home Medications 01/04/22 01/04/22 History Allergies Allergy/AdvReac Type Severity Reaction Status Date / Time No Known Allergies Allergy Verified 01/04/22 06:53 Physical Exam Vitals: Vital Signs Temp Pulse Pulse Resp BP BP Pulse Ox 01/04/22 08:01 97.8 F 61 18 151/89 100 01/04/22 06:51 62 18 132/92 100 01/04/22 03:32 74 16 140/86 100 01/03/22 22:37 98.1 F 89 20 122/80 100 Intake and Output 01/03/22 01/04/22 01/04/22 22:59 06:59 14:59 Other: Weight 71.668 kg 71.668 kg GENERAL DESCRIPTION: Middle-aged male lying in bed, no distress. No tachypnea or accessory muscle of respiration use. HEENT: Shows Pallor , no scleral icterus. Oral mucous membrane is dry. No pharyngeal erythema or thrush NECK: Trachea central, no thyromegaly. LUNGS: Unlabored breathing. Clear to auscultation anteriorly. No wheeze or crackle. HEART: S1, S2, regular rate and rhythm. No loud murmur ABDOMEN: Soft, no tenderness , guarding or rigidity, no organomegaly EXTREMITIES: Left leg wound which is deep slough tissue surrounding redness and tender to touch SKIN: No rash, no masses palpable. NEUROLOGICAL: The patient is awake, alert, oriented x3, mood and affect normal. Results CBC & Chem 7: 01/04/22 03:15 01/04/22 05:47 Labs: Abnormal Lab Results - Last 24 Hours (Table) 01/04/22 01/04/22 Range/Units 03:15 05:47 RBC 6.45 H (4.30-5.90) m/uL Hgb 12.8 L (13.0-17.5) gm/dL MCV 68.6 L (80.0-100.0) fL MCH 19.9 L (25.0-35.0) pg MCHC 29.0 L (31.0-37.0) g/dL RDW 17.2 H (11.5-15.5) % Lymphocytes # 0.4 L (1.0-4.8) k/uL Sodium 136 L (137-145) mmol/L Chloride 110 H (98-107) mmol/L Carbon Dioxide 19 L (22-30) mmol/L Creatinine 0.51 L (0.66-1.25) mg/dL Glucose 106 H (74-99) mg/dL Calcium 7.2 L (8.4-10.2) mg/dL Alkaline Phosphatase 144 H (38-126) U/L Total Protein 5.9 L (6.3-8.2) g/dL Albumin 2.5 L (3.5-5.0) g/dL Assessment and Plan (1) Left leg cellulitis Current Visit: Yes Status: Acute Code(s): L03.116 - CELLULITIS OF LEFT LOWER LIMB SNOMED Code(s): 057799415 (2) Leg ulcer, left Current Visit: Yes Status: Acute Code(s): L97.929 - NON-PRS CHRONIC ULC UNSP PRT OF L LOW LEG W UNSP SEVERITY SNOMED Code(s): 92305645 Plan: 1patient with a nonhealing wound to the left leg with the patient mention star federico with more than a week ago with subsequent nonhealing of the wound in this patient who did have underlying history of ulcerative colitis we will need to rule out that the ulcer laterally to underlying ulcerative colitis. 2 Vascular surgery evaluation for debridement as well as biopsy and deep cu lture 3patient to continue vancomycin and Rocephin while awaiting further work-up to be finalized. 4local wound care with [facility] followed by moist dressing change daily We will follow on clinical condition and cultures to further adjust medication if needed Thank you for this consultation will follow this patient along with you
[2022-01-05] MEDS: VANCOMYCIN 1,250 MG in SODIUM CHLORIDE 0.9% 250 ML IVPB SCH ×3 (02:37→21:11)
[2022-01-05] MEDS: MORPHINE SULFATE 4 MG/ML SYRINGE IV PRN ×4 (02:39→18:45)
[2022-01-05] MEDS: SODIUM CHLORIDE 0.9% 1,000 ML IV SCH (04:17)
[2022-01-05] MEDS: PANTOPRAZOLE 40 MG/10 ML VIAL IVP SCH (09:55)
[2022-01-05] MEDS: HEPARIN SODIUM,PORCINE/PF 5,000 UNIT/0.5 ML SYRINGE SQ SCH ×2 (09:56→19:29)
[2022-01-05] MEDS ORDERED: VANCOMYCIN TROUGH DUE 1 EACH MISC MISCELLANE ONE (10:00)
[2022-01-05 11:00] LABS: ALT 36 U/L (4-49); AST 49 U/L (17-59); African American GFR (CKD) >90 (>60 ml/min/1.73 sqM); Albumin 2.8 g/dL (3.5-5.0); Albumin/Globulin Ratio 0.8; Alkaline Phosphatase 131 U/L (38-126); Anion Gap 8 mmol/L; Blood Urea Nitrogen 7 mg/dL (9-20); Calcium 7.6 mg/dL (8.4-10.2); Carbon Dioxide 19 mmol/L (22-30); Chloride 107 mmol/L (98-107); Globulin 3.6 g/dL; Glucose 131 mg/dL (74-99); Non-African American GFR(CKD) >90 (>60 ml/min/1.73 sqM); Potassium 3.5 mmol/L (3.5-5.1); Sodium 134 mmol/L (137-145); Total Bilirubin 0.3 mg/dL (0.2-1.3); Total Protein 6.4 g/dL (6.3-8.2)
[2022-01-05 11:12] LABS: Anisocytosis Slight; Basophils # (A) 0.1 k/uL (0-0.2); Basophils % (A) 1 %; Eosinophils % (A) 0 %; HCT 26.2 % (39.0-53.0); Hypochromasia Marked; Lymphocytes % (A) 11 %; MCH 20.3 pg (25.0-35.0); MCHC 30.2 g/dL (31.0-37.0); Mean Platelet Volume 7.9; Microcytosis Marked; Monocytes # (A) 0.8 k/uL (0-1.0); Monocytes % (A) 9 %; Neutrophils # (A) 6.8 k/uL (1.3-7.7); Neutrophils % (A) 77 %; Platelet Count 319 k/uL (150-450); Poikilocytosis Slight; RDW 16.9 % (11.5-15.5); WBC 8.8 k/uL (3.8-10.6)
[2022-01-05 11:13] LABS: HGB 7.9 gm/dL (13.0-17.5)
[2022-01-05 12:17] LABS: Anisocytosis Slight; HCT 27.1 % (39.0-53.0); HGB 7.9 gm/dL (13.0-17.5); Hypochromasia Marked; MCHC 29.3 g/dL (31.0-37.0); MCV 68.4 fL (80.0-100.0); Mean Platelet Volume 7.2; Microcytosis Marked; Platelet Count 332 k/uL (150-450); RBC 3.97 m/uL (4.30-5.90); WBC 9.2 k/uL (3.8-10.6)
--- NOTE | 2022-01-05 13:27 | P.PN ---
Subjective Progress Note Date: 01/05/22 HISTORY OF PRESENT ILLNESS This is a 41-year-old male patient of Dr. Plata with past medical history of ulcerative colitis, tobacco use and dependence, marijuana use, para 1 use. He has had several admissions in the past for acute ulcerative colitis and that time was seen by GI recommended to be on sulfasalazine. Patient states he has chronic diarrhea but no abdominal pain and no bleeding. 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 He states he scraped it and then put Neosporin on it and covered it for 18 hours and wound became significantly worse. Patient presented to [facility] emergency center for evaluation. Patient was afebrile, heart rate 89 blood pressure 122/80, pulse ox 100% on room air. WBC 6.8, hemoglobin 12.8, platelet count 250. INR 1.0. Sodium 136, potassium 3.5, chloride 110, CO2 19, BUN 11 creatinine 0.51. Blood sugar 106. Lactic aci d 1.3. Calcium 7.2. Phosphorus 3.5. Magnesium 1.6. Total bilirubin 0.2, AST 49, ALT 31, alkaline phosphatase 144. Albumin 2.5. Urinalysis negative. In the emergency center, patient received 2 L of IV fluid, a dose of ceftriaxone and vancomycin and started on morphine 4 mg IV push every 4 hours for pain, admitted to the [facility] floor and consult in place with infectious disease. Consult added for vascular surgery evaluation. 01/05: Patient has been seen by Dr. Fields with recommendations for [facility] local wound care to the left leg ulcer, continue Rocephin and vancomycin. Consult is in place with vascular surgery for debridement. Blood culture and wound cultures in progress. Repeat blood work reveals WBC 8.8, hemoglobin 7.9 and platelet count 319. Repeat CBC came back with hemoglobin of 7.9. Sodium 134, potassium 3.5, chloride 107, CO2 19, BUN 7 creatinine 0.48. Blood sugar 131. Calcium 7.6. Total bilirubin 0.3, AST 49, ALT 36, alkaline phosphatase 131. Vancomycin trough 11.2. Patient states he continues to have some pain but mostly controlled. He states he may have some blood in his stool but it's watery. Patient will be started on sulfasalazine 1000 mg 4 times daily. REVIEW OF SYSTEMS Constitutional: No fever, no chills, no night sweats. No weight change. No weakness, fatigue or lethargy. No daytime sleepiness. EENT: No headache. No blurred vision or double vision, no loss of vision. No loss of Hearing, no ringing in the ears, no dizziness. No nasal drainage or congestion. No epistaxis. No sore throat. Reports dental pain. Lungs: No shortness of breath, cough, no sputum production. No wheezing. Cardiovascular: No chest pain, no lower extremity edema. No palpitations. No paroxysmal nocturnal dyspnea. No orthopnea. No lightheadedness or dizziness. No syncopal episodes. Abdominal: Denies abdominal pain. Denies nausea, no vomiting. Reports diarrhea. No constipation. Reports bloody or tarry stools denies loss of appetite. Genitourinary: No dysuria, increased frequency, urgency. No urinary retention. Musculoskeletal: No myalgias. No muscle weakness, no gait dysfunction, no frequent falls. No back pain. No neck pain. Integumentary: Reports left lower extremity wounds, no lesions. No rash or pruritus. No unusual bruising. No change in hair or nails. Neurologic: No aphasia. No facial droop. No change in mentation. No head injury. No headache. No paralysis. No paresthesia. Psychiatric: No depression. No anxiety. No mood swings. Endocrine: No abnormal blood sugars. No weight change. No excessive sweating or thirst. No cold intolerance. PHYSICAL EXAMINATION Gen: This is a 41-year-old male, resting in bed appears to be fairly comfortable although he is having pain at the ulcer site left lower extremity HEENT: Head is atraumatic, normocephalic. Pupils equal, round. Sclerae is anicteric. NECK: Supple. No JVD. No lymphadenopathy. No thyromegaly. LUNGS: Clear to auscultation. No wheezes or rhonchi. No intercostal retractions. HEART: Regular rate and rhythm. No murmur. ABDOMEN: Soft. Bowel sounds are present. No masses. Generalized tenderness. EXTREMITIES: No pedal edema. No calf tenderness. Dorsalis pedis +2 bilaterally. Ulcer to the pretibial area left lower extremity. Please see nursing documentation for details NEUROLOGICAL: Patient is awake, alert and oriented x3. Cranial nerves 2 through 12 are grossly intact. ASSESSMENT AND PLAN 1. 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 Consult with vascular surgery and consult with ID appreciated. Patient is currently on ceftriaxone and vancomycin, morphine 4 mg IV push every 4 hours for pain. 2. History of ulcerative colitis, currently stable. 3. Daily IV drug use with heroin. Monitor for withdrawals 4. Tobacco use and dependence. Patient declines need for nicotine patch. 5. Insomnia. Patient started on Restoril 15 mg at bedtime as needed. 6. Regular marijuana use. 7. History of Hepatitis C. 8. Acute GI bleed and acute blood loss anemia secondary to ulcerative colitis. Patient started on sulfasalazine 1000 mg 4 times daily. 9. GI prophylaxis. Protonix 40 mild grams IV push daily. 10. DVT prophylaxis. Heparin subcu. DISCHARGE PLAN Home. Impression and plan of care have been directed as dictated by the signing physician. Teri Walter nurse practitioner acting as scribe for signing physician. Objective - Vital Signs Vital signs: Vital Signs Temp 98.8 F 01/05/22 07:16 Pulse 72 01/05/22 07:16 Resp 16 01/05/22 07:16 BP 124/72 01/05/22 07:16 Pulse Ox 95 01/05/22 07:16 FiO2 Intake & Output 01/04/22 01/05/22 01/05/22 18:59 06:59 18:59 Intake Total 250 Output Total 550 Balance -300 Weight 71.668 kg Intake: Intake, IV Titration 250 Amount Vancomycin 1,250 mg In 250 Sodium Chloride 0.9% 250 ml @ 125 mls/hr IVPB Q8H [facility] Rx#:[id number] Output: Urine 550 Other: Voiding Method Toilet # Voids 2 3 1 - Labs CBC & Chem 7: 01/05/22 11:41 01/05/22 10:02 Labs: Abnormal Lab Results - Last 24 Hours (Table) 01/05/22 01/05/22 Range/Units 10:02 10:02 RBC 3.90 L (4.30-5.90) m/uL Hgb 7.9 L D (13.0-17.5) gm/dL Hct 26.2 L (39.0-53.0) % MCV 67.0 L (80.0-100.0) fL MCH 20.3 L (25.0-35.0) pg MCHC 30.2 L (31.0-37.0) g/dL RDW 16.9 H (11.5-15.5) % Sodium 134 L (137-145) mmol/L Carbon Dioxide 19 L (22-30) mmol/L BUN 7 L (9-20) mg/dL Creatinine 0.48 L (0.66-1.25) mg/dL Glucose 131 H (74-99) mg/dL Calcium 7.6 L (8.4-10.2) mg/dL Alkaline Phosphatase 131 H (38-126) U/L Albumin 2.8 L (3.5-5.0) g/dL Microbiology - Last 24 Hours (Table) 01/04/22 11:30 Gram Stain - Preliminary Leg - Left Wound Culture - Preliminary 01/04/22 03:15 Blood Culture - Preliminary Blood No Growth after 24 hours 01/04/22 11:30 Anaerobic Culture - Preliminary Leg - Left
[2022-01-05] MEDS ORDERED: MORPHINE SULFATE 4 MG/ML SYRINGE IVP STA (14:35)
[2022-01-05] MEDS: sulfaSALAzine 500 MG TAB PO SCH ×3 (14:59→19:29)
--- NOTE | 2022-01-05 15:42 | P.GSCN ---
History of Present Illness Consult date: 01/05/22 History of present illness: Al is a 41-year-old male with a past medical history of ulcerative colitis, tobacco use, IV drug abuse, hepatitis C who presented to the hospital with increasing pain and redness of his left leg and wounds. He denies any signif icant trauma to the area and states she has been using Neosporin on his wound spell so that he picks at this wounds on his legs Past Medical History Additional Past Medical History / Comment(s): ulcerative colitis, spleen problems, Hep C History of Any Multi-Drug Resistant Organisms: None Reported Past Surgical History: No Surgical Hx Reported Past Anesthesia/Blood Transfusion Reactions: No Reported Reaction Past Psychological History: No Psychological Hx Reported Smoking Status: Current every day smoker Past Alcohol Use History: None Reported Additional Past Alcohol Use History / Comment(s): Patient is a smoker of less than one pack per day since he was 15 years of age. He has history of drinking 4-5 times per week, liquor but since 2007 he only drinks about 2 times per year. He uses marijuana on a regular basis including edibles. The patient is single and lives alone. Past Drug Use History: Heroin, Marijuana Additional Drug Use History / Comment(s): pt admits so self medicating with percocet recently. Last Heroin use 01/03/22 - Past Family History Father Family Medical History: Seizure Disorder Additional Family Medical History / Comment(s): Father is alive at age 64 with history of seizures and hypertension. Mother Additional Family Medical History / Comment(s): Mother in her late 50s with complications from CABG. Brother(s) Additional Family Medical History / Comment(s): Patient has 2 brothers with no major medical problems. He does not have any sisters. He does not have any children. No family members have ulcerative colitis. Medications and Allergies Home Medications Medication Instructions Recorded Confirmed Type No Known Home Medications 01/04/22 01/04/22 History Allergies Allergy/AdvReac Type Severity Reaction Status Date / Time No Known Allergies Allergy Verified 01/04/22 06:53 Surgical - Exam Vital Signs Temp Pulse Resp BP Pulse Ox 98.1 F 89 20 122/80 100 01/03/22 22:37 01/03/22 22:37 01/03/22 22:37 01/03/22 22:37 01/03/22 22:37 Gen is a thin male in no acute distress. HEENT is no cephalic, atraumatic, poor dentition. Heart appears regular at this time. Lungs are clear bilaterally. Abdomen is soft, nontender nondistended. Extremity show no clubbing, cyanosis o r edema. On the right lower extremity there are multiple areas of excoriation and erythema along the [place], no true fluctuance appreciated. A left lower extremity there is a moderate probably 6-8 cm wound to subcutaneous tissue. It appears to be relatively healthy without obvious drainage or erythema. Possibly appearing like pyoderma. Normal mood and affect. Cranial nerves II through XII grossly intact Results - Labs 01/05/22 11:41 01/05/22 10:02 Abnormal Lab Results - Last 24 Hours (Table) 01/05/22 01/05/22 01/05/22 Range/Units 10:02 10:02 11:41 RBC 3.90 L 3.97 L (4.30-5.90) m/uL Hgb 7.9 L D 7.9 L (13.0-17.5) gm/dL Hct 26.2 L 27.1 L (39.0-53.0) % MCV 67.0 L 68.4 L (80.0-100.0) fL MCH 20.3 L 20.0 L (25.0-35.0) pg MCHC 30.2 L 29.3 L (31.0-37.0) g/dL RDW 16.9 H 17.0 H (11.5-15.5) % Sodium 134 L (137-145) mmol/L Carbon Dioxide 19 L (22-30) mmol/L BUN 7 L (9-20) mg/dL Creatinine 0.48 L (0.66-1.25) mg/dL Glucose 131 H (74-99) mg/dL Calcium 7.6 L (8.4-10.2) mg/dL Alkaline Phosphatase 131 H (38-126) U/L Albumin 2.8 L (3.5-5.0) g/dL Microbiology - Last 24 Hours (Table) 01/04/22 11:30 Gram Stain - Preliminary Leg - Left Wound Culture - Preliminary 01/04/22 03:15 Blood Culture - Preliminary Blood No Growth after 24 hours 01/04/22 11:30 Anaerobic Culture - Preliminary Leg - Left Diabetes panel 01/05/22 Range/Units 10:02 Sodium 134 L (137-145) mmol/L Potassium 3.5 (3.5-5.1) mmol/L Chloride 107 (98-107) mmol/L Carbon Dioxide 19 L (22-30) mmol/L BUN 7 L (9-20) mg/dL Creatinine 0.48 L (0.66-1.25) mg/dL Glucose 131 H (74-99) mg/dL Calcium 7.6 L (8.4-10.2) mg/dL AST 49 (17-59) U/L ALT 36 (4-49) U/L Alkaline Phosphatase 131 H (38-126) U/L Total Protein 6.4 (6.3-8.2) g/dL Albumin 2.8 L (3.5-5.0) g/dL Calcium panel 01/05/22 Range/Units 10:02 Calcium 7.6 L (8.4-10.2) mg/dL Albumin 2.8 L (3.5-5.0) g/dL Pituitary panel 01/05/22 Range/Units 10:02 Sodium 134 L (137-145) mmol/L Potassium 3.5 (3.5-5.1) mmol/L Chloride 107 (98-107) mmol/L Carbon Dioxide 19 L (22-30) mmol/L BUN 7 L (9-20) mg/dL Creatinine 0.48 L (0.66-1.25) mg/dL Glucose 131 H (74-99) mg/dL Calcium 7.6 L (8.4-10.2) mg/dL Adrenal panel 01/05/22 Range/Units 10:02 Sodium 134 L (137-145) mmol/L Potassium 3.5 (3.5-5.1) mmol/L Chloride 107 (98-107) mmol/L Carbon Dioxide 19 L (22-30) mmol/L BUN 7 L (9-20) mg/dL Creatinine 0.48 L (0.66-1.25) mg/dL Glucose 131 H (74-99) mg/dL Calcium 7.6 L (8.4-10.2) mg/dL Total Bilirubin 0.3 (0.2-1.3) mg/dL AST 49 (17-59) U/L ALT 36 (4-49) U/L Alkaline Phosphatase 131 H (38-126) U/L Total Protein 6.4 (6.3-8.2) g/dL Albumin 2.8 L (3.5-5.0) g/dL Assessment and Plan Assessment: Bilateral lower extremity wounds IV drug abuse hepatitis C Plan: Plan for operative debridement and biopsy of the wounds to rule out pyoderma. Continue antibiotics as ordered.
[2022-01-05] MEDS: MELATONIN 3 MG TABLET PO SCH (19:29)
[2022-01-05] MEDS ORDERED: ONDANSETRON 4 MG/2 ML VIAL IVP PRN (22:01)
[2022-01-06] MEDS: MORPHINE SULFATE 4 MG/ML SYRINGE IV PRN ×5 (00:45→21:46)
[2022-01-06] MEDS: LOPERAMIDE 2 MG CAP PO SCH ×3 (00:45→20:40)
[2022-01-06] MEDS: VANCOMYCIN 1,250 MG in SODIUM CHLORIDE 0.9% 250 ML IVPB SCH ×3 (02:12→19:15)
[2022-01-06] MEDS: SODIUM CHLORIDE 0.9% 1,000 ML IV SCH (03:34)
--- NOTE | 2022-01-06 09:15 | P.PN ---
Subjective Progress Note Date: 01/05/22 Principal diagnosis: Left lower extremity wound and cellulitis Patient is a 41-year-old male with a past medical history significant for ulcerative colitis presented to hospital with a nonhealing wound to left lower extremity and concern for secondary cellulitis. On today's evaluation that is 01/05/2022, patient denies having any fever or chills, the patient complaining of significant pain to the left leg wound area, denies having any chest pain or shortness of breath or cough no abdominal pain no diarrhea Objective - Vital Signs Vital signs: Vital Signs Temp 98.8 F 01/05/22 07:16 Pulse 72 01/05/22 07:16 Resp 16 01/05/22 07:16 BP 124/72 01/05/22 07:16 Pulse Ox 95 01/05/22 07:16 FiO2 Intake & Output 01/04/22 01/05/22 01/05/22 18:59 06:59 18:59 Intake Total 250 Output Total 550 Balance -300 Weight 71.668 kg Intake: Intake, IV Titration 250 Amount Vancomycin 1,250 mg In 250 Sodium Chloride 0.9% 250 ml @ 125 mls/hr IVPB Q8H [facility] Rx#:[id number] Output: Urine 550 Other: Voiding Method Toilet # Voids 2 3 1 - Exam GENERAL DESCRIPTION: Middle-aged male lying in bed in no distress RESPIRATORY SYSTEM: Unlabored breathing , decreased breath sounds at bases HEART: S1 S2 regular rate and rhythm , ABDOMEN: Soft , no tenderness EXTREMITIES: Left lower extremity wound minimal slough surrounding redness is decreased drainage - Labs CBC & Chem 7: 01/05/22 11:41 01/05/22 10:02 Labs: Abnormal Lab Results - Last 24 Hours (Table) 01/05/22 01/05/22 01/05/22 Range/Units 10:02 10:02 11:41 RBC 3.90 L 3.97 L (4.30-5.90) m/uL Hgb 7.9 L D 7.9 L (13.0-17.5) gm/dL Hct 26.2 L 27.1 L (39.0-53.0) % MCV 67.0 L 68.4 L (80.0-100.0) fL MCH 20.3 L 20.0 L (25.0-35.0) pg MCHC 30.2 L 29.3 L (31.0-37.0) g/dL RDW 16.9 H 17.0 H (11.5-15.5) % Sodium 134 L (137-145) mmol/L Carbon Dioxide 19 L (22-30) mmol/L BUN 7 L (9-20) mg/dL Creatinine 0.48 L (0.66-1.25) mg/dL Glucose 131 H (74-99) mg/dL Calcium 7.6 L (8.4-10.2) mg/dL Alkaline Phosphatase 131 H (38-126) U/L Albumin 2.8 L (3.5-5.0) g/dL Microbiology - Last 24 Hours (Table) 01/04/22 11:30 Gram Stain - Preliminary Leg - Left Wound Culture - Preliminary 01/04/22 03:15 Blood Culture - Preliminary Blood No Growth after 24 hours 01/04/22 11:30 Anaerobic Culture - Preliminary Leg - Left Assessment and Plan (1) Left leg cellulitis Current Visit: Yes Status: Acute Code(s): L03.116 - CELLULITIS OF LEFT LOWER LIMB SNOMED Code(s): 484792853 (2) Leg ulcer, left Current Visit: Yes Status: Acute Code(s): L97.929 - NON-PRS CHRONIC ULC UNSP PRT OF L LOW LEG W UNSP SEVERITY SNOMED Code(s): 21063079 Plan: 1patient with a nonhealing wound to the left leg with the patient mention started with more than a week ago with subsequent nonhealing of the wound in this patient who did have underlying history of ulcerative colitis we will need to rule out that the ulcer laterally to underlying ulcerative colitis especially pyoderma gangrenosa 2 Vascular surgery evaluation for debridement as well as biopsy and deep culture, discussed with Dr. Ann 3patient to continue vancomycin and Rocephin while awaiting further work-up to be finalized. Time with Patient: Less than 30
[2022-01-06] MEDS: PANTOPRAZOLE 40 MG/10 ML VIAL IVP SCH (09:28)
[2022-01-06] MEDS: sulfaSALAzine 500 MG TAB PO SCH ×4 (09:29→20:40)
[2022-01-06] MEDS: diazePAM 5 MG TAB PO PRN ×3 (09:29→20:39)
[2022-01-06 10:15] LABS: HCT 24.8 % (39.6-50.0); HGB 7.1 g/dL (13.0-17.0); MCHC 28.6 g/dL (32.0-37.0); MCV 66.3 fL (80.0-97.0); Mean Platelet Volume 9.4 fL (9.5-12.2); NRBC Per 100 WBC 0 /100 WBCS (0.0-0.0); Platelet Count 326 X 10*3/uL (140-440); RBC 3.74 X 10*6/uL (4.40-5.60); RDW 18.5 % (11.5-14.5); WBC 9.09 X 10*3/uL (4.50-10.00)
[2022-01-06] MEDS: HEPARIN SODIUM,PORCINE/PF 5,000 UNIT/0.5 ML SYRINGE SQ SCH ×2 (10:22→20:39)
[2022-01-06 10:30] LABS: African American GFR (CKD) 143.7 (60.0-200.0); Albumin 2.6 g/dL (3.8-4.9); Albumin/Globulin Ratio 0.79 (1.60-3.17); Anion Gap 9.9 mmol/L (10.00-18.00); BUN/Creat Ratio 10.5 Ratio (12.00-20.00); Blood Urea Nitrogen 6.3 mg/dL (9.0-27.0); Calcium 7.7 mg/dL (8.7-10.3); Carbon Dioxide 20.1 mmol/L (20.0-27.5); Globulin 3.3 g/dL (1.6-3.3); Potassium 3.5 mmol/L (3.5-5.5); Total Bilirubin 0.2 mg/dL (0.30-1.20); Total Protein 5.9 g/dL (6.2-8.2)
[2022-01-06] MEDS ORDERED: MIDAZOLAM 2 MG/2 ML VIAL IV ONE (12:12)
[2022-01-06] MEDS ORDERED: DEXAMETHASONE SOD PHOSPHATE 4 MG/ML 1 ML VIAL IV ONE (12:13)
[2022-01-06] MEDS ORDERED: ONDANSETRON 4 MG/2 ML VIAL IVP ONE (12:13)
[2022-01-06] MEDS ORDERED: IV FLUID CONTINUATION 1,000 ML IV ONE ×2 (12:15)
[2022-01-06] MEDS ORDERED: fentaNYL (PF) 50 MCG/ML 2 ML AMP ONE (13:01)
[2022-01-06] MEDS ORDERED: LIDOCAINE 2% INJ 20 MG/ML (2 ML VIAL) ONE (13:01)
[2022-01-06] MEDS ORDERED: MIDAZOLAM 2 MG/2 ML VIAL ONE (13:01)
[2022-01-06] MEDS ORDERED: PROPOFOL 10 MG/ML 20 ML VIAL IV ONE (13:01)
--- NOTE | 2022-01-06 13:35 | P.OP ---
Date of Procedure: 01/06/22 Description of Procedure: Preoperative diagnosis: [Bilateral lower extremity wounds, IV drug abuse] Postoperative diagnosis: Same Procedure: [Sharp excisional debridement left lower extremity Wound measuring 6 x 4 x 0.2 cm to subcutaneous tissue Incision and drainage right lower extremity, wound measuring 1 cm] Surgeon: Madyson Ann D.O. EBL: [5 mL] IV fluids: [See records] Urine output: [Not recorded] Drains: [None] Complications: [None immediately apparent] Condition: [Stable to recovery] Operative indication and findings: [Patient is a 41-year-old male with a history of hepatitis C and IV drug abuse who also has ulcerative colitis. He had a wound on his left lower extremity that has been there for many months and he has been using Neosporin for this. He presented to the hospital for these issues and it was recommended he undergo debridement with possible biopsy to rule out possible powder making gangrenosum. Risks and benefits were discussed. He seemingly understood and was willing to proceed.] Procedure in detail: [Patient was taken to the operating suite and placed in supine position. The]bilateral lower extremities were prepped and draped in usual sterile fashion. Procedure Timeout was performed, all parties were in agreement. On the right lower extremity, the area of erythema some fluctuance a vertical incision was made below blade scalpel. There was extrusion of thick and purulent type material. It was irrigated. A gauze strip was placed. Attention was then turned to the left lower extremity, the ischemic portions of the wound edges were debrided. The wound was sharply excised using curet and scalpel. A piece of tissue was taken for biopsy at the border as well as in the middle of the wound itself and sent for culture and biopsy. The wound measurements are as above. The area was copiously irrigated. The wounds were cleansed and dressings were placed. The patient tolerated the procedure well.
--- NOTE | 2022-01-06 13:36 | P.PN ---
Subjective Progress Note Date: 01/06/22 HISTORY OF PRESENT ILLNESS This is a 41-year-old male patient of Dr. Plata with past medical history of ulcerative colitis, tobacco use and dependence, marijuana use, para 1 use. He has had several admissions in the past for acute ulcerative colitis and that time was seen by GI recommended to be on sulfasalazine. Patient states he has chronic diarrhea but no abdominal pain and no bleeding. 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 He states he scraped it and then put Neosporin on it and covered it for 18 hours and wound became significantly worse. Patient presented to [facility] emergency center for evaluation. Patient was afebrile, heart rate 89 blood pressure 122/80, pulse ox 100% on room air. WBC 6.8, hemoglobin 12.8, platelet count 250. INR 1.0. Sodium 136, potassium 3.5, chloride 110, CO2 19, BUN 11 creatinine 0.51. Blood sugar 106. Lactic aci d 1.3. Calcium 7.2. Phosphorus 3.5. Magnesium 1.6. Total bilirubin 0.2, AST 49, ALT 31, alkaline phosphatase 144. Albumin 2.5. Urinalysis negative. In the emergency center, patient received 2 L of IV fluid, a dose of ceftriaxone and vancomycin and started on morphine 4 mg IV push every 4 hours for pain, admitted to the [facility] floor and consult in place with infectious disease. Consult added for vascular surgery evaluation. 01/05: Patient has been seen by Dr. Fields with recommendations for [facility] local wound care to the left leg ulcer, continue Rocephin and vancomycin. Consult is in place with vascular surgery for debridement. Blood culture and wound cultures in progress. Repeat blood work reveals WBC 8.8, hemoglobin 7.9 and platelet count 319. Repeat CBC came back with hemoglobin of 7.9. Sodium 134, potassium 3.5, chloride 107, CO2 19, BUN 7 creatinine 0.48. Blood sugar 131. Calcium 7.6. Total bilirubin 0.3, AST 49, ALT 36, alkaline phosphatase 131. Vancomycin trough 11.2. Patient states he continues to have some pain but mostly controlled. He states he may have some blood in his stool but it's watery. Patient will be started on sulfasalazine 1000 mg 4 times daily. 01/06: Patient has been seen by vascular surgery with plan for operative debridement and biopsy of the wounds today. Patient is afebrile, heart rate 55, blood pressure 154/91, pulse ox 99% on room air. Repeat blood work reveals WBC 9.0, hemoglobin 7.1, platelet count 326. Sodium 133, creatinine 0.6. Blood culture reveals no growth at 48 hours. Wound culture is no growth at 48 hours. Patient is continued on ceftriaxone and vancomycin. Ferrlecit 3 days will be added. Yesterday, patient started on Valium, Imodium, Zofran for heroin withdrawal and consult added for psychiatry today. REVIEW OF SYSTEMS Constitutional: No fever, no chills, no night sweats. No weight change. No weakness, fatigue or lethargy. No daytime sleepiness. EENT: No headache. No blurred vision or double vision, no loss of vision. No loss of Hearing, no ringing in the ears, no dizziness. No nasal drainage or congestion. No epistaxis. No sore throat. Reports dental pain. Lungs: No shortness of breath, cough, no sputum production. No wheezing. Cardiovascular: No chest pain, no lower extremity edema. No palpitations. No paroxysmal nocturnal dyspnea. No orthopnea. No lightheadedness or dizziness. No syncopal episodes. Abdominal: Denies abdominal pain. Reports nausea, no vomiting. Reports diarrhea. No constipation. Reports bloody or tarry stools denies loss of appetite. Genitourinary: No dysuria, increased frequency, urgency. No urinary retention. Musculoskeletal: No myalgias. No muscle weakness, no gait dysfunction, no frequent falls. No back pain. No neck pain. Integumentary: Reports left lower extremity wounds, no lesions. No rash or pruritus. No unusual bruising. No change in hair or nails. Neurologic: No aphasia. No facial droop. No change in mentation. No head injury. No headache. No paralysis. No paresthesia. Psychiatric: No depression. Reports anxiety. No mood swings. Endocrine: No abnormal blood sugars. No weight change. No excessive sweating or thirst. No cold intolerance. PHYSICAL EXAMINATION Gen: This is a 41-year-old male, resting in bed appears to be fairly comfortable although he is having pain at the ulcer site left lower extremity HEENT: Head is atraumatic, normocephalic. Pupils equal, round. Sclerae is anicteric. NECK: Supple. No JVD. No lymphadenopathy. No thyromegaly. LUNGS: Clear to auscultation. No wheezes or rhonchi. No intercostal retractions. HEART: Regular rate and rhythm. No murmur. ABDOMEN: Soft. Bowel sounds are present. No masses. Generalized tenderness. EXTREMITIES: No pedal edema. No calf tenderness. Dorsalis pedis +2 bilaterally. Ulcer to the pretibial area left lower extremity. Please see nursing documentation for details NEUROLOGICAL: Patient is awake, alert and oriented x3. Cranial nerves 2 through 12 are grossly intact. ASSESSMENT AND PLAN 1. 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 Consult with vascular surgery and consult with ID appreciated. I&D scheduled today Patient is currently on ceftriaxone and vancomycin, morphine 4 mg IV push every 4 hours for pain. 2. History of ulcerative colitis, currently stable. 3. 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 Patient started on Valium 5 mg twice daily as needed, Imodium 4 mg twice daily, Zofran as needed, psychiatric consult placed 4. Tobacco use and dependence. Patient declines need for nicotine patch. 5. Insomnia. Patient started on Restoril 15 mg at bedtime as needed. 6. Regular marijuana use. 7. History of Hepatitis C. 8. Acute GI bleed and acute blood loss anemia secondary to ulcerative colitis. Patient started on sulfasalazine 1000 mg 4 times daily, Ferrlecit 125 mg IV piggyback daily 3 ordered. 9. GI prophylaxis. Protonix 40 mild grams IV push daily. 10. DVT prophylaxis. Heparin subcu. DISCHARGE PLAN Home. Impression and plan of care have been directed as dictated by the signing physician. Teri Walter nurse practitioner acting as scribe for signing physician. Objective - Vital Signs Vital signs: Vital Signs Temp 98.5 F 01/06/22 11:59 Pulse 55 L 01/06/22 11:59 Resp 16 01/06/22 11:59 BP 154/91 01/06/22 11:59 Pulse Ox 99 01/06/22 11:59 FiO2 Intake & Output 01/05/22 01/06/22 01/06/22 18:59 06:59 18:59 Output Total 750 Balance -750 Output: Urine 750 Other: Voiding Method Toilet # Voids 1 1 - Labs CBC & Chem 7: 01/06/22 05:30 01/06/22 05:24 Labs: Abnormal Lab Results - Last 24 Hours (Table) 01/06/22 01/06/22 Range/Units 05:24 05:30 RBC 3.74 L (4.40-5.60) X 10*6/uL Hgb 7.1 L (13.0-17.0) g/dL Hct 24.8 L (39.6-50.0) % MCV 66.3 L (80.0-97.0) fL MCH 19.0 L (27.0-32.0) pg MCHC 28.6 L (32.0-37.0) g/dL RDW 18.5 H (11.5-14.5) % MPV 9.4 L (9.5-12.2) fL Sodium 133 L (135-145) mmol/L Anion Gap 9.90 L (10.00-18.00) mmol/L BUN 6.3 L (9.0-27.0) mg/dL BUN/Creatinine Ratio 10.50 L (12.00-20.00) Ratio Calcium 7.7 L (8.7-10.3) mg/dL Total Bilirubin 0.20 L (0.30-1.20) mg/dL Total Protein 5.9 L (6.2-8.2) g/dL Albumin 2.6 L (3.8-4.9) g/dL Albumin/Globulin Ratio 0.79 L (1.60-3.17) g/dL Microbiology - Last 24 Hours (Table) 01/04/22 11:30 Gram Stain - Final Leg - Left Wound Culture - Final 01/04/22 03:15 Blood Culture - Preliminary Blood No Growth after 48 hours
[2022-01-06] MEDS: SODIUM FERRIC GLUCONAT-SUCROSE 125 MG in SODIUM CHLORIDE 0.9% 100 ML IVPB SCH (15:22)
[2022-01-06] MEDS: MELATONIN 3 MG TABLET PO SCH (20:39)
[2022-01-07] MEDS: MORPHINE SULFATE 4 MG/ML SYRINGE IV PRN ×5 (02:30→20:33)
[2022-01-07] MEDS: VANCOMYCIN 1,250 MG in SODIUM CHLORIDE 0.9% 250 ML IVPB SCH ×3 (02:31→20:27)
[2022-01-07] MEDS: SODIUM CHLORIDE 0.9% 1,000 ML IV SCH ×2 (02:32→16:09)
--- NOTE | 2022-01-07 07:31 | P.PN ---
Subjective Progress Note Date: 01/06/22 Principal diagnosis: Left lower extremity wound and cellulitis Patient is a 41-year-old male with a past medical history significant for ulcerative colitis presented to hospital with a nonhealing wound to left lower extremity and concern for secondary cellulitis. On today's evaluation that is 01/06/2022, patient remains to be afebrile, the patient denies any worsening pain to the left leg wound area, denies having any chest pain or shortness of breath or cough no abdominal pain and no significant change in his diarrhea Objective - Vital Signs Vital signs: Vital Signs Temp 98.6 F 01/06/22 07:14 Pulse 52 L 01/06/22 07:14 Resp 16 01/06/22 07:14 BP 141/82 01/06/22 07:14 Pulse Ox 99 01/06/22 07:14 FiO2 Intake & Output 01/05/22 01/06/22 01/06/22 18:59 06:59 18:59 Output Total 750 Balance -750 Output: Urine 750 Other: Voiding Method Toilet # Voids 1 1 - Exam GENERAL DESCRIPTION: Middle-aged male lying in bed in no distress RESPIRATORY SYSTEM: Unlabored breathing , decreased breath sounds at bases HEART: S1 S2 regular rate and rhythm , ABDOMEN: Soft , no tenderness EXTREMITIES: Left lower extremity wound minimal slough surrounding redness is decreased drainage - Labs CBC & Chem 7: 01/06/22 05:30 01/06/22 05:24 Labs: Abnormal Lab Results - Last 24 Hours (Table) 01/05/22 01/05/22 01/05/22 Range/Units 10:02 10:02 11:41 RBC 3.90 L 3.97 L (4.30-5.90) m/uL Hgb 7.9 L D 7.9 L (13.0-17.5) gm/dL Hct 26.2 L 27.1 L (39.0-53.0) % MCV 67.0 L 68.4 L (80.0-100.0) fL MCH 20.3 L 20.0 L (25.0-35.0) pg MCHC 30.2 L 29.3 L (31.0-37.0) g/dL RDW 16.9 H 17.0 H (11.5-15.5) % MPV (9.5-12.2) fL Sodium 134 L (137-145) mmol/L Carbon Dioxide 19 L (22-30) mmol/L BUN 7 L (9-20) mg/dL Creatinine 0.48 L (0.66-1.25) mg/dL Glucose 131 H (74-99) mg/dL Calcium 7.6 L (8.4-10.2) mg/dL Alkaline Phosphatase 131 H (38-126) U/L Albumin 2.8 L (3.5-5.0) g/dL 01/06/22 Range/Units 05:30 RBC 3.74 L (4.30-5.90) m/uL Hgb 7.1 L (13.0-17.5) gm/dL Hct 24.8 L (39.0-53.0) % MCV 66.3 L (80.0-100.0) fL MCH 19.0 L (25.0-35.0) pg MCHC 28.6 L (31.0-37.0) g/dL RDW 18.5 H (11.5-15.5) % MPV 9.4 L (9.5-12.2) fL Sodium (137-145) mmol/L Carbon Dioxide (22-30) mmol/L BUN (9-20) mg/dL Creatinine (0.66-1.25) mg/dL Glucose (74-99) mg/dL Calcium (8.4-10.2) mg/dL Alkaline Phosphatase (38-126) U/L Albumin (3.5-5.0) g/dL Microbiology - Last 24 Hours (Table) 01/04/22 11:30 Gram Stain - Final Leg - Left Wound Culture - Final 01/04/22 03:15 Blood Culture - Preliminary Blood No Growth after 48 hours Assessment and Plan (1) Left leg cellulitis Current Visit: Yes Status: Acute Code(s): L03.116 - CELLULITIS OF LEFT LOWER LIMB SNOMED Code(s): 319446908 (2) Leg ulcer, left Current Visit: Yes Status: Acute Code(s): L97.929 - NON-PRS CHRONIC ULC UNSP PRT OF L LOW LEG W UNSP SEVERITY SNOMED Code(s): 00638375 Plan: 1patient with a nonhealing wound to the left leg with the patient mention started with more than a week ago with subsequent nonhealing of the wound in this patient who did have underlying history of ulcerative colitis we will need to rule out that the ulcer laterally to underlying ulcerative colitis especially pyoderma gangrenosa 2 Vascular surgery evaluation for debridement as well as biopsy and deep culture, is scheduled for this afternoon of 01/06/2022 3patient to continue vancomycin and Rocephin while awaiting further work-up and cultures to be finalized. Time with Patient: Less than 30
[2022-01-07] MEDS: diazePAM 5 MG TAB PO PRN ×2 (07:54→20:33)
[2022-01-07] MEDS: LOPERAMIDE 2 MG CAP PO SCH ×2 (09:55→20:32)
[2022-01-07] MEDS: SODIUM FERRIC GLUCONAT-SUCROSE 125 MG in SODIUM CHLORIDE 0.9% 100 ML IVPB SCH (09:55)
[2022-01-07] MEDS: PANTOPRAZOLE 40 MG/10 ML VIAL IVP SCH (09:55)
[2022-01-07] MEDS: sulfaSALAzine 500 MG TAB PO SCH ×4 (09:56→22:36)
[2022-01-07] MEDS ORDERED: VANCOMYCIN TROUGH DUE 1 EACH MISC MISCELLANE ONE (10:00)
[2022-01-07] MEDS: HEPARIN SODIUM,PORCINE/PF 5,000 UNIT/0.5 ML SYRINGE SQ SCH ×2 (10:01→20:31)
[2022-01-07 11:04] LABS: Anisocytosis Slight; Basophils # (A) 0.1 k/uL (0-0.2); Basophils % (A) 1 %; Eosinophils % (A) 0 %; HCT 29.7 % (39.0-53.0); HGB 8.7 gm/dL (13.0-17.5); Hypochromasia Marked; Lymphocytes # (A) 1.5 k/uL (1.0-4.8); Lymphocytes % (A) 17 %; MCHC 29.1 g/dL (31.0-37.0); MCV 68.8 fL (80.0-100.0); Mean Platelet Volume 6.7; Microcytosis Marked; Monocytes # (A) 0.7 k/uL (0-1.0); Monocytes % (A) 8 %; Neutrophils # (A) 6.3 k/uL (1.3-7.7); Neutrophils % (A) 72 %; Platelet Count 379 k/uL (150-450); RBC 4.33 m/uL (4.30-5.90); RDW 16.8 % (11.5-15.5); WBC 8.8 k/uL (3.8-10.6)
[2022-01-07 11:59] LABS: ALT 26 U/L (4-49); AST 40 U/L (17-59); African American GFR (CKD) >90 (>60 ml/min/1.73 sqM); Albumin 2.8 g/dL (3.5-5.0); Albumin/Globulin Ratio 0.8; Alkaline Phosphatase 126 U/L (38-126); Anion Gap 9 mmol/L; Blood Urea Nitrogen 6 mg/dL (9-20); Calcium 7.7 mg/dL (8.4-10.2); Carbon Dioxide 19 mmol/L (22-30); Chloride 103 mmol/L (98-107); Globulin 3.7 g/dL; Glucose 84 mg/dL (74-99); Non-African American GFR(CKD) >90 (>60 ml/min/1.73 sqM); Potassium 3.7 mmol/L (3.5-5.1); Sodium 131 mmol/L (137-145); Total Bilirubin 0.1 mg/dL (0.2-1.3); Total Protein 6.5 g/dL (6.3-8.2)
--- NOTE | 2022-01-07 13:24 | P.PN ---
Subjective Progress Note Date: 01/07/22 Principal diagnosis: Left lower extremity wound and cellulitis Patient is a 41-year-old male with a past medical history significant for ulcerative colitis presented to hospital with a nonhealing wound to left lower extremity and concern for secondary cellulitis. On today's evaluation that is 01/07/2022, patient continues to be afebrile, the patient still complaining of pain to the left leg wound area and wants more pain medication, the patient denies having any chest pain or shortness of breath or cough no abdominal pain and no significant change in his diarrhea Objective - Vital Signs Vital signs: Vital Signs Temp 99.2 F 01/07/22 08:00 Pulse 54 L 01/07/22 08:00 Resp 20 01/07/22 08:00 BP 140/82 01/07/22 08:00 Pulse Ox 98 01/07/22 08:00 FiO2 Intake & Output 01/06/22 01/07/22 01/07/22 18:59 06:59 18:59 Intake Total 200 Output Total 755 900 400 Balance -555 -900 -400 Weight 71.668 kg Intake: IV 200 Output: Urine 750 900 400 Estimated Blood Loss 5 Other: Voiding Method Toilet # Voids 1 - Exam GENERAL DESCRIPTION: Middle-aged male lying in bed in no distress RESPIRATORY SYSTEM: Unlabored breathing , decreased breath sounds at bases HEART: S1 S2 regular rate and rhythm , ABDOMEN: Soft , no tenderness EXTREMITIES: Left lower extremity wound is currently dressed no drainage on the dressing - Labs CBC & Chem 7: 01/07/22 10:43 01/07/22 10:43 Labs: Abnormal Lab Results - Last 24 Hours (Table) 01/07/22 01/07/22 Range/Units 10:43 10:43 Hgb 8.7 L (13.0-17.5) gm/dL Hct 29.7 L (39.0-53.0) % MCV 68.8 L (80.0-100.0) fL MCH 20.0 L (25.0-35.0) pg MCHC 29.1 L (31.0-37.0) g/dL RDW 16.8 H (11.5-15.5) % Sodium 131 L (137-145) mmol/L Carbon Dioxide 19 L (22-30) mmol/L BUN 6 L (9-20) mg/dL Creatinine 0.59 L (0.66-1.25) mg/dL Calcium 7.7 L (8.4-10.2) mg/dL Total Bilirubin 0.1 L (0.2-1.3) mg/dL Albumin 2.8 L (3.5-5.0) g/dL Microbiology - Last 24 Hours (Table) 01/04/22 03:15 Blood Culture - Preliminary Blood No Growth after 72 hours 01/04/22 11:30 Anaerobic Culture - Preliminary Leg - Left 01/04/22 11:30 Gram Stain - Final Leg - Left Wound Culture - Final Assessment and Plan (1) Left leg cellulitis Current Visit: Yes Status: Acute Code(s): L03.116 - CELLULITIS OF LEFT LOWER LIMB SNOMED Code(s): 354812320 (2) Leg ulcer, left Current Visit: Yes Status: Acute Code(s): L97.929 - NON-PRS CHRONIC ULC UNSP PRT OF L LOW LEG W UNSP SEVERITY SNOMED Code(s): 17401531 Plan: 1patient with a nonhealing wound to the left leg with the patient mention started with more than a week ago with subsequent nonhealing of the wound in this patient who did have underlying history of ulcerative colitis we will need to rule out that the ulcer laterally to underlying ulcerative colitis especially pyoderma gangrenosa 2patient is status post Vascular surgery evaluation and debridement as well as biopsy and deep culture, results are currently pending 3patient to continue vancomycin and Rocephin while awaiting for the cultures and biopsy results to finalize Time with Patient: Less than 30
[2022-01-07] MEDS ORDERED: DICYCLOMINE 20 MG TAB PO PRN (15:07)
[2022-01-07] MEDS ORDERED: cloNIDine HCL 0.1 MG TAB PO PRN (15:07)
--- NOTE | 2022-01-07 15:12 | P.CN ---
Psychiatric Consult - . Consult date: 01/07/22 Consult:: 01/07/22 13:30 IDENTIFYING DATA: This patient is a 41-year-old male, currently living with his brother in a house. It is single has no kids. Works doing construction. REASON FOR REFERRAL: Psychiatry was consulted for "heroin withdrawal" HISTORY OF PRESENT ILLNESS: The patient presented to the hospital initially on 01/04 with left lower leg wound and pain. Apparently patient had a foreign body. Patient had developed cellulitis and was admitted medically. Patient was complaining of increase in her pain. Vascular surgery was on board and the department. Infectious disease also following with antibiotics. Patient was seen at the bedside today and agreeable to speak to customs entry writer. He claims that he is feeling depressed and angry she anxious since being in the hospital. He states that he has been having a lot of pain for the past 2 weeks and has noticed the small cuts in his legs get worse as they are infected. He states that he had debridement yesterday which went well. He claims that he has a "long history of addiction" and was requesting higher doses of his anxiety and pain medications. He claims that he uses heroin approximately half a gram to a gram a day. He states that he's been using IV for the past 20 years or so. He claims that he also smokes cannabis daily. Also cigarettes. He states that he is having some withdrawal symptoms at this time including upset stomach, diarrhea and also anxiety mainly. We spoke about different medication options patient is agreeable to try Cymbalta trazodone and also when necessary clonidine. He states that his sleep is poor. Appetite fair. At this time patient denies any suicidal or homical ideations, intent or plan. Patient denies any auditory, visual hallucinations and denies any paranoia or delusions. Patients admits to using drugs as noted above. PAST PSYCHIATRIC HISTORY: Patient has a a history of polysubstance abuse. Patient denies being on any psychiatric medications. However does claim that he does take Valium at times. Patient denies any previous psychiatric hospitalizations. Patient denies any psychiatric outpatient follow-up. Patient denies any history of suicide attempts in the past. PAST MEDICAL HISTORY: as per medicine H and P ALLERGIES: as per EMR. CHEMICAL DEPENDENCY HISTORY: as per HPI. FAMILY PSYCHIATRIC/SUBSTANCE USE HISTORY: denies SOCIAL HISTORY: Patient was born and raised in [facility]. He states that he completed up to 10th grade in school and then dropped out and then came back to do his GED. He states that he has no kids he lives with his brother. He is single. He works in construction. He previously went to group home and also present for different charges including fraud possession of drugs, resisting arrest and a DUI. MENTAL STATUS EXAM: General Appearance: Patient appears to be thin, long hair, disheveled, stated age is alert, pleasant, and attempts to be cooperative. Patient appears to have fair hygiene and grooming wearing hospital gown with fair eye contact. Behavior: Patient is calmly lying in bed without any agitated behavior. Somewhat anxious. Speech: Patient's speech is fluent and nonpressured. Mood/Affect: Patient reports their mood is "depressed and anxious", affect is congruent Suicidality/Homicidality: Patient denies having any suicidal or homicidal ideation intent or plan. Perceptions: Patient denies any visual hallucinations and denies any auditory hallucinations Though content/process: There is no evidence of any delusional thought content and thought process is linear and goal-directed. Focused on medications. Memory and concentration: AOX3, grossly intact for the purposes of this session. Can spell "WORLD" backwards Judgment and insight: poor IMPRESSIONS: Depressive disorder unspecified, rule out substance-induced depressive disorder Generalized anxiety disorder Possible benzodiazepine abuse Opioid use disorder Cannabis use disorder Nicotine dependence PLAN: -At this time patient DOES NOT meet criteria for inpatient psychiatric ad mission. -Would recommend the following medication changes/additions: Started Cymbalta 30 mg daily for mood/30/pain, trazodone 100 mg daily at bedtime for insomnia/mood, clonidine 3 times a day when necessary for opiate withdrawal symptoms, dicyclomine when necessary and when necessary. Discontinued Restoril. Can continue on with same dose of Valium however would not advise increasing at this time. -health outreach worker to provide patient with outpatient mental health/psychiatry resources for appropriate follow up upon discharge -Glass Ribbon Machine Operator spoke with patient about substance abuse and the harmful effects on medical and mental health, patient verbally understood and agreed. -health outreach worker to provide patient substance use treatment resources including AA/NA meetings in the community. -health outreach worker to provide patient with access line number to call for inpatient substance rehab -Communicated plan to patient's nurse -Will continue to follow along prn if requested -Please contact with any questions. 01/07/22 15:07
--- NOTE | 2022-01-07 15:17 | P.PN ---
Subjective Progress Note Date: 01/07/22 HISTORY OF PRESENT ILLNESS This is a 41-year-old male patient of Dr. Plata with past medical history of ulcerative colitis, tobacco use and dependence, marijuana use, para 1 use. He has had several admissions in the past for acute ulcerative colitis and that time was seen by GI recommended to be on sulfasalazine. Patient states he has chronic diarrhea but no abdominal pain and no bleeding. 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 He states he scraped it and then put Neosporin on it and covered it for 18 hours and wound became significantly worse. Patient presented to [facility] emergency center for evaluation. Patient was afebrile, heart rate 89 blood pressure 122/80, pulse ox 100% on room air. WBC 6.8, hemoglobin 12.8, platelet count 250. INR 1.0. Sodium 136, potassium 3.5, chloride 110, CO2 19, BUN 11 creatinine 0.51. Blood sugar 106. Lactic aci d 1.3. Calcium 7.2. Phosphorus 3.5. Magnesium 1.6. Total bilirubin 0.2, AST 49, ALT 31, alkaline phosphatase 144. Albumin 2.5. Urinalysis negative. In the emergency center, patient received 2 L of IV fluid, a dose of ceftriaxone and vancomycin and started on morphine 4 mg IV push every 4 hours for pain, admitted to the [facility] floor and consult in place with infectious disease. Consult added for vascular surgery evaluation. 01/05: Patient has been seen by Dr. Fields with recommendations for [facility] local wound care to the left leg ulcer, continue Rocephin and vancomycin. Consult is in place with vascular surgery for debridement. Blood culture and wound cultures in progress. Repeat blood work reveals WBC 8.8, hemoglobin 7.9 and platelet count 319. Repeat CBC came back with hemoglobin of 7.9. Sodium 134, potassium 3.5, chloride 107, CO2 19, BUN 7 creatinine 0.48. Blood sugar 131. Calcium 7.6. Total bilirubin 0.3, AST 49, ALT 36, alkaline phosphatase 131. Vancomycin trough 11.2. Patient states he continues to have some pain but mostly controlled. He states he may have some blood in his stool but it's watery. Patient will be started on sulfasalazine 1000 mg 4 times daily. 01/06: Patient has been seen by vascular surgery with plan for operative debridement and biopsy of the wounds today. Patient is afebrile, heart rate 55, blood pressure 154/91, pulse ox 99% on room air. Repeat blood work reveals WBC 9.0, hemoglobin 7.1, platelet count 326. Sodium 133, creatinine 0.6. Blood culture reveals no growth at 48 hours. Wound culture is no growth at 48 hours. Patient is continued on ceftriaxone and vancomycin. Ferrlecit 3 days will be added. Yesterday, patient started on Valium, Imodium, Zofran for heroin withdrawal and consult added for psychiatry today. 01/07: Patient underwent debridement of the bilateral lower extremity wounds yesterday with Dr. Ann. Pathology is pending. Patient remains afebrile, heart rate in the 50s and 60s, blood pressure 140/82, pulse ox 98% on room air. WBC 8.8, hemoglobin 8.7, platelet count 379. Sodium 131, potassium 3.7, chloride 103, CO2 19, BUN 6 and creatinine 0.59. Blood cultures no growth after 72 hours. Patient is continued on ceftriaxone and vancomycin. Valium was increased yesterday due to withdrawal symptoms. Patient seen by psychiatry with the following recommendations: Started Cymbalta 30 mg daily for mood/30/pain, trazodone 100 mg daily at bedtime for insomnia/mood, clonidine 3 times a day when necessary for opiate withdrawal symptoms, dicyclomine when necessary and when necessary. Discontinued Restoril. Can continue on with same dose of Valium however would not advise increasing at this time. Patient states his abdominal symptoms, diarrhea and appetite are improving. REVIEW OF SYSTEMS Constitutional: No fever, no chills, no night sweats. No weight change. No weakness, fatigue or lethargy. No daytime sleepiness. EENT: No headache. No blurred vision or double vision, no loss of vision. No loss of Hearing, no ringing in the ears, no dizziness. No nasal drainage or congestion. No epistaxis. No sore throat. Reports dental pain. Lungs: No shortness of breath, cough, no sputum production. No wheezing. Cardiovascular: No chest pain, no lower extremity edema. No palpitations. No paroxysmal nocturnal dyspnea. No orthopnea. No lightheadedness or dizziness. No syncopal episodes. Abdominal: Denies abdominal pain. Reports nausea, no vomiting. Reports diarrhea. No constipation. Reports bloody or tarry stools denies loss of appetite. Genitourinary: No dysuria, increased frequency, urgency. No urinary retention. Musculoskeletal: No myalgias. No muscle weakness, no gait dysfunction, no frequent falls. No back pain. No neck pain. Integumentary: Reports left lower extremity wounds, no lesions. No rash or pruritus. No unusual bruising. No change in hair or nails. Neurologic: No aphasia. No facial droop. No change in mentation. No head injury. No headache. No paralysis. No paresthesia. Psychiatric: No depression. Reports anxiety. No mood swings. Endocrine: No abnormal blood sugars. No weight change. No excessive sweating or thirst. No cold intolerance. PHYSICAL EXAMINATION Gen: This is a 41-year-old male, resting in bed appears to be fairly comfortable although he is having pain at the ulcer site left lower extremity HEENT: Head is atraumatic, normocephalic. Pupils equal, round. Sclerae is anicteric. NECK: Supple. No JVD. No lymphadenopathy. No thyromegaly. LUNGS: Clear to auscultation. No wheezes or rhonchi. No intercostal retractions. HEART: Regular rate and rhythm. No murmur. ABDOMEN: Soft. Bowel sounds are present. No masses. Generalized tenderness. EXTREMITIES: No pedal edema. No calf tenderness. Dorsalis pedis +2 bilaterally. Ulcer to the pretibial area left lower extremity. Please see nursing documentation for details NEUROLOGICAL: Patient is awake, alert and oriented x3. Cranial nerves 2 through 12 are grossly intact. ASSESSMENT AND PLAN 1. Pyoderma gangrenosum with ulcers to the pretibial area left lower extremity status post a right been on 01/[address] Ann. Consult with vascular surgery and consult with ID appreciated. Patient is currently on ceftriaxone and vancomycin, morphine 4 mg IV push every 4 hours for pain. 2. History of ulcerative colitis, currently stable. 3. 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 Patient continued on Valium 10 mg twice daily as needed, Imodium 4 mg twice daily, Zofran as needed, psychiatric consult appreciated and recommended: Cymbalta 30 mg daily for mood/pain, trazodone 100 mg daily at bedtime for insomnia/mood, clonidine 3 times a day when necessary for opiate withdrawal symptoms, dicyclomine when necessary and when necessary. Discontinued Restoril. Can continue on with same dose of Valium however would not advise increasing at this time. 4. Tobacco use and dependence. Patient declines need for nicotine patch. 5. Insomnia. Patient started on Restoril 15 mg at bedtime as needed. 6. Regular marijuana use. 7. History of Hepatitis C. 8. Acute GI bleed and acute blood loss anemia secondary to ulcerative colitis. Patient started on sulfasalazine 1000 mg 4 times daily, Ferrlecit 125 mg IV piggyback daily 3 ordered. 9. GI prophylaxis. Protonix 40 mild grams IV push daily. 10. DVT prophylaxis. Heparin subcu. DISCHARGE PLAN Home. Impression and plan of care have been directed as dictated by the signing physician. Teri Walter nurse practitioner acting as scribe for signing physician. Objective - Vital Signs Vital signs: Vital Signs Temp 99.2 F 01/07/22 08:00 Pulse 54 L 01/07/22 08:00 Resp 20 01/07/22 08:00 BP 140/82 01/07/22 08:00 Pulse Ox 98 01/07/22 08:00 FiO2 Intake & Output 01/06/22 01/07/22 01/07/22 18:59 06:59 18:59 Intake Total 200 Output Total 755 900 Balance -555 -900 Weight 71.668 kg Intake: IV 200 Output: Urine 750 900 Estimated Blood Loss 5 Other: Voiding Method Toilet # Voids 1 - Labs CBC & Chem 7: 01/07/22 10:43 01/07/22 10:43 Labs: Abnormal Lab Results - Last 24 Hours (Table) 01/07/22 01/07/22 Range/Units 10:43 10:43 Hgb 8.7 L (13.0-17.5) gm/dL Hct 29.7 L (39.0-53.0) % MCV 68.8 L (80.0-100.0) fL MCH 20.0 L (25.0-35.0) pg MCHC 29.1 L (31.0-37.0) g/dL RDW 16.8 H (11.5-15.5) % Sodium 131 L (137-145) mmol/L Carbon Dioxide 19 L (22-30) mmol/L BUN 6 L (9-20) mg/dL Creatinine 0.59 L (0.66-1.25) mg/dL Calcium 7.7 L (8.4-10.2) mg/dL Total Bilirubin 0.1 L (0.2-1.3) mg/dL Albumin 2.8 L (3.5-5.0) g/dL Microbiology - Last 24 Hours (Table) 01/04/22 03:15 Blood Culture - Preliminary Blood No Growth after 72 hours 01/04/22 11:30 Anaerobic Culture - Preliminary Leg - Left 01/04/22 11:30 Gram Stain - Final Leg - Left Wound Culture - Final
[2022-01-07] MEDS: DULoxetine HCL 30 MG CAPSULE.DR PO SCH (16:35)
[2022-01-07] MEDS: MELATONIN 3 MG TABLET PO SCH (20:32)
[2022-01-07] MEDS: traZODone HCL 100 MG TAB PO SCH (22:36)
[2022-01-08] MEDS: VANCOMYCIN 1,250 MG in SODIUM CHLORIDE 0.9% 250 ML IVPB SCH ×3 (03:10→19:57)
[2022-01-08] MEDS: SODIUM CHLORIDE 0.9% 1,000 ML IV SCH ×2 (03:11→20:02)
[2022-01-08] MEDS: MORPHINE SULFATE 4 MG/ML SYRINGE IV PRN ×4 (03:45→21:43)
[2022-01-08] MEDS: sulfaSALAzine 500 MG TAB PO SCH ×4 (08:24→21:43)
[2022-01-08] MEDS: HEPARIN SODIUM,PORCINE/PF 5,000 UNIT/0.5 ML SYRINGE SQ SCH ×3 (08:25→21:37)
[2022-01-08] MEDS: DULoxetine HCL 30 MG CAPSULE.DR PO SCH (08:25)
[2022-01-08] MEDS: LOPERAMIDE 2 MG CAP PO SCH ×2 (08:25→21:42)
[2022-01-08] MEDS: PANTOPRAZOLE 40 MG/10 ML VIAL IVP SCH (08:25)
[2022-01-08] MEDS: SODIUM FERRIC GLUCONAT-SUCROSE 125 MG in SODIUM CHLORIDE 0.9% 100 ML IVPB SCH (09:36)
[2022-01-08] MEDS: diazePAM 5 MG TAB PO PRN ×2 (12:42→21:51)
--- NOTE | 2022-01-08 18:49 | P.PN ---
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 [place] patient mention he has been using some Neosporin cream recorded however the patient noticed to have increasing pain swelling redness to the left leg for the patient presented to hospital patient has been describing the pain to be mostly sharp intensity is almost 10 or 10 in severity with no radiation with associated swelling redness and some drainage, patient on presentation to the hospital was afebrile and no fever have been recorded subsequently patient did have normal white count kidney function has been normal urine was negative patient was started on vancomycin and Rocephin admitted to hospital infectious disease was consulted for further management of antibiotic therapy Objective - Vital Signs Vital signs: Vital Signs Temp 98.5 F 01/08/22 07:12 Pulse 63 01/08/22 07:12 Resp 16 01/08/22 07:12 BP 130/78 01/08/22 07:12 Pulse Ox 97 01/08/22 07:12 FiO2 Intake & Output 01/07/22 01/08/22 01/08/22 18:59 06:59 18:59 Intake Total 118 Output Total 800 1100 300 Balance -800 -1100 -182 Intake: Oral 118 Output: Urine 800 1100 300 Other: # Voids 1 3 - Exam GENERAL DESCRIPTION: Middle-aged male lying in bed, no distress. No tachypnea or accessory muscle of respiration use. HEENT: Shows Pallor , no scleral icterus. Oral mucous membrane is dry. No ph aryngeal erythema or thrush NECK: Trachea central, no thyromegaly. LUNGS: Unlabored breathing. Clear to auscultation anteriorly. No wheeze or crackle. HEART: S1, S2, regular rate and rhythm. No loud murmur ABDOMEN: Soft, no tenderness , guarding or rigidity, no organomegaly EXTREMITIES: Left leg wound which is deep slough tissue surrounding redness and tender to touch SKIN: No rash, no masses palpable. NEUROLOGICAL: The patient is awake, alert, oriented x3, mood and affect normal. - Labs CBC & Chem 7: 01/07/22 10:43 01/07/22 10:43 Labs: Microbiology - Last 24 Hours (Table) 01/04/22 03:15 Blood Culture - Preliminary Blood No Growth after 96 hours Assessment and Plan Assessment: 1. Left leg cellulitis/ pyoderma gangrenosum with ulcers to pretibial area left lower extremity patient with a nonhealing wound to the left leg with the patient mention started with more than a week ago with subsequent nonhealing of the wound in this patient who did have underlying history of ulcerative colitis we will need to rule out that the ulcer laterally to underlying ulcerative colitis. Vascular surgery evaluation for debridement as well as biopsy and deep culture patient to continue vancomycin and Rocephin while awaiting further work-up to be finalized. local wound care with Medihoney followed by moist dressing change daily 2. History of ulcerative colitis; stable on current regimen. 3. 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 Patient started on Valium 5 mg twice daily as needed, Imodium 4 mg twice daily, Zofran as needed, psychiatric consult placed 4. Tobacco use and dependence. Patient declines need for nicotine patch. 5. Insomnia. Patient started on Restoril 15 mg at bedtime as needed. 6. Regular marijuana use. 7. History of Hepatitis C. 8. Acute GI bleed and acute blood loss anemia secondary to ulcerative colitis. Patient started on sulfasalazine 1000 mg 4 times daily, Ferrlecit 125 mg IV piggyback daily 3 ordered. DVT prophylaxis. Heparin subcu. CODE STATUS; full code
--- NOTE | 2022-01-08 20:08 | P.PN ---
Subjective Progress Note Date: 01/08/22 Principal diagnosis: Left lower extremity wound and cellulitis Patient is a 41-year-old male with a past medical history significant for ulcerative colitis presented to hospital with a nonhealing wound to left lower extremity and concern for secondary cellulitis. On today's evaluation that is 01/08/2022, patient remains to be afebrile, the patient pain to the left leg wound area is currently controlled with pain medication, the patient denies having any chest pain or shortness of breath or cough no abdominal pain and no significant change in his diarrhea Objective - Vital Signs Vital signs: Vital Signs Temp 98.5 F 01/08/22 07:12 Pulse 63 01/08/22 07:12 Resp 16 01/08/22 07:12 BP 130/78 01/08/22 07:12 Pulse Ox 97 01/08/22 07:12 FiO2 Intake & Output 01/07/22 01/08/22 01/08/22 18:59 06:59 18:59 Intake Total 118 Output Total 800 1100 300 Balance -800 -1100 -182 Intake: Oral 118 Output: Urine 800 1100 300 Other: # Voids 1 3 - Exam GENERAL DESCRIPTION: Middle-aged male lying in bed in no distress RESPIRATORY SYSTEM: Unlabored breathing , decreased breath sounds at bases HEART: S1 S2 regular rate and rhythm , ABDOMEN: Soft , no tenderness EXTREMITIES: Left lower extremity wound is currently dressed no drainage on the dressing - Labs CBC & Chem 7: 01/07/22 10:43 01/07/22 10:43 Labs: Abnormal Lab Results - Last 24 Hours (Table) 01/07/22 Range/Units 10:43 Sodium 131 L (137-145) mmol/L Carbon Dioxide 19 L (22-30) mmol/L BUN 6 L (9-20) mg/dL Creatinine 0.59 L (0.66-1.25) mg/dL Calcium 7.7 L (8.4-10.2) mg/dL Total Bilirubin 0.1 L (0.2-1.3) mg/dL Albumin 2.8 L (3.5-5.0) g/dL Microbiology - Last 24 Hours (Table) 01/04/22 03:15 Blood Culture - Preliminary Blood No Growth after 96 hours Assessment and Plan (1) Left leg cellulitis Current Visit: Yes Status: Acute Code(s): L03.116 - CELLULITIS OF LEFT LOWER LIMB SNOMED Code(s): 554137193 (2) Leg ulcer, left Current Visit: Yes Status: Acute Code(s): L97.929 - NON-PRS CHRONIC ULC UNSP PRT OF L LOW LEG W UNSP SEVERITY SNOMED Code(s): 76164717 Plan: 1patient with a nonhealing wound to the left leg with the patient mention started with more than a week ago with subsequent nonhealing of the wound in this patient who did have underlying history of ulcerative colitis we will need to rule out that the ulcer laterally to underlying ulcerative colitis especially pyoderma gangrenosa 2patient is status post Vascular surgery evaluation and debridement as well as biopsy and deep culture, biopsy did show some chronic inflammation no mention of any malignancy or rigidity suggestive of pyoderma, culture has been negative as well 3patient to continue with Rocephin however discontinue vancomycin as no MRSA has been seen in the culture Time with Patient: Less than 30
[2022-01-08] MEDS: MELATONIN 3 MG TABLET PO SCH (21:42)
[2022-01-08] MEDS: traZODone HCL 100 MG TAB PO SCH (21:42)
[2022-01-09] MEDS: MORPHINE SULFATE 4 MG/ML SYRINGE IV PRN ×4 (08:02→20:12)
[2022-01-09] MEDS: PANTOPRAZOLE 40 MG/10 ML VIAL IVP SCH (09:39)
[2022-01-09] MEDS: sulfaSALAzine 500 MG TAB PO SCH ×4 (09:40→21:45)
[2022-01-09] MEDS: HEPARIN SODIUM,PORCINE/PF 5,000 UNIT/0.5 ML SYRINGE SQ SCH ×2 (09:40→21:44)
[2022-01-09] MEDS: DULoxetine HCL 30 MG CAPSULE.DR PO SCH (09:41)
[2022-01-09] MEDS: LOPERAMIDE 2 MG CAP PO SCH ×2 (09:41→21:44)
[2022-01-09] MEDS: diazePAM 5 MG TAB PO PRN ×2 (09:59→21:53)
[2022-01-09] MEDS: SODIUM CHLORIDE 0.9% 1,000 ML IV SCH ×2 (11:25→21:54)
--- NOTE | 2022-01-09 18:01 | P.PN ---
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 [place] patient mention he has been using some Neosporin cream recorded however the patient noticed to have increasing pain swelling redness to the left leg for the patient presented to hospital patient has been describing the pain to be mostly sharp intensity is almost 10 or 10 in severity with no radiation with associated swelling redness and some drainage, patient on presentation to the hospital was afebrile and no fever have been recorded subsequently patient did have normal white count kidney function has been normal urine was negative patient was started on vancomycin and Rocephin admitted to hospital infectious disease was consulted for further management of antibiotic therapy 01/09/2022 Patient is seen and evaluated in room at bedside; denies any specific complaints; patient is status post debridement of left leg ulcer or vascular s urgery; tissue cultures are obtained and are pending Patient remains on IV antibiotics in form of vancomycin and Rocephin; ID on board and will make further recommendations on antibiotic therapy once culture results are available Objective - Vital Signs Vital signs: Vital Signs Temp 98.1 F 01/09/22 07:15 Pulse 65 01/09/22 07:15 Resp 16 01/09/22 07:15 BP 136/86 01/09/22 07:15 Pulse Ox 96 01/09/22 07:15 FiO2 Intake & Output 01/08/22 01/09/22 01/09/22 18:59 06:59 18:59 Intake Total 476 118 Output Total 1800 1400 1200 Balance -6372 -1400 -4971 Intake: Oral 476 118 Output: Urine 1800 1400 1200 Other: # Voids 1 - Exam GENERAL DESCRIPTION: Middle-aged male lying in bed, no distress. No tachypnea or accessory muscle of respiration use. HEENT: Shows Pallor , no scleral icterus. Oral mucous membrane is dry. No pharyngeal erythema or thrush NECK: Trachea central, no thyromegaly. LUNGS: Unlabored breathing. Clear to auscultation anteriorly. No wheeze or crackle. HEART: S1, S2, regular rate and rhythm. No loud murmur ABDOMEN: Soft, no tenderness , guarding or rigidity, no organomegaly EXTREMITIES: Left leg wound which is deep slough tissue surrounding redness and tender to touch SKIN: No rash, no masses palpable. NEUROLOGICAL: The patient is awake, alert, oriented x3, mood and affect normal. - Labs CBC & Chem 7: 01/07/22 10:43 01/07/22 10:43 Labs: Microbiology - Last 24 Hours (Table) 01/04/22 03:15 Blood Culture - Preliminary Blood No Growth after 120 hours 01/04/22 11:30 Anaerobic Culture - Final Leg - Left Assessment and Plan Assessment: 1. Left leg cellulitis/ pyoderma gangrenosum with ulcers to pretibial area left lower extremity patient with a nonhealing wound to the left leg with the patient mention started with more than a week ago with subsequent nonhealing of the wound in this patient who did have underlying history of ulcerative colitis we will need to rule out that the ulcer laterally to underlying ulcerative colitis. Vascular surgery evaluation for debridement as well as biopsy and deep culture patient to continue vancomycin and Rocephin while awaiting further work-up to be finalized. local wound care with Medih[facility] followed by moist dressing change daily 2. History of ulcerative colitis; stable on current regimen. 3. 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 Patient started on Valium 5 mg twice daily as needed, Imodium 4 mg twice daily, Zofran as needed, psychiatric consult placed 4. Tobacco use and dependence. Patient declines need for nicotine patch. 5. Insomnia. Patient started on Restoril 15 mg at bedtime as needed. 6. Regular marijuana use. 7. History of Hepatitis C. 8. Acute GI bleed and acute blood loss anemia secondary to ulcerative colitis. Patient started on sulfasalazine 1000 mg 4 times daily, Ferrlecit 125 mg IV piggyback daily 3 ordered. DVT prophylaxis. Heparin subcu. CODE STATUS; full code
[2022-01-09] MEDS: traZODone HCL 100 MG TAB PO SCH (21:44)
[2022-01-09] MEDS: MELATONIN 3 MG TABLET PO SCH (21:44)
[2022-01-10] MEDS: MORPHINE SULFATE 4 MG/ML SYRINGE IV PRN ×4 (03:43→16:21)
[2022-01-10] MEDS: HEPARIN SODIUM,PORCINE/PF 5,000 UNIT/0.5 ML SYRINGE SQ SCH (07:50)
[2022-01-10] MEDS: sulfaSALAzine 500 MG TAB PO SCH ×2 (07:58→12:22)
[2022-01-10] MEDS: LOPERAMIDE 2 MG CAP PO SCH (07:58)
[2022-01-10] MEDS: PANTOPRAZOLE 40 MG/10 ML VIAL IVP SCH (07:58)
[2022-01-10] MEDS: DULoxetine HCL 30 MG CAPSULE.DR PO SCH (07:58)
[2022-01-10] MEDS: diazePAM 5 MG TAB PO PRN (10:41)
[2022-01-10] MEDS: SODIUM CHLORIDE 0.9% 1,000 ML IV SCH (10:42)
--- NOTE | 2022-01-10 14:44 | P.DS ---
Providers Date of admission: 01/04/22 11:57 Expected date of discharge: 01/10/22 Attending physician: Adalid Plata Consults: 01/04/22 06:08 Consult Physician Routine Consulting Provider: Maryan Foreman Consult Reason/Comments: wound Do you want consulting provider notified?: Yes 01/04/22 11:56 Consult Physician Routine Consulting Provider: Madyson Ann Consult Reason/Comments: ulcer debridement Do you want consulting provider notified?: Yes 01/06/22 13:34 Consult Physician Routine Consulting Provider: Will Villa Consult Reason/Comments: heroin withdrawal Do you want consulting provider notified?: Yes Primary care physician: Adalid Plata Hospital Course: HISTORY OF PRESENT ILLNESS This is a 41-year-old male patient of Dr. Plata with past medical history of ulcerative colitis, tobacco use and dependence, marijuana use, para 1 use. He has had several admissions in the past for acute ulcerative colitis and that time was seen by GI recommended to be on sulfasalazine. Patient states he has chronic diarrhea but no abdominal pain and no bleeding. 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 He states he scraped it and then put Neosporin on it and covered it for 18 hours and wound became significantly worse. Patient presented to [facility] emergency center for evaluation. Patient was afebrile, heart rate 89 blood pressure 122/80, pulse ox 100% on room air. WBC 6.8, hemoglobin 12.8, platelet count 250. INR 1.0. Sodium 136, potassium 3.5, chloride 110, CO2 19, BUN 11 creatinine 0.51. Blood sugar 106. Lactic acid 1.3. Calcium 7.2. Phosphorus 3.5. Magnesium 1.6. Total bilirubin 0.2, AST 49, ALT 31, alkaline phosphatase 144. Albumin 2.5. Urinalysis negative. In the emergency center, patient received 2 L of IV fluid, a dose of ceftriaxone and vancomycin and started on morphine 4 mg IV push every 4 hours for pain, [facility] and consult in place with infectious disease. Consult added for vascular surgery evaluation. 01/05: Patient has been seen by Dr. Foreman with recommendations for [facility] local wound care to the left leg ulcer, continue Rocephin and vancomycin. Consult is in place with vascular surgery for debridement. Blood culture and wound cultures in progress. Repeat blood work reveals WBC 8.8, hemoglobin 7.9 and platelet count 319. Repeat CBC came back with hemoglobin of 7.9. Sodium 134, potassium 3.5, chloride 107, CO2 19, BUN 7 creatinine 0.48. Blood sugar 131. Calcium 7.6. Total bilirubin 0.3, AST 49, ALT 36, alkaline phosphatase 131. Vancomycin trough 11.2. Patient states he continues to have some pain but mostly controlled. He states he may have some blood in his stool but it's watery. Patient will be started on sulfasalazine 1000 mg 4 times daily. 01/06: Patient has been seen by vascular surgery with plan for operative debridement and biopsy of the wounds today. Patient is afebrile, heart rate 55, blood pressure 154/91, pulse ox 99% on room air. Repeat blood work reveals WBC 9.0, hemoglobin 7.1, platelet count 326. Sodium 133, creatinine 0.6. Blood culture reveals no growth at 48 hours. Wound culture is no growth at 48 hours. Patient is continued on ceftriaxone and vancomycin. Ferrlecit 3 days will be added. Yesterday, patient started on Valium, Imodium, Zofran for heroin withdrawal and consult added for psychiatry today. 01/07: Patient underwent debridement of the bilateral lower extremity wounds yesterday with Dr. Ann. Pathology is pending. Patient remains afebrile, heart rate in the 50s and 60s, blood pressure 140/82, pulse ox 98% on room air. WBC 8.8, hemoglobin 8.7, platelet count 379. Sodium 131, potassium 3.7, chloride 103, CO2 19, BUN 6 and creatinine 0.59. Blood cultures no growth after 72 hours. Patient is continued on ceftriaxone and vancomycin. Valium was increased yesterday due to withdrawal symptoms. Patient seen by psychiatry with the following recommendations: Started Cymbalta 30 mg daily for mood/30/pain, trazodone 100 mg daily at bedtime for insomnia/mood, clonidine 3 times a day wh en necessary for opiate withdrawal symptoms, dicyclomine when necessary and when necessary. Discontinued Restoril. Can continue on with same dose of Valium however would not advise increasing at this time. Patient states his abdominal symptoms, diarrhea and appetite are improving. 01/10: Pathology report revealed ulcer with acute and chronic inflammation, abscess, fibrosis, fat necrosis and reactive epidermal hyperplasia. Negative for malignancy. Dr. Foreman has recommended Keflex 500 mg every 8 hours for 7 days. Patient states that he still has pain at the ulcer site. He still has some diarrhea but under control. He has been afebrile, heart rate 94, blood pressure 133/84, pulse ox 90% on room air. DISCHARGE DIAGNOSES 1. Ulcer to the left lower extremity status post debridement on 01/[address] Ann. 2. History of ulcerative colitis, currently stable. 3. 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 4. Tobacco use and dependence. 5. Insomnia. 6. Regular marijuana use. 7. History of Hepatitis C. 8. Acute GI bleed and acute blood loss anemia secondary to ulcerative colitis. DISCHARGE PLAN Home. Greater than 35 minutes was utilized and coordinating patient's discharge. Impression and plan of care have been directed as dictated by the signing physician. Teri Walter nurse practitioner acting as scribe for signing physician. Patient Condition at Discharge: Stable Plan - Discharge Summary Discharge Rx Participant: No New Discharge Prescriptions: New sulfaSALAzine [Azulfidine] 1,000 mg PO QID #120 tab traZODone HCL [Desyrel] 100 mg PO HS #30 tab Cephalexin [Keflex] 500 mg PO Q8HR 7 Days #21 cap DULoxetine HCL [Cymbalta] 30 mg PO DAILY #30 cap Loperamide [Imodium] 4 mg PO BID cap Melatonin 6 mg PO HS tab Discharge Medication List Cephalexin [Keflex] 500 mg PO Q8HR 7 Days #21 cap 01/10/22 [Rx] DULoxetine HCL [Cymbalta] 30 mg PO DAILY #30 cap 01/10/22 [Rx] Loperamide [Imodium] 4 mg PO BID cap 01/10/22 [Rx] Melatonin 6 mg PO HS tab 01/10/22 [Rx] sulfaSALAzine [Azulfidine] 1,000 mg PO QID #120 tab 01/10/22 [Rx] traZODone HCL [Desyrel] 100 mg PO HS #30 tab 01/10/22 [Rx] Follow up Appointment(s)/Referral(s): Adalid Plata MD [Primary Care Provider] - 01/20/22 11:30 am [facility], [NON-STAFF] - 1 Week [facility]fusion [NON-STAFF] - 1 Week ([facility] - P: [phone] - IN OFFICE ONLY - COVERED AT 100%) [facility], [REFERRING] - 1 Week Maryan Foreman MD [STAFF PHYSICIAN] - 1 Week (AT [facility]ENTER [phone]) Patient Instructions/Handouts: Cellulitis (ED), Incision and Drainage (DC) Activity/Diet/Wound Care/Special Instructions: follow up with Dr foreman in wound care next week , call [phone] to make an appointment Discharge Disposition: HOME WITH HOME HEALTH SERVICES
[2022-01-10 15:14] VITALS: BP 133/84; PULSE 94; RESP 18; TEMP 98.6
== END 2022-01-10 17:03 | disposition home health service (06) | DRG 571 ==
LOC: EC 22:36 → 4SSUR 01-04 03:29 → 6NMEDSUR 01-04 04:00 → OBSVTOIN 01-04 11:57
PROVIDERS: ADMIT Internal Medicine; ATTEND Internal Medicine
PROC: 0JBP0ZZ Excision of Left Lower Leg Subcutaneous Tissue and Fascia, Open Approach (ICD-10-PCS; principal; 2022-01-06 07:30)
PROC: 0J9N0ZZ Drainage of Right Lower Leg Subcutaneous Tissue and Fascia, Open Approach (ICD-10-PCS; principal; 2022-01-06 07:30)
DX: L97.929 Non-pressure chronic ulcer of unspecified part of left lower leg with unspecified severity (principal); D62 Acute posthemorrhagic anemia; L88 Pyoderma gangrenosum; F11.23 Opioid dependence with withdrawal; Q89.09 Congenital malformations of spleen; K51.918 Ulcerative colitis, unspecified with other complication; L03.116 Cellulitis of left lower limb; Z28.310 Unvaccinated for COVID-19; F41.1 Generalized anxiety disorder; F32.A Depression, unspecified; G47.00 Insomnia, unspecified; B19.20 Unspecified viral hepatitis C without hepatic coma; F17.210 Nicotine dependence, cigarettes, uncomplicated; Z79.899 Other long term (current) drug therapy; Z60.2 Problems related to living alone
CPT/HCPCS: 36415; 80053; 80202; 81003; 83605; 83735; 84100; 85025; 85027; 85610; 85730; 87040; 87070; 87075; 87205; 88305; 96365; 96366; 96368; 96375; 99285

== ENCOUNTER 2022-01-23 14:20 | Inpatient (IN) | payer OTHER ==
--- NOTE | 2022-01-23 15:54 | XR ---
EXAMINATION TYPE: XR tibia fibula LT DATE OF EXAM: 01/23/2022 3:48 PM INDICATION: Patient age:Male; 41 years old; Reason for study: Wound; COMPARISON: None TECHNIQUE: The left tibia/fibula was examined in AP and lateral projections. FINDINGS: No evidence of any acute osseous pathology or joint dislocation. There is a skin defect/irr egularity involving the anterior medial prescott measuring about 5 cm. No radiopaque foreign body. IMPRESSION: No evidence of acute fracture. Skin defect involving the anterior medial prescott likely representing reported wound.
[2022-01-23] MEDS ORDERED: ACETAMINOPHEN TAB 325 MG TAB PO PRN (15:55)
[2022-01-23] MEDS ORDERED: NALOXONE 0.4 MG/ML 1 ML VIAL IV PRN (15:55)
--- NOTE | 2022-01-23 15:55 | ED ---
Skin/Abscess/FB HPI - General Chief complaint: Skin/Abscess/Foreign Body Stated complaint: wounds Time Seen by Provider: 01/23/22 14:29 Source: patient, RN notes reviewed Mode of arrival: EMS - History of Present Illness Initial comments: 42-year-old male presents with complaints of wound on both shins but worse on the left. He states this started as a abrasion of some sore when he was moving brush last month. He was seen with 3 days ago but he states that area is getting worse he denies any overt fevers chills or sweats no nausea no vomiting he does have some increased pain to the area. MD complaint: lesion - Related Data Previous Rx's Medication Instructions Recorded Cephalexin [Keflex] 500 mg PO Q8HR 7 Days #21 cap 01/10/22 DULoxetine HCL [Cymbalta] 30 mg PO DAILY #30 cap 01/10/22 Loperamide [Imodium] 4 mg PO BID cap 01/10/22 Melatonin 6 mg PO HS tab 01/10/22 sulfaSALAzine [Azulfidine] 1,000 mg PO QID #120 tab 01/10/22 traZODone HCL [Desyrel] 100 mg PO HS #30 tab 01/10/22 Allergies Allergy/AdvReac Type Severity Reaction Status Date / Time No Known Allergies Allergy Verified 01/23/22 14:25 Review of Systems ROS Statement: Those systems with pertinent positive or pertinent negative responses have been documented in the HPI. ROS Other: All systems not noted in ROS Statement are negative. Past Medical History Additional Past Medical History / Comment(s): ulcerative colitis, spleen problems, Hep C History of Any Multi-Drug Resistant Organisms: None Reported Past Surgical History: No Surgical Hx Reported Additional Past Surgical History / Comment(s): wound debriedment L leg Past Anesthesia/Blood Transfusion Reactions: No Reported Reaction Past Psychological History: No Psychological Hx Reported Smoking Status: Current every day smoker Past Alcohol Use History: None Reported Past Drug Use History: Heroin, Marijuana, Opiates - Past Family History Father Family Medical History: Seizure Disorder Additional Family Medical History / Comment(s): Father is alive at age 64 with history of seizures and hypertension. Mother Additional Family Medical History / Comment(s): Mother in her late 50s with complications from CABG. Brother(s) Additional Family Medical History / Comment(s): Patient has 2 brothers with no major medical problems. He does not have any sisters. He does not have any children. No family members have ulcerative colitis. General Exam - General Exam Comments Initial Comments: This is a well-developed well-nourished awake alert oriented 3 male General appearance: alert, in no apparent distress Head exam: Present: atraumatic, normocephalic, normal inspection Eye exam: Present: normal appearance, PERRL, EOMI. Absent: scleral icterus, conjunctival injection, periorbital swelling ENT exam: Present: normal exam, mucous membranes moist Neck exam: Present: normal inspection. Absent: tenderness, meningismus, lymphadenopathy Respiratory exam: Present: normal lung sounds bilaterally. Absent: respiratory distress, wheezes, rales, rhonchi, stridor Cardiovascular Exam: Present: regular rate, normal rhythm, normal heart sounds. Absent: systolic murmur, diastolic murmur, rubs, gallop, clicks GI/Abdominal exam: Present: soft, normal bowel sounds. Absent: distended, tenderness, guarding, rebound, rigid Extremities exam: Present: full ROM, tenderness, normal capillary refill, other (Anaprox a 10 cm x 10 cm area of wound over the mid left prescott no definitive bony involvement. Distally there is edema seen.). Absent: pedal edema, joint swelling, calf tenderness Back exam: Present: normal inspection Neurological exam: Present: alert, oriented X3, CN II-XII intact Psychiatric exam: Present: normal affect, normal mood Skin exam: Present: warm, dry, normal color. Absent: intact, rash Course Vital Signs 01/23/22 14:25 Temperature 98 F Pulse Rate 92 Respiratory 18 Rate Blood Pressure 111/74 O2 Sat by Pulse 99 Oximetry Medical Decision Making - Medical Decision Making I did discuss the findings with Dr. Alvarez covering for Dr. Dr. Plata patient will be admitted with wound care consultation - Radiology Data Radiology results: image reviewed (Image reviewed evidence of the soft tissue lesion no definitive bony involvement at this time) Disposition Clinical Impression: Leg wound, left, Failure of outpatient treatment Disposition: ADMITTED IP TO THIS [facility] Condition: Stable Referrals: Adalid Plata MD [Primary Care Provider] - 1-2 days Decision Date: 01/23/22 Decision Time: 15:55
[2022-01-23] MEDS ORDERED: predniSONE 20 MG TAB PO STA (16:18)
[2022-01-23 18:21] LABS: Anisocytosis Slight; Basophils # (A) 0.1 k/uL (0-0.2); Basophils % (A) 1 %; Eosinophils # (A) 0.3 k/uL (0-0.7); Eosinophils % (A) 2 %; HCT 26.2 % (39.0-53.0); HGB 7.3 gm/dL (13.0-17.5); Hypochromasia Marked; Lymphocytes % (A) 14 %; MCH 19.9 pg (25.0-35.0); MCV 71.3 fL (80.0-100.0); Mean Platelet Volume 7.1; Microcytosis Marked; Monocytes # (A) 0.9 k/uL (0-1.0); Monocytes % (A) 6 %; Neutrophils # (A) 10.7 k/uL (1.3-7.7); Neutrophils % (A) 75 %; Platelet Count 442 k/uL (150-450); RBC 3.68 m/uL (4.30-5.90); RDW 18.8 % (11.5-15.5); WBC 14.2 k/uL (3.8-10.6)
[2022-01-23] MEDS: PIPERACILLIN-TAZOBACTAM 3.375 GM in SODIUM CHLORIDE 0.9% 100 ML IVPB SCH ×2 (18:22→23:59)
[2022-01-23] MEDS: SODIUM CHLORIDE 0.9% 1,000 ML IV SCH ×2 (18:22→22:07)
[2022-01-23 18:26] LABS: Creatine Kinase <20 U/L (55-170)
[2022-01-23 18:28] LABS: ALT 21 U/L (4-49); AST 32 U/L (17-59); African American GFR (CKD) >90 (>60 ml/min/1.73 sqM); Albumin 2.8 g/dL (3.5-5.0); Alkaline Phosphatase 141 U/L (38-126); Anion Gap 5 mmol/L; Blood Urea Nitrogen 15 mg/dL (9-20); Calcium 8.8 mg/dL (8.4-10.2); Carbon Dioxide 24 mmol/L (22-30); Chloride 104 mmol/L (98-107); Glucose 79 mg/dL (74-99); Non-African American GFR(CKD) >90 (>60 ml/min/1.73 sqM); Potassium 4.2 mmol/L (3.5-5.1); Sodium 133 mmol/L (137-145); Total Bilirubin 0.3 mg/dL (0.2-1.3); Total Protein 6.8 g/dL (6.3-8.2)
[2022-01-23 18:36] LABS: Creatine Kinase MB 0.5 ng/mL (0.0-2.4)
[2022-01-23] MEDS: HYDROcodone/APAP 5-325MG 1 EACH TAB PO PRN (22:02)
[2022-01-23] MEDS: MELATONIN 3 MG TABLET PO SCH (22:04)
[2022-01-23] MEDS: traZODone HCL 100 MG TAB PO SCH (22:04)
[2022-01-23] MEDS: sulfaSALAzine 500 MG TAB PO SCH (22:05)
--- NOTE | 2022-01-24 01:48 | P.HPIM ---
History of Present Illness H&P Date: 01/23/22 Chief Complaint: Left leg wound Patient is a 42-year-old male with a known history of ulcerative colitis, hepatitis C, currently everyday smoker, history of heroin, marijuana and opiate use presents to ER with complaints of left lower extremity prescott wound not improving with antibiotic course. Patient states that he did have abrasion with a total brush while working at home. Started with a small wound and worsening. Patient states that he had worsening symptoms of ulcerative colitis with blood in the stools at the same time it started. Patient is supposed to follow-up with GI, Dr. Gong as an outpatient. Patient takes mesalamine at home currently. Patient was seen by his primary care physician and was started on oral antibiotics which he is currently taking with Keflex and not improving. Patient initially admitted to hospital on 01/04/2022. Patient was found IV antibiotic course with ceftriaxone and vancomycin. Further discharged on 01/10/2023 with oral antibiotic course. Wound cultures have been negative at that time. Patient was seen by ID and vascular surgery. Patient seen by vascular surgery and underwent I&D and debridement on 01/06/2022. Skin biopsy showed ulcer with acute and chronic inflammation, abscess, fibrosis, fat necrosis and reactive epidermal hyperplasia. Negative for malignancy. X-ray of the tibia and fibula showed no evidence of acute fracture. Skin defect involving the anterior medial prescott likely representing reported wound. Laboratory data WBC 14.2 hemoglobin 7.3 and platelets 18.8 Sodium 133 potassium 4.2 chloride 104 bicarb is 24 BUN 59 creatinine 0.7 AST 32 ALT 3021 alk phos 141 Review of Systems Constitutional: Patient denies any fever or chills . Generalized weakness. Abdomen: Patient denied any nausea or vomiting or abd. pain Cardiovascular: Patient denies any chest pain or short of breath no palpitations. Respiratory: patient denied any cough is from production. No shortness of breath Neurologic: Patient denied any numbness or tingling headache. Musculoskeletal: Patient denies any complaints of joint swelling or deformity. Skin: Negative Psychiatric: Negative Endocrine: No heat or cold intolerance. No recent weight gain. Genitourinary: No dysuria or hematuria. All other 14 point ROS negative except the above Past Medical History Additional Past Medical History / Comment(s): ulcerative colitis, spleen problems, Hep C History of Any Multi-Drug Resistant Organisms: None Reported Past Surgical History: No Surgical Hx Reported Additional Past Surgical History / Comment(s): wound debriedment L leg Past Anesthesia/Blood Transfusion Reactions: No Reported Reaction Past Psychological History: No Psychological Hx Reported Smoking Status: Current every day smoker Past Alcohol Use History: None Reported Past Drug Use History: Heroin, Marijuana, Opiates - Past Family History Father Family Medical History: Seizure Disorder Additional Family Medical History / Comment(s): Father is alive at age 64 with history of seizures and hypertension. Mother Additional Family Medical History / Comment(s): Mother in her late 50s with complications from CABG. Brother(s) Additional Family Medical History / Comment(s): Patient has 2 brothers with no major medical problems. He does not have any sisters. He does not have any children. No family members have ulcerative colitis. Medications and Allergies Home Medications Medication Instructions Recorded Confirmed Type Cephalexin [Keflex] 500 mg PO Q8HR 7 Days #21 cap 01/10/22 01/23/22 Rx Loperamide [Imodium] 4 mg PO BID cap 01/10/22 01/23/22 Rx Melatonin 6 mg PO HS tab 01/10/22 01/23/22 Rx sulfaSALAzine [Azulfidine] 1,000 mg PO QID #120 tab 01/10/22 01/23/22 Rx traZODone HCL 100 mg PO HS PRN 01/23/22 01/23/22 History Allergies Allergy/AdvReac Type Severity Reaction Status Date / Time No Known Allergies Allergy Verified 01/23/22 14:25 Physical Exam Vitals: Vital Signs Temp Pulse Resp BP Pulse Ox 01/23/22 14:25 98 F 92 18 111/74 99 Intake and Output 01/23/22 01/23/22 01/23/22 06:59 14:59 22:59 Other: Weight 72.575 kg PHYSICAL EXAMINATION: Patient is lying in the bed comfortably, no acute distress, awake alert and oriented.. HEENT: Normocephalic. Neck is supple. Pupils reactive. Nostrils clear. Oral cavity is moist. Neck reveals no JVD, carotid bruits, or thyromegaly. CHEST EXAMINATION: Trachea is central. Symmetrical expansion. Lung ag clear to auscultation and percussion. CARDIAC: Normal S1, S2 with no gallops. No murmurs ABDOMEN: Soft. Bowel sounds present. Nontender. No organomegaly. No abdominal bruits. Extremities: reveal no edema. No clubbing or cyanosis Neurologically awake, alert, oriented x3 with well-coordinated movements. No focal deficits noted Skin: Patient does have left prescott 4 x 4 inches wound with sloughing edges and minimal purulence at the center. Psychiatric: Coperative. Nonsuicidal, anxious. Musculoskeletal: No joint swelling or deformity. Normal range of motion. 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 ID evaluation. Continue with wound care. Patient will be started on prednisone 40 mg daily and tapering over the period of 4 weeks. Monitor clinical improvement closely. Patient will need GI follow- up as an outpatient for initiation of immunotherapy. Monitor H&H. Continue with pain management and follow-up closely. Prognosis is guarded at this time. Time with Patient: Greater than 30
[2022-01-24] MEDS: sulfaSALAzine 500 MG TAB PO SCH ×5 (03:08→21:04)
[2022-01-24 08:31] LABS: African American GFR (CKD) >90 (>60 ml/min/1.73 sqM); Anion Gap 3 mmol/L; Blood Urea Nitrogen 18 mg/dL (9-20); C Reactive Protein 6.4 mg/dL (<1.0); Calcium 8.5 mg/dL (8.4-10.2); Carbon Dioxide 24 mmol/L (22-30); Chloride 107 mmol/L (98-107); Glucose 112 mg/dL (74-99); Non-African American GFR(CKD) >90 (>60 ml/min/1.73 sqM); Potassium 5.5 mmol/L (3.5-5.1); Sodium 134 mmol/L (137-145)
[2022-01-24] MEDS ORDERED: DULoxetine HCL 30 MG CAPSULE.DR PO SCH (09:00)
[2022-01-24] MEDS ORDERED: predniSONE 50 MG TAB PO SCH (09:00)
[2022-01-24] MEDS: HEPARIN SODIUM,PORCINE/PF 5,000 UNIT/0.5 ML SYRINGE SQ SCH ×3 (09:01→15:35)
[2022-01-24] MEDS: PIPERACILLIN-TAZOBACTAM 3.375 GM in SODIUM CHLORIDE 0.9% 100 ML IVPB SCH ×2 (09:01→15:53)
[2022-01-24 09:41] LABS: Anisocytosis Slight; Basophils % (A) 0 %; Eosinophils # (A) 0.1 k/uL (0-0.7); Eosinophils % (A) 1 %; HCT 25.2 % (39.0-53.0); HGB 7.2 gm/dL (13.0-17.5); Hypochromasia Marked; Lymphocytes # (A) 1.4 k/uL (1.0-4.8); Lymphocytes % (A) 9 %; MCH 20.3 pg (25.0-35.0); MCHC 28.6 g/dL (31.0-37.0); MCV 70.7 fL (80.0-100.0); Mean Platelet Volume 8.5; Microcytosis Marked; Monocytes # (A) 0.7 k/uL (0-1.0); Monocytes % (A) 5 %; Neutrophils % (A) 85 %; Platelet Count 375 k/uL (150-450); RBC 3.57 m/uL (4.30-5.90); RDW 18.6 % (11.5-15.5); WBC 15.3 k/uL (3.8-10.6)
[2022-01-24] MEDS: HYDROcodone/APAP 5-325MG 1 EACH TAB PO PRN (09:45)
[2022-01-24] MEDS ORDERED: HYDROcodone/APAP 7.5-325MG 1 EACH TAB PO PRN (12:52)
--- NOTE | 2022-01-24 12:56 | P.CONS ---
History of Present Illness - Reason for Consult Consult date: 01/24/22 wound care - History of Present Illness This is a 41-year-old gentleman being seen on [address]. for nonhealing ulceration to the left medial lower extremity. Patient states that the ulceration has been there for approximately 3 weeks. Patient states that he was in the hospital 2 weeks ago where he underwent a surgical debridement and scheduled to see wound care at [facility]. Patient states the ulceration started as a cut. However he was not able to see wound care until this and the ulceration has worsened during that time. Ulceration measures approximately 4 x 4 x 0.1 cm a significant amount of slough and nonviable tissue to the wound base with minimal granulation. The wound edges are not attached to the wound base. No tunneling or undermining noted. Maceration noted to the periwound. Patient's past medical history significant for ulcerative colitis, smoking, illicit drug use, EtOH abuse Review Of Systems: Constitutional: No fever, no chills, no night sweats. No weight change. No weakness, fatigue or lethargy. No daytime sleepiness. Integumentary:reports wounds, no lesions. No rash or pruritus. No unusual bruising. No change in hair or nails. Physical exam: General Appearance: Alert, cooperative, no distress, appears stated age. Skin: See HPI all other Skin color, texture, tugor normal, no rashes or lesions. Neurologic: Alert oriented x3 Assessment: 1. Nonhealing ulceration of left lower extremity with fat layer exposure 2. Cellulitis Plan: 1. Apply Santyl, saline moistened gauze, dry gauze, rolled gauze and secure with paper tape. Patient would benefit from advanced wound care and wound care center. We'll be happy to see him in the wound care center upon discharge. New Thank you for the consultation any questions to contact the wound care center DNP note has been reviewed and discussed with Dr. England and the impression and plan of care has been directed as dictated. Past Medical History Past Medical History: GI Bleed, Skin Disorder Additional Past Medical History / Comment(s): ulcerative colitis, spleen problems, Hep C History of Any Multi-Drug Resistant Organisms: None Reported Past Surgical History: No Surgical Hx Reported Additional Past Surgical History / Comment(s): wound debriedment L leg Past Anesthesia/Blood Transfusion Reactions: No Reported Reaction Past Psychological History: No Psychological Hx Reported Smoking Status: Current every day smoker Past Alcohol Use History: None Reported Past Drug Use History: Heroin, Marijuana, Opiates - Past Family History Father Family Medical History: Seizure Disorder Additional Family Medical History / Comment(s): Father is alive at age 64 with history of seizures and hypertension. Mother Additional Family Medical History / Comment(s): Mother in her late 50s with complications from CABG. Brother(s) Additional Family Medical History / Comment(s): Patient has 2 brothers with no major medical problems. He does not have any sisters. He does not have any children. No family members have ulcerative colitis. Medications and Allergies Home Medications Medication Instructions Recorded Confirmed Type Cephalexin [Keflex] 500 mg PO Q8HR 7 Days #21 cap 01/10/22 01/23/22 Rx Loperamide [Imodium] 4 mg PO BID cap 01/10/22 01/23/22 Rx Melatonin 6 mg PO HS tab 01/10/22 01/23/22 Rx sulfaSALAzine [Azulfidine] 1,000 mg PO QID #120 tab 01/10/22 01/23/22 Rx traZODone HCL 100 mg PO HS PRN 01/23/22 01/23/22 History Allergies Allergy/AdvReac Type Severity Reaction Status Date / Time No Known Allergies Allergy Verified 01/23/22 14:25 Physical Exam Vitals: Vital Signs Temp Pulse Pulse Resp BP BP Pulse Ox 01/24/22 11:46 98.2 F 81 15 118/72 100 01/24/22 04:46 97.4 F L 69 16 115/70 98 01/23/22 20:45 97.9 F 80 16 114/74 100 01/23/22 16:00 98.2 F 94 18 120/76 98 01/23/22 14:25 98 F 92 18 111/74 99 Intake and Output 01/23/22 01/24/22 01/24/22 22:59 06:59 14:59 Output Total 700 200 Balance -700 -200 Output: Urine 700 200 Other: Voiding Method Toilet Toilet # Bowel Movements 1 Weight 72.575 kg Results CBC & Chem 7: 01/24/22 07:39 01/24/22 07:39 Labs: Abnormal Lab Results - Last 24 Hours (Table) 01/23/22 01/23/22 01/23/22 Range/Units 17:55 17:55 17:55 WBC 14.2 H (3.8-10.6) k/uL RBC 3.68 L (4.30-5.90) m/uL Hgb 7.3 L (13.0-17.5) gm/dL Hct 26.2 L (39.0-53.0) % MCV 71.3 L (80.0-100.0) fL MCH 19.9 L (25.0-35.0) pg MCHC 28.0 L (31.0-37.0) g/dL RDW 18.8 H (11.5-15.5) % Neutrophils # 10.7 H (1.3-7.7) k/uL Sodium 133 L (137-145) mmol/L Potassium (3.5-5.1) mmol/L Creatinine (0.66-1.25) mg/dL Glucose (74-99) mg/dL Alkaline Phosphatase 141 H (38-126) U/L Total Creatine Kinase <20 L (55-170) U/L C-Reactive Protein (<1.0) mg/dL Albumin 2.8 L (3.5-5.0) g/dL 01/24/22 01/24/22 Range/Units 07:39 07:39 WBC 15.3 H (3.8-10.6) k/uL RBC 3.57 L (4.30-5.90) m/uL Hgb 7.2 L (13.0-17.5) gm/dL Hct 25.2 L (39.0-53.0) % MCV 70.7 L (80.0-100.0) fL MCH 20.3 L (25.0-35.0) pg MCHC 28.6 L (31.0-37.0) g/dL RDW 18.6 H (11.5-15.5) % Neutrophils # 13.0 H (1.3-7.7) k/uL Sodium 134 L (137-145) mmol/L Potassium 5.5 H (3.5-5.1) mmol/L Creatinine 0.58 L (0.66-1.25) mg/dL Glucose 112 H (74-99) mg/dL Alkaline Phosphatase (38-126) U/L Total Creatine Kinase (55-170) U/L C-Reactive Protein 6.4 H (<1.0) mg/dL Albumin (3.5-5.0) g/dL Assessment and Plan (1) Non-pressure chronic ulcer of left calf with fat layer exposed Current Visit: Yes Status: Acute Code(s): L97.222 - NON-PRESSURE CHRONIC ULCER OF LEFT CALF W FAT LAYER EXPOSED SNOMED Code(s): 34590385474126243 (2) Failure of outpatient treatment Current Visit: Yes Status: Acute Code(s): Z78.9 - OTHER SPECIFIED HEALTH STATUS SNOMED Code(s): 645078454
[2022-01-24] MEDS ORDERED: COLLAGENASE 250 UNIT/GM OINTMENT 30 GM TUBE TOPICAL SCH (13:00)
[2022-01-24] MEDS ORDERED: HYDROmorphone 0.5 MG/0.5 ML SYRINGE IVP PRN (13:27)
[2022-01-24] MEDS ORDERED: KETOROLAC 15 MG/ML 1 ML VIAL IVP PRN (14:19)
--- NOTE | 2022-01-24 14:23 | PN ---
PROGRESS NOTE DATE OF SERVICE: 01/24/2022 This 41-year-old gentleman admitted with significant pyoderma gangrenosum on the left leg is complaining of severe pain, severe erythema and large ulceration also. No chest pain no palpitation. PHYSICAL EXAMINATION: Pulse is 69 blood pressure 150/70, respiration 16. Chest: Clear to auscultation. Cardiovascular S1. S2. Abdomen: Soft. Legs: Left leg significant ulcer, erythema, tenderness and macerations present of pyoderma gangrenosum. LABS: Reviewed. Hemoglobin 7.2. ASSESSMENT: 1. Acute pyoderma gangrenosum of the left leg with severe pain. 2. Ulcerative colitis. 3. History of hepatitis C. RECOMMENDATIONS AND DISCUSSION: In this 41-year-old gentleman who presented with multiple complex medical issues, at this time, I recommend to continue the current medications. The patient is on p.o. steroids, not feeling better. I would recommend IV methylprednisone at least 3-5 days and increase the pain management. Continue with DVT prophylaxis. Prognosis guarded. Further recommendations to follow. See orders. MMODL / IJN: [id number] /
[2022-01-24] MEDS ORDERED: methylPREDNISolone SOD SUCCIN 1,000 MG in SODIUM CHLORIDE 0.9% 250 ML IVPB SCH (14:30)
[2022-01-24 17:13] LABS: Glucose,Whole Blood 149 mg/dL (70-110)
[2022-01-24 17:16] LABS: Appearance,Urine Clear (Clear); Bilirubin,Urine Negative (Negative); Blood,Urine Negative (Negative); Color,Urine Yellow; Glucose,Urine (UA) Trace (Negative); Ketones,Urine Negative (Negative); Leukocyte Esterase,Urine Negative (Negative); Nitrite,Urine Negative (Negative); Protein,Urine Trace (Negative); Specific Gravity,Urine 1.029 (1.001-1.035); Urobilinogen,Urine <2.0 mg/dL (<2.0)
[2022-01-24] MEDS: INSULIN ASPART (NovoLOG) 100 UNIT/ML VIAL SQ SCH ×2 (17:54→21:04)
[2022-01-24 20:00] VITALS: BP 126/76; PULSE 80; RESP 16; TEMP 98
[2022-01-24 20:29] LABS: Glucose,Whole Blood 177 mg/dL (70-110)
[2022-01-24] MEDS: SODIUM CHLORIDE 0.9% 1,000 ML IV SCH (20:57)
[2022-01-24] MEDS: traZODone HCL 100 MG TAB PO SCH (21:04)
[2022-01-24] MEDS: MELATONIN 3 MG TABLET PO SCH (21:04)
--- NOTE | 2022-01-24 22:41 | P.CONS ---
History of Present Illness - Reason for Consult Consult date: 01/24/22 - History of Present Illness Patient is a 41-year-old male with a past medical history significant for ulcerative colitis hepatitis C in this patient who was recently admitted to this facility with wound to the left lower extremity patient did have debridement of the wound as well as biopsy however there was negative local culture were negative patient was subsequent discharged home on oral Keflex patient is now presenting back to the hospital concerning for increasing pain and drainage to the left leg wound patient described the pain to be throbbing intensity almost 10 out of 10 with no radiation, patient mention he did have some drainage and did have some discoloration to the wound base no surrounding r edness on arrival to the ER the patient was afebrile and no fever have been recorded subsequently he did have white count of 14.2 with a left shift kidney function has been normal liver enzymes are normal urine has been negative blood cultures obtained which are currently pending patient did have x-rays of the tibia and fibula no evidence of acute fracture skin defect involving the anterior medial prescott likely representing reported wound patient was started on Zosyn infectious disease was consulted for further management of antibiotic therapy Past Medical History Past Medical History: GI Bleed, Skin Disorder Additional Past Medical History / Comment(s): ulcerative colitis, spleen problems, Hep C History of Any Multi-Drug Resistant Organisms: None Reported Past Surgical History: No Surgical Hx Reported Additional Past Surgical History / Comment(s): wound debriedment L leg Past Anesthesia/Blood Transfusion Reactions: No Reported Reaction Past Psychological History: No Psychological Hx Reported Smoking Status: Current every day smoker Past Alcohol Use History: None Reported Past Drug Use History: Heroin, Marijuana, Opiates - Past Family History Father Family Medical History: Seizure Disorder Additional Family Medical History / Comment(s): Father is alive at age 64 with history of seizures and hypertension. Mother Additional Family Medical History / Comment(s): Mother in her late 50s with complications from CABG. Brother(s) Additional Family Medical History / Comment(s): Patient has 2 brothers with no major medical problems. He does not have any sisters. He does not have any children. No family members have ulcerative colitis. Medications and Allergies Home Medications Medication Instructions Recorded Confirmed Type Cephalexin [Keflex] 500 mg PO Q8HR 7 Days #21 cap 01/10/22 01/23/22 Rx Loperamide [Imodium] 4 mg PO BID cap 01/10/22 01/23/22 Rx Melatonin 6 mg PO HS tab 01/10/22 01/23/22 Rx sulfaSALAzine [Azulfidine] 1,000 mg PO QID #120 tab 01/10/22 01/23/22 Rx traZODone HCL 100 mg PO HS PRN 01/23/22 01/23/22 History Allergies Allergy/AdvReac Type Severity Reaction Status Date / Time No Known Allergies Allergy Verified 01/23/22 14:25 Physical Exam Vitals: Vital Signs Temp Pulse Pulse Resp BP BP Pulse Ox 01/24/22 04:46 97.4 F L 69 16 115/70 98 01/23/22 20:45 97.9 F 80 16 114/74 100 01/23/22 16:00 98.2 F 94 18 120/76 98 01/23/22 14:25 98 F 92 18 111/74 99 Intake and Output 01/23/22 01/24/22 01/24/22 22:59 06:59 14:59 Output Total 700 200 Balance -700 -200 Output: Urine 700 200 Other: Voiding Method Toilet Toilet # Bowel Movements 1 Weight 72.575 kg Results CBC & Chem 7: 01/24/22 07:39 01/24/22 07:39 Labs: Abnormal Lab Results - Last 24 Hours (Table) 01/23/22 01/23/22 01/23/22 Range/Units 17:55 17:55 17:55 WBC 14.2 H (3.8-10.6) k/uL RBC 3.68 L (4.30-5.90) m/uL Hgb 7.3 L (13.0-17.5) gm/dL Hct 26.2 L (39.0-53.0) % MCV 71.3 L (80.0-100.0) fL MCH 19.9 L (25.0-35.0) pg MCHC 28.0 L (31.0-37.0) g/dL RDW 18.8 H (11.5-15.5) % Neutrophils # 10.7 H (1.3-7.7) k/uL Sodium 133 L (137-145) mmol/L Potassium (3.5-5.1) mmol/L Creatinine (0.66-1.25) mg/dL Glucose (74-99) mg/dL Alkaline Phosphatase 141 H (38-126) U/L Total Creatine Kinase <20 L (55-170) U/L C-Reactive Protein (<1.0) mg/dL Albumin 2.8 L (3.5-5.0) g/dL 01/24/22 01/24/22 Range/Units 07:39 07:39 WBC 15.3 H (3.8-10.6) k/uL RBC 3.57 L (4.30-5.90) m/uL Hgb 7.2 L (13.0-17.5) gm/dL Hct 25.2 L (39.0-53.0) % MCV 70.7 L (80.0-100.0) fL MCH 20.3 L (25.0-35.0) pg MCHC 28.6 L (31.0-37.0) g/dL RDW 18.6 H (11.5-15.5) % Neutrophils # 13.0 H (1.3-7.7) k/uL Sodium 134 L (137-145) mmol/L Potassium 5.5 H (3.5-5.1) mmol/L Creatinine 0.58 L (0.66-1.25) mg/dL Glucose 112 H (74-99) mg/dL Alkaline Phosphatase (38-126) U/L Total Creatine Kinase (55-170) U/L C-Reactive Protein 6.4 H (<1.0) mg/dL Albumin (3.5-5.0) g/dL Assessment and Plan Plan: 1patient with a chronic nonhealing wound to the left lower extremity in this patient who did to have ulcerative colitis as well as chronic hepatitis C with concern for possible complication associated with underlying ulcerative colitis versus hepatitis CT with possible second cellulitis. 2patient will benefit from vascular surgery reevaluation debridement and repeat biopsy as well as culture. 3local wound care with Santyl followed by moist dressing change daily. 4continue with empiric Zosyn. We will follow on clinical condition and cultures to further adjust medication if needed Thank you for this consultation will follow this patient along with you Time with Patient: Greater than 30
[2022-01-25] MEDS ORDERED: MULTIVITAMINS, THERA 1 EACH TAB PO SCH (12:00)
[2022-01-25] MEDS ORDERED: FOLIC ACID 1 MG TAB PO SCH (12:00)
[2022-01-25] MEDS ORDERED: THIAMINE 100 MG TAB PO SCH (12:00)
--- NOTE | 2022-01-25 21:00 | DS ---
DISCHARGE SUMMARY FINAL DIAGNOSIS: 1. Acute pyoderma gangrenosum of the left leg with severe pain. 2. Ulcerative colitis. 3. History of hepatitis C. DISCHARGE DISPOSITION: Patient left the hospital AGAINST MEDICAL ADVICE. HISTORY OF PRESENT ILLNESS: This 41-year-old gentleman admitted with severe pyoderma gangrenosum was being treated; however, the patient left the hospital AGAINST MEDICAL ADVICE. The prognosis remains guarded. Please refer to the previous dictations and consultations and staff notes for further details. MMODL / IJN: [id number] /
== END 2022-01-24 23:04 | disposition left against medical advice (07) | DRG 603 ==
LOC: EC 14:20 → 5NMEDONC 15:55
PROVIDERS: ADMIT Internal Medicine; ATTEND Internal Medicine
DX: L88 Pyoderma gangrenosum (principal); L97.222 Non-pressure chronic ulcer of left calf with fat layer exposed; K51.90 Ulcerative colitis, unspecified, without complications; Z53.29 Procedure and treatment not carried out because of patient's decision for other reasons; L03.116 Cellulitis of left lower limb; B18.2 Chronic viral hepatitis C; G47.00 Insomnia, unspecified; F17.210 Nicotine dependence, cigarettes, uncomplicated; Z82.0 Family history of epilepsy and other diseases of the nervous system; Z82.49 Family history of ischemic heart disease and other diseases of the circulatory system
CPT/HCPCS: 80048; 80053; 81003; 82550; 82553; 85025; 86140; 87040; 99284

== ENCOUNTER 2022-02-03 08:36 | Inpatient (IN) | payer OTHER ==
[2022-02-03] MEDS ORDERED: PANTOPRAZOLE 40 MG/10 ML VIAL IVP STA (08:57)
[2022-02-03] MEDS ORDERED: HYDROmorphone 0.5 MG/0.5 ML SYRINGE IVP STA (08:57)
--- NOTE | 2022-02-03 09:00 | ED ---
General Adult HPI - General Chief complaint: Abdominal Pain Stated complaint: revisit - leg pain, colitis Time Seen by Provider: 02/03/22 08:46 Source: patient, RN notes reviewed Mode of arrival: ambulatory Limitations: no limitations - History of Present Illness Initial comments: Patient is a pleasant 41-year-old male presenting to the emergency Department with abdominal discomfort. Patient was in the hospital a couple weeks ago with similar problems. Patient has history of colitis. Patient states symptoms have been worsening over the past week. Patient is having diarrhea around 4 times daily with occasional blood. Decreased appetite. Patient also has a leg wound. Patient was on antibiotics however since that stopped it seems to be getting worse. Patient also has discomfort of his leg, in the left. - Related Data Home Medications Medication Instructions Recorded Confirmed traZODone HCL 100 mg PO HS PRN 01/23/22 02/03/22 Previous Rx's Medication Instructions Recorded Loperamide [Imodium] 4 mg PO BID cap 01/10/22 Melatonin 6 mg PO HS tab 01/10/22 sulfaSALAzine [Azulfidine] 1,000 mg PO QID #120 tab 01/10/22 Allergies Allergy/AdvReac Type Severity Reaction Status Date / Time No Known Allergies Allergy Verified 02/03/22 10:29 Review of Systems ROS Statement: Those systems with pertinent positive or pertinent negative responses have been documented in the HPI. ROS Other: All systems not noted in ROS Statement are negative. Constitutional: Denies: fever Eyes: Denies: eye pain ENT: Denies: ear pain Respiratory: Denies: cough, dyspnea Cardiovascular: Denies: chest pain Endocrine: Denies: fatigue Gastrointestinal: Reports: abdominal pain, nausea, diarrhea. Denies: vomiting Genitourinary: Denies: dysuria Musculoskeletal: Denies: back pain Skin: Reports: as per HPI Past Medical History Past Medical History: GI Bleed, Skin Disorder Additional Past Medical History / Comment(s): ulcerative colitis, spleen problems, Hep C History of Any Multi-Drug Resistant Organisms: None Reported Past Surgical History: No Surgical Hx Reported Additional Past Surgical History / Comment(s): wound debriedment L leg Past Anesthesia/Blood Transfusion Reactions: No Reported Reaction Past Psychological History: No Psychological Hx Reported Smoking Status: Current every day smoker Past Alcohol Use History: None Reported Past Drug Use History: Heroin, Marijuana, Opiates - Past Family History Father Family Medical History: Seizure Disorder Additional Family Medical History / Comment(s): Father is alive at age 64 with history of seizures and hypertension. Mother Additional Family Medical History / Comment(s): Mother in her late 50s with complications from CABG. Brother(s) Additional Family Medical History / Comment(s): Patient has 2 brothers with no major medical problems. He does not have any sisters. He does not have any children. No family members have ulcerative colitis. General Exam Limitations: no limitations General appearance: alert, in no apparent distress Head exam: Present: normocephalic Eye exam: Present: normal appearance Neck exam: Present: normal inspection Respiratory exam: Present: normal lung sounds bilaterally Cardiovascular Exam: Present: regular rate, normal rhythm Expanded Peripheral pulses: 2+: Posterior Tibialis (R), Posterior Tibialis (L), Dorsalis Pedis (R), Dorsalis Pedis (L) GI/Abdominal exam: Present: soft, tenderness (Mild diffuse tenderness), normal bowel sounds. Absent: distended, guarding, rebound, rigid, pulsatile mass Extremities exam: Present: other (Leg wound) Neurological exam: Present: alert. Absent: motor sensory deficit Psychiatric exam: Present: normal affect, normal mood Skin exam: Present: other ((Wound: Left mid medial prescott approximately 11 x 6 cm, stage II/III) Course Vital Signs 02/03/22 02/03/22 08:38 11:00 Temperature 98.1 F Pulse Rate 95 70 Respiratory 18 18 Rate Blood Pressure 134/78 124/77 O2 Sat by Pulse 100 100 Oximetry Medical Decision Making - Medical Decision Making Patient reevaluated and updated. Case was discussed with Dr. Salter, covering for Dr. Plata, who will admit. 2 units of blood transfusion has been ordered - Lab Data Result diagrams: 02/03/22 08:59 Lab Results 02/03/22 02/03/22 02/03/22 Range/Units 08:59 08:59 08:59 WBC 23.2 H (3.8-10.6) k/uL RBC 2.54 L (4.30-5.90) m/uL Hgb 5.1 L* D (13.0-17.5) gm/dL Hct 17.9 L* (39.0-53.0) % MCV 70.5 L (80.0-100.0) fL MCH 19.9 L (25.0-35.0) pg MCHC 28.3 L (31.0-37.0) g/dL RDW 18.2 H (11.5-15.5) % Plt Count 626 H (150-450) k/uL MPV 7.3 Neutrophils % 84 % Lymphocytes % 6 % Monocytes % 8 % Eosinophils % 1 % Basophils % 0 % Neutrophils # 19.4 H (1.3-7.7) k/uL Lymphocytes # 1.4 (1.0-4.8) k/uL Monocytes # 1.9 H (0-1.0) k/uL Eosinophils # 0.2 (0-0.7) k/uL Basophils # 0.1 (0-0.2) k/uL Hypochromasia Marked Anisocytosis Slight Microcytosis Marked PT 11.2 (9.0-12.0) sec INR 1.0 (<1.2) APTT 28.8 (22.0-30.0) sec Plasma Lactic Acid Terence 1.4 (0.7-2.0) mmol/L - Radiology Data Radiology results: image reviewed (KUB x-ray reveals possible edema or colitis. Possible ileus. Nonobstructive left tib-fib x-ray shows similar soft tissue lucencies.) Critical Care Time Critical Care Time: Yes Total Critical Care Time: 32 Disposition Clinical Impression: Leg wound, left, Anemia due to gastrointestinal blood loss Disposition: ADMITTED IP TO THIS [facility] Condition: Serious Is patient prescribed a controlled substance at d/c from ED?: No Referrals: Adalid Plata MD [Primary Care Provider] - 1-2 days Time of Disposition: 12:19
[2022-02-03 11:35] LABS: Partial Thromboplastin Time 28.8 sec (22.0-30.0); Prothrombin Time 11.2 sec (9.0-12.0)
[2022-02-03 11:44] LABS: ALT 15 U/L (4-49); AST 20 U/L (17-59); African American GFR (CKD) >90 (>60 ml/min/1.73 sqM); Alkaline Phosphatase 148 U/L (38-126); Amylase <30 U/L (30-110); Anion Gap 8 mmol/L; Blood Urea Nitrogen 14 mg/dL (9-20); Calcium 8.7 mg/dL (8.4-10.2); Carbon Dioxide 23 mmol/L (22-30); Chloride 103 mmol/L (98-107); Glucose 106 mg/dL (74-99); Lipase <10 U/L (23-300); Non-African American GFR(CKD) >90 (>60 ml/min/1.73 sqM); Potassium 3.8 mmol/L (3.5-5.1); Sodium 134 mmol/L (137-145); Total Bilirubin 0.4 mg/dL (0.2-1.3); Total Protein 6.7 g/dL (6.3-8.2)
[2022-02-03 11:51] LABS: Anisocytosis Slight; Basophils # (A) 0.1 k/uL (0-0.2); Basophils % (A) 0 %; Eosinophils # (A) 0.2 k/uL (0-0.7); Eosinophils % (A) 1 %; Hypochromasia Marked; Lymphocytes # (A) 1.4 k/uL (1.0-4.8); Lymphocytes % (A) 6 %; MCH 19.9 pg (25.0-35.0); MCHC 28.3 g/dL (31.0-37.0); MCV 70.5 fL (80.0-100.0); Mean Platelet Volume 7.3; Microcytosis Marked; Monocytes # (A) 1.9 k/uL (0-1.0); Monocytes % (A) 8 %; Neutrophils # (A) 19.4 k/uL (1.3-7.7); Neutrophils % (A) 84 %; Platelet Count 626 k/uL (150-450); RBC 2.54 m/uL (4.30-5.90); RDW 18.2 % (11.5-15.5); WBC 23.2 k/uL (3.8-10.6)
[2022-02-03 11:54] LABS: HCT 17.9 % (39.0-53.0); HGB 5.1 gm/dL (13.0-17.5)
--- NOTE | 2022-02-03 12:11 | XR ---
EXAMINATION TYPE: XR tibia fibula LT DATE OF EXAM: 02/03/2022 11:54 AM INDICATION: Patient age:Male; 41 years old; Reason for study: infection; COMPARISON: Tibia fibula 01/23/2022. TECHNIQUE: The left tibia/fibula was examined in AP and lateral projections. FINDINGS: Redemonstration of soft tissue lucencies through the medial aspect of the left leg. No evid ence of osseous erosion. No evidence of any acute osseous pathology, joint dislocation. IMPRESSION: 1. Similar soft tissue subjacent lucencies involving the medial and anterior aspects of the left leg . No evidence of osseous erosion. 2. No evidence of acute fracture.
--- NOTE | 2022-02-03 12:12 | XR ---
EXAMINATION TYPE: XR KUB DATE OF EXAM: 02/03/2022 Comparison: 05/12/2020 Clinical History: 41-year-old male abdominal pain with nausea and vomiting Findings: A couple borderline distended small bowel loops in the left mid abdomen measuring up to 2.9 cm. Sugge stion of some thumbprinting along the descending and sigmoid colon. Supine imaging limited for assess ment of free air. Impression: Suggestion of some thumbprinting along the descending and sigmoid colon. This can be seen with colon wall edema/colitis. There may be a mild adjacent small bowel ileus on the left. Overall bowel gas pat tern is nonobstructive. Supine imaging limited for assessment of free air.
[2022-02-03] MEDS ORDERED: NALOXONE 0.4 MG/ML 1 ML VIAL IV PRN (12:21)
[2022-02-03] MEDS ORDERED: PIPERACILLIN-TAZOBACTAM 3.375 GM in SODIUM CHLORIDE 0.9% 100 ML IVPB STA (12:22)
[2022-02-03] MEDS: HYDROcodone/APAP 5-325MG 1 EACH TAB PO PRN (14:22)
[2022-02-03] MEDS ORDERED: DEXTROSE 50% SYRINGE 50 ML IVP PRN ×2 (16:55)
[2022-02-03 17:15] LABS: Glucose,Whole Blood 123 mg/dL (70-110)
[2022-02-03] MEDS: HYDROmorphone 0.5 MG/0.5 ML SYRINGE IVP PRN ×2 (17:35→23:19)
[2022-02-03] MEDS: INSULIN ASPART (NovoLOG) 100 UNIT/ML VIAL SQ SCH ×2 (17:37→20:50)
[2022-02-03] MEDS ORDERED: FUROSEMIDE 10 MG/ML 2 ML VIAL IV STA (17:52)
[2022-02-03] MEDS: methylPREDNISolone SOD SUCCI 125 MG/2 ML VIAL IV SCH ×2 (18:08→23:22)
[2022-02-03 20:27] LABS: Glucose,Whole Blood 135 mg/dL (70-110)
[2022-02-03] MEDS ORDERED: HYDROcodone/APAP 10-325MG 1 EACH TAB PO ONE (20:30)
[2022-02-03] MEDS: MELATONIN 3 MG TABLET PO SCH (20:44)
[2022-02-03] MEDS: PIPERACILLIN-TAZOBACTAM 3.375 GM in SODIUM CHLORIDE 0.9% 100 ML IVPB SCH (20:44)
--- NOTE | 2022-02-03 22:11 | P.CONS ---
History of Present Illness - Reason for Consult Consult date: 02/03/22 Leg wound Requesting physician: Arpan Reyes - Chief Complaint Abdominal pain and left leg wound x few days - History of Present Illness Patient is a 41-year male with a past medical he significant for ulcerative colitis in this patient with a history of a nonhealing wound to the left lower extremity that has been debrided and biopsied by vascular surgery and was negative for pyoderma gangrenosum but was suspected, patient culture were negative and was subsequent discharged home on oral Keflex patient was supposed to follow-up with the wound care center but never showed up subsequently was readmitted to the hospital for similar problem and left AGAINST MEDICAL ADVICE within 24 hours patient now presenting back to the hospital for complaints of abdominal pain and also decreased appetite but no vomiting no fever patient did have a nonhealing wound to the left lower extremity has been complaining of pain mostly dull aching to sharp 5-6 out of 10 and radiation patient did have minimal drainage but no foul-smelling on arrival to the ER the patient was afebrile and no fever have been recorded subsequently patient did have white count 23.2 hemoglobin was 5.1 creatinine has been normal liver enzymes are normal local cultures obtained which are currently pending x-ray of the tibia-fibula did not show any bony changes patient was started on Zosyn infectious disease was consulted for further management of antibiotic therapy Review of Systems Positive point has been mentioned in the HPI rest of the systems are negative Past Medical History Past Medical History: GI Bleed, Skin Disorder Additional Past Medical History / Comment(s): ulcerative colitis, spleen problems, Hep C History of Any Multi-Drug Resistant Organisms: None Reported Past Surgical History: No Surgical Hx Reported Additional Past Surgical History / Comment(s): wound debriedment L leg Past Anesthesia/Blood Transfusion Reactions: No Reported Reaction Past Psychological History: No Psychological Hx Reported Smoking Status: Current every day smoker Past Alcohol Use History: None Reported Past Drug Use History: Heroin, Marijuana, Opiates - Past Family History Father Family Medical History: Seizure Disorder Additional Family Medical History / Comment(s): Father is alive at age 64 with history of seizures and hypertension. Mother Additional Family Medical History / Comment(s): Mother in her late 50s with complications from CABG. Brother(s) Additional Family Medical History / Comment(s): Patient has 2 brothers with no major medical problems. He does not have any sisters. He does not have any children. No family members have ulcerative colitis. Medications and Allergies Home Medications Medication Instructions Recorded Confirmed Type Loperamide [Imodium] 4 mg PO BID cap 01/10/22 02/03/22 Rx Melatonin 6 mg PO HS tab 01/10/22 02/03/22 Rx sulfaSALAzine [Azulfidine] 1,000 mg PO QID #120 tab 01/10/22 02/03/22 Rx traZODone HCL 100 mg PO HS PRN 01/23/22 02/03/22 History Allergies Allergy/AdvReac Type Severity Reaction Status Date / Time No Known Allergies Allergy Verified 02/03/22 10:29 Physical Exam Vitals: Vital Signs Temp Pulse Resp BP Pulse Ox 02/03/22 15:13 98.2 F 74 17 123/77 100 02/03/22 14:43 98.3 F 78 18 121/79 100 02/03/22 14:33 98.3 F 69 18 125/78 100 02/03/22 11:00 70 18 124/77 100 02/03/22 08:38 98.1 F 95 18 134/78 100 Intake and Output 02/03/22 02/03/22 02/03/22 06:59 14:59 22:59 Intake Total 0 Balance 0 Intake: Blood Product 0 Rc Pheresis 2 As3 Unit 0 [id number] Other: Weight 65.771 kg GENERAL DESCRIPTION: Middle-aged male lying in bed, no distress. No tachypnea or accessory muscle of respiration use. HEENT: Shows Pallor , no scleral icterus. Oral mucous membrane is dry. No pharyngeal erythema or thrush NECK: Trachea central, no thyromegaly. LUNGS: Unlabored breathing. Clear to auscultation anteriorly. No wheeze or crackle. HEART: S1, S2, regular rate and rhythm. No loud murmur ABDOMEN: Soft, no tenderness , guarding or rigidity, no organomegaly EXTREMITIES: Left lower extremity wound currently dressed no drainage on dress ing SKIN: No rash, no masses palpable. NEUROLOGICAL: The patient is awake, alert, oriented x3, mood and affect normal. Results CBC & Chem 7: 02/05/22 09:47 02/05/22 09:43 Labs: Abnormal Lab Results - Last 24 Hours (Table) 02/03/22 02/03/22 02/03/22 Range/Units 08:59 08:59 12:25 WBC 23.2 H (3.8-10.6) k/uL RBC 2.54 L (4.30-5.90) m/uL Hgb 5.1 L* D (13.0-17.5) gm/dL Hct 17.9 L* (39.0-53.0) % MCV 70.5 L (80.0-100.0) fL MCH 19.9 L (25.0-35.0) pg MCHC 28.3 L (31.0-37.0) g/dL RDW 18.2 H (11.5-15.5) % Plt Count 626 H (150-450) k/uL Neutrophils # 19.4 H (1.3-7.7) k/uL Monocytes # 1.9 H (0-1.0) k/uL Sodium 134 L (137-145) mmol/L Creatinine 0.63 L (0.66-1.25) mg/dL Glucose 106 H (74-99) mg/dL Alkaline Phosphatase 148 H (38-126) U/L Albumin 3.0 L (3.5-5.0) g/dL Amylase <30 L (30-110) U/L Lipase <10 L (23-300) U/L Crossmatch See Detail Assessment and Plan (1) Leg wound, left Current Visit: Yes Status: Acute Code(s): S81.802A - UNSPECIFIED OPEN WOUND, LEFT LOWER LEG, INITIAL ENCOUNTER SNOMED Code(s): 047086709 Plan: 1patient with elevated white count in this patient presented to hospital with abdominal pain in this patient did have a history of ulcerative colitis also nonhealing wound to the left lower extremity with increasing pain and some drainage and concern for possible secondary cellulitis, source of elevated white count could be abdominal versus left lower extremity cellulitis. 2patient benefit from vascular surgery evaluation debridement and deep cultures. 3continue with Zosyn while awaiting further work-up to be completed. We will follow on clinical condition and cultures to further adjust medication if needed Thank you for this consultation will follow this patient along with you Time with Patient: Greater than 30
[2022-02-03 23:21] LABS: Estimated Average Glucose UNC
[2022-02-03] MEDS: traZODone HCL 100 MG TAB PO PRN (23:40)
--- NOTE | 2022-02-04 01:24 | HP ---
HISTORY AND PHYSICAL CHIEF COMPLAINT: Left leg pain and weakness and bleeding. HISTORY OF PRESENT ILLNESS: This is a 41-year-old gentleman with a past medical history of multiple medical illnesses including Crohn disease, recently admitted with left leg ulcer. The patient apparently left the hospital against medical advice. The patient has apparent bleeding also. Currently, the patient complains of severe pain. Hemoglobin is 5.1. The patient also has ulceration on the left side also. There is no history of any fever, rigor or chills. PAST MEDICAL HISTORY: Reviewed and include history of Crohn disease, history of ulcerative colitis, GI bleed, history of problems, hepatitis C. HOME MEDICATIONS: Reviewed and include trazodone 100 mg, dose and rest of the medications reviewed. ALLERGIES: None. FAMILY HISTORY: History of seizure disorder. SOCIAL HISTORY: Heroin, marijuana, opiates. REVIEW OF SYSTEMS: A 14-point review of system is negative as mentioned earlier. PHYSICAL EXAMINATION: VITAL SIGNS: Pulse is 95, blood pressure 135/78, respirations 18. HEENT: Conjunctivae normal. NECK: No JVD. CARDIOVASCULAR: S1, S2 muffled. . ABDOMEN: Soft. Mild diffuse discomfort. No guarding. No rigidity. LEGS: Significant ulceration of the left leg present. NERVOUS SYSTEM: Diffusely weak. SKIN: . JOINTS: No active deforming arthropathy. LYMPHATICS: No lymph node LABORATORY DATA: WBC , hemoglobin is 5.1. Rest of the labs are noted. ASSESSMENT: 1. Nonhealing ulcers of the left leg, possible pyoderma gangrenosum. 2. Increased WBC. 3. Severe anemia, hemoglobin 5.1, acute on chronic blood loss anemia. 4. Ulcerative colitis. 5. Multiple medical issues. 6. History of noncompliance. RECOMMENDATIONS AND DISCUSSION: This is a 41-year-old gentleman, who presented with multiple complex medical issues as listed earlier. At this time, I recommend at least 2 units of transfusion with Lasix, pain medications. I would also recommend broad-spectrum IV antibiotics. Consult GI as well as Infectious Disease. Resume the home medications. The prognosis is extremely guarded. I would also recommend a CBC and CRP and evaluate the patient for steroids also. The prognosis is guarded. Further recommendations to follow. MMODL / IJN: [id number] /
[2022-02-04] MEDS: HYDROcodone/APAP 5-325MG 1 EACH TAB PO PRN ×3 (02:20→14:57)
[2022-02-04] MEDS: methylPREDNISolone SOD SUCCI 125 MG/2 ML VIAL IV SCH (06:09)
[2022-02-04] MEDS: PIPERACILLIN-TAZOBACTAM 3.375 GM in SODIUM CHLORIDE 0.9% 100 ML IVPB SCH ×3 (06:09→21:09)
[2022-02-04 06:12] LABS: Glucose,Whole Blood 161 mg/dL (70-110)
[2022-02-04] MEDS: INSULIN ASPART (NovoLOG) 100 UNIT/ML VIAL SQ SCH ×5 (06:12→21:00)
[2022-02-04] MEDS: HYDROmorphone 0.5 MG/0.5 ML SYRINGE IVP PRN ×3 (06:12→18:06)
[2022-02-04] MEDS: methylPREDNISolone SOD SUCCI 40 MG/ML 1 ML VIAL IV SCH ×2 (08:29→17:16)
[2022-02-04] MEDS: PANTOPRAZOLE 40 MG/10 ML VIAL IVP SCH (08:29)
--- NOTE | 2022-02-04 09:55 | P.CONS ---
History of Present Illness - Reason for Consult Consult date: 02/04/22 Ulcerative colitis, GI bleed Requesting physician: Arpan Reyes - Chief Complaint Abdominal pain, leg wounds - History of Present Illness This is a 41-year-old male with a past medical history of ulcerative colitis diagnosed at age 15 treated in the past with steroids and sulfalazine however has not been compliant with medications. He presented to the emergency department with complaints of abdominal pain, and leg wounds. His past medical history includes abnormal spleen, ulcerative colitis, hepatitis C, alcohol abuse, tobacco abuse, and heroine user. He states he has been feeling better and only getting these flares every 1-2 years. He states so he has not been taking any medication. He does not follow with any manager digital ad operations and occasionally has seen his PCP Dr. Plata. He states he has difficulty with transportation for appointments. He denies any treatment for his hepatitis C infection. He is still currently using heroin, last use was within 1 week ago. His last hospitalization was in March 2021 which he was treated with steroids. His last colonoscopy was in [address] [facility] significant for active colitis. He states he is having anywhere from 2-6 loose bowel movements daily. He states in the last few days most have had blood in them. on his admission hemoglobin was 5.1, he received 2 units of blood. Current labs are pending. He was started on Zosyn and Solu-Medrol 60 mg every 8 hours. Patient was recently admitted and seen for bilateral lower extremity leg ulcers and had debridements done by vascular surgery. Labs: WBC 23.2 hemoglobin 5.1 hematocrit 17.9 platelet count 626,000 INR 1.0 sodium 134 potassium 3.8 BUN 14 creatinine 0.63 glucose 106 total bilirubin 0.4 AST 20 ALT 15 alkaline phosphatase 148 amylase less than 30 lipase less than 10 Review of Systems REVIEW OF SYSTEMS: CARDIOPULMONARY: No chest pain or shortness of breath. Gastrointestinal: Abdominal pain. Nausea, no vomiting. Bloody bowel movements, 2-6 loose stools per day. GENITOURINARY: No dysuria or hematuria. MUSCULOSKELETAL: Reports normal range of motion., Joint pain. SKIN: No rashes. No jaundice. Bilateral lower extremity ulcers. ENDOCRINE: No chills, fevers. No excessive weight gain or loss. No polydipsia or polyuria. PSYCHIATRIC: Unremarkable. NEUROLOGY: No change in mental status. Denies dizziness, headache. ENT: Vision unremarkable. CONSTITUTIONALWeight loss room 30-40 pounds. No fever, chills, night sweats. Past Medical History Past Medical History: GI Bleed, Skin Disorder Additional Past Medical History / Comment(s): ulcerative colitis, spleen problems, Hep C History of Any Multi-Drug Resistant Organisms: None Reported Past Surgical History: No Surgical Hx Reported Additional Past Surgical History / Comment(s): wound debriedment L leg Past Anesthesia/Blood Transfusion Reactions: No Reported Reaction Past Psychological History: No Psychological Hx Reported Smoking Status: Current every day smoker Past Alcohol Use History: None Reported Past Drug Use History: Heroin, Marijuana, Opiates - Past Family History Father Family Medical History: Seizure Disorder Additional Family Medical History / Comment(s): Father is alive at age 64 with history of seizures and hypertension. Mother Additional Family Medical History / Comment(s): Mother in her late 50s with complications from CABG. Brother(s) Additional Family Medical History / Comment(s): Patient has 2 brothers with no major medical problems. He does not have any sisters. He does not have any children. No family members have ulcerative colitis. Medications and Allergies Home Medications Medication Instructions Recorded Confirmed Type Loperamide [Imodium] 4 mg PO BID cap 01/10/22 02/03/22 Rx Melatonin 6 mg PO HS tab 01/10/22 02/03/22 Rx sulfaSALAzine [Azulfidine] 1,000 mg PO QID #120 tab 01/10/22 02/03/22 Rx traZODone HCL 100 mg PO HS PRN 01/23/22 02/03/22 History Allergies Allergy/AdvReac Type Severity Reaction Status Date / Time No Known Allergies Allergy Verified 02/03/22 10:29 Physical Exam Vitals: Vital Signs Temp Pulse Pulse Resp BP BP Pulse Ox 02/04/22 03:27 97.6 F 52 L 16 116/68 98 02/04/22 00:00 98.5 F 71 18 112/71 99 02/03/22 20:18 98.5 F 75 18 118/74 100 02/03/22 19:00 96.6 F L 78 16 125/76 100 02/03/22 18:23 98.1 F 81 18 137/83 100 02/03/22 17:53 98.3 F 64 16 132/84 100 02/03/22 17:43 98.2 F 71 16 123/82 99 02/03/22 17:03 66 16 121/81 100 02/03/22 15:13 98.2 F 74 17 123/77 100 02/03/22 14:43 98.3 F 78 18 121/79 100 02/03/22 14:33 98.3 F 69 18 125/78 100 02/03/22 11:00 70 18 124/77 100 02/03/22 08:38 98.1 F 95 18 134/78 100 Intake and Output 02/03/22 02/04/22 02/04/22 22:59 06:59 14:59 Intake Total 588 Output Total 1000 200 Balance -412 -200 Intake: Blood Product 588 Rc As-1 Unit 310 [id number] Rc Pheresis 2 As3 Unit 278 [id number] Output: Urine 1000 200 Other: Weight 65.771 kg General appearance: The patient is alert, oriented, appears in no acute distress. HET: Head is normocephalic and atraumatic. Conjunctiva pink. Sclera anicteric. Neck: Supple without lymphadenopathy. Trachea midline. Heart: S1 S2. Regular rate and rhythm. Lungs: Clear to auscultation. Abdomen: Soft, nontender, nondistended with bowel sounds. No guarding or rigidity. Skin: No rashes. No jaundice. Bilateral lower extremity ulcers with dressing intact. Extremities: Normal skin color and turgor. No pedal edema. Neurological: No focal deficits. Alert and oriented x3. Results CBC & Chem 7: 02/04/22 10:24 02/03/22 08:59 Labs: Abnormal Lab Results - Last 24 Hours (Table) 02/03/22 02/03/22 02/03/22 Range/Units 08:59 08:59 12:25 WBC 23.2 H (3.8-10.6) k/uL RBC 2.54 L (4.30-5.90) m/uL Hgb 5.1 L* D (13.0-17.5) gm/dL Hct 17.9 L* (39.0-53.0) % MCV 70.5 L (80.0-100.0) fL MCH 19.9 L (25.0-35.0) pg MCHC 28.3 L (31.0-37.0) g/dL RDW 18.2 H (11.5-15.5) % Plt Count 626 H (150-450) k/uL Neutrophils # 19.4 H (1.3-7.7) k/uL Monocytes # 1.9 H (0-1.0) k/uL Sodium 134 L (137-145) mmol/L Creatinine 0.63 L (0.66-1.25) mg/dL Glucose 106 H (74-99) mg/dL POC Glucose (mg/dL) (70-110) mg/dL Alkaline Phosphatase 148 H (38-126) U/L Albumin 3.0 L (3.5-5.0) g/dL Amylase <30 L (30-110) U/L Lipase <10 L (23-300) U/L Crossmatch See Detail 02/03/22 02/03/22 02/04/22 Range/Units 17:13 20:26 06:10 WBC (3.8-10.6) k/uL RBC (4.30-5.90) m/uL Hgb (13.0-17.5) gm/dL Hct (39.0-53.0) % MCV (80.0-100.0) fL MCH (25.0-35.0) pg MCHC (31.0-37.0) g/dL RDW (11.5-15.5) % Plt Count (150-450) k/uL Neutrophils # (1.3-7.7) k/uL Monocytes # (0-1.0) k/uL Sodium (137-145) mmol/L Creatinine (0.66-1.25) mg/dL Glucose (74-99) mg/dL POC Glucose (mg/dL) 123 H 135 H 161 H (70-110) mg/dL Alkaline Phosphatase (38-126) U/L Albumin (3.5-5.0) g/dL Amylase (30-110) U/L Lipase (23-300) U/L Crossmatch Microbiology - Last 24 Hours (Table) 02/03/22 11:05 Gram Stain - Preliminary Leg - Left Wound Culture - Preliminary Assessment and Plan (1) Ulcerative colitis Narrative/Plan: 41-year-old male with a history of ulcerative colitis is age of 15 noncompliant with treatment and medication. Came in for abdominal pain, leg pain, and bloody bowel movements. Patient recently admitted in beginning of December for lower extremity ulcers. Had debridement and again no follow-up with wound care. He has been noncompliant and not following with any manager digital ad operations or PCP in the outpatient setting. He has not been on any medications for his ulcerative colitis. Last flare March 2021. Previous colonoscopy 2016 showing active colitis. Again likely with exacerbation of ulcerative colitis due to noncompliance. Will start patient on Solu-Medrol 20 mg every 8 hours. Continue Zosyn. Recommend starting Remicade, this will be initiated as outpatient through our office. Also recommend outpatient EGD and colonoscopy will set this up in the next 1-2 weeks. Current Visit: No Status: Acute Code(s): K51.90 - ULCERATIVE COLITIS, UNSPECIFIED, WITHOUT COMPLICATIONS SNOMED Code(s): 34382422 (2) Pyoderma gangrenosum Current Visit: Yes Status: Acute Code(s): L88 - PYODERMA GANGRENOSUM SNOMED Code(s): 15710651 (3) Anemia due to gastrointestinal blood loss Current Visit: Yes Status: Acute Code(s): D50.0 - IRON DEFICIENCY ANEMIA SECONDARY TO BLOOD LOSS (CHRONIC) SNOMED Code(s): 068242687 (4) Hepatitis C Narrative/Plan: Patient has not had treatment for his hepatitis C. He is still current heroine user. Current Visit: No Status: Acute Code(s): B19.20 - UNSPECIFIED VIRAL HEPATITIS C WITHOUT HEPATIC COMA SNOMED Code(s): 71201399 (5) IV drug abuse Current Visit: Yes Status: Acute Code(s): F19.10 - OTHER PSYCHOACTIVE SUBSTANCE ABUSE, UNCOMPLICATED SNOMED Code(s): 965644814 Plan: 1. Continue symptomatic and supportive care 2. Monitor for withdrawal symptoms from drug and alcohol abuse 3. Change Solu-Medrol to 20 mg IV every 8 hours 4. Clear liquid diet, advance as tolerated 5. CBC daily, transfuse for hemoglobin less than 7 6. No plans on endoscopic evaluation at this time. Recommend outpatient EGD/colonoscopy within the next 1-2 weeks. We'll have this set up by her office. 7. Recommend initiation of Remicade again this will be set up outpatient. 8. Upon discharge recommend prednisone 40 mg daily, taper by 5 mg per week and follow-up with gastroenterology Thank you for allowing us to participate in the care of the patient, the GI service will sign off, gastroenterology will not be available at the hospital this weekend and through next week. If further evaluation by gastroenterology is required the patient will need transfer as per the primary team's discretion. Dr. Merlin Gong I agree with the dictator's note, documented as a scribe by Nallely Kaur.
[2022-02-04 11:47] LABS: Anisocytosis Slight; Basophils % (A) 0 %; Eosinophils % (A) 0 %; HCT 31.1 % (39.0-53.0); Hypochromasia Marked; Lymphocytes # (A) 0.9 k/uL (1.0-4.8); Lymphocytes % (A) 4 %; MCH 21.4 pg (25.0-35.0); MCHC 29.7 g/dL (31.0-37.0); MCV 71.9 fL (80.0-100.0); Mean Platelet Volume 8.2; Microcytosis Marked; Monocytes # (A) 0.9 k/uL (0-1.0); Monocytes % (A) 4 %; Neutrophils % (A) 91 %; Platelet Count 463 k/uL (150-450); Poikilocytosis Moderate; RBC 4.33 m/uL (4.30-5.90); RDW 19.7 % (11.5-15.5)
[2022-02-04 11:48] LABS: HGB 9.3 gm/dL (13.0-17.5)
[2022-02-04 12:01] LABS: Glucose,Whole Blood 138 mg/dL (70-110)
[2022-02-04 13:34] LABS: ALT 15 U/L (4-49); AST 24 U/L (17-59); African American GFR (CKD) >90 (>60 ml/min/1.73 sqM); Albumin 2.8 g/dL (3.5-5.0); Alkaline Phosphatase 119 U/L (38-126); Anion Gap 10 mmol/L; Blood Urea Nitrogen 16 mg/dL (9-20); Calcium 8.4 mg/dL (8.4-10.2); Carbon Dioxide 20 mmol/L (22-30); Chloride 103 mmol/L (98-107); Glucose 142 mg/dL (74-99); Non-African American GFR(CKD) >90 (>60 ml/min/1.73 sqM); Potassium 4.7 mmol/L (3.5-5.1); Sodium 133 mmol/L (137-145); Total Bilirubin 0.4 mg/dL (0.2-1.3); Total Protein 6.4 g/dL (6.3-8.2)
[2022-02-04 14:29] VITALS: BMI 20.4
[2022-02-04] MEDS: ONDANSETRON 4 MG/2 ML VIAL IVP PRN (14:48)
[2022-02-04 16:52] LABS: Glucose,Whole Blood 145 mg/dL (70-110)
--- NOTE | 2022-02-04 17:37 | P.PN ---
Subjective Progress Note Date: 02/04/22 41-year male with a past medical he significant for ulcerative colitis in this patient with a history of a nonhealing wound to the left lower extremity that has been debrided and biopsied by vascular surgery and was negative for pyoderma gangrenosum but was suspected, patient culture were negative and was subsequent discharged home on oral Keflex patient was supposed to follow-up with the wound care center but never showed up subsequently was readmitted to the hospital for similar problem and left AGAINST MEDICAL ADVICE within 24 hours patient now presenting back to the hospital for complaints of abdominal pain and also decreased appetite but no vomiting no fever patient did have a nonhealing wound to the left lower extremity has been complaining of pain mostly dull aching to sharp 5-6 out of 10 and radiation patient did have minimal drainage but no foul-smelling on arrival to the ER the patient was afebrile and no fever have been recorded subsequently patient did have white count 23.2 hemoglobin was 5.1 creatinine has been normal liver enzymes are normal local cultures obtained which are currently pending x-ray of the tibia-fibula did not show any bony changes patient was started on Zosyn infectious disease was consulted for further management of antibiotic therapy Objective - Vital Signs Vital signs: Vital Signs Temp 98.2 F 02/04/22 08:18 Pulse 79 02/04/22 08:18 Resp 16 02/04/22 08:18 BP 124/67 02/04/22 08:18 Pulse Ox 100 02/04/22 08:18 FiO2 Intake & Output 02/03/22 02/04/22 02/04/22 18:59 06:59 18:59 Intake Total 278 310 830 Output Total 1200 Balance 278 -890 830 Weight 65.771 kg 65.771 kg Intake: IV 10 Invasive Line 1 10 Oral 820 Blood Product 278 310 Rc As-1 Unit 0 310 [id number] Rc Pheresis 2 As3 Unit 278 [id number] Output: Urine 1200 Other: Voiding Method Toilet - Exam PHYSICAL EXAMINATION: GENERAL: The patient is alert and oriented x3, not in any acute distress. Well developed, well nourished. HEENT: Pupils are round and equally reacting to light. EOMI. No scleral icterus. No conjunctival pallor. Normocephalic, atraumatic. No pharyngeal erythema. No thyromegaly. CARDIOVASCULAR: S1 and S2 present. No murmurs, rubs, or gallops. PULMONARY: Chest is clear to auscultation, no wheezing or crackles. ABDOMEN: Soft, nontender, nondistended, normoactive bowel sounds. No palpable organomegaly. MUSCULOSKELETAL: No joint swelling or deformity. EXTREMITIES: No cyanosis, clubbing, or pedal edema. NEUROLOGICAL: Gross neurological examination did not reveal any focal deficits. SKIN: No rashes. - Labs CBC & Chem 7: 02/04/22 10:24 02/04/22 11:12 Labs: Abnormal Lab Results - Last 24 Hours (Table) 02/03/22 02/03/22 02/03/22 Range/Units 08:59 08:59 12:25 WBC 23.2 H (3.8-10.6) k/uL RBC 2.54 L (4.30-5.90) m/uL Hgb 5.1 L* D (13.0-17.5) gm/dL Hct 17.9 L* (39.0-53.0) % MCV 70.5 L (80.0-100.0) fL MCH 19.9 L (25.0-35.0) pg MCHC 28.3 L (31.0-37.0) g/dL RDW 18.2 H (11.5-15.5) % Plt Count 626 H (150-450) k/uL Neutrophils # 19.4 H (1.3-7.7) k/uL Monocytes # 1.9 H (0-1.0) k/uL Sodium 134 L (137-145) mmol/L Creatinine 0.63 L (0.66-1.25) mg/dL Glucose 106 H (74-99) mg/dL POC Glucose (mg/dL) (70-110) mg/dL Alkaline Phosphatase 148 H (38-126) U/L Albumin 3.0 L (3.5-5.0) g/dL Amylase <30 L (30-110) U/L Lipase <10 L (23-300) U/L Crossmatch See Detail 02/03/22 02/03/22 02/04/22 Range/Units 17:13 20:26 06:10 WBC (3.8-10.6) k/uL RBC (4.30-5.90) m/uL Hgb (13.0-17.5) gm/dL Hct (39.0-53.0) % MCV (80.0-100.0) fL MCH (25.0-35.0) pg MCHC (31.0-37.0) g/dL RDW (11.5-15.5) % Plt Count (150-450) k/uL Neutrophils # (1.3-7.7) k/uL Monocytes # (0-1.0) k/uL Sodium (137-145) mmol/L Creatinine (0.66-1.25) mg/dL Glucose (74-99) mg/dL POC Glucose (mg/dL) 123 H 135 H 161 H (70-110) mg/dL Alkaline Phosphatase (38-126) U/L Albumin (3.5-5.0) g/dL Amylase (30-110) U/L Lipase (23-300) U/L Crossmatch Microbiology - Last 24 Hours (Table) 02/03/22 11:05 Gram Stain - Preliminary Leg - Left Wound Culture - Preliminary Assessment and Plan Assessment: 1. Severe symptomatic anemia; acute on chronic blood loss anemia 2. Nonhealing ulcer left lower extremity/possible pyoderma gangrenosum 3. Ulcerative colitis; acute exacerbation 1patient with elevated white count in this patient presented to hospital with abdominal pain in this patient did have a history of ulcerative colitis also nonhealing wound to the left lower extremity with increasing pain and some drainage and concern for possible secondary cellulitis, source of elevated white count could be abdominal versus left lower extremity cellulitis. 2patient benefit from vascular surgery evaluation debridement and deep cultures. 3continue with Zosyn while awaiting further work-up to be completed
[2022-02-04] MEDS ORDERED: HYDROmorphone 0.5 MG/0.5 ML SYRINGE IVP STA (18:51)
--- NOTE | 2022-02-04 19:06 | P.GSCN ---
History of Present Illness Consult date: 02/04/22 Reason for Consult: Nonhealing bilateral lower extremity wounds. History of present illness: Patient is a 41-year-old male with a history of inflammatory bowel disease who has been taking immunosuppressive and has developed a bilateral lower extremity wounds. The patient works in the [employer] business and has suffered multiple scrapes and wounds to his lower extremities. He denies any needle injections in these areas. Approximately 1 month prior he had undergone a debridement in the operating room for by Dr. Ann. Unfortunately due to a or reasons the patient was not able to follow in the wound care clinic. Part of this was because he was not able to get appointment in the wound care clinic for 3 weeks post discharge. Past Medical History Past Medical History: GI Bleed, Skin Disorder Additional Past Medical History / Comment(s): ulcerative colitis, spleen problems, Hep C History of Any Multi-Drug Resistant Organisms: None Reported Past Surgical History: No Surgical Hx Reported Additional Past Surgical History / Comment(s): wound debriedment L leg Past Anesthesia/Blood Transfusion Reactions: No Reported Reaction Past Psychological History: No Psychological Hx Reported Smoking Status: Current every day smoker Past Alcohol Use History: None Reported Past Drug Use History: Heroin, Marijuana, Opiates - Past Family History Father Family Medical History: Seizure Disorder Additional Family Medical History / Comment(s): Father is alive at age 64 with history of seizures and hypertension. Mother Additional Family Medical History / Comment(s): Mother in her late 50s with complications from CABG. Brother(s) Additional Family Medical History / Comment(s): Patient has 2 brothers with no major medical problems. He does not have any sisters. He does not have any children. No family members have ulcerative colitis. Medications and Allergies Home Medications Medication Instructions Recorded Confirmed Type Loperamide [Imodium] 4 mg PO BID cap 01/10/22 02/03/22 Rx Melatonin 6 mg PO HS tab 01/10/22 02/03/22 Rx sulfaSALAzine [Azulfidine] 1,000 mg PO QID #120 tab 01/10/22 02/03/22 Rx traZODone HCL 100 mg PO HS PRN 01/23/22 02/03/22 History Allergies Allergy/AdvReac Type Severity Reaction Status Date / Time No Known Allergies Allergy Verified 02/03/22 10:29 Surgical - Exam Osteopathic Statement: *. No significant issues noted on an osteopathic structural exam other than those noted in the History and Physical/Consult. Vital Signs Temp Pulse Resp BP Pulse Ox 98.1 F 95 18 134/78 100 02/03/22 08:38 02/03/22 08:38 02/03/22 08:38 02/03/22 08:38 02/03/22 08:38 Arterial perfusion of the bilateral extremities is maintained as the patient has palpable DP and PT pulses bilaterally. The patient does have stage II wounds involving both lower extremities. The largest wound is on the left leg and measures approximately 13 cm in greatest dimension and measures 3-4 mm in depth. Sloughing nonviable tissue is noted. Her graphite discussed these findings with the patient and did recommend operative debridement. answered to patient's satisfaction. This be scheduled to be performed on Monday, February 05. Results - Labs 02/04/22 10:24 02/04/22 11:12 Abnormal Lab Results - Last 24 Hours (Table) 02/03/22 02/03/22 02/03/22 Range/Units 08:59 12:25 20:26 WBC (3.8-10.6) k/uL Hgb (13.0-17.5) gm/dL Hct (39.0-53.0) % MCV (80.0-100.0) fL MCH (25.0-35.0) pg MCHC (31.0-37.0) g/dL RDW (11.5-15.5) % Plt Count (150-450) k/uL Neutrophils # (1.3-7.7) k/uL Lymphocytes # (1.0-4.8) k/uL Sodium 134 L (137-145) mmol/L Carbon Dioxide (22-30) mmol/L Creatinine 0.63 L (0.66-1.25) mg/dL Glucose 106 H (74-99) mg/dL POC Glucose (mg/dL) 135 H (70-110) mg/dL Alkaline Phosphatase 148 H (38-126) U/L Albumin 3.0 L (3.5-5.0) g/dL Amylase <30 L (30-110) U/L Lipase <10 L (23-300) U/L Crossmatch See Detail 02/04/22 02/04/2222 Range/Units 06:10 10:24 11:12 WBC 21.0 H (3.8-10.6) k/uL Hgb 9.3 L D (13.0-17.5) gm/dL Hct 31.1 L (39.0-53.0) % MCV 71.9 L (80.0-100.0) fL MCH 21.4 L (25.0-35.0) pg MCHC 29.7 L (31.0-37.0) g/dL RDW 19.7 H (11.5-15.5) % Plt Count 463 H (150-450) k/uL Neutrophils # 19.0 H (1.3-7.7) k/uL Lymphocytes # 0.9 L (1.0-4.8) k/uL Sodium 133 L (137-145) mmol/L Carbon Dioxide 20 L (22-30) mmol/L Creatinine (0.66-1.25) mg/dL Glucose 142 H (74-99) mg/dL POC Glucose (mg/dL) 161 H (70-110) mg/dL Alkaline Phosphatase (38-126) U/L Albumin 2.8 L (3.5-5.0) g/dL Amylase (30-110) U/L Lipase (23-300) U/L Crossmatch 02/04/22 02/04/22 Range/Units 12:00 16:50 WBC (3.8-10.6) k/uL Hgb (13.0-17.5) gm/dL Hct (39.0-53.0) % MCV (80.0-100.0) fL MCH (25.0-35.0) pg MCHC (31.0-37.0) g/dL RDW (11.5-15.5) % Plt Count (150-450) k/uL Neutrophils # (1.3-7.7) k/uL Lymphocytes # (1.0-4.8) k/uL Sodium (137-145) mmol/L Carbon Dioxide (22-30) mmol/L Creatinine (0.66-1.25) mg/dL Glucose (74-99) mg/dL POC Glucose (mg/dL) 138 H 145 H (70-110) mg/dL Alkaline Phosphatase (38-126) U/L Albumin (3.5-5.0) g/dL Amylase (30-110) U/L Lipase (23-300) U/L Crossmatch Microbiology - Last 24 Hours (Table) 02/03/22 08:59 Blood Culture - Preliminary Blood No Growth after 24 hours 02/03/22 08:59 Blood Culture - Preliminary Blood No Growth after 24 hours 02/03/22 11:05 Gram Stain - Preliminary Leg - Left Wound Culture - Preliminary Diabetes panel 02/03/22 02/03/22 02/04/22 Range/Units 08:59 08:59 11:12 Sodium 134 L 133 L (137-145) mmol/L Potassium 3.8 4.7 (3.5-5.1) mmol/L Chloride 103 103 (98-107) mmol/L Carbon Dioxide 23 20 L (22-30) mmol/L BUN 14 16 (9-20) mg/dL Creatinine 0.63 L 0.66 (0.66-1.25) mg/dL Glucose 106 H 142 H (74-99) mg/dL Hemoglobin A1c CANCELED % Calcium 8.7 8.4 (8.4-10.2) mg/dL AST 20 24 (17-59) U/L ALT 15 15 (4-49) U/L Alkaline Phosphatase 148 H 119 (38-126) U/L Total Protein 6.7 6.4 (6.3-8.2) g/dL Albumin 3.0 L 2.8 L (3.5-5.0) g/dL Calcium panel 02/03/22 02/04/22 Range/Units 08:59 11:12 Calcium 8.7 8.4 (8.4-10.2) mg/dL Albumin 3.0 L 2.8 L (3.5-5.0) g/dL Pituitary panel 02/03/22 02/04/22 Range/Units 08:59 11:12 Sodium 134 L 133 L (137-145) mmol/L Potassium 3.8 4.7 (3.5-5.1) mmol/L Chloride 103 103 (98-107) mmol/L Carbon Dioxide 23 20 L (22-30) mmol/L BUN 14 16 (9-20) mg/dL Creatinine 0.63 L 0.66 (0.66-1.25) mg/dL Glucose 106 H 142 H (74-99) mg/dL Calcium 8.7 8.4 (8.4-10.2) mg/dL Adrenal panel 02/03/22 02/04/22 Range/Units 08:59 11:12 Sodium 134 L 133 L (137-145) mmol/L Potassium 3.8 4.7 (3.5-5.1) mmol/L Chloride 103 103 (98-107) mmol/L Carbon Dioxide 23 20 L (22-30) mmol/L BUN 14 16 (9-20) mg/dL Creatinine 0.63 L 0.66 (0.66-1.25) mg/dL Glucose 106 H 142 H (74-99) mg/dL Calcium 8.7 8.4 (8.4-10.2) mg/dL Total Bilirubin 0.4 0.4 (0.2-1.3) mg/dL AST 20 24 (17-59) U/L ALT 15 15 (4-49) U/L Alkaline Phosphatase 148 H 119 (38-126) U/L Total Protein 6.7 6.4 (6.3-8.2) g/dL Albumin 3.0 L 2.8 L (3.5-5.0) g/dL Assessment and Plan Assessment: Nonhealing wounds bilateral lower extremities secondary to need for immunosuppressive medication secondary to inflammatory bowel disease. Plan: Operative debridement on February 05. Time with Patient: Greater than 30
[2022-02-04] MEDS: MELATONIN 3 MG TABLET PO SCH (20:03)
[2022-02-04] MEDS: HYDROcodone/APAP 10-325MG 1 EACH TAB PO PRN (20:04)
[2022-02-04 20:23] LABS: Glucose,Whole Blood 158 mg/dL (70-110)
[2022-02-04] MEDS: HYDROmorphone 1 MG/ML 1 ML SYRINGE IVP PRN (21:08)
[2022-02-04 21:34] LABS: % Iron Saturation 3.68 (15.00-50.00); Ferritin 57.1 ng/mL (22.0-322.0); Iron 10 ug/dL (65-175); Total Iron Binding Capacity 272 ug/dL (228-460)
[2022-02-05] MEDS: methylPREDNISolone SOD SUCCI 40 MG/ML 1 ML VIAL IV SCH ×4 (00:43→23:05)
[2022-02-05] MEDS: ONDANSETRON 4 MG/2 ML VIAL IVP PRN (00:44)
[2022-02-05] MEDS: HYDROmorphone 0.5 MG/0.5 ML SYRINGE IVP PRN ×3 (00:44→18:01)
[2022-02-05] MEDS: HYDROmorphone 1 MG/ML 1 ML SYRINGE IVP PRN ×6 (02:01→23:06)
[2022-02-05] MEDS: HYDROcodone/APAP 10-325MG 1 EACH TAB PO PRN ×3 (03:44→17:18)
[2022-02-05 06:00] LABS: Glucose,Whole Blood 139 mg/dL (70-110)
[2022-02-05] MEDS: PIPERACILLIN-TAZOBACTAM 3.375 GM in SODIUM CHLORIDE 0.9% 100 ML IVPB SCH ×3 (06:23→20:39)
[2022-02-05] MEDS: INSULIN ASPART (NovoLOG) 100 UNIT/ML VIAL SQ SCH ×4 (07:38→20:31)
[2022-02-05] MEDS ORDERED: MIDAZOLAM 2 MG/2 ML VIAL ONE (08:14)
[2022-02-05] MEDS ORDERED: IV FLUID CONTINUATION 800 ML IV ONE (08:14)
[2022-02-05] MEDS ORDERED: fentaNYL (PF) 50 MCG/ML 2 ML AMP ONE (08:14)
[2022-02-05] MEDS ORDERED: PROPOFOL 10 MG/ML 20 ML VIAL IV ONE (08:14)
[2022-02-05] MEDS ORDERED: LIDOCAINE 2% INJ 20 MG/ML (2 ML VIAL) ONE (08:14)
[2022-02-05] MEDS ORDERED: SUCCINYLCHOLINE CHLORIDE 200 MG/10 ML VIAL IV ONE (08:14)
--- NOTE | 2022-02-05 08:54 | P.OP ---
Date of Procedure: 02/05/22 Preoperative Diagnosis: Nonhealing wounds bilateral lower extremities. Postoperative Diagnosis: Same. Wound left lower extremity stage III measuring 16 x 12.5 cm x 3-4 mm in depth. Wound right lower extremity measuring 5 x 3 cm measuring 2-3 mm in depth. Procedure(s) Performed: #1: Excisional debridement bilateral lower extremity wounds. #2: Multiple skin biopsies left lower extremity. Implants: None. Anesthesia: RONAL Surgeon: Nico Faustin Estimated Blood Loss (ml): 5 Urine output (ml): 0 Pathology: other (Skin biopsy) Condition: stable Disposition: no change Indications for Procedure: Patient is a 41 old male with a history of inflammatory bowel disease who is on immunosuppressive medications. He works in [employer] industry and experienced multiple wounds bilaterally which have failed to heal. He had undergone debridement of both lower extremity wounds recently however has not been able to follow with wound care for a multitude of reasons. He re-presented with painful draining wounds. Examination had revealed a large amount of necrotic/soupy tissue and patient is now offered debridement in the operating room as the wounds were large and very painful for the patient. Description of Procedure: Patient was brought the upper and placed in supine position Mr. general endotracheal anesthesia delivered by the department of anesthesiology. Patient's lower extremities were sterilely prepped and draped in usual manner. Utilizing a surgical scrub brush the wounds were debrided of all necrotic/soupy material. The wound on the left lower extremity measured 16 x 12.5 cm in length and width and 3-4 mm in depth. One area demonstrated exposure of the muscle at the mid calf level. Honeycombing of the tissue was noted. No abscess was noted. There is no undermining or tunneling noted. A similar procedure was performed on the wound of the right lower extremity. This wound measured 5 x 3 cm in length and width and 2-3 mm in depth although it did not penetrate the fascia. No undermining or tunneling was noted. Both wounds were then dressed with Adaptic, 4 x 4's and Kerlix. Patient tolerated the procedure well and was taken to the recovery area satisfactory and stable condition.
[2022-02-05] MEDS ORDERED: HYDROmorphone 1 MG/ML 1 ML SYRINGE IVP ONE ×2 (09:09→09:25)
[2022-02-05 09:29] LABS: Glucose,Whole Blood 114 mg/dL (70-110)
[2022-02-05] MEDS: PANTOPRAZOLE 40 MG/10 ML VIAL IVP SCH (09:48)
[2022-02-05 10:23] LABS: Anisocytosis Slight; Basophils % (A) 0 %; Eosinophils % (A) 0 %; HCT 34.8 % (39.0-53.0); HGB 10.3 gm/dL (13.0-17.5); Hypochromasia Marked; Lymphocytes # (A) 2.3 k/uL (1.0-4.8); Lymphocytes % (A) 15 %; MCH 21.9 pg (25.0-35.0); MCHC 29.6 g/dL (31.0-37.0); MCV 74.1 fL (80.0-100.0); Mean Platelet Volume 7.4; Microcytosis Moderate; Monocytes # (A) 0.6 k/uL (0-1.0); Monocytes % (A) 4 %; Neutrophils # (A) 12.3 k/uL (1.3-7.7); Neutrophils % (A) 79 %; Platelet Count 403 k/uL (150-450); Poikilocytosis Moderate; RDW 19.9 % (11.5-15.5); WBC 15.6 k/uL (3.8-10.6)
[2022-02-05 10:39] LABS: African American GFR (CKD) >90 (>60 ml/min/1.73 sqM); Anion Gap 7 mmol/L; Blood Urea Nitrogen 13 mg/dL (9-20); Carbon Dioxide 23 mmol/L (22-30); Chloride 101 mmol/L (98-107); Glucose 107 mg/dL (74-99); Non-African American GFR(CKD) >90 (>60 ml/min/1.73 sqM); Potassium 4.7 mmol/L (3.5-5.1); Sodium 131 mmol/L (137-145)
[2022-02-05 12:22] LABS: Glucose,Whole Blood 114 mg/dL (70-110)
--- NOTE | 2022-02-05 15:50 | P.PN ---
Subjective Progress Note Date: 02/05/22 Principal diagnosis: Acute exacerbation of ulcerative colitis Wounds bilateral extremities; possible pyoderma gangrenosum; status post debridement Severe symptomatic anemia; patient is recommended EGD/colonoscopy as an outpatient Intractable nausea and vomiting 41-year male with a past medical he significant for ulcerative colitis in this patient with a history of a nonhealing wound to the left lower extremity that has been debrided and biopsied by vascular surgery and was negative for pyoderma gangrenosum but was suspected, patient culture were negative and was subsequent discharged home on oral Keflex patient was supposed to follow-up with the wound care center but never showed up subsequently was readmitted to the hospital for similar problem and left AGAINST MEDICAL ADVICE within 24 hours patient now presenting back to the hospital for complaints of abdominal pain and also decreased appetite but no vomiting no fever patient did have a nonhealing wound to the left lower extremity has been complaining of pain mostly dull achin g to sharp 5-6 out of 10 and radiation patient did have minimal drainage but no foul-smelling on arrival to the ER the patient was afebrile and no fever have been recorded subsequently patient did have white count 23.2 hemoglobin was 5.1 creatinine has been normal liver enzymes are normal local cultures obtained which are currently pending x-ray of the tibia-fibula did not show any bony changes patient was started on Zosyn infectious disease was consulted for further management of antibiotic therapy Objective - Vital Signs Vital signs: Vital Signs Temp 98.0 F 02/05/22 08:55 Pulse 52 L 02/05/22 09:35 Resp 20 02/05/22 09:35 BP 130/87 02/05/22 09:35 Pulse Ox 100 02/05/22 09:35 FiO2 Intake & Output 02/04/22 02/05/22 02/05/22 18:59 06:59 18:59 Intake Total 1210 1280 400 Output Total 125 5 Balance 1210 1155 395 Weight 70.307 kg Intake: IV 10 400 Invasive Line 1 10 Intake, IV Titration 200 200 Amount Piperacillin-Tazobactam 3 200 200 .375 gm In Sodium Chloride 0.9% 100 ml @ 25 mls/hr IVPB Q8H [facility] Rx#: [id number] Oral 1000 540 Other 540 Output: Urine 125 Estimated Blood Loss 5 Other: Voiding Method Toilet Toilet Toilet Urinal Urinal # Voids 2 # Bowel Movements 2 - Exam PHYSICAL EXAMINATION: GENERAL: The patient is alert and oriented x3, not in any acute distress. Well developed, well nourished. HEENT: Pupils are round and equally reacting to light. EOMI. No scleral icterus. No conjunctival pallor. Normocephalic, atraumatic. No pharyngeal erythema. No thyromegaly. CARDIOVASCULAR: S1 and S2 present. No murmurs, rubs, or gallops. PULMONARY: Chest is clear to auscultation, no wheezing or crackles. ABDOMEN: Soft, nontender, nondistended, normoactive bowel sounds. No palpable organomegaly. MUSCULOSKELETAL: No joint swelling or deformity. EXTREMITIES: No cyanosis, clubbing, or pedal edema. NEUROLOGICAL: Gross neurological examination did not reveal any focal deficits. SKIN: No rashes. - Labs CBC & Chem 7: 02/05/22 09:47 02/05/22 09:43 Labs: Abnormal Lab Results - Last 24 Hours (Table) 02/03/22 02/04/22 02/04/22 Range/Units 08:59 10:24 11:12 WBC 21.0 H (3.8-10.6) k/uL Hgb 9.3 L D (13.0-17.5) gm/dL Hct 31.1 L (39.0-53.0) % MCV 71.9 L (80.0-100.0) fL MCH 21.4 L (25.0-35.0) pg MCHC 29.7 L (31.0-37.0) g/dL RDW 19.7 H (11.5-15.5) % Plt Count 463 H (150-450) k/uL Neutrophils # 19.0 H (1.3-7.7) k/uL Lymphocytes # 0.9 L (1.0-4.8) k/uL Sodium 134 L 133 L (137-145) mmol/L Carbon Dioxide 20 L (22-30) mmol/L Creatinine 0.63 L (0.66-1.25) mg/dL Glucose 106 H 142 H (74-99) mg/dL POC Glucose (mg/dL) (70-110) mg/dL Iron 10 L (65-175) ug/dL % Saturation 3.68 L (15.00-50.00) Transferrin 194.0 L (204.0-354.0) mg/dL Alkaline Phosphatase 148 H (38-126) U/L Albumin 3.0 L 2.8 L (3.5-5.0) g/dL Amylase <30 L (30-110) U/L Lipase <10 L (23-300) U/L 02/04/22 02/04/22 02/04/22 Range/Units 12:00 16:50 20:22 WBC (3.8-10.6) k/uL Hgb (13.0-17.5) gm/dL Hct (39.0-53.0) % MCV (80.0-100.0) fL MCH (25.0-35.0) pg MCHC (31.0-37.0) g/dL RDW (11.5-15.5) % Plt Count (150-450) k/uL Neutrophils # (1.3-7.7) k/uL Lymphocytes # (1.0-4.8) k/uL Sodium (137-145) mmol/L Carbon Dioxide (22-30) mmol/L Creatinine (0.66-1.25) mg/dL Glucose (74-99) mg/dL POC Glucose (mg/dL) 138 H 145 H 158 H (70-110) mg/dL Iron (65-175) ug/dL % Saturation (15.00-50.00) Transferrin (204.0-354.0) mg/dL Alkaline Phosphatase (38-126) U/L Albumin (3.5-5.0) g/dL Amylase (30-110) U/L Lipase (23-300) U/L 02/05/22 02/05/22 Range/Units 05:58 09:27 WBC (3.8-10.6) k/uL Hgb (13.0-17.5) gm/dL Hct (39.0-53.0) % MCV (80.0-100.0) fL MCH (25.0-35.0) pg MCHC (31.0-37.0) g/dL RDW (11.5-15.5) % Plt Count (150-450) k/uL Neutrophils # (1.3-7.7) k/uL Lymphocytes # (1.0-4.8) k/uL Sodium (137-145) mmol/L Carbon Dioxide (22-30) mmol/L Creatinine (0.66-1.25) mg/dL Glucose (74-99) mg/dL POC Glucose (mg/dL) 139 H 114 H (70-110) mg/dL Iron (65-175) ug/dL % Saturation (15.00-50.00) Transferrin (204.0-354.0) mg/dL Alkaline Phosphatase (38-126) U/L Albumin (3.5-5.0) g/dL Amylase (30-110) U/L Lipase (23-300) U/L Microbiology - Last 24 Hours (Table) 02/03/22 08:59 Blood Culture - Preliminary Blood No Growth after 24 hours 02/03/22 08:59 Blood Culture - Preliminary Blood No Growth after 24 hours 02/03/22 11:05 Gram Stain - Preliminary Leg - Left Wound Culture - Preliminary Assessment and Plan Assessment: 1. Severe symptomatic anemia; acute on chronic blood loss anemia 2. Nonhealing ulcer left lower extremity/possible pyoderma gangrenosum 3. Ulcerative colitis; acute exacerbation 1patient with elevated white count in this patient presented to hospital with abdominal pain in this patient did have a history of ulcerative colitis also nonhealing wound to the left lower extremity with increasing pain and some drainage and concern for possible secondary cellulitis, source of elevated white count could be abdominal versus left lower extremity cellulitis. 2patient benefit from vascular surgery evaluation debridement and deep cultures. 3continue with Zosyn while awaiting further work-up to be completed
--- NOTE | 2022-02-05 18:16 | P.PN ---
Subjective Progress Note Date: 02/04/22 Principal diagnosis: Left leg wound and cellulitis Patient is a 41-year-old male with a past medical history significant for ulcerative colitis and chronic hepatitis C did have a chronic nonhealing wound to the left leg, which has been biopsied recently and was negative for pyoderma, presenting back to the hospital with abdominal pain and left leg wound. On today's evaluation that is 02/04/2022, patient denies having any fever or chills, patient is breathing comfortably on room air, still complaining of abdominal pain in the left lower leg controlled with the current medication denies any chest pain or shortness of breath or cough Objective - Vital Signs Vital signs: Vital Signs Temp 98.0 F 02/04/22 12:07 Pulse 57 L 02/04/22 12:07 Resp 18 02/04/22 12:07 BP 112/70 02/04/22 12:07 Pulse Ox 100 02/04/22 12:07 FiO2 Intake & Output 02/03/22 02/04/22 02/04/22 18:59 06:59 18:59 Intake Total 278 310 830 Output Total 1200 Balance 278 -890 830 Weight 65.771 kg 65.771 kg Intake: IV 10 Invasive Line 1 10 Oral 820 Blood Product 278 310 Rc As-1 Unit 0 310 [id number] Rc Pheresis 2 As3 Unit 278 [id number] Output: Urine 1200 Other: Voiding Method Toilet - Exam GENERAL DESCRIPTION: Middle-aged male lying in bed in no distress RESPIRATORY SYSTEM: Unlabored breathing , decreased breath sounds at bases HEART: S1 S2 regular rate and rhythm , ABDOMEN: Soft , no tenderness EXTREMITIES: Left leg wound is currently dressed - Labs CBC & Chem 7: 02/05/22 09:47 02/05/22 09:43 Labs: Abnormal Lab Results - Last 24 Hours (Table) 02/03/22 02/03/22 02/03/22 Range/Units 08:59 12:25 17:13 WBC (3.8-10.6) k/uL Hgb (13.0-17.5) gm/dL Hct (39.0-53.0) % MCV (80.0-100.0) fL MCH (25.0-35.0) pg MCHC (31.0-37.0) g/dL RDW (11.5-15.5) % Plt Count (150-450) k/uL Neutrophils # (1.3-7.7) k/uL Lymphocytes # (1.0-4.8) k/uL Sodium 134 L (137-145) mmol/L Creatinine 0.63 L (0.66-1.25) mg/dL Glucose 106 H (74-99) mg/dL POC Glucose (mg/dL) 123 H (70-110) mg/dL Alkaline Phosphatase 148 H (38-126) U/L Albumin 3.0 L (3.5-5.0) g/dL Amylase <30 L (30-110) U/L Lipase <10 L (23-300) U/L Crossmatch See Detail 02/03/22 02/04/22 02/04/22 Range/Units 20:26 06:10 10:24 WBC 21.0 H (3.8-10.6) k/uL Hgb 9.3 L D (13.0-17.5) gm/dL Hct 31.1 L (39.0-53.0) % MCV 71.9 L (80.0-100.0) fL MCH 21.4 L (25.0-35.0) pg MCHC 29.7 L (31.0-37.0) g/dL RDW 19.7 H (11.5-15.5) % Plt Count 463 H (150-450) k/uL Neutrophils # 19.0 H (1.3-7.7) k/uL Lymphocytes # 0.9 L (1.0-4.8) k/uL Sodium (137-145) mmol/L Creatinine (0.66-1.25) mg/dL Glucose (74-99) mg/dL POC Glucose (mg/dL) 135 H 161 H (70-110) mg/dL Alkaline Phosphatase (38-126) U/L Albumin (3.5-5.0) g/dL Amylase (30-110) U/L Lipase (23-300) U/L Crossmatch 02/04/22 Range/Units 12:00 WBC (3.8-10.6) k/uL Hgb (13.0-17.5) gm/dL Hct (39.0-53.0) % MCV (80.0-100.0) fL MCH (25.0-35.0) pg MCHC (31.0-37.0) g/dL RDW (11.5-15.5) % Plt Count (150-450) k/uL Neutrophils # (1.3-7.7) k/uL Lymphocytes # (1.0-4.8) k/uL Sodium (137-145) mmol/L Creatinine (0.66-1.25) mg/dL Glucose (74-99) mg/dL POC Glucose (mg/dL) 138 H (70-110) mg/dL Alkaline Phosphatase (38-126) U/L Albumin (3.5-5.0) g/dL Amylase (30-110) U/L Lipase (23-300) U/L Crossmatch Microbiology - Last 24 Hours (Table) 02/03/22 08:59 Blood Culture - Preliminary Blood No Growth after 24 hours 02/03/22 08:59 Blood Culture - Preliminary Blood No Growth after 24 hours 02/03/22 11:05 Gram Stain - Preliminary Leg - Left Wound Culture - Preliminary Assessment and Plan (1) Leg wound, left Current Visit: Yes Status: Acute Code(s): S81.802A - UNSPECIFIED OPEN WOUND, LEFT LOWER LEG, INITIAL ENCOUNTER SNOMED Code(s): 417902350 Plan: 1patient with elevated white count in this patient presented to hospital with abdominal pain in this patient did have a history of ulcerative colitis also nonhealing wound to the left lower extremity with increasing pain and some drainage and concern for possible secondary cellulitis, source of elevated white count could be abdominal versus left lower extremity cellulitis. 2 vascular surgery has been consulted, await evaluation debridement and deep cultures. 3patient to continue with Zosyn while awaiting further work-up to be completed. Time with Patient: Less than 30
--- NOTE | 2022-02-05 18:17 | P.PN ---
Subjective Progress Note Date: 02/05/22 Principal diagnosis: Left leg wound and cellulitis Patient is a 41-year-old male with a past medical history significant for ulcerative colitis and chronic hepatitis C did have a chronic nonhealing wound to the left leg, which has been biopsied recently and was negative for pyoderma, presenting back to the hospital with abdominal pain and left leg wound. Patient is status post surgical debridement and deep cultures completed on 02/05/2022 On today's evaluation that is 02/05/2022, patient remains to be afebrile, patient is breathing comfortably on room air, the patient pain in the left lower leg controlled with the current medication, the patient denies any chest pain or shortness of breath or cough Objective - Vital Signs Vital signs: Vital Signs Temp 98.2 F 02/05/22 11:53 Pulse 58 L 02/05/22 11:53 Resp 16 02/05/22 11:53 BP 140/89 02/05/22 11:53 Pulse Ox 99 02/05/22 11:53 FiO2 Intake & Output 02/04/22 02/05/22 02/05/22 18:59 06:59 18:59 Intake Total 1210 1280 400 Output Total 125 5 Balance 1210 1155 395 Weight 70.307 kg Intake: IV 10 400 Invasive Line 1 10 Intake, IV Titration 200 200 Amount Piperacillin-Tazobactam 3 200 200 .375 gm In Sodium Chloride 0.9% 100 ml @ 25 mls/hr IVPB Q8H [facility] Rx#: [id number] Oral 1000 540 Other 540 Output: Urine 125 Estimated Blood Loss 5 Other: Voiding Method Toilet Toilet Toilet Urinal Urinal # Voids 2 # Bowel Movements 2 - Exam GENERAL DESCRIPTION: Middle-aged male lying in bed in no distress RESPIRATORY SYSTEM: Unlabored breathing , decreased breath sounds at bases HEART: S1 S2 regular rate and rhythm , ABDOMEN: Soft , no tenderness EXTREMITIES: Left leg wound is currently dressed with minimal drainage on the dressing - Labs CBC & Chem 7: 02/05/22 09:47 02/05/22 09:43 Labs: Abnormal Lab Results - Last 24 Hours (Table) 02/03/22 02/04/22 02/04/22 Range/Units 08:59 11:12 16:50 WBC (3.8-10.6) k/uL Hgb (13.0-17.5) gm/dL Hct (39.0-53.0) % MCV (80.0-100.0) fL MCH (25.0-35.0) pg MCHC (31.0-37.0) g/dL RDW (11.5-15.5) % Neutrophils # (1.3-7.7) k/uL Sodium 134 L 133 L (137-145) mmol/L Carbon Dioxide 20 L (22-30) mmol/L Creatinine 0.63 L (0.66-1.25) mg/dL Glucose 106 H 142 H (74-99) mg/dL POC Glucose (mg/dL) 145 H (70-110) mg/dL Iron 10 L (65-175) ug/dL % Saturation 3.68 L (15.00-50.00) Transferrin 194.0 L (204.0-354.0) mg/dL Alkaline Phosphatase 148 H (38-126) U/L Albumin 3.0 L 2.8 L (3.5-5.0) g/dL Amylase <30 L (30-110) U/L Lipase <10 L (23-300) U/L 02/04/22 02/05/22 02/05/22 Range/Units 20:22 05:58 09:27 WBC (3.8-10.6) k/uL Hgb (13.0-17.5) gm/dL Hct (39.0-53.0) % MCV (80.0-100.0) fL MCH (25.0-35.0) pg MCHC (31.0-37.0) g/dL RDW (11.5-15.5) % Neutrophils # (1.3-7.7) k/uL Sodium (137-145) mmol/L Carbon Dioxide (22-30) mmol/L Creatinine (0.66-1.25) mg/dL Glucose (74-99) mg/dL POC Glucose (mg/dL) 158 H 139 H 114 H (70-110) mg/dL Iron (65-175) ug/dL % Saturation (15.00-50.00) Transferrin (204.0-354.0) mg/dL Alkaline Phosphatase (38-126) U/L Albumin (3.5-5.0) g/dL Amylase (30-110) U/L Lipase (23-300) U/L 02/05/22 02/05/22 02/05/22 Range/Units 09:43 09:47 12:21 WBC 15.6 H (3.8-10.6) k/uL Hgb 10.3 L (13.0-17.5) gm/dL Hct 34.8 L (39.0-53.0) % MCV 74.1 L (80.0-100.0) fL MCH 21.9 L (25.0-35.0) pg MCHC 29.6 L (31.0-37.0) g/dL RDW 19.9 H (11.5-15.5) % Neutrophils # 12.3 H (1.3-7.7) k/uL Sodium 131 L (137-145) mmol/L Carbon Dioxide (22-30) mmol/L Creatinine (0.66-1.25) mg/dL Glucose 107 H (74-99) mg/dL POC Glucose (mg/dL) 114 H (70-110) mg/dL Iron (65-175) ug/dL % Saturation (15.00-50.00) Transferrin (204.0-354.0) mg/dL Alkaline Phosphatase (38-126) U/L Albumin (3.5-5.0) g/dL Amylase (30-110) U/L Lipase (23-300) U/L Microbiology - Last 24 Hours (Table) 02/05/22 08:45 Wound Culture - Preliminary Leg - Left 02/03/22 08:59 Blood Culture - Preliminary Blood No Growth after 24 hours 02/03/22 08:59 Blood Culture - Preliminary Blood No Growth after 24 hours 02/03/22 11:05 Gram Stain - Preliminary Leg - Left Wound Culture - Preliminary Assessment and Plan (1) Leg wound, left Current Visit: Yes Status: Acute Code(s): S81.802A - UNSPECIFIED OPEN WOUND, LEFT LOWER LEG, INITIAL ENCOUNTER SNOMED Code(s): 813338147 Plan: 1patient with elevated white count in this patient presented to hospital with abdominal pain in this patient did have a history of ulcerative colitis also nonhealing wound to the left lower extremity with increasing pain and some drainage and concern for possible secondary cellulitis, source of elevated white count could be abdominal versus left lower extremity cellulitis. 2patient is status post debridement and deep cultures completed on 02/05/2022 3patient to continue with Zosyn while awaiting for the cultures to finalize Time with Patient: Less than 30
[2022-02-05 20:12] LABS: Glucose,Whole Blood 139 mg/dL (70-110)
[2022-02-05] MEDS: MELATONIN 3 MG TABLET PO SCH (20:39)
[2022-02-06] MEDS: HYDROmorphone 0.5 MG/0.5 ML SYRINGE IVP PRN ×4 (01:02→21:21)
[2022-02-06] MEDS: HYDROmorphone 1 MG/ML 1 ML SYRINGE IVP PRN ×6 (02:26→22:39)
[2022-02-06] MEDS: traZODone HCL 100 MG TAB PO PRN (03:24)
[2022-02-06] MEDS: HYDROcodone/APAP 10-325MG 1 EACH TAB PO PRN ×3 (03:24→18:29)
[2022-02-06 06:18] LABS: Glucose,Whole Blood 115 mg/dL (70-110)
[2022-02-06] MEDS: INSULIN ASPART (NovoLOG) 100 UNIT/ML VIAL SQ SCH ×4 (06:31→20:33)
[2022-02-06] MEDS: PIPERACILLIN-TAZOBACTAM 3.375 GM in SODIUM CHLORIDE 0.9% 100 ML IVPB SCH ×3 (06:34→21:22)
[2022-02-06] MEDS: PANTOPRAZOLE 40 MG/10 ML VIAL IVP SCH (08:50)
[2022-02-06] MEDS: methylPREDNISolone SOD SUCCI 40 MG/ML 1 ML VIAL IV SCH ×3 (08:50→22:39)
[2022-02-06 12:00] LABS: Glucose,Whole Blood 100 mg/dL (70-110)
[2022-02-06 12:36] LABS: ALT 16 U/L (4-49); AST 30 U/L (17-59); African American GFR (CKD) >90 (>60 ml/min/1.73 sqM); Alkaline Phosphatase 123 U/L (38-126); Anion Gap 7 mmol/L; Anisocytosis Moderate; Blood Urea Nitrogen 14 mg/dL (9-20); Calcium 8.5 mg/dL (8.4-10.2); Carbon Dioxide 21 mmol/L (22-30); Chloride 103 mmol/L (98-107); Glucose 100 mg/dL (74-99); HCT 32.6 % (39.0-53.0); HGB 9.6 gm/dL (13.0-17.5); Hypochromasia Marked; MCH 21.2 pg (25.0-35.0); MCHC 29.5 g/dL (31.0-37.0); Mean Platelet Volume 7.2; Microcytosis Marked; Non-African American GFR(CKD) >90 (>60 ml/min/1.73 sqM); Platelet Count 536 k/uL (150-450); Poikilocytosis Slight; Potassium 5.6 mmol/L (3.5-5.1); RBC 4.53 m/uL (4.30-5.90); RDW 20.1 % (11.5-15.5); Sodium 131 mmol/L (137-145); Total Bilirubin 0.3 mg/dL (0.2-1.3); Total Protein 6.8 g/dL (6.3-8.2)
[2022-02-06 16:53] LABS: Glucose,Whole Blood 139 mg/dL (70-110)
[2022-02-06] MEDS ORDERED: HYDROmorphone 0.5 MG/0.5 ML SYRINGE IVP STA (18:53)
[2022-02-06 19:55] LABS: Glucose,Whole Blood 135 mg/dL (70-110)
[2022-02-06] MEDS: MELATONIN 3 MG TABLET PO SCH (21:21)
[2022-02-07] MEDS: HYDROcodone/APAP 10-325MG 1 EACH TAB PO PRN ×4 (00:17→21:15)
[2022-02-07] MEDS: HYDROmorphone 0.5 MG/0.5 ML SYRINGE IVP PRN ×2 (03:20→11:13)
[2022-02-07] MEDS: HYDROmorphone 1 MG/ML 1 ML SYRINGE IVP PRN ×3 (05:16→13:43)
[2022-02-07] MEDS: PIPERACILLIN-TAZOBACTAM 3.375 GM in SODIUM CHLORIDE 0.9% 100 ML IVPB SCH ×3 (05:17→21:15)
[2022-02-07 05:59] LABS: Glucose,Whole Blood 114 mg/dL (70-110)
[2022-02-07] MEDS: INSULIN ASPART (NovoLOG) 100 UNIT/ML VIAL SQ SCH ×4 (05:59→20:57)
[2022-02-07] MEDS: PANTOPRAZOLE 40 MG/10 ML VIAL IVP SCH (08:38)
[2022-02-07] MEDS: methylPREDNISolone SOD SUCCI 40 MG/ML 1 ML VIAL IV SCH ×2 (08:38→14:54)
[2022-02-07] MEDS ORDERED: COLLAGENASE 250 UNIT/GM OINTMENT 30 GM TUBE TOPICAL SCH (09:00)
--- NOTE | 2022-02-07 09:10 | P.PN ---
Subjective Progress Note Date: 02/06/22 Principal diagnosis: Acute exacerbation of ulcerative colitis Wounds bilateral extremities; possible pyoderma gangrenosum; status post debridement Severe symptomatic anemia; patient is recommended EGD/colonoscopy as an outpatient Intractable nausea and vomiting 41-year male with a past medical he significant for ulcerative colitis in this patient with a history of a nonhealing wound to the left lower extremity that has been debrided and biopsied by vascular surgery and was negative for pyoderma gangrenosum but was suspected, patient culture were negative and was subsequent discharged home on oral Keflex patient was supposed to follow-up with the wound care center but never showed up subsequently was readmitted to the hospital for similar problem and left AGAINST MEDICAL ADVICE within 24 hours patient now presenting back to the hospital for complaints of abdominal pain and also decreased appetite but no vomiting no fever patient did have a nonhealing wound to the left lower extremity has been complaining of pain mostly dull achin g to sharp 5-6 out of 10 and radiation patient did have minimal drainage but no foul-smelling on arrival to the ER the patient was afebrile and no fever have been recorded subsequently patient did have white count 23.2 hemoglobin was 5.1 creatinine has been normal liver enzymes are normal local cultures obtained which are currently pending x-ray of the tibia-fibula did not show any bony changes patient was started on Zosyn infectious disease was consulted for further management of antibiotic therapy 02/06/2022 Patient is seen and evaluated resting in bed; reports marked improvement in nausea and no further episodes of vomiting; has been able to tolerate diet Vital signs are reviewed and remained stable Lab review shows WBC of 20, hemoglobin of 9.6, platelet count of 536, sodium of 131, potassium of 5.6, BUN/creatinine of 14/0.64 Patient remains on IV steroids for acute exacerbation of ulcerative colitis Patient is status post debridement of left lower extremity wound on 02/05/2022; IDs on board and recommending to continue with IV Zosyn until cultures are fi nalized Objective - Vital Signs Vital signs: Vital Signs Temp 97.9 F 02/06/22 08:42 Pulse 57 L 02/06/22 08:42 Resp 16 02/06/22 10:57 BP 133/76 02/06/22 10:57 Pulse Ox 98 02/06/22 10:57 FiO2 Intake & Output 02/05/22 02/06/2202/06/22 18:59 06:59 18:59 Intake Total 1062 740 400 Output Total 680 2075 Balance 382 -1335 400 Intake: IV 400 Intake, IV Titration 200 200 Amount Piperacillin-Tazobactam 3 200 200 .375 gm In Sodium Chloride 0.9% 100 ml @ 25 mls/hr IVPB Q8H [facility] Rx#: [id number] Oral 462 540 400 Output: Urine 675 2075 Estimated Blood Loss 5 Other: Voiding Method Toilet Toilet Toilet Urinal Urinal Urinal # Voids 2 - Exam PHYSICAL EXAMINATION: GENERAL: The patient is alert and oriented x3, not in any acute distress. Well d eveloped, well nourished. HEENT: Pupils are round and equally reacting to light. EOMI. No scleral icterus. No conjunctival pallor. Normocephalic, atraumatic. No pharyngeal erythema. No thyromegaly. CARDIOVASCULAR: S1 and S2 present. No murmurs, rubs, or gallops. PULMONARY: Chest is clear to auscultation, no wheezing or crackles. ABDOMEN: Soft, nontender, nondistended, normoactive bowel sounds. No palpable organomegaly. MUSCULOSKELETAL: No joint swelling or deformity. EXTREMITIES: No cyanosis, clubbing, or pedal edema. NEUROLOGICAL: Gross neurological examination did not reveal any focal deficits. SKIN: No rashes. - Labs CBC & Chem 7: 02/06/22 12:09 02/06/22 12:09 Labs: Abnormal Lab Results - Last 24 Hours (Table) 02/05/22 02/05/22 02/06/22 Range/Units 12:21 20:11 06:17 POC Glucose (mg/dL) 114 H 139 H 115 H (70-110) mg/dL Microbiology - Last 24 Hours (Table) 02/05/22 08:45 Gram Stain - Preliminary Leg - Left Wound Culture - Preliminary 02/03/22 11:05 Gram Stain - Final Leg - Left Wound Culture - Final 02/03/22 08:59 Blood Culture - Preliminary Blood No Growth after 48 hours 02/03/22 08:59 Blood Culture - Preliminary Blood No Growth after 48 hours Assessment and Plan Assessment: 1. Severe symptomatic anemia; acute on chronic blood loss anemia 2. Nonhealing ulcer left lower extremity/possible pyoderma gangrenosum 3. Ulcerative colitis; acute exacerbation 1patient with elevated white count in this patient presented to hospital with abdominal pain in this patient did have a history of ulcerative colitis also nonhealing wound to the left lower extremity with increasing pain and some drainage and concern for possible secondary cellulitis, source of elevated white count could be abdominal versus left lower extremity cellulitis. 2patient benefit from vascular surgery evaluation debridement and deep cultures. 3continue with Zosyn while awaiting further work-up to be completed
--- NOTE | 2022-02-07 09:22 | P.PN ---
Subjective Progress Note Date: 02/07/22 Principal diagnosis: Patient was seen and examined today as a follow-up. Monday he underwent surgical excisional debridement of bilateral lower extremity wounds with multiple biopsies. Patient states he is overall doing better. He's been afebrile. He remains on IV antibiotics per recommendations from infectious disease. Objective - Vital Signs Vital signs: Vital Signs Temp 98.1 F 02/07/22 08:24 Pulse 62 02/07/22 08:24 Resp 16 02/07/22 08:24 BP 137/83 02/07/22 08:24 Pulse Ox 99 02/07/22 08:24 FiO2 Intake & Output 02/06/22 02/07/22 02/07/22 18:59 06:59 18:59 Intake Total 1529 1420 118 Output Total 1550 1025 360 Balance -21 395 -242 Intake: IV 245 240 .9 @20 240 240 Invasive Line 1 5 Intake, IV Titration 200 100 Amount Piperacillin-Tazobactam 3 200 100 .375 gm In Sodium Chloride 0.9% 100 ml @ 25 mls/hr IVPB Q8H [facility] Rx#: [id number] Oral 1084 1080 118 Output: Urine 1550 1025 360 Other: Voiding Method Toilet Toilet Urinal Urinal Urinal # Voids 3 - Exam General appearance: The patient is alert, oriented, appears in no acute distress. HET: Head is normocephalic and atraumatic. Pupils are equal and reactive. Neck: Supple without lymphadenopathy. Trachea midline. Abdomen: Soft, nontender, nondistended. Extremities: Bilateral lower extremity wounds with dressing clean dry and intact. Neurological: No focal deficits. Strength and sensation are grossly intact. - Labs CBC & Chem 7: 02/06/22 12:09 02/06/22 12:09 Labs: Abnormal Lab Results - Last 24 Hours (Table) 02/06/22 02/06/22 02/06/22 Range/Units 12:09 12:09 16:49 WBC 20.0 H (3.8-10.6) k/uL Hgb 9.6 L (13.0-17.5) gm/dL Hct 32.6 L (39.0-53.0) % MCV 72.0 L (80.0-100.0) fL MCH 21.2 L (25.0-35.0) pg MCHC 29.5 L (31.0-37.0) g/dL RDW 20.1 H (11.5-15.5) % Plt Count 536 H (150-450) k/uL Sodium 131 L (137-145) mmol/L Potassium 5.6 H (3.5-5.1) mmol/L Carbon Dioxide 21 L (22-30) mmol/L Creatinine 0.64 L (0.66-1.25) mg/dL Glucose 100 H (74-99) mg/dL POC Glucose (mg/dL) 139 H (70-110) mg/dL Albumin 3.0 L (3.5-5.0) g/dL 02/06/22 02/07/22 Range/Units 19:53 05:58 WBC (3.8-10.6) k/uL Hgb (13.0-17.5) gm/dL Hct (39.0-53.0) % MCV (80.0-100.0) fL MCH (25.0-35.0) pg MCHC (31.0-37.0) g/dL RDW (11.5-15.5) % Plt Count (150-450) k/uL Sodium (137-145) mmol/L Potassium (3.5-5.1) mmol/L Carbon Dioxide (22-30) mmol/L Creatinine (0.66-1.25) mg/dL Glucose (74-99) mg/dL POC Glucose (mg/dL) 135 H 114 H (70-110) mg/dL Albumin (3.5-5.0) g/dL Microbiology - Last 24 Hours (Table) 02/03/22 08:59 Blood Culture - Preliminary Blood No Growth after 72 hours 02/03/22 08:59 Blood Culture - Preliminary Blood No Growth after 72 hours 02/05/22 08:45 Gram Stain - Preliminary Leg - Left Wound Culture - Preliminary Assessment and Plan Assessment: 1. Bilateral nonhealing lower extremity wounds 2. Ulcerative colitis 3. Possible pyoderma gangrenosum related to ulcerative colitis 4. Heroin user 5. Hepatitis C 6. Noncompliance Plan: 1. Recommend daily dressing changes with Santyl 2. Social work consult 3. Recommend outpatient follow-up with wound care center 4. Heroin abstinence Thank you for this consultation. The impression and plan of care has been dictated as directed. I performed a history and examination of this patient, discussed the same with the dictator. I agree with the dictator's note ,documented as a scribe. Any additional findings or plans will be noted.
--- NOTE | 2022-02-07 09:32 | P.PN ---
Subjective Progress Note Date: 02/07/22 HISTORY OF PRESENT ILLNESS This is a 41-year-old male patient of Dr. Plata with past medical history of ulcerative colitis, hepatitis C, tobacco use and dependence, marijuana use, h eroin use. He has had several admissions in the past for acute ulcerative colitis and that time was seen by GI recommended to be on sulfasalazine and follow-up in the office. He had a recent hospitalization which time he was treated for ulcer to the left lower extremity status post debridement on by Dr. Ann. Patient was discharged home to continue on Keflex, sulfasalazine. Patient had one follow-up appointment in Dr. Plata's office and he failed to follow-up with the wound center or with Dr. Merlin Gong. His excuse for lack of follow-up is transportation issues. He presented on 01/23 2 [facility] emergency center due to loose bowel movements daily with blood in the stools for the last couple days. On admission his hemoglobin was 5.1 and he received 2 units of packed RBCs. Patient initially started on Zosyn and Solu- Medrol, Solu-Medrol dosing adjusted by GI. GI had provided recommendations for diet, Solu-Medrol and prednisone taper with outpatient EGD colonoscopy planned with anticipation of patient would've been discharged by now. Patient is on a c lear liquid diet today in anticipation of possible EGD colonoscopy for tomorrow which was previously scheduled as an outpatient. Patient states that he has a fuzzy feeling in his mouth and throat. He states that his wound to the left lower extremity is not doing well. He is tolerating clear liquid diet with no nausea or vomiting. Yesterday's blood work revealed WBC 20, hemoglobin 9.6, platelet count 536. Sodium 131, potassium 5.6, chloride 103, CO2 21, BUN 14 and creatinine 0.64. Blood sugars have been running between 101 139. Liver function tests are normal. Patient is continued on Dilaudid for pain, Solu- Medrol 20 mg IV every 8 hours, Zosyn IV piggyback. REVIEW OF SYSTEMS Constitutional: No fever, no chills, no night sweats. No weight change. No weakness, fatigue or lethargy. No daytime sleepiness. EENT: No headache. No blurred vision or double vision, no loss of vision. No loss of Hearing, no ringing in the ears, no dizziness. No nasal drainage or congestion. No epistaxis. No sore throat. Reports dental pain. Lungs: No shortness of breath, cough, no sputum production. No wheezing. Cardiovascular: No chest pain, no lower extremity edema. No palpitations. No paroxysmal nocturnal dyspnea. No orthopnea. No lightheadedness or dizziness. No syncopal episodes. Abdominal: Reports abdominal pain. Denies nausea, no vomiting. Reports diarrhea. No constipation. Reports bloody or tarry stools denies loss of appetite. Genitourinary: No dysuria, increased frequency, urgency. No urinary retention. Musculoskeletal: No myalgias. No muscle weakness, no gait dysfunction, no frequent falls. No back pain. No neck pain. Integumentary: Reports left lower extremity wounds, no lesions. No rash or pruritus. No unusual bruising. No change in hair or nails. Neurologic: No aphasia. No facial droop. No change in mentation. No head injury. No headache. No paralysis. No paresthesia. Psychiatric: No depression. No anxiety. No mood swings. Endocrine: No abnormal blood sugars. No weight change. No excessive sweating or thirst. No cold intolerance. PHYSICAL EXAMINATION Gen: This is a 41-year-old male, resting in bed appears to be fairly comfortable. HEENT: Head is atraumatic, normocephalic. Pupils equal, round. Sclerae is anicteric. NECK: Supple. No JVD. No lymphadenopathy. No thyromegaly. LUNGS: Clear to auscultation. No wheezes or rhonchi. No intercostal retractions. HEART: Regular rate and rhythm. No murmur. ABDOMEN: Soft. Bowel sounds are present. No masses. Generalized tenderness. EXTREMITIES: No pedal edema. No calf tenderness. Dorsalis pedis +2 bilaterally. Ulcer to the pretibial area left lower extremity. Please see nursing documentation for details NEUROLOGICAL: Patient is awake, alert and oriented x3. Cranial nerves 2 through 12 are grossly intact. ASSESSMENT AND PLAN 1. Exacerbation of ulcerative colitis. Continue Solu-Medrol 20 mg IV every 8 hours, Dilaudid for pain, Zosyn IV piggyback, consult with GI appreciated. Patient was scheduled for outpatient EGD colonoscopy which may be done tomorrow inpatient. 2. Pretibial nonhealing wound likely due to pyoderma gangrenosa. Patient has been seen by wound care with plan for outpatient follow-up. Continue local wound care with [facility]. Patient is status post debridement by vascular surgery. 3. IV drug use with heroin. Monitor for withdrawals, patient states he was a bstinent for one week prior to admission 4. Tobacco use and dependence. Patient declines need for nicotine patch. 5. Insomnia. Patient continued on melatonin 6 mg at bedtime as needed. 6. Regular marijuana use. 7. History of Hepatitis C. 8. GI prophylaxis. Protonix 40 mild grams IV push daily. 9. DVT prophylaxis. Heparin subcu. DISCHARGE PLAN Home with [facility]. Patient is now requesting subacute rehab at [facility] but probably is not a good candidate, not qualify. Message left with rn case mgr. Impression and plan of care have been directed as dictated by the signing physician. Teri Walter nurse practitioner acting as scribe for signing physician. Objective - Vital Signs Vital signs: Vital Signs Temp 98.0 F 02/07/22 03:44 Pulse 55 L 02/07/22 03:44 Resp 18 02/07/22 03:44 BP 154/90 02/07/22 03:44 Pulse Ox 100 02/07/22 03:44 FiO2 Intake & Output 02/06/22 02/07/22 02/07/22 18:59 06:59 18:59 Intake Total 1529 1420 Output Total 1550 1025 Balance -21 395 Intake: IV 245 240 .9 @20 240 240 Invasive Line 1 5 Intake, IV Titration 200 100 Amount Piperacillin-Tazobactam 3 200 100 .375 gm In Sodium Chloride 0.9% 100 ml @ 25 mls/hr IVPB Q8H [facility] Rx#: [id number] Oral 1084 1080 Output: Urine 1550 1025 Other: Voiding Method Toilet Toilet Urinal Urinal # Voids 3 - Labs CBC & Chem 7: 02/06/22 12:09 02/06/22 12:09 Labs: Abnormal Lab Results - Last 24 Hours (Table) 02/06/22 02/06/22 02/06/22 Range/Units 12:09 12:09 16:49 WBC 20.0 H (3.8-10.6) k/uL Hgb 9.6 L (13.0-17.5) gm/dL Hct 32.6 L (39.0-53.0) % MCV 72.0 L (80.0-100.0) fL MCH 21.2 L (25.0-35.0) pg MCHC 29.5 L (31.0-37.0) g/dL RDW 20.1 H (11.5-15.5) % Plt Count 536 H (150-450) k/uL Sodium 131 L (137-145) mmol/L Potassium 5.6 H (3.5-5.1) mmol/L Carbon Dioxide 21 L (22-30) mmol/L Creatinine 0.64 L (0.66-1.25) mg/dL Glucose 100 H (74-99) mg/dL POC Glucose (mg/dL) 139 H (70-110) mg/dL Albumin 3.0 L (3.5-5.0) g/dL 02/06/22 02/07/22 Range/Units 19:53 05:58 WBC (3.8-10.6) k/uL Hgb (13.0-17.5) gm/dL Hct (39.0-53.0) % MCV (80.0-100.0) fL MCH (25.0-35.0) pg MCHC (31.0-37.0) g/dL RDW (11.5-15.5) % Plt Count (150-450) k/uL Sodium (137-145) mmol/L Potassium (3.5-5.1) mmol/L Carbon Dioxide (22-30) mmol/L Creatinine (0.66-1.25) mg/dL Glucose (74-99) mg/dL POC Glucose (mg/dL) 135 H 114 H (70-110) mg/dL Albumin (3.5-5.0) g/dL Microbiology - Last 24 Hours (Table) 02/03/22 08:59 Blood Culture - Preliminary Blood No Growth after 72 hours 02/03/22 08:59 Blood Culture - Preliminary Blood No Growth after 72 hours 02/05/22 08:45 Gram Stain - Preliminary Leg - Left Wound Culture - Preliminary
[2022-02-07 11:31] LABS: Glucose,Whole Blood 108 mg/dL (70-110)
--- NOTE | 2022-02-07 11:51 | CDI ---
Documentation Clarification Form Date: 02/08/2022 11:15:33 AM From: Fauzia Dias RN CCDS Admit Date: 02/03/2022 12:21:00 PM Patient Name: Al Austin Visit Number: [id number] Discharge Date: ATTENTION: The Clinical Documentation Specialists (CDI) and [facility] Coding Staff appreciate your assistance in clarifying documentation. Please respond to the clarification below the line at the bottom and electronically sign. The CDI & [facility] Coding staff will review the response and follow-up if needed. Please note: Queries are made part of the Legal Health Record. If you have any questions, please contact the author of this message via ITS. Dr. Adalid Plata The Registered Dietitian assessment on 02/04 indicates that the patient is underweight. Based on this information and the findings below, is there an additional diagnosis that is clinically appropriate for this patient? History/Risk Factors: 41-year-old male presents to the ED with left leg pain, weakness and bleeding. Medical history: DM, Ulcerative colitis , Hepatitis C, Chrons, Diarrhea, nausea and left and right leg ulcer, Marijuana, Heroin use Clinical Indicators: RD Consult Assessment: Current BMI: 20.4 Hgt 6ft 1in Wgt 70.307kg; Calculated [place] body weight 78.018kg Nutrition Assessment: Intake poor; Clear liquid x 1 day and advancing to full liquids. Weight Loss: Unintended weight loss related to decreased caloric intake and diet intolerance possible 14% involuntary weight loss in 2 months Treatment: Dietary Consult: see above Supplements: Glucerna TID Monitor blood glucose sliding scale coverage. Monitor PO intake and tolerance to diet advancement and supplement intake. Lab monitoring: Chemistry. Is there an additional diagnosis that is clinically appropriate for this patient? [ ] Moderate Protein-Calorie Malnutrition [ ] Severe Protein-Calorie Malnutrition [ ] Other condition, please specify [ ] Unable to Determine Answered in DCS Severe protein calorie malnutrition 2/2 ulcerative colitis , poor diet, iv drug use, tobacco use, possible colon cancer. Dr. Plata/Epi ARMHOLE SEWER (Template Last Revised: August 2020) PENNYD
[2022-02-07 16:39] LABS: Glucose,Whole Blood 110 mg/dL (70-110)
[2022-02-07] MEDS ORDERED: PEG 3350 (236 GM/BTL) + LYTES 4,000 ML BOTTLE PO ONE (18:00)
[2022-02-07 20:09] LABS: Glucose,Whole Blood 100 mg/dL (70-110)
[2022-02-07] MEDS: MELATONIN 3 MG TABLET PO SCH (21:14)
--- NOTE | 2022-02-07 22:56 | P.PN ---
Subjective Progress Note Date: 02/06/22 Principal diagnosis: Left leg wound and cellulitis Patient is a 41-year-old male with a past medical history significant for ulcerative colitis and chronic hepatitis C did have a chronic nonhealing wound to the left leg, which has been biopsied recently and was negative for pyoderma, presenting back to the hospital with abdominal pain and left leg wound. Patient is status post surgical debridement and deep cultures completed on 02/05/2022 On today's evaluation that is 02/06/2022, patient continues to be afebrile, patient is breathing comfortably on room air, the patient denies any worsening pain in the left lower leg , the patient denies any chest pain or shortness of breath or cough Objective - Vital Signs Vital signs: Vital Signs Temp 98.3 F 02/06/22 15:45 Pulse 68 02/06/22 15:45 Resp 16 02/06/22 15:45 BP 143/88 02/06/22 15:45 Pulse Ox 99 02/06/22 15:45 FiO2 Intake & Output 02/06/22 02/06/22 02/07/22 06:59 18:59 06:59 Intake Total 740 1529 Output Total 2075 1550 Balance -1335 -21 Intake: IV 245 .9 @20 240 Invasive Line 1 5 Intake, IV Titration 200 200 Amount Piperacillin-Tazobactam 3 200 200 .375 gm In Sodium Chloride 0.9% 100 ml @ 25 mls/hr IVPB Q8H [facility] Rx#: [id number] Oral 540 1084 Output: Urine 2075 1550 Other: Voiding Method Toilet Toilet Urinal Urinal # Voids 3 - Exam GENERAL DESCRIPTION: Middle-aged male lying in bed in no distress RESPIRATORY SYSTEM: Unlabored breathing , decreased breath sounds at bases HEART: S1 S2 regular rate and rhythm , ABDOMEN: Soft , no tenderness EXTREMITIES: Left leg wound is currently dressed with minimal drainage on the dressing - Labs CBC & Chem 7: 02/06/22 12:09 02/06/22 12:09 Labs: Abnormal Lab Results - Last 24 Hours (Table) 02/06/22 02/06/22 02/06/22 Range/Units 06:17 12:09 12:09 WBC 20.0 H (3.8-10.6) k/uL Hgb 9.6 L (13.0-17.5) gm/dL Hct 32.6 L (39.0-53.0) % MCV 72.0 L (80.0-100.0) fL MCH 21.2 L (25.0-35.0) pg MCHC 29.5 L (31.0-37.0) g/dL RDW 20.1 H (11.5-15.5) % Plt Count 536 H (150-450) k/uL Sodium 131 L (137-145) mmol/L Potassium 5.6 H (3.5-5.1) mmol/L Carbon Dioxide 21 L (22-30) mmol/L Creatinine 0.64 L (0.66-1.25) mg/dL Glucose 100 H (74-99) mg/dL POC Glucose (mg/dL) 115 H (70-110) mg/dL Albumin 3.0 L (3.5-5.0) g/dL 02/06/22 02/06/22 Range/Units 16:49 19:53 WBC (3.8-10.6) k/uL Hgb (13.0-17.5) gm/dL Hct (39.0-53.0) % MCV (80.0-100.0) fL MCH (25.0-35.0) pg MCHC (31.0-37.0) g/dL RDW (11.5-15.5) % Plt Count (150-450) k/uL Sodium (137-145) mmol/L Potassium (3.5-5.1) mmol/L Carbon Dioxide (22-30) mmol/L Creatinine (0.66-1.25) mg/dL Glucose (74-99) mg/dL POC Glucose (mg/dL) 139 H 135 H (70-110) mg/dL Albumin (3.5-5.0) g/dL Microbiology - Last 24 Hours (Table) 02/03/22 08:59 Blood Culture - Preliminary Blood No Growth after 72 hours 02/03/22 08:59 Blood Culture - Preliminary Blood No Growth after 72 hours 02/05/22 08:45 Gram Stain - Preliminary Leg - Left Wound Culture - Preliminary Assessment and Plan (1) Leg wound, left Current Visit: Yes Status: Acute Code(s): S81.802A - UNSPECIFIED OPEN WOUND, LEFT LOWER LEG, INITIAL ENCOUNTER SNOMED Code(s): 203379100 Plan: 1patient with elevated white count in this patient presented to hospital with abdominal pain in this patient did have a history of ulcerative colitis also nonhealing wound to the left lower extremity with increasing pain and some drainage and concern for possible secondary cellulitis, source of elevated white count could be abdominal versus left lower extremity cellulitis. 2patient is status post debridement and deep cultures completed on 02/05/2022, cultures are currently pending 3patient currently being treated with Zosyn while awaiting for the cultures to finalize Time with Patient: Less than 30
--- NOTE | 2022-02-07 22:57 | P.PN ---
Subjective Progress Note Date: 02/07/22 Principal diagnosis: Left leg wound and cellulitis Patient is a 41-year-old male with a past medical history significant for ulcerative colitis and chronic hepatitis C did have a chronic nonhealing wound to the left leg, which has been biopsied recently and was negative for pyoderma, presenting back to the hospital with abdominal pain and left leg wound. Patient is status post surgical debridement and deep cultures completed on 02/05/2022 On today's evaluation that is 02/07/2022, patient denies any fever or any chills, patient is breathing comfortably on room air, the patient pain in the left lower leg has decreased in intensity , the patient denies any chest pain or shortness of breath or cough Objective - Vital Signs Vital signs: Vital Signs Temp 98.3 F 02/07/22 11:23 Pulse 56 L 02/07/22 11:23 Resp 15 02/07/22 11:23 BP 145/84 02/07/22 11:23 Pulse Ox 100 02/07/22 11:23 FiO2 Intake & Output 02/06/22 02/07/22 02/07/22 18:59 06:59 18:59 Intake Total 1529 1420 118 Output Total 1550 1025 1170 Balance -21 395 -1052 Intake: IV 245 240 .9 @20 240 240 Invasive Line 1 5 Intake, IV Titration 200 100 Amount Piperacillin-Tazobactam 3 200 100 .375 gm In Sodium Chloride 0.9% 100 ml @ 25 mls/hr IVPB Q8H [facility] Rx#: [id number] Oral 1084 1080 118 Output: Urine 1550 1025 1170 Other: Voiding Method Toilet Toilet Urinal Urinal Urinal # Voids 3 - Exam GENERAL DESCRIPTION: Middle-aged male lying in bed in no distress RESPIRATORY SYSTEM: Unlabored breathing , decreased breath sounds at bases HEART: S1 S2 regular rate and rhythm , ABDOMEN: Soft , no tenderness EXTREMITIES: Left leg wound is currently dressed with minimal drainage on the dressing - Labs CBC & Chem 7: 02/06/22 12:09 02/06/22 12:09 Labs: Abnormal Lab Results - Last 24 Hours (Table) 02/06/22 02/06/22 02/07/22 Range/Units 16:49 19:53 05:58 POC Glucose (mg/dL) 139 H 135 H 114 H (70-110) mg/dL Microbiology - Last 24 Hours (Table) 02/03/22 08:59 Blood Culture - Preliminary Blood No Growth after 96 hours 02/03/22 08:59 Blood Culture - Preliminary Blood No Growth after 96 hours Assessment and Plan (1) Leg wound, left Current Visit: Yes Status: Acute Code(s): S81.802A - UNSPECIFIED OPEN WOUND, LEFT LOWER LEG, INITIAL ENCOUNTER SNOMED Code(s): 667040867 Plan: 1patient with elevated white count in this patient presented to hospital with abdominal pain in this patient did have a history of ulcerative colitis also nonhealing wound to the left lower extremity with increasing pain and some drainage and concern for possible secondary cellulitis, source of elevated white count could be abdominal versus left lower extremity cellulitis. 2patient is status post debridement and deep cultures completed on 02/05/2022, cultures has not been finalized as 02/07/2022 3patient to continue with Zosyn while awaiting for the cultures to finalize to determine his discharge antibiotics Time with Patient: Less than 30
[2022-02-08] MEDS: methylPREDNISolone SOD SUCCI 40 MG/ML 1 ML VIAL IV SCH ×4 (00:48→23:19)
[2022-02-08 06:04] LABS: Glucose,Whole Blood 112 mg/dL (70-110)
[2022-02-08] MEDS: PIPERACILLIN-TAZOBACTAM 3.375 GM in SODIUM CHLORIDE 0.9% 100 ML IVPB SCH ×3 (06:11→21:15)
[2022-02-08] MEDS: INSULIN ASPART (NovoLOG) 100 UNIT/ML VIAL SQ SCH (06:11)
[2022-02-08] MEDS ORDERED: MAGNESIUM CITRATE 296 ML BOTTLE PO ONE ×2 (08:05→08:15)
--- NOTE | 2022-02-08 08:47 | P.PN ---
Subjective Progress Note Date: 02/08/22 HISTORY OF PRESENT ILLNESS This is a 41-year-old male patient of Dr. Plata with past medical history of ulcerative colitis, hepatitis C, tobacco use and dependence, marijuana use, h eroin use. He has had several admissions in the past for acute ulcerative colitis and that time was seen by GI recommended to be on sulfasalazine and follow-up in the office. He had a recent hospitalization which time he was treated for ulcer to the left lower extremity status post debridement on by Dr. Ann. Patient was discharged home to continue on Keflex, sulfasalazine. Patient had one follow-up appointment in Dr. Plata's office and he failed to follow-up with the wound center or with Dr. Merlin Gong. His excuse for lack of follow-up is transportation issues. He presented on 01/23 2 [facility] emergency center due to loose bowel movements daily with blood in the stools for the last couple days. On admission his hemoglobin was 5.1 and he received 2 units of packed RBCs. Patient initially started on Zosyn and Solu- Medrol, Solu-Medrol dosing adjusted by GI. GI had provided recommendations for diet, Solu-Medrol and prednisone taper with outpatient EGD colonoscopy planned with anticipation of patient would've been discharged by now. Patient is on a c lear liquid diet today in anticipation of possible EGD colonoscopy for tomorrow which was previously scheduled as an outpatient. Patient states that he has a fuzzy feeling in his mouth and throat. He states that his wound to the left lower extremity is not doing well. He is tolerating clear liquid diet with no nausea or vomiting. Yesterday's blood work revealed WBC 20, hemoglobin 9.6, platelet count 536. Sodium 131, potassium 5.6, chloride 103, CO2 21, BUN 14 and creatinine 0.64. Blood sugars have been running between 101 139. Liver function tests are normal. Patient is continued on Dilaudid for pain, Solu- Medrol 20 mg IV every 8 hours, Zosyn IV piggyback. 02/08: Patient is scheduled for EGD and colonoscopy today with Dr. Merlin Gong which was scheduled as an outpatient to see the would be discharged by now. Patient took about half of the prep thus far and states he is stools are clear but citrate of magnesium has been ordered 1 this morning to ensure that he is properly prepped. Patient has been afebrile, heart rate 66, blood pressure 128/80, pulse ox 99% on room air. Capillary blood glucose running between 100- 112 and CBGs and was scale insulin will be discontinued. REVIEW OF SYSTEMS Constitutional: No fever, no chills, no night sweats. No weight change. No weakness, fatigue or lethargy. No daytime sleepiness. EENT: No headache. No blurred vision or double vision, no loss of vision. No loss of Hearing, no ringing in the ears, no dizziness. No nasal drainage or congestion. No epistaxis. No sore throat. Reports dental pain. Lungs: No shortness of breath, cough, no sputum production. No wheezing. Cardiovascular: No chest pain, no lower extremity edema. No palpitations. No paroxysmal nocturnal dyspnea. No orthopnea. No lightheadedness or dizziness. No syncopal episodes. Abdominal: Reports abdominal pain. Denies nausea, no vomiting. Reports diarrhea. No constipation. Reports bloody or tarry stools denies loss of bruce etite. Genitourinary: No dysuria, increased frequency, urgency. No urinary retention. Musculoskeletal: No myalgias. No muscle weakness, no gait dysfunction, no frequent falls. No back pain. No neck pain. Integumentary: Reports left lower extremity wounds, no lesions. No rash or pruritus. No unusual bruising. No change in hair or nails. Neurologic: No aphasia. No facial droop. No change in mentation. No head injury. No headache. No paralysis. No paresthesia. Psychiatric: No depression. No anxiety. No mood swings. Endocrine: No abnormal blood sugars. No weight change. PHYSICAL EXAMINATION Gen: This is a cachectic appearing 41-year-old male, resting in bed appears to be fairly comfortable. HEENT: Head is atraumatic, normocephalic. Pupils equal, round. Sclerae is anicteric. NECK: Supple. No JVD. No lymphadenopathy. No thyromegaly. LUNGS: Clear to auscultation. No wheezes or rhonchi. No intercostal retractions. HEART: Regular rate and rhythm. No murmur. ABDOMEN: Soft. Bowel sounds are present. No masses. Generalized tenderness. EXTREMITIES: No pedal edema. No calf tenderness. Dorsalis pedis +2 bilaterally. Ulcer to the pretibial area left lower extremity. Please see nursing documentation for details NEUROLOGICAL: Patient is awake, alert and oriented x3. Cranial nerves 2 through 12 are grossly intact. ASSESSMENT AND PLAN 1. Exacerbation of ulcerative colitis. Continue Solu-Medrol 20 mg IV every 8 hours, Dilaudid for pain, Zosyn IV piggyback, consult with GI appreciated. Patient is scheduled for EGD and colonoscopy today with Dr. Merlin Gong. 2. Pretibial nonhealing wound likely due to pyoderma gangrenosa. Patient has been seen by wound care with plan for outpatient follow-up. Continue local wound care with Santyl. Patient is status post debridement by vascular surgery. 3. IV drug use with heroin. Monitor for withdrawals, patient states he was abstinent for one week prior to admission 4. Tobacco use and dependence. Patient declines need for nicotine patch. 5. Severe protein calorie malnutrition secondary to ulcerative colitis, poor diet, IV drug use, tobacco use. Continue patient on protein supplements. 6. Insomnia. Patient continued on melatonin 6 mg at bedtime as needed. 7. Regular marijuana use. 8. History of Hepatitis C. 9. GI prophylaxis. Protonix 40 mild grams IV push daily. 10. DVT prophylaxis. Heparin subcu. DISCHARGE PLAN Home with [facility]. Patient is now requesting subacute rehab at [facility] [place] of [place]. Impression and plan of care have been directed as dictated by the signing physician. Teri Walter nurse practitioner acting as scribe for signing physician. Objective - Vital Signs Vital signs: Vital Signs Temp 98.1 F 02/08/22 04:00 Pulse 55 L 02/08/22 04:00 Resp 16 02/08/22 04:00 BP 146/86 02/08/22 04:00 Pulse Ox 97 02/08/22 04:00 FiO2 Intake & Output 02/07/22 02/08/22 02/08/22 18:59 06:59 18:59 Intake Total 236 Output Total 1170 2650 Balance -934 -2650 Intake: Oral 236 Output: Urine 1170 2350 Stool 300 Other: Voiding Method Urinal Urinal # Voids 2 - Labs CBC & Chem 7: 02/06/22 12:09 02/06/22 12:09 Labs: Abnormal Lab Results - Last 24 Hours (Table) 02/08/22 Range/Units 06:02 POC Glucose (mg/dL) 112 H (70-110) mg/dL Microbiology - Last 24 Hours (Table) 02/03/22 08:59 Blood Culture - Preliminary Blood No Growth after 96 hours 02/03/22 08:59 Blood Culture - Preliminary Blood No Growth after 96 hours
[2022-02-08] MEDS: HYDROcodone/APAP 10-325MG 1 EACH TAB PO PRN (08:51)
[2022-02-08] MEDS: PANTOPRAZOLE 40 MG/10 ML VIAL IVP SCH (08:53)
[2022-02-08] MEDS: HYDROmorphone 1 MG/ML 1 ML SYRINGE IVP PRN ×4 (08:55→23:19)
--- NOTE | 2022-02-08 09:43 | P.PN ---
Subjective Progress Note Date: 02/08/22 Principal diagnosis: Lower extremity wounds Patient was seen and examined today as a follow-up. Monday he underwent surgical excisional debridement of bilateral lower extremity wounds with multiple biopsies. Patient states he is overall doing better. He's been afebrile. He remains on IV antibiotics per recommendations from infectious disease, vaginal today for EGD colonoscopy. Objective - Vital Signs Vital signs: Vital Signs Temp 98.2 F 02/08/22 08:15 Pulse 66 02/08/22 08:15 Resp 15 02/08/22 08:15 BP 128/80 02/08/22 08:15 Pulse Ox 99 02/08/22 08:15 FiO2 Intake & Output 02/07/22 02/08/22 02/08/22 18:59 06:59 18:59 Intake Total 236 Output Total 1170 2650 Balance -934 -2650 Intake: Oral 236 Output: Urine 1170 2350 Stool 300 Other: Voiding Method Urinal Urinal # Voids 2 - Exam General appearance: The patient is alert, oriented, appears in no acute distress. HET: Head is normocephalic and atraumatic. Pupils are equal and reactive. Neck: Supple without lymphadenopathy. Trachea midline. Abdomen: Soft, nontender, nondistended. Extremities: Bilateral lower extremity wounds with dressing clean dry and intact. Neurological: No focal deficits. Strength and sensation are grossly intact. - Labs CBC & Chem 7: 02/06/22 12:09 02/06/22 12:09 Labs: Abnormal Lab Results - Last 24 Hours (Table) 02/08/22 Range/Units 06:02 POC Glucose (mg/dL) 112 H (70-110) mg/dL Microbiology - Last 24 Hours (Table) 02/03/22 08:59 Blood Culture - Preliminary Blood No Growth after 96 hours 02/03/22 08:59 Blood Culture - Preliminary Blood No Growth after 96 hours Assessment and Plan Assessment: 1. Bilateral nonhealing lower extremity wounds 2. Ulcerative colitis 3. Possible pyoderma gangrenosum related to ulcerative colitis 4. Heroin user 5. Hepatitis C 6. Noncompliance Plan: 1. Recommend daily dressing changes with Santyl 2. Social work consult 3. Recommend outpatient follow-up with wound care center 4. Heroin abstinence Thank you for this consultation. The impression and plan of care has been dictated as directed. Dr.Cuppari I performed a history and examination of this patient, discussed the same with the dictator. I agree with the dictator's note ,documented as a scribe. Any additional findings or plans will be noted.
[2022-02-08] MEDS ORDERED: LIDOCAINE 2% INJ 20 MG/ML (2 ML VIAL) ONE (12:28)
[2022-02-08] MEDS ORDERED: MIDAZOLAM 2 MG/2 ML VIAL ONE (12:28)
[2022-02-08] MEDS ORDERED: PROPOFOL 10 MG/ML 20 ML VIAL IV ONE (12:28)
[2022-02-08] MEDS ORDERED: IV FLUID CONTINUATION 1,000 ML IV ONE ×2 (12:29)
--- NOTE | 2022-02-08 12:59 | P.PCN ---
Date of Procedure: 02/08/22 Procedure(s) Performed: Brief history: Patient is a pleasant 39-year-old white male with long-standing history of ulcerative colitis diagnosed at age 15, lately has been very noncompliant, he was admitted to the hospital with severe symptomatic anemia and hemoglobin of 5.1 g/dL. His been having intermittent lower abdominal pain and rectal bleeding. Has been maintained on Azulfidine for an outpatient basis. He was started on IV Solu-Medrol 20 mg every 8 hours for possible exacerbation of ulcerative colitis and is scheduled for an upper endoscopy as well as colonoscopy to evaluate further. Procedure performed: Esophagogastroduodenoscopy with biopsy Colonoscopy with biopsy and tattooing with Karolyn ink Preoperative diagnosis: Severe symptomatic anemia with hemoglobin of 5.1 g/dL Occasional dysphagia Anesthesia: MAC Procedure: After informed consent was obtained from the patient was brought into the endoscopy unit and IV sedation was administered by anesthesia under continuous monitoring. Initially upper endoscopy was done. The Olympus GF 160 video endoscope was inserted inserted into the mouth and esophagus intubated without any difficulty and was gradually advanced into the stomach and duodenum and carefully examined. The bulb and second part of the duodenum appeared normal. The scope was then withdrawn into the stomach adequately insufflated with air and upon careful examination the antrum and body, cardia and fundus appeared normal. The scope was then withdrawn into the esophagus. The GE junction was located at 40 cm to the incisors. It appeared regular with no erythema erosions or ulcerations. There were whitish plaques noted throughout the entire esophagus more prominent in the proximal and midesophagus and biopsies were done from this area to evaluate for mylene esophagitis.. Patient tolerated the procedure well. At this time the patient continued to remain sedation. Initial digital rectal examination was normal. Olympus CF 160 video colonoscope was then inserted into the rectum and gradually advanced to the hepatic flexure. There was an ulc erated masslike lesion noted in the hepatic flexure and with gentle manipulation I was able to advance the scope into the right colon where there was diffuse circumferential ulceration identified. Multiple biopsies were done from the right colon to rule out neoplasm. Multiple biopsies were also done from the hepatic flexure masslike area to rule out neoplasm. Tattooing was performed with Karolyn ink in this area. Mucosa of the transverse colon, descending colon, sigmoid colon and rectum appeared normal. Retroflexion was performed in the rectum and no lesions were noted. Patient tolerated the procedure well. Impression: 1. Upper endoscopy revealed severe Mylene esophagitis with white patient plaques throughout the entire esophagus status post biopsy 2. Colonoscopy revealed ulcerated mass like area involving the hepatic flexure extending into the right colon status post multiple biopsies to rule out neoplasm. Rest of the colon appeared normal Recommendations: Findings of this examination were discussed with the patient . Await biopsy results. Start him on fluconazole 100 mg daily for 7 days for mylene e scheduled for CT of the abdomen and pelvis to evaluate further. Obtain surgical consultation.
[2022-02-08] MEDS: IOPAMIDOL CONTRAST (ORAL USE) VIAL PO PRN ×2 (14:30→15:29)
[2022-02-08] MEDS: FLUCONAZOLE 100 MG TAB PO SCH (14:37)
[2022-02-08] MEDS: HYDROmorphone 0.5 MG/0.5 ML SYRINGE IVP PRN ×2 (16:01→21:16)
--- NOTE | 2022-02-08 20:02 | CT ---
EXAMINATION TYPE: CT abdomen pelvis w con CT DLP: 653.9 mGycm, Automated exposure control for dose reduction was used. DATE OF EXAM: 02/08/2022 4:58 PM COMPARISON: CT abdomen pelvis most recent from 02/15/2021, 05/12/2020 CLINICAL INDICATION:Male, 41 years old with history of Ulcerated mass at hepatic flexure on colonosco py; abdominal pain, hx of colitis TECHNIQUE: Axial CT of the abdomen and pelvis. Sagittal and coronal reformats were created on a [employer] workstation. Contrast used:100 mL of Isovue 300 with IV Contrast, Oral contrast used: with Oral Contrast FINDINGS: LOWER CHEST: Unremarkable ABDOMEN LIVER: Diffusely hypoattenuating parenchyma. GALLBLADDER AND BILE DUCTS: Unremarkable. PANCREAS: Unremarkable. SPLEEN: Multiples splenic defects are again seen although appears smaller than prior on 03/18/2021 ADRENAL GLANDS: Unremarkable. KIDNEYS AND URETERS: No evidence of hydronephrosis or renal calculus. The ureters are unremarkable. PELVIS BLADDER: Unremarkable REPRODUCTIVE: Unremarkable. ABDOMEN & PELVIS STOMACH AND BOWEL: No evidence of bowel obstruction. Circumferential wall thickening of the ascending colon measuring up to 9 mm similar dating back to 2019. Focal area of large bowel stricturing best a ppreciated on sagittal image 203 image 63 with dilation upstream and narrowing of the distal rectum. PERITONEUM: There is free air in the upper left abdomen centered around the spleen with suspected ear ly abscess formation around the spleen which there were similar findings on prior exams and 21 in 202 0. Findings on today's exam has decreased in size. There is felt to be clinical indication from the b owel into this fluid collection best appreciated on series 201 image 28 and series 202 image 64 VASCULATURE: No evidence of aortic aneurysm. MUSCULOSKELETAL: No acute osseous abnormalities LYMPH NODES: No gross evidence for lymphadenopathy. SOFT TISSUE/ABDOMINAL WALL: Unremarkable IMPRESSION: 1. Findings most suggestive of perforated hollow viscus with left upper quadrant free air around the spleen with early phlegmonous change/abscess formation around the spleen. Some these findings were s een dating back to 2019 but appear smaller on today's exam. Additional low attenuating areas are seen within the spleen which are indeterminate and could represent splenic abscess given adjacent inflamm ation changes around the spleen. 2. Hepatic flexure ulceration wall thickening is again seen and is seen dating back to 05/12/2020. 3. Focal narrowing of the rectum suspicious for stricture. Findings communicated to Erick Merlos on 02/08/2022 7:[address] Arthur Medina.
[2022-02-08 20:06] LABS: Glucose,Whole Blood 99 mg/dL (70-110)
[2022-02-08] MEDS: MELATONIN 3 MG TABLET PO SCH (20:14)
[2022-02-08 20:34] LABS: Anisocytosis Moderate; HCT 38.8 % (39.0-53.0); HGB 11.2 gm/dL (13.0-17.5); Hypochromasia Marked; MCHC 28.9 g/dL (31.0-37.0); MCV 72.8 fL (80.0-100.0); Mean Platelet Volume 7.1; Microcytosis Marked; Platelet Count 636 k/uL (150-450); Poikilocytosis Slight; RBC 5.33 m/uL (4.30-5.90); RDW 20.6 % (11.5-15.5)
[2022-02-08 20:47] LABS: WBC 43.5 k/uL (3.8-10.6)
[2022-02-08 21:19] LABS: Band Neutrophils % 1 %; Lymphocytes # (M) 0.87 k/uL (1.0-4.8); Metamyelocytes # (M) 0.44 k/uL (0); Metamyelocytes % 1 %; Monocytes # (M) 2.18 k/uL (0-1.0); Myelocytes # (M) 0.44 k/uL (0); Myelocytes % 1 %; Neutrophils % (M) 92 %; Nucleated Red Blood Cells 0 /100 WBC (0-0); Total Cells Counted 200
[2022-02-09] MEDS: HYDROmorphone 1 MG/ML 1 ML SYRINGE IVP PRN ×2 (03:34→10:01)
[2022-02-09 04:15] VITALS: RESP 18
[2022-02-09 06:09] LABS: Glucose,Whole Blood 148 mg/dL (70-110)
[2022-02-09] MEDS: PIPERACILLIN-TAZOBACTAM 3.375 GM in SODIUM CHLORIDE 0.9% 100 ML IVPB SCH (06:24)
[2022-02-09] MEDS: HYDROmorphone 0.5 MG/0.5 ML SYRINGE IVP PRN (06:24)
[2022-02-09] MEDS ORDERED: predniSONE 10 MG TAB PO SCH (09:00)
[2022-02-09] MEDS ORDERED: predniSONE 20 MG TAB PO SCH (09:00)
--- NOTE | 2022-02-09 09:07 | P.GSCN ---
History of Present Illness Consult date: 02/08/22 Reason for Consult: Abdominal abscess, free air History of present illness: This is a 41-year-old male with multiple medical issues. Patient has previously history of ulcerative colitis which has not been medically treated. He also is a heroin addict. Patient underwent colonoscopy by Dr. Gong today. Dr. Gong found a mass on the hepatic flexure area of the colon. It is unknown this is cancer or inflammatory mass. The patient had a CAT scan done post procedure. There is some evidence of free air and possible abscess in the splenic flexure area. There is also a mass in the hepatic flexure area. The patient states he hasn't no significant abdominal pain. His vital signs are stable. The patient was noted to have some similar air and abscess 2 years ago on CAT scan at that time. Past Medical History Past Medical History: GI Bleed, Skin Disorder Additional Past Medical History / Comment(s): ulcerative colitis, spleen problems, Hep C History of Any Multi-Drug Resistant Organisms: None Reported Past Surgical History: No Surgical Hx Reported Additional Past Surgical History / Comment(s): wound debriedment L leg Past Anesthesia/Blood Transfusion Reactions: No Reported Reaction Past Psychological History: No Psychological Hx Reported Smoking Status: Current every day smoker Past Alcohol Use History: None Reported Past Drug Use History: Heroin, Marijuana, Opiates - Past Family History Father Family Medical History: Seizure Disorder Additional Family Medical History / Comment(s): Father is alive at age 64 with history of seizures and hypertension. Mother Additional Family Medical History / Comment(s): Mother in her late 50s with complications from CABG. Brother(s) Additional Family Medical History / Comment(s): Patient has 2 brothers with no major medical problems. He does not have any sisters. He does not have any children. No family members have ulcerative colitis. Medications and Allergies Home Medications Medication Instructions Recorded Confirmed Type Loperamide [Imodium] 4 mg PO BID cap 01/10/22 02/03/22 Rx Melatonin 6 mg PO HS tab 01/10/22 02/03/22 Rx sulfaSALAzine [Azulfidine] 1,000 mg PO QID #120 tab 01/10/22 02/03/22 Rx traZODone HCL 100 mg PO HS PRN 01/23/22 02/03/22 History predniSONE 0 mg PO DIRECTED #126 tab 02/07/22 Rx Allergies Allergy/AdvReac Type Severity Reaction Status Date / Time No Known Allergies Allergy Verified 02/03/22 10:29 Surgical - Exam Vital Signs Temp Pulse Resp BP Pulse Ox 98.1 F 95 18 134/78 100 02/03/22 08:38 02/03/22 08:38 02/03/22 08:38 02/03/22 08:38 02/03/22 08:38 - General no distress, cachectic - Eyes PERRL - ENT normal pinna - Neck no masses - Respiratory normal expansion - Cardiovascular Rhythm: regular - Abdomen No rebound or guarding. There is no peritoneal signs Abdomen: soft, non tender Results - Labs 02/08/22 20:23 02/06/22 12:09 Abnormal Lab Results - Last 24 Hours (Table) 02/08/22 02/09/22 Range/Units 20:23 06:08 WBC 43.5 H (3.8-10.6) k/uL Hgb 11.2 L (13.0-17.5) gm/dL Hct 38.8 L (39.0-53.0) % MCV 72.8 L (80.0-100.0) fL MCH 21.0 L (25.0-35.0) pg MCHC 28.9 L (31.0-37.0) g/dL RDW 20.6 H (11.5-15.5) % Plt Count 636 H (150-450) k/uL Neutrophils # (Manual) 40.40 H (1.3-7.7) k/uL Lymphocytes # (Manual) 0.87 L (1.0-4.8) k/uL Monocytes # (Manual) 2.18 H (0-1.0) k/uL Metamyelocytes # (Man) 0.44 H (0) k/uL Myelocytes # (Manual) 0.44 H (0) k/uL POC Glucose (mg/dL) 148 H (70-110) mg/dL Microbiology - Last 24 Hours (Table) 02/05/22 08:45 Gram Stain - Final Leg - Left Wound Culture - Final Corynebacterium species 02/03/22 08:59 Blood Culture - Preliminary Blood No Growth after 120 hours 02/03/22 08:59 Blood Culture - Preliminary Blood No Growth after 120 hours - Imaging CT scan - abdomen: report reviewed (Images were reviewed with the radiologist. There is some free air around the splenic flexure area there is possible abscess in the area as well as inflammation within the spleen. There is thickening of the hepatic flexure. The findings were present on previous CAT scans as well.) Assessment and Plan Assessment: Ulcerative colitis. Patient may have a fistulous tract. The patient will need a subtotal colectomy. We will await pathology from to his colonoscopy. The patient is clinically stable this time. If he has any change in his vital signs the patient will undergo emergent exploratory laparotomy with colectomy. I discussed these findings with the patient. The patient is aware that he needs surgery. The case was discussed with Dr. Plata in detail.
[2022-02-09 09:20] LABS: Anisocytosis Moderate; Basophils % (A) 0 %; Eosinophils # (A) 0.1 k/uL (0-0.7); Eosinophils % (A) 0 %; HCT 39.2 % (39.0-53.0); HGB 11.3 gm/dL (13.0-17.5); Hypochromasia Marked; Lymphocytes % (A) 9 %; MCH 21.1 pg (25.0-35.0); MCHC 28.8 g/dL (31.0-37.0); MCV 73.5 fL (80.0-100.0); Mean Platelet Volume 6.3; Microcytosis Marked; Monocytes # (A) 0.6 k/uL (0-1.0); Monocytes % (A) 3 %; Neutrophils # (A) 20.3 k/uL (1.3-7.7); Neutrophils % (A) 87 %; Platelet Count 624 k/uL (150-450); Poikilocytosis Slight; RBC 5.33 m/uL (4.30-5.90); RDW 20.3 % (11.5-15.5); WBC 23.3 k/uL (3.8-10.6)
--- NOTE | 2022-02-09 09:25 | P.PN ---
Subjective Progress Note Date: 02/09/22 HISTORY OF PRESENT ILLNESS This is a 41-year-old male patient of Dr. Plata with past medical history of ulcerative colitis, hepatitis C, tobacco use and dependence, marijuana use, h eroin use. He has had several admissions in the past for acute ulcerative colitis and that time was seen by GI recommended to be on sulfasalazine and follow-up in the office. He had a recent hospitalization which time he was treated for ulcer to the left lower extremity status post debridement on by Dr. Ann. Patient was discharged home to continue on Keflex, sulfasalazine. Patient had one follow-up appointment in Dr. Plata's office and he failed to follow-up with the wound center or with Dr. Merlin Gong. His excuse for lack of follow-up is transportation issues. He presented on 01/23 2 [facility] emergency center due to loose bowel movements daily with blood in the stools for the last couple days. On admission his hemoglobin was 5.1 and he received 2 units of packed RBCs. Patient initially started on Zosyn and Solu- Medrol, Solu-Medrol dosing adjusted by GI. GI had provided recommendations for diet, Solu-Medrol and prednisone taper with outpatient EGD colonoscopy planned with anticipation of patient would've been discharged by now. Patient is on a c lear liquid diet today in anticipation of possible EGD colonoscopy for tomorrow which was previously scheduled as an outpatient. Patient states that he has a fuzzy feeling in his mouth and throat. He states that his wound to the left lower extremity is not doing well. He is tolerating clear liquid diet with no nausea or vomiting. Yesterday's blood work revealed WBC 20, hemoglobin 9.6, platelet count 536. Sodium 131, potassium 5.6, chloride 103, CO2 21, BUN 14 and creatinine 0.64. Blood sugars have been running between 101 139. Liver function tests are normal. Patient is continued on Dilaudid for pain, Solu- Medrol 20 mg IV every 8 hours, Zosyn IV piggyback. 02/08: Patient is scheduled for EGD and colonoscopy today with Dr. Merlin Gong which was scheduled as an outpatient to see the would be discharged by now. Patient took about half of the prep thus far and states he is stools are clear but citrate of magnesium has been ordered 1 this morning to ensure that he is properly prepped. Patient has been afebrile, heart rate 66, blood pressure 128/80, pulse ox 99% on room air. Capillary blood glucose running between 100- 112 and CBGs and was scale insulin will be discontinued. 02/09: Yesterday, patient underwent EGD and colonoscopy with Dr. Merlin Gong. EGD revealed severe Mylene esophagitis with white plaques throughout the entire esophagus status post biopsy and patient was started on fluconazole for 7 days. Colonoscopy revealed ulcerated mass like area involving the hepatic flexure extending into the right colon status post multiple biopsies to rule out neoplasm. Rest of the colon appeared normal. Patient subsequently underwent CAT scan of the abdomen and pelvis with contrast which revealed suggestion of perforated hollow viscus with left upper quadrant free air around the spleen with early phlegmonous change/abscess formation around the spleen. Some of these findings were seen dating back to 2019 but appears smaller on today's exam. Additional low attenuating areas are seen within the spleen which are indeterminate and could represent splenic abscess given adjacent inflammatory changes around the spleen. Hepatic flexure ulceration wall thickening is again seen and seen back on 05/12/2020. Focal narrowing of the rectum suspicious for stricture. Consult was added for Dr. Merlos and current plan is to await biopsy report and then evaluate for surgery. Patient will require surgery at some point regardless most likely colostomy. Patient updated on results of yesterday's studies/procedures. He is tearful. Patient complains of feeling hungry. Pain in left leg is his biggest concern. Patient has not had BM. Biopsy reports are pending. Leukocytosis has worsened with WBC of 43.5, hemoglobin 11.2, platelet count 636. Wound culture is positive for Corynebacterium species. GI has changed IV steroids to oral prednisone 30 mg daily. Zosyn will be renewed for possible splenic abscess. REVIEW OF SYSTEMS Constitutional: No fever, no chills, no night sweats. No weight change. No weakness, fatigue or lethargy. No daytime sleepiness. EENT: No headache. No blurred vision or double vision, no loss of vision. No loss of Hearing, no ringing in the ears, no dizziness. No nasal drainage or congestion. No epistaxis. No sore throat. Reports dental pain. Lungs: No shortness of breath, cough, no sputum production. No wheezing. Cardiovascular: No chest pain, no lower extremity edema. No palpitations. No paroxysmal nocturnal dyspnea. No orthopnea. No lightheadedness or dizziness. No syncopal episodes. Abdominal: Denies abdominal pain. Denies nausea, no vomiting. Denies diarrhea. No constipation. Denies bloody or tarry stools denies loss of appetite. Genitourinary: No dysuria, increased frequency, urgency. No urinary retention. Musculoskeletal: No myalgias. No muscle weakness, no gait dysfunction, no fr equent falls. No back pain. No neck pain. Integumentary: Reports left lower extremity wounds with severe pain, no lesions. No rash or pruritus. No unusual bruising. No change in hair or nails. Neurologic: No aphasia. No facial droop. No change in mentation. No head injury. No headache. No paralysis. No paresthesia. Psychiatric: No depression. No anxiety. No mood swings. Endocrine: No abnormal blood sugars. No weight change. PHYSICAL EXAMINATION Gen: This is a cachectic appearing 41-year-old male, resting in bed appears to be fairly comfortable. HEENT: Head is atraumatic, normocephalic. Pupils equal, round. Sclerae is anicteric. NECK: Supple. No JVD. No lymphadenopathy. No thyromegaly. LUNGS: Clear to auscultation. No wheezes or rhonchi. No intercostal retractions. HEART: Regular rate and rhythm. No murmur. ABDOMEN: Soft. Bowel sounds are present. No masses. No tenderness. EXTREMITIES: No pedal edema. No calf tenderness. Dorsalis pedis +2 bilaterally. Ulcer to the pretibial area left lower extremity. Please see nursing documentation for details NEUROLOGICAL: Patient is awake, alert and oriented x3. Cranial nerves 2 through 12 are grossly intact. ASSESSMENT AND PLAN 1. Exacerbation of ulcerative colitis. IV Solu-Medrol transitioned to oral prednisone 30 mg daily, Dilaudid for pain, Zosyn IV piggyback, consult with GI appreciated. 2. Mylene esophagitis. Continue Diflucan 100 mg daily for 7 days. 3. Ulcerated mass, rule out cancer. Biopsy report is pending. Consult with Dr. Merlos appreciated. Patient continued on Zosyn. 4. Possible splenic abscesses on CAT scan. Continue Zosyn. 5. Pretibial nonhealing wound likely due to pyoderma gangrenosa. Patient has been seen by wound care with plan for outpatient follow-up. Continue local wound care with Santyl. Patient is status post debridement by vascular surgery. 6. IV drug use with heroin. Monitor for withdrawals, patient states he was abstinent for one week prior to admission 7. Tobacco use and dependence. Patient declines need for nicotine patch. 8. Severe protein calorie malnutrition secondary to ulcerative colitis, poor diet, IV drug use, tobacco use, possible colon cancer. Continue patient on protein supplements. 9. Insomnia. Patient continued on melatonin 6 mg at bedtime as needed. 10. Regular marijuana use. 11. History of Hepatitis C. 12. GI prophylaxis. Protonix 40 mild grams IV push daily. 13. DVT prophylaxis. Heparin subcu. DISCHARGE PLAN Home with [facility]. Patient is now requesting subacute rehab at [facility] outside of our critical access hospital. Impression and plan of care have been directed as dictated by the signing physician. Teri Walter nurse practitioner acting as scribe for signing physician. Objective - Vital Signs Vital signs: Vital Signs Temp 98.1 F 02/09/22 03:25 Pulse 65 02/09/22 03:25 Resp 18 02/09/22 03:25 BP 118/77 02/09/22 03:25 Pulse Ox 100 02/09/22 03:25 FiO2 Intake & Output 02/08/22 02/09/22 02/09/22 18:59 06:59 18:59 Intake Total 630 Output Total 450 1225 Balance 180 -1225 Weight 70.307 kg Intake: IV 150 Oral 480 Output: Urine 450 1225 Other: Voiding Method Toilet Toilet Urinal Urinal # Voids 2 - Labs CBC & Chem 7: 02/08/22 20:23 02/06/22 12:09 Labs: Abnormal Lab Results - Last 24 Hours (Table) 02/08/22 02/09/22 Range/Units 20:23 06:08 WBC 43.5 H (3.8-10.6) k/uL Hgb 11.2 L (13.0-17.5) gm/dL Hct 38.8 L (39.0-53.0) % MCV 72.8 L (80.0-100.0) fL MCH 21.0 L (25.0-35.0) pg MCHC 28.9 L (31.0-37.0) g/dL RDW 20.6 H (11.5-15.5) % Plt Count 636 H (150-450) k/uL Neutrophils # (Manual) 40.40 H (1.3-7.7) k/uL Lymphocytes # (Manual) 0.87 L (1.0-4.8) k/uL Monocytes # (Manual) 2.18 H (0-1.0) k/uL Metamyelocytes # (Man) 0.44 H (0) k/uL Myelocytes # (Manual) 0.44 H (0) k/uL POC Glucose (mg/dL) 148 H (70-110) mg/dL Microbiology - Last 24 Hours (Table) 02/05/22 08:45 Gram Stain - Final Leg - Left Wound Culture - Final Corynebacterium species 02/03/22 08:59 Blood Culture - Preliminary Blood No Growth after 120 hours 02/03/22 08:59 Blood Culture - Preliminary Blood No Growth after 120 hours
[2022-02-09 09:33] LABS: African American GFR (CKD) >90 (>60 ml/min/1.73 sqM); Anion Gap 14 mmol/L; Blood Urea Nitrogen 16 mg/dL (9-20); Calcium 9.1 mg/dL (8.4-10.2); Carbon Dioxide 23 mmol/L (22-30); Chloride 97 mmol/L (98-107); Glucose 116 mg/dL (74-99); Non-African American GFR(CKD) >90 (>60 ml/min/1.73 sqM); Potassium 4.6 mmol/L (3.5-5.1); Sodium 134 mmol/L (137-145)
--- NOTE | 2022-02-09 09:45 | P.PN ---
Subjective Progress Note Date: 02/09/22 Principal diagnosis: Lower extremity wounds Patient was seen and examined today as a follow-up. He is status post wound debridement. Currently using Santyl daily. He's been afebrile. No acute changes through the night. Objective - Vital Signs Vital signs: Vital Signs Temp 98.1 F 02/09/22 03:25 Pulse 65 02/09/22 03:25 Resp 18 02/09/22 03:25 BP 118/77 02/09/22 03:25 Pulse Ox 100 02/09/22 03:25 FiO2 Intake & Output 02/08/22 02/09/22 02/09/22 18:59 06:59 18:59 Intake Total 630 Output Total 450 1225 Balance 180 -1225 Weight 70.307 kg Intake: IV 150 Oral 480 Output: Urine 450 1225 Other: Voiding Method Toilet Toilet Urinal Urinal # Voids 2 - Exam General appearance: The patient is alert, oriented, appears in no acute distress. HET: Head is normocephalic and atraumatic. Pupils are equal and reactive. Neck: Supple without lymphadenopathy. Trachea midline. Abdomen: Soft, nontender, nondistended. Extremities: Bilateral lower extremity wounds with minimal drainage, viable tissue. Neurological: No focal deficits. Strength and sensation are grossly intact. - Labs CBC & Chem 7: 02/09/22 08:46 02/09/22 08:46 Labs: Abnormal Lab Results - Last 24 Hours (Table) 02/08/22 02/09/22 Range/Units 20:23 06:08 WBC 43.5 H (3.8-10.6) k/uL Hgb 11.2 L (13.0-17.5) gm/dL Hct 38.8 L (39.0-53.0) % MCV 72.8 L (80.0-100.0) fL MCH 21.0 L (25.0-35.0) pg MCHC 28.9 L (31.0-37.0) g/dL RDW 20.6 H (11.5-15.5) % Plt Count 636 H (150-450) k/uL Neutrophils # (Manual) 40.40 H (1.3-7.7) k/uL Lymphocytes # (Manual) 0.87 L (1.0-4.8) k/uL Monocytes # (Manual) 2.18 H (0-1.0) k/uL Metamyelocytes # (Man) 0.44 H (0) k/uL Myelocytes # (Manual) 0.44 H (0) k/uL POC Glucose (mg/dL) 148 H (70-110) mg/dL Microbiology - Last 24 Hours (Table) 02/05/22 08:45 Gram Stain - Final Leg - Left Wound Culture - Final Corynebacterium species 02/03/22 08:59 Blood Culture - Preliminary Blood No Growth after 120 hours 02/03/22 08:59 Blood Culture - Preliminary Blood No Growth after 120 hours Assessment and Plan Assessment: 1. Bilateral nonhealing lower extremity wounds 2. Ulcerative colitis 3. Possible pyoderma gangrenosum related to ulcerative colitis 4. Heroin user 5. Hepatitis C 6. Noncompliance Plan: 1. Recommend daily dressing changes with Santyl 2. Social work consult 3. Recommend outpatient follow-up with wound care center 4. Heroin abstinence 5. Continue with medical management Thank you for this consultation. We will sign off at this time. The impression and plan of care has been dictated as directed. I performed a history and examination of this patient, discussed the same with the dictator. I agree with the dictator's note ,documented as a scribe. Any additional findings or plans will be noted.
[2022-02-09] MEDS: FLUCONAZOLE 100 MG TAB PO SCH (10:02)
[2022-02-09] MEDS: PANTOPRAZOLE 40 MG/10 ML VIAL IVP SCH (10:04)
[2022-02-09 10:06] VITALS: BP 156/63; PULSE 69; TEMP 97.9
--- NOTE | 2022-02-09 11:46 | P.PN ---
Subjective Progress Note Date: 02/09/22 Principal diagnosis: Ulcerative colitis This is a 41-year-old male with a past medical history of ulcerative colitis diagnosed at age 15 treated in the past with steroids and sulfalazine however has not been compliant with medications. He presented to the emergency department with complaints of abdominal pain, and leg wounds. His past medical history includes abnormal spleen, ulcerative colitis, hepatitis C, alcohol abuse, tobacco abuse, and heroine user. He states he has been feeling better and only getting these flares every 1-2 years. He states so he has not been ta sami any medication. He does not follow with any human resources safety manager and occasionally has seen his PCP Dr. Plata. He states he has difficulty with transportation for appointments. He denies any treatment for his hepatitis C infection. He is still currently using heroin, last use was within 1 week ago. His last hospitalization was in March 2021 which he was treated with steroids. His last colonoscopy was in 2016 at [facility] significant for active colitis. He states he is having anywhere from 2-6 loose bowel movements daily. He states in the last few days most have had blood in them. on his admission hemoglobin was 5.1, he received 2 units of blood. Current labs are pending. He was started on Zosyn and Solu-Medrol 60 mg every 8 hours. Patient was recently admitted and seen for bilateral lower extremity leg ulcers and had debridements done by vascular surgery. 02/09/2022: Patient was seen and examined today as a follow-up. He underwent EGD and colonoscopy with Dr. Gong yesterday. EGD revealed severe Mylene esophagitis with white plaques throughout the entire esophagus. Colonoscopy revealed ulcerated masslike area involving the hepatic flexure extending into the right colon status post multiple biopsies to rule out neoplasm. Rest of the colon appeared normal. Gen. surgery was consulted. Abdominal/pelvis CT of the abdomen with contrast was ordered reporting findings most suggestive of perforated hollow viscus with left upper quadrant free air around the spleen with early leg mom is change/abscess formation around the spleen. Some of these were seen dating back to 2019 but appear smaller on today's exam. Additional low attenuating area are seen within the spleen which are indeterminate and could represent splenic abscess given adjacent inflammation changes around the spleen. Hepatic flexure ulceration wall thickening is again seen and seen dating back to 05/12/2020. Focal narrowing of the rectum suspicious for stricture. The patient denies any abdominal pain, no nausea or vomiting. He has been afebrile. He states that he has some loose stools, nonbloody. He states he is hungry, he is upset that he cannot eat. He states he is very overwhelmed with the new findings and recommendation for surgery from the general surgeon. He states he would like a second opinion. WBC yesterday was 43.5, repeat labs today WBC 23.3 hemoglobin 11.3 platelet count 624,000. Patient remains afebrile. Objective - Vital Signs Vital signs: Vital Signs Temp 97.9 F 02/09/22 10:05 Pulse 69 02/09/22 10:05 Resp 18 02/09/22 10:05 BP 156/63 02/09/22 10:05 Pulse Ox 100 02/09/22 10:05 FiO2 Intake & Output 02/08/22 02/09/22 02/09/22 18:59 06:59 18:59 Intake Total 630 Output Total 450 1225 Balance 180 -1225 Weight 70.307 kg Intake: IV 150 Oral 480 Output: Urine 450 1225 Other: Voiding Method Toilet Toilet Urinal Urinal # Voids 2 - Exam General appearance: The patient is alert, oriented, appears in no acute distress. HET: Head is normocephalic and atraumatic. Conjunctiva pink. Sclera anicteric. Neck: Supple without lymphadenopathy. Abdomen: Soft, thin, nontender, nondistended with bowel sounds. No guarding or rigidity. Extremities: Normal skin color and turgor. No pedal edema Skin: No rashes, no jaundice Neurological: No focal deficits. Alert and oriented x3. - Labs CBC & Chem 7: 02/09/22 08:46 02/09/22 08:46 Labs: Abnormal Lab Results - Last 24 Hours (Table) 02/08/22 02/09/22 02/09/22 Range/Units 20:23 06:08 08:46 WBC 43.5 H 23.3 H (3.8-10.6) k/uL Hgb 11.2 L 11.3 L (13.0-17.5) gm/dL Hct 38.8 L (39.0-53.0) % MCV 72.8 L 73.5 L (80.0-100.0) fL MCH 21.0 L 21.1 L (25.0-35.0) pg MCHC 28.9 L 28.8 L (31.0-37.0) g/dL RDW 20.6 H 20.3 H (11.5-15.5) % Plt Count 636 H 624 H (150-450) k/uL Neutrophils # 20.3 H (1.3-7.7) k/uL Neutrophils # (Manual) 40.40 H (1.3-7.7) k/uL Lymphocytes # (Manual) 0.87 L (1.0-4.8) k/uL Monocytes # (Manual) 2.18 H (0-1.0) k/uL Metamyelocytes # (Man) 0.44 H (0) k/uL Myelocytes # (Manual) 0.44 H (0) k/uL Sodium (137-145) mmol/L Chloride (98-107) mmol/L Glucose (74-99) mg/dL POC Glucose (mg/dL) 148 H (70-110) mg/dL 02/09/22 Range/Units 08:46 WBC (3.8-10.6) k/uL Hgb (13.0-17.5) gm/dL Hct (39.0-53.0) % MCV (80.0-100.0) fL MCH (25.0-35.0) pg MCHC (31.0-37.0) g/dL RDW (11.5-15.5) % Plt Count (150-450) k/uL Neutrophils # (1.3-7.7) k/uL Neutrophils # (Manual) (1.3-7.7) k/uL Lymphocytes # (Manual) (1.0-4.8) k/uL Monocytes # (Manual) (0-1.0) k/uL Metamyelocytes # (Man) (0) k/uL Myelocytes # (Manual) (0) k/uL Sodium 134 L (137-145) mmol/L Chloride 97 L (98-107) mmol/L Glucose 116 H (74-99) mg/dL POC Glucose (mg/dL) (70-110) mg/dL Microbiology - Last 24 Hours (Table) 02/05/22 08:45 Gram Stain - Final Leg - Left Wound Culture - Final Corynebacterium species 02/03/22 08:59 Blood Culture - Preliminary Blood No Growth after 120 hours 02/03/22 08:59 Blood Culture - Preliminary Blood No Growth after 120 hours Assessment and Plan (1) Ulcerative colitis Narrative/Plan: 41-year-old male with a history of ulcerative colitis is age of 15 noncompliant with treatment and medication. Came in for abdominal pain, leg pain, and bloody bowel movements. Patient recently admitted in beginning of December for lower extremity ulcers. Had debridement and again no follow-up with wound care. He has been noncompliant and not following with any human resources safety manager or PCP in the outpatient setting. He has not been on any medications for his ulcerative colitis. Last flare March 2021. Previous colonoscopy 2016 showing active colitis. Again likely with exacerbation of ulcerative colitis due to noncompliance. Will start patient on Solu-Medrol 20 mg every 8 hours. Continue Zosyn. Recommend starting Remicade, this will be initiated as outpatient through our office. EGD and colonoscopy performed 02/08/2022. EGD showing severe Mylene esophagitis. Patient started on fluconazole 100 mg daily for 7 days. Colonoscopy revealed hepatic flexure ulcerated mass, otherwise normal colon. Gen. surgery consulted and recommending subtotal colectomy. Awaiting pathology. Current Visit: No Status: Acute Code(s): K51.90 - ULCERATIVE COLITIS, UNSPECIFIED, WITHOUT COMPLICATIONS SNOMED Code(s): 68384376 (2) Hepatic flexure mass Narrative/Plan: Gen. surgery on consult, recommending subtotal colectomy. Currently awaiting pathology Current Visit: Yes Status: Acute Code(s): K63.89 - OTHER SPECIFIED DISEASES OF INTESTINE SNOMED Code(s): 627259828 (3) IV drug abuse Current Visit: Yes Status: Acute Code(s): F19.10 - OTHER PSYCHOACTIVE SUBSTANCE ABUSE, UNCOMPLICATED SNOMED Code(s): 530043248 (4) Hepatitis C Current Visit: No Status: Acute Code(s): B19.20 - UNSPECIFIED VIRAL HEPATITIS C WITHOUT HEPATIC COMA SNOMED Code(s): 20433671 Plan: 1. Continue with recommendations from general surgeon 2. Diet per recommendations from general surgery 3. For now continue prednisone 30 mg daily 4. Recommend outpatient follow-up for ulcerative colitis and hepatitis C 5. Recommend heroine abstinence Thank you for this consultation, we will be on standby as there is no gastroenterology available in house. Dr. Merlin Gong I agree with the dictator's note, documented as a scribe by Nallely Kaur.
--- NOTE | 2022-02-09 12:39 | P.CON ---
Consult Note - . Consult date: 02/09/22 Assessment/Plan:: I was consulted to see this patient for second opinion. He was not in his room apparently just left AGAINST MEDICAL ADVICE.
--- NOTE | 2022-02-09 13:12 | P.DS ---
Providers Date of admission: 02/03/22 12:21 Expected date of discharge: 02/09/22 Attending physician: Adalid Plata Consults: 02/03/22 12:21 Consult Physician Urgent Consulting Provider: Maryan Fields Consult Reason/Comments: Leg wound Do you want consulting provider notified?: Yes Consult Physician Urgent Consulting Provider: Maria Antonia Gong Consult Reason/Comments: GI hemorrhage Do you want consulting provider notified?: Yes 02/04/22 14:45 Consult Physician Routine Consulting Provider: Madyson Ann Consult Reason/Comments: wound debridment Do you want consulting provider notified?: Yes 02/08/22 14:15 Consult Physician Routine Consulting Provider: Erick Merlos Consult Reason/Comments: Hepatic flexure ulcerated mass extending to right colon seen on colonoscopy Do you want consulting provider notified?: Yes 02/09/22 09:19 Consult Physician Routine Consulting Provider: Cate Foster Consult Reason/Comments: 2nd opinion, ulcer mass, splenic abscess? Do you want consulting provider notified?: Yes 02/09/22 09:35 Consult Physician Routine Consulting Provider: Dexter Mora Consult Reason/Comments: 2nd opinion, ulcer mass, poss splenic abscesses Do you want consulting provider notified?: Yes Primary care physician: Adalid Plata [facility] Course: HISTORY OF PRESENT ILLNESS This is a 41-year-old male patient of Dr. Plata with past medical history of ulcerative colitis, hepatitis C, tobacco use and dependence, marijuana use, heroin use. He has had several admissions in the past for acute ulcerative colitis and that time was seen by GI recommended to be on sulfasalazine and follow-up in the office. He had a recent hospitalization which time he was treated for ulcer to the left lower extremity status post debridement on by Dr. Ann. Patient was discharged home to continue on Keflex, sulfasalazine. Patient had one follow-up appointment in Dr. Plata's office and he failed to follow-up with the wound center or with Dr. Merlin Gong. His excuse for lack of follow-up is transportation issues. He presented on 01/23 2 [facility] emergency center due to loose bowel movements daily with blood in the stools for the last couple days. On admission his hemoglobin was 5.1 and he received 2 units of packed RBCs. Patient initially started on Zosyn and Solu- Medrol, Solu-Medrol dosing adjusted by GI. GI had provided recommendations for diet, Solu-Medrol and prednisone taper with outpatient EGD colonoscopy planned with anticipation of patient would've been discharged by now. Patient is on a clear liquid diet today in anticipation of possible EGD colonoscopy for tomorrow which was previously scheduled as an outpatient. Patient states that he has a fuzzy feeling in his mouth and throat. He states that his wound to the left lower extremity is not doing well. He is tolerating clear liquid diet with no nausea or vomiting. Yesterday's blood work revealed WBC 20, hemoglobin 9.6, platelet count 536. Sodium 131, potassium 5.6, chloride 103, CO2 21, BUN 14 and creatinine 0.64. Blood sugars have been running between 101 139. Liver function tests are normal. Patient is continued on Dilaudid for pain, Solu- Medrol 20 mg IV every 8 hours, Zosyn IV piggyback. 02/08: Patient is scheduled for EGD and colonoscopy today with Dr. Merlin Gong which was scheduled as an outpatient to see the would be discharged by now. Patient took about half of the prep thus far and states he is stools are clear but citrate of magnesium has been ordered 1 this morning to ensure that he is properly prepped. Patient has been afebrile, heart rate 66, blood pressure 128/80, pulse ox 99% on room air. Capillary blood glucose running between 100- 112 and CBGs and was scale insulin will be discontinued. 02/09: Yesterday, patient underwent EGD and colonoscopy with Dr. Merlin Gong. EGD revealed severe Mylene esophagitis with white plaques throughout the entire esophagus status post biopsy and patient was started on fluconazole for 7 days. Colonoscopy revealed ulcerated mass like area involving the hepatic flexure extending into the right colon status post multiple biopsies to rule out neoplasm. Rest of the colon appeared normal. Patient subsequently underwent CAT scan of the abdomen and pelvis with contrast which revealed suggestion of perforated hollow viscus with left upper quadrant free air around the spleen with early phlegmonous change/abscess formation around the spleen. Some of these findings were seen dating back to 2019 but appears smaller on today's exam. Additional low attenuating areas are seen within the spleen which are indeterminate and could represent splenic abscess given adjacent inflammatory changes around the spleen. Hepatic flexure ulceration wall thickening is again seen and seen back on 05/12/2020. Focal narrowing of the rectum suspicious for stricture. Consult was added for Dr. Merlos and current plan is to await biopsy report and then evaluate for surgery. Patient will require surgery at some point regardless most likely colostomy. Patient updated on results of yesterday's studies/procedures. He is tearful. Patient complains of feeling hungry. Pain in left leg is his biggest concern. Patient has not had BM. Biopsy reports are pending. Leukocytosis has worsened with WBC of 43.5, hemoglobin 11.2, platelet count 636. Wound culture is positive for Corynebacterium species. GI has changed IV steroids to oral prednisone 30 mg daily. Zosyn will be renewed for possible splenic abscess. Patient requested a second surgical opinion. Initially sent to Dr. Foster and he declined, Dr. Mora was consult did and by the time he came to see the patient around 12 or 12:30, patient had left. Patient did not sign out AMA but just left without notifying staff. DISCHARGE DIAGNOSES 1. Exacerbation of ulcerative colitis. 2. Mylene esophagitis. 3. Ulcerated mass, rule out cancer. Biopsy report is pending. 4. Possible splenic abscesses on CAT scan. 5. Pretibial nonhealing wound likely due to pyoderma gangrenosa. 6. IV drug use with heroin. 7. Tobacco use and dependence. 8. Severe protein calorie malnutrition secondary to ulcerative colitis, poor diet, IV drug use, tobacco use, possible colon cancer. 9. Insomnia. 10. Regular marijuana use. 11. History of Hepatitis C. DISCHARGE PLAN Patient left AMA. Impression and plan of care have been directed as dictated by the signing physician. Teri Walter nurse practitioner acting as scribe for signing physician. Patient Condition at Discharge: Undetermined Plan - Discharge Summary Discharge Rx Participant: Yes New Discharge Prescriptions: New predniSONE 0 mg PO DIRECTED #126 tab No Action sulfaSALAzine [Azulfidine] 1,000 mg PO QID #120 tab Loperamide [Imodium] 4 mg PO BID cap Melatonin 6 mg PO HS tab traZODone HCL 100 mg PO HS PRN PRN Reason: Insomnia Discharge Medication List Loperamide [Imodium] 4 mg PO BID cap 01/10/22 [Rx] Melatonin 6 mg PO HS tab 01/10/22 [Rx] sulfaSALAzine [Azulfidine] 1,000 mg PO QID #120 tab 01/10/22 [Rx] traZODone HCL 100 mg PO HS PRN 01/23/22 [History] predniSONE 0 mg PO DIRECTED #126 tab 02/07/22 [Rx] Follow up Appointment(s)/Referral(s): Adalid Plata MD [Primary Care Provider] - 1-2 days Maria Antonia Gong MD [STAFF PHYSICIAN] - 02/15/22 4:15 pm (EGD and colonoscopy 02/08/2022 at [facility]. The hospital will call you for a time. Office will send you prep.) [facility], [NON-STAFF] - Wound Center,[facility] [NON-STAFF] - 1 Week Activity/Diet/Wound Care/Special Instructions: Your Medicaid ID is [id number]. Phone number to call for a new card and to set up medical transportation - [phone] Discharge/Stand Alone Forms: Who Do I Call? Discharge Disposition: HOME WITH HOME HEALTH SERVICES
[2022-02-09] MEDS ORDERED: DEXAMETHASONE SOD PHOSPHATE 4 MG/ML 1 ML VIAL IV ONE (14:24)
[2022-02-09] MEDS ORDERED: LACTATED RINGERS 1,000 ML IV SCH (14:30)
--- NOTE | 2022-02-09 16:15 | P.PN ---
Subjective Progress Note Date: 02/09/22 Patient seen and examined with Dr. Merlos around 10:30 AM this morning CHIEF COMPLAINT: Abdominal abscess, free HISTORY OF PRESENT ILLNESS: Surgical service following regards to hepatic flexure mass that was noted on colonoscopy. Computed tomography scan had shown evidence of possible abscess at the splenic flexure and mass in the hepatic flexure and free air. CAT scan was done post colonoscopy. Patient has no significant abdominal pain. Denies any nausea vomiting. Dr. Merlos did discuss with patient that he was concerned of fistulous track formation with his history of ulcerative colitis. He recommended a subtotal colectomy. He discussed with the patient with the surgery entailed and that he would require a colostomy bag. Patient became angry and agitated. Reported that he did not want any surgery. And he stated "there is no way in Hell that he would have a bag." Patient reports that he was getting out of here. And apparently later this afternoon patient did leave AGAINST MEDICAL ADVICE. CEA is 3.3 hemoglobin has gone up from 5.1-11.2 this admission and WBC is up from 20-43.5 PHYSICAL EXAM: VITAL SIGNS: Reviewed. GENERAL: Well-developed in no acute distress. HEENT: No sclera icterus. Extraocular movements grossly intact. Moist buccal mucosa. Head is atraumatic, normocephalic. ABDOMEN: Soft. Nondistended. Nontender. NEUROLOGIC: Alert and oriented. Cranial nerves II through XII grossly intact. ASSESSMENT: 1. Hepatic flexure mass noted on CAT scan 2. Possible abscess in the splenic flexure 3. Concerns for fistulous track 4. Ulcerative colitis history 5. History of IV Heroin drug use PLAN: -Dr. Merlos Recommended a subtotal colectomy for tomorrow 02/10/2022 -Surgery was discussed in detail to patient. Patient refusing surgery. Patient left against ophthalmic medical technician Physician Hammer Smith note has been reviewed by physician. Signing provider agrees with the documented findings, assessment, and plan of care. Objective - Vital Signs Vital signs: Vital Signs Temp 97.9 F 02/09/22 10:05 Pulse 69 02/09/22 10:05 Resp 18 02/09/22 10:05 BP 156/63 02/09/22 10:05 Pulse Ox 100 02/09/22 10:05 FiO2 Intake & Output 02/08/22 02/09/22 02/09/22 18:59 06:59 18:59 Intake Total 630 Output Total 450 1225 Balance 180 -1225 Weight 70.307 kg Intake: IV 150 Oral 480 Output: Urine 450 1225 Other: Voiding Method Toilet Toilet Urinal Urinal # Voids 2 - Labs CBC & Chem 7: 02/09/22 08:46 02/09/22 08:46 Labs: Abnormal Lab Results - Last 24 Hours (Table) 02/08/22 02/09/22 02/09/22 Range/Units 20:23 06:08 08:46 WBC 43.5 H 23.3 H (3.8-10.6) k/uL Hgb 11.2 L 11.3 L (13.0-17.5) gm/dL Hct 38.8 L (39.0-53.0) % MCV 72.8 L 73.5 L (80.0-100.0) fL MCH 21.0 L 21.1 L (25.0-35.0) pg MCHC 28.9 L 28.8 L (31.0-37.0) g/dL RDW 20.6 H 20.3 H (11.5-15.5) % Plt Count 636 H 624 H (150-450) k/uL Neutrophils # 20.3 H (1.3-7.7) k/uL Neutrophils # (Manual) 40.40 H (1.3-7.7) k/uL Lymphocytes # (Manual) 0.87 L (1.0-4.8) k/uL Monocytes # (Manual) 2.18 H (0-1.0) k/uL Metamyelocytes # (Man) 0.44 H (0) k/uL Myelocytes # (Manual) 0.44 H (0) k/uL Sodium (137-145) mmol/L Chloride (98-107) mmol/L Glucose (74-99) mg/dL POC Glucose (mg/dL) 148 H (70-110) mg/dL 02/09/22 Range/Units 08:46 WBC (3.8-10.6) k/uL Hgb (13.0-17.5) gm/dL Hct (39.0-53.0) % MCV (80.0-100.0) fL MCH (25.0-35.0) pg MCHC (31.0-37.0) g/dL RDW (11.5-15.5) % Plt Count (150-450) k/uL Neutrophils # (1.3-7.7) k/uL Neutrophils # (Manual) (1.3-7.7) k/uL Lymphocytes # (Manual) (1.0-4.8) k/uL Monocytes # (Manual) (0-1.0) k/uL Metamyelocytes # (Man) (0) k/uL Myelocytes # (Manual) (0) k/uL Sodium 134 L (137-145) mmol/L Chloride 97 L (98-107) mmol/L Glucose 116 H (74-99) mg/dL POC Glucose (mg/dL) (70-110) mg/dL Microbiology - Last 24 Hours (Table) 02/03/22 08:59 Blood Culture - Final Blood No Growth after 144 hours 02/03/22 08:59 Blood Culture - Final Blood No Growth after 144 hours 02/05/22 08:45 Gram Stain - Final Leg - Left Wound Culture - Final Corynebacterium species
[2022-02-10] MEDS ORDERED: HYDROmorphone 0.5 MG/0.5 ML SYRINGE IVP PRN (07:00)
[2022-02-10] MEDS ORDERED: ONDANSETRON 4 MG/2 ML VIAL IVP PRN (07:00)
== END 2022-02-09 12:04 | disposition left against medical advice (07) | DRG 981 ==
LOC: EC 08:36 → 3SCARD 12:21
PROVIDERS: ADMIT Internal Medicine; ATTEND Internal Medicine
DX: K51.814 Other ulcerative colitis with abscess (principal); E43 Unspecified severe protein-calorie malnutrition; B37.81 Candidal esophagitis; D62 Acute posthemorrhagic anemia; F11.20 Opioid dependence, uncomplicated; L02.211 Cutaneous abscess of abdominal wall; L03.116 Cellulitis of left lower limb; L88 Pyoderma gangrenosum; L97.929 Non-pressure chronic ulcer of unspecified part of left lower leg with unspecified severity; R13.10 Dysphagia, unspecified; F10.10 Alcohol abuse, uncomplicated; B18.2 Chronic viral hepatitis C; Z68.20 Body mass index [BMI] 20.0-20.9, adult; F17.210 Nicotine dependence, cigarettes, uncomplicated; G47.00 Insomnia, unspecified; Z82.0 Family history of epilepsy and other diseases of the nervous system; Z82.49 Family history of ischemic heart disease and other diseases of the circulatory system; Z91.14 Patient's other noncompliance with medication regimen; Z91.19 Patient's noncompliance with other medical treatment and regimen
CPT/HCPCS: 36410; 36415; 43239; 45380; 45381; 74018; 74177; 76937; 80048; 80053; 82150; 82378; 82728; 83036; 83540; 83550; 83605; 83690; 85025; 85027; 85610; 85730; 86850; 86900; 86901; 86920; 87040; 87070; 87205; 88304; 88305; 88312; 96365; 96375; 99291

== ENCOUNTER 2022-02-10 16:19 | Inpatient (IN) | payer OTHER ==
[2022-02-10] MEDS ORDERED: MORPHINE SULFATE 2 MG/ML SYRINGE IVP STA ×2 (18:01→21:48)
[2022-02-10] MEDS ORDERED: SODIUM CHLORIDE 0.9% 1,000 ML IV STA ×2 (18:01)
[2022-02-10 18:32] LABS: ALT 40 U/L (4-49); AST 69 U/L (17-59); African American GFR (CKD) >90 (>60 ml/min/1.73 sqM); Albumin 3.5 g/dL (3.5-5.0); Alkaline Phosphatase 114 U/L (38-126); Anion Gap 15 mmol/L; Blood Urea Nitrogen 14 mg/dL (9-20); Calcium 8.6 mg/dL (8.4-10.2); Carbon Dioxide 21 mmol/L (22-30); Chloride 100 mmol/L (98-107); Glucose 110 mg/dL (74-99); Lipase 30 U/L (23-300); Non-African American GFR(CKD) >90 (>60 ml/min/1.73 sqM); Potassium 4.6 mmol/L (3.5-5.1); Sodium 136 mmol/L (137-145); Total Bilirubin 0.7 mg/dL (0.2-1.3); Total Protein 7.4 g/dL (6.3-8.2)
[2022-02-10 18:38] LABS: Anisocytosis Slight; Basophils # (A) 0.1 k/uL (0-0.2); Basophils % (A) 0 %; Eosinophils # (A) 0.2 k/uL (0-0.7); Eosinophils % (A) 1 %; HCT 36.4 % (39.0-53.0); HGB 10.4 gm/dL (13.0-17.5); Hypochromasia Marked; Lymphocytes # (A) 1.2 k/uL (1.0-4.8); Lymphocytes % (A) 6 %; MCH 21.5 pg (25.0-35.0); MCHC 28.5 g/dL (31.0-37.0); MCV 75.2 fL (80.0-100.0); Mean Platelet Volume 6.4; Microcytosis Moderate; Monocytes # (A) 0.7 k/uL (0-1.0); Monocytes % (A) 4 %; Neutrophils # (A) 18.6 k/uL (1.3-7.7); Neutrophils % (A) 89 %; Platelet Count 471 k/uL (150-450); Poikilocytosis Slight; RBC 4.84 m/uL (4.30-5.90); RDW 19.6 % (11.5-15.5)
--- NOTE | 2022-02-10 19:04 | XR ---
EXAMINATION TYPE: XR abdomen acute w cxr DATE OF EXAM: 02/10/2022 COMPARISON: 03/23/2021 HISTORY: Pain TECHNIQUE: Supine and upright views of the abdomen with PA chest are obtained. FINDINGS: There is no evidence for pneumoperitoneum. There is stable elevation of the left hemidiaphragm with mild bibasilar atelectasis/scarring. No pleural effusion or pneumothorax. Normal cardiac mediastinal silhouette. Osseous structures are unremarkable. The bowel gas pattern is unremarkable as there is air throughout nondilated small and large bowel. No sizeable air fluid levels. No mass effects are seen. No unusual calcifications. IMPRESSION: No acute process. Chronic findings as above.
[2022-02-10 19:08] LABS: Partial Thromboplastin Time 27.3 sec (22.0-30.0); Prothrombin Time 10.5 sec (9.0-12.0)
[2022-02-10 19:13] LABS: Appearance,Urine Clear (Clear); Bilirubin,Urine Negative (Negative); Blood,Urine Small (Negative); Calcium Oxalate Crystals,Urine Occasional /hpf; Color,Urine Yellow; Glucose,Urine (UA) Negative (Negative); Ketones,Urine Negative (Negative); Leukocyte Esterase,Urine Negative (Negative); Mucus,Urine Occasional /hpf; Nitrite,Urine Negative (Negative); PH, Urine 5.5 (5.0-8.0); Protein,Urine Trace (Negative); RBC,Urine 16 /hpf (0-5); Urobilinogen,Urine <2.0 mg/dL (<2.0); WBC,Urine 2 /hpf (0-5)
--- NOTE | 2022-02-10 21:47 | ED ---
Abdominal Pain HPI - General Chief Complaint: Abdominal Pain Stated Complaint: colitis Time Seen by Provider: 02/10/22 17:53 Source: patient Mode of arrival: ambulatory Limitations: no limitations - History of Present Illness Initial Comments: This 41-year-old male presents with a complaint of some abdominal pain as well as nausea and lower extremity wounds. He was just hospitalized for the past one week. He states that he has a history of ulcerative colitis. He had a computed tomography scan of his abdomen and pelvis recently which showed possible perforated viscus and abscess around his spleen among other findings. He was advised to have surgery. He was going to require a partial colectomy. Gastroenterology and surgery were both consulted and saw the patient and advised him of surgery. He apparently left AGAINST MEDICAL ADVICE. He followed up with his primary care, Dr. Plata today. He is feeling more relaxed about decision for surgery. He states that he was very freaked out initially. He would like to be admitted back to the hospital. He denies any fevers or chills. He did have a moderately complicated hospital course over the past week, please see old records for details. He has chronic lower extremity wounds bilaterally worse on the left possibly related to [place] Dr. Rita gurrola. He also was diagnosed with esophageal candidiasis and was on fluconazole. - Related Data Home Medications Medication Instructions Recorded Confirmed traZODone HCL 100 mg PO HS PRN 01/23/22 02/03/22 Previous Rx's Medication Instructions Recorded Loperamide [Imodium] 4 mg PO BID cap 01/10/22 Melatonin 6 mg PO HS tab 01/10/22 sulfaSALAzine [Azulfidine] 1,000 mg PO QID #120 tab 01/10/22 predniSONE 0 mg PO DIRECTED #126 tab 02/07/22 Allergies Allergy/AdvReac Type Severity Reaction Status Date / Time No Known Allergies Allergy Verified 02/10/22 17:14 Review of Systems ROS Statement: Those systems with pertinent positive or pertinent negative responses have been documented in the HPI. ROS Other: All systems not noted in ROS Statement are negative. Past Medical History Past Medical History: GI Bleed, Skin Disorder Additional Past Medical History / Comment(s): ulcerative colitis, spleen problems, Hep C History of Any Multi-Drug Resistant Organisms: None Reported Past Surgical History: No Surgical Hx Reported Additional Past Surgical History / Comment(s): wound debriedment L leg Past Anesthesia/Blood Transfusion Reactions: No Reported Reaction Past Psychological History: No Psychological Hx Reported Smoking Status: Current every day smoker Past Alcohol Use History: None Reported Past Drug Use History: Heroin, Marijuana, Opiates - Past Family History Father Family Medical History: Seizure Disorder Additional Family Medical History / Comment(s): Father is alive at age 64 with history of seizures and hypertension. Mother Additional Family Medical History / Comment(s): Mother in her late 50s with complications from CABG. Brother(s) Additional Family Medical History / Comment(s): Patient has 2 brothers with no major medical problems. He does not have any sisters. He does not have any children. No family members have ulcerative colitis. General Exam - General Exam Comments Initial Comments: GENERAL: The patient appears malnourished and dehydrated. VITAL SIGNS: Heart rate, blood pressure, respiratory rate reviewed as recorded in nurse's notes. EYES: Pupils are round and reactive. Extraocular movements are intact. No conjunctival / lid redness or swelling. ENT: No external evidence of injury, swelling, or ecchymosis. Airway is patent. Throat is clear. NECK: Nontender. No swelling or evidence of injury. No subcutaneous emphysema. Trachea is midline. No thyroid mass. HEART: Regular rate and rhythm. Good peripheral pulses. LUNGS/CHEST: Breath sounds clear and equal bilaterally. No rales, rhonchi, or wheezes. No ecchymosis, subcutaneous emphysema, or tenderness. ABDOMEN: Abdomen soft with mild tenderness to the midepigastric region. No palpable masses or organomegaly. No peritoneal signs. No abdominal wall swelling or ecchymosis. EXTREMITIES: No extremity tenderness. Normal muscle tone and function. No thoracolumbar tenderness. NEUROLOGIC: Sensation is grossly intact. Cranial nerve exam reveals face is symmetrical, tongue is midline, speech is clear. SKIN: No abrasions or ecchymosis is noted. Chronic significant ulcerative lesions noted to bilateral lower extremities worse on the left. PSYCHIATRIC: Alert and oriented. Appropriate behavior and judgment. Limitations: no limitations Course Vital Signs 02/10/22 02/10/22 17:11 21:13 Temperature 97.5 F L Pulse Rate 118 H 75 Respiratory 20 16 Rate Blood Pressure 117/84 124/77 O2 Sat by Pulse 100 100 Oximetry Medical Decision Making - Medical Decision Making The patient was seen and examined. Old records were reviewed. He was just hospitalized this past week and apparently has a splenic or perisplenic abscess. He possibly has a perforated viscus. He left the hospital AGAINST MEDICAL ADVICE yesterday. The IV is established and he is hydrated. He received morphine 2 mg IV and appears in no distress prior and after morphine. The acute abdominal series did not see any evidence of free air. The laboratory shows elevation of the white blood cell count at 21,000. He also appears been anemic. The case is discussed with Dr. Plata from internal medicine and he would like to admit the patient to the hospital and started back on similar medications as upon discharge. Patient is agreeable with this plan. He is currently in no distress waiting transport to floor. IV Zosyn as well as fluconazole will be ordered. - Lab Data Result diagrams: 02/10/22 18:11 02/10/22 18:11 Lab Results 02/10/22 02/10/22 02/10/22 Range/Units 18:11 18:11 18:11 WBC 21.0 H (3.8-10.6) k/uL RBC 4.84 (4.30-5.90) m/uL Hgb 10.4 L (13.0-17.5) gm/dL Hct 36.4 L (39.0-53.0) % MCV 75.2 L (80.0-100.0) fL MCH 21.5 L (25.0-35.0) pg MCHC 28.5 L (31.0-37.0) g/dL RDW 19.6 H (11.5-15.5) % Plt Count 471 H (150-450) k/uL MPV 6.4 Neutrophils % 89 % Lymphocytes % 6 % Monocytes % 4 % Eosinophils % 1 % Basophils % 0 % Neutrophils # 18.6 H (1.3-7.7) k/uL Lymphocytes # 1.2 (1.0-4.8) k/uL Monocytes # 0.7 (0-1.0) k/uL Eosinophils # 0.2 (0-0.7) k/uL Basophils # 0.1 (0-0.2) k/uL Hypochromasia Marked Poikilocytosis Slight Anisocytosis Slight Microcytosis Moderate PT 10.5 (9.0-12.0) sec INR 1.0 (<1.2) APTT 27.3 (22.0-30.0) sec Sodium 136 L (137-145) mmol/L Potassium 4.6 (3.5-5.1) mmol/L Chloride 100 (98-107) mmol/L Carbon Dioxide 21 L (22-30) mmol/L Anion Gap 15 mmol/L BUN 14 (9-20) mg/dL Creatinine 0.68 (0.66-1.25) mg/dL Est GFR (CKD-EPI)AfAm >90 (>60 ml/min/1.73 sqM) Est GFR (CKD-EPI)NonAf >90 (>60 ml/min/1.73 sqM) Glucose 110 H (74-99) mg/dL Calcium 8.6 (8.4-10.2) mg/dL Total Bilirubin 0.7 (0.2-1.3) mg/dL AST 69 H (17-59) U/L ALT 40 (4-49) U/L Alkaline Phosphatase 114 (38-126) U/L Total Protein 7.4 (6.3-8.2) g/dL Albumin 3.5 (3.5-5.0) g/dL Lipase 30 (23-300) U/L Urine Color Urine Appearance (Clear) Urine pH (5.0-8.0) Ur Specific [place] (1.001-1.035) Urine Protein (Negative) Urine Glucose (UA) (Negative) Urine Ketones (Negative) Urine Blood (Negative) Urine Nitrite (Negative) Urine Bilirubin (Negative) Urine Urobilinogen (<2.0) mg/dL Ur Leukocyte Esterase (Negative) Urine RBC (0-5) /hpf Urine WBC (0-5) /hpf Calcium Oxalate Crystal (None) /hpf Urine Mucus (None) /hpf 02/10/22 Range/Units 18:59 WBC (3.8-10.6) k/uL RBC (4.30-5.90) m/uL Hgb (13.0-17.5) gm/dL Hct (39.0-53.0) % MCV (80.0-100.0) fL MCH (25.0-35.0) pg MCHC (31.0-37.0) g/dL RDW (11.5-15.5) % Plt Count (150-450) k/uL MPV Neutrophils % % Lymphocytes % % Monocytes % % Eosinophils % % Basophils % % Neutrophils # (1.3-7.7) k/uL Lymphocytes # (1.0-4.8) k/uL Monocytes # (0-1.0) k/uL Eosinophils # (0-0.7) k/uL Basophils # (0-0.2) k/uL Hypochromasia Poikilocytosis Anisocytosis Microcytosis PT (9.0-12.0) sec INR (<1.2) APTT (22.0-30.0) sec Sodium (137-145) mmol/L Potassium (3.5-5.1) mmol/L Chloride (98-107) mmol/L Carbon Dioxide (22-30) mmol/L Anion Gap mmol/L BUN (9-20) mg/dL Creatinine (0.66-1.25) mg/dL Est GFR (CKD-EPI)AfAm (>60 ml/min/1.73 sqM) Est GFR (CKD-EPI)NonAf (>60 ml/min/1.73 sqM) Glucose (74-99) mg/dL Calcium (8.4-10.2) mg/dL Total Bilirubin (0.2-1.3) mg/dL AST (17-59) U/L ALT (4-49) U/L Alkaline Phosphatase (38-126) U/L Total Protein (6.3-8.2) g/dL Albumin (3.5-5.0) g/dL Lipase (23-300) U/L Urine Color Yellow Urine Appearance Clear (Clear) Urine pH 5.5 (5.0-8.0) Ur Specific [place] 1.020 (1.001-1.035) Urine Protein Trace H (Negative) Urine Glucose (UA) Negative (Negative) Urine Ketones Negative (Negative) Urine Blood Small H (Negative) Urine Nitrite Negative (Negative) Urine Bilirubin Negative (Negative) Urine Urobilinogen <2.0 (<2.0) mg/dL Ur Leukocyte Esterase Negative (Negative) Urine RBC 16 H (0-5) /hpf Urine WBC 2 (0-5) /hpf Calcium Oxalate Crystal Occasional H (None) /hpf Urine Mucus Occasional H (None) /hpf Disposition Clinical Impression: Intra-abdominal abscess, Leukocytosis, Ulcerative colitis, Malnutrition, Anemia, Pyoderma gangrenosum, Esophageal candidiasis Disposition: ADMITTED IP TO THIS HOSP Condition: Fair Is patient prescribed a controlled substance at d/c from ED?: No Referrals: Adalid Plata MD [Primary Care Provider] - 1-2 days Time of Disposition: 21:47 Decision Date: 02/10/22 Decision Time: 21:47
[2022-02-10] MEDS ORDERED: PIPERACILLIN-TAZOBACTAM 3.375 GM in SODIUM CHLORIDE 0.9% 100 ML IVPB STA (22:16)
[2022-02-10] MEDS ORDERED: NALOXONE 0.4 MG/ML 1 ML VIAL IV PRN (22:19)
[2022-02-10] MEDS ORDERED: traMADol 50 MG TAB PO PRN (22:19)
[2022-02-10] MEDS ORDERED: ONDANSETRON 4 MG/2 ML VIAL IVP PRN (22:19)
[2022-02-10] MEDS ORDERED: ACETAMINOPHEN TAB 325 MG TAB PO PRN (22:19)
[2022-02-10] MEDS ORDERED: LOPERAMIDE 2 MG CAP PO PRN (22:19)
[2022-02-11] MEDS: MORPHINE SULFATE 2 MG/ML SYRINGE IV PRN ×4 (01:27→11:04)
[2022-02-11 06:45] LABS: Anisocytosis Moderate; Basophils % (A) 0 %; Eosinophils # (A) 0.2 k/uL (0-0.7); Eosinophils % (A) 2 %; HCT 28.6 % (39.0-53.0); Hypochromasia Marked; Lymphocytes # (A) 2.2 k/uL (1.0-4.8); Lymphocytes % (A) 20 %; MCHC 29.4 g/dL (31.0-37.0); MCV 74.8 fL (80.0-100.0); Mean Platelet Volume 6.6; Microcytosis Moderate; Monocytes # (A) 0.6 k/uL (0-1.0); Monocytes % (A) 5 %; Neutrophils # (A) 7.8 k/uL (1.3-7.7); Neutrophils % (A) 70 %; Platelet Count 345 k/uL (150-450); Poikilocytosis Slight; RBC 3.83 m/uL (4.30-5.90); WBC 11.1 k/uL (3.8-10.6)
[2022-02-11 06:47] LABS: HGB 8.4 gm/dL (13.0-17.5)
[2022-02-11] MEDS: MELATONIN 3 MG TABLET PO SCH ×2 (07:46→23:32)
[2022-02-11] MEDS: predniSONE 20 MG TAB PO SCH ×2 (07:46→09:06)
[2022-02-11] MEDS: FLUCONAZOLE 100 MG TAB PO SCH ×2 (07:46→09:05)
[2022-02-11] MEDS ORDERED: sulfaSALAzine 500 MG TAB PO SCH (09:00)
[2022-02-11] MEDS: ENOXAPARIN 40 MG/0.4 ML SYRINGE SQ SCH ×2 (09:06→09:18)
[2022-02-11] MEDS: PANTOPRAZOLE 40 MG/10 ML VIAL IV SCH (09:06)
[2022-02-11] MEDS: PIPERACILLIN-TAZOBACTAM 3.375 GM in SODIUM CHLORIDE 0.9% 100 ML IVPB SCH ×3 (09:06→23:32)
--- NOTE | 2022-02-11 09:30 | P.HPIM ---
History of Present Illness H&P Date: 02/11/22 HISTORY OF PRESENT ILLNESS This is a 41-year-old male patient of Dr. Plata with past medical history of ulcerative colitis, tobacco use and dependence, marijuana use, IVheroin use. He has had several admissions in the past for acute ulcerative colitis and that time was seen by GI recommended to be on sulfasalazine as well as follow-up in the office for initiating Remicade. Patient also has chronic left lower extremity ulcer/wound which he was admitted for in December. He subsequently was admitted on 02/03 and left AMA on 02/09. Patient at that time was treated for initially exacerbation of ulcerative colitis but underwent EGD and colonoscopy with Dr. Merlin Gong EGD revealed severe Mylene esophagitis with white plaques throughout the entire esophagus status post biopsy and patient was started on fluconazole for 7 days. Colonoscopy revealed ulcerated mass like area involving the hepatic flexure extending into the right colon status post multiple biopsies to rule out neoplasm. Rest of the colon appeared normal. Patient subsequently underwent CAT scan of the abdomen and pelvis with contrast which revealed suggestion of perforated hollow viscus with left upper quadrant free air around the spleen with early phlegmonous change/abscess formation around the spleen. S ome of these findings were seen dating back to 2019 but appears smaller on today's exam. Additional low attenuating areas are seen within the spleen which are indeterminate and could represent splenic abscess given adjacent inflammatory changes around the spleen. Hepatic flexure ulceration wall th ickening is again seen and seen back on 05/12/2020. Focal narrowing of the rectum suspicious for stricture. Consult was added for Dr. Merlos and plan was to wait for biopsy report, intention was for surgery most likely colectomy. Patient was requesting a second opinion which was not performed and patient had actually signed out before Dr. Mora was able to see him. At this time, Dr. Mora will not be available to be a second consult if patient requests this. Also patient was seen by vascular surgery on his last admission and debridement of the left lower extremity wound was completed. Patient had a follow-up appointment at Dr. Plata's office Patient presented to [facility] emergency center for evaluation. He was found to be afebrile, heart rate 118, blood pressure 117/84, pulse ox 100% on room air. WBC 21, hemoglobin 10.4, platelet count 371. Sodium 136, potassium 4.6, chloride 100, CO2 21, BUN 14 and creatinine 0.68, blood sugar 110. INR 1.0. AST 69 otherwise liver function tests were normal. Lipase 30. Urinalysis revealed small amount of blood. Acute abdominal series revealed no acute process. Findings chronic. Biopsy report from EGD and colonoscopy: Esophageal biopsy revealed herpes esophagitis superimposed Mylene esophagitis. Right colon biopsy revealed ulcer with acute and chronic inflammation, granulation tissue and fibrosis. Nondiagnostic of neoplasm. Intact colonic mucosa is not identified.: Hepatic flexure biopsy reveals ulcer with acute and chronic inflammation, granulation tissue and fibrosis. Nondiagnostic of neoplasm. Scanty superficialclinical fragments of benign colonic mucosa. Patient is waiting in the emergency center for a bed [facility] floor. At this time, general surgeons Dr. Mora, Dr. Merlos and Dr. Foster refused to treat this patient. REVIEW OF SYSTEMS Constitutional: No fever, no chills, no night sweats. No weight change. No weakness, fatigue or lethargy. No daytime sleepiness. EENT: No headache. No blurred vision or double vision, no loss of vision. No loss of Hearing, no ringing in the ears, no dizziness. No nasal drainage or congestion. No epistaxis. No sore throat. Reports dental pain. Lungs: No shortness of breath, cough, no sputum production. No wheezing. Cardiovascular: No chest pain, no lower extremity edema. No palpitations. No paroxysmal nocturnal dyspnea. No orthopnea. No lightheadedness or dizziness. No syncopal episodes. Abdominal: Reports abdominal pain. Denies nausea, no vomiting. Denies diarrhea. No constipation. Denies bloody or tarry stools denies loss of appetite. Genitourinary: No dysuria, increased frequency, urgency. No urinary retention. Musculoskeletal: No myalgias. No muscle weakness, no gait dysfunction, no frequent falls. No back pain. No neck pain. Integumentary: Reports lower extremity wounds, no lesions. No rash or pruritus. No unusual bruising. No change in hair or nails. Neurologic: No aphasia. No facial droop. No change in mentation. No head injury. No headache. No paralysis. No paresthesia. Psychiatric: No depression. No anxiety. No mood swings. Endocrine: No abnormal blood sugars. No weight change. No excessive sweating or thirst. No cold intolerance. MEDICAL HISTORY Ulcerative colitis Hepatitis C SURGICAL HISTORY Debridement of lower extremity wounds EGD Colonoscopy SOCIAL HISTORY Patient is a smoker of less than one pack per day since he was 15 years of age. He has history of drinking 4-5 times per week, liquor but since 2007 he only drinks about 2 times per year. He uses marijuana on a regular basis including edibles. Patient uses heroin IV at half a gram daily and states he only utilizes his arms. The patient is single and lives with his brother. FAMILY HISTORY Father is at age 66 with history of seizures and hypertension. Mother in her late 50s with complications from CABG. Patient has 2 brothers with no major medical problems. He does not have any sisters. He does not have any children. No family members have ulcerative colitis. PHYSICAL EXAMINATION Gen: This is a cachectic 41-year-old male, resting in bed in the emergency center. Patient appears to be in no acute distress. HEENT: Head is atraumatic, normocephalic. Pupils equal, round. Sclerae is ani cteric. NECK: Supple. No JVD. No lymphadenopathy. No thyromegaly. LUNGS: Clear to auscultation. No wheezes or rhonchi. No intercostal retractions. HEART: Regular rate and rhythm. No murmur. ABDOMEN: Soft. Bowel sounds are present. No masses. Generalized mild tenderness. EXTREMITIES: No pedal edema. No calf tenderness. Dorsalis pedis +2 bilaterally. Ulcers to the pretibial area bilateral lower extremities. Please see nursing documentation for details NEUROLOGICAL: Patient is awake, alert and oriented x3. Cranial nerves 2 through 12 are grossly intact. ASSESSMENT AND PLAN 1. Ulcerated mass at the hepatic flexure. Biopsy as above. Consult with general surgery. GI is not available this week. IV Zosyn 3.375 g IV piggyback every 8 hours. 2. Mylene esophagitis and herpes esophagitis. 3. Ulcerative colitis. Patient has appointment on Monday to follow up with GI regarding further plan and possibly starting Remicade. Patient will be continued on prednisone 30 mg daily. 4. Possible splenic abscesses on CAT scan. This is of chronic nature, no s urgical intervention is needed immediately. 5. 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 Patient failed to follow-up with the wound healing Center. He has had de bridement done by vascular surgery on last 2 hospitalizations. 6. IV drug use with heroin. Monitor for withdrawals 7. Tobacco use and dependence. Patient declines need for nicotine patch. 8. Insomnia. Continue melatonin 6 mg at bedtime. 9 Regular marijuana use. 10. History of Hepatitis C. 11. Severe protein calorie malnutrition secondary to ulcerative colitis, IV drug use. 12. GI prophylaxis. Protonix 40 mild grams IV push daily. 13. DVT prophylaxis. Lovenox subcu. Patient will be admitted to the hospital for a minimum of 2 night stay. DISCHARGE PLAN Home. Impression and plan of care have been directed as dictated by the signing physician. Teri Walter nurse practitioner acting as scribe for signing physician. Past Medical History Past Medical History: GI Bleed, Skin Disorder Additional Past Medical History / Comment(s): ulcerative colitis, spleen problems, Hep C History of Any Multi-Drug Resistant Organisms: None Reported Past Surgical History: No Surgical Hx Reported Additional Past Surgical History / Comment(s): wound debriedment L leg Past Anesthesia/Blood Transfusion Reactions: No Reported Reaction Past Psychological History: No Psychological Hx Reported Smoking Status: Current every day smoker Past Alcohol Use History: None Reported Past Drug Use History: Heroin, Marijuana, Opiates - Past Family History Father Family Medical History: Seizure Disorder Additional Family Medical History / Comment(s): Father is alive at age 64 with history of seizures and hypertension. Mother Additional Family Medical History / Comment(s): Mother in her late 50s with complications from CABG. Brother(s) Additional Family Medical History / Comment(s): Patient has 2 brothers with no major medical problems. He does not have any sisters. He does not have any children. No family members have ulcerative colitis. Medications and Allergies Home Medications Medication Instructions Recorded Confirmed Type Loperamide [Imodium] 4 mg PO BID cap 01/10/22 02/10/22 Rx Melatonin 6 mg PO HS tab 01/10/22 02/10/22 Rx sulfaSALAzine [Azulfidine] 1,000 mg PO QID #120 tab 01/10/22 02/10/22 Rx traZODone HCL 100 mg PO HS PRN 01/23/22 02/10/22 History predniSONE See Taper PO DIRECTED 02/10/22 02/10/22 History Allergies Allergy/AdvReac Type Severity Reaction Status Date / Time No Known Allergies Allergy Verified 02/10/22 22:25 Physical Exam Vitals: Vital Signs Temp Pulse Resp BP Pulse Ox 02/11/22 07:04 62 16 131/86 100 02/11/22 03:10 67 16 125/81 100 02/11/22 01:29 63 16 129/89 100 02/10/22 21:13 75 16 124/77 100 02/10/22 17:11 97.5 F L 118 H 20 117/84 100 Intake and Output 02/10/22 02/11/22 02/11/22 22:59 06:59 14:59 Other: Weight 60.328 kg Results CBC & Chem 7: 02/11/22 06:02 02/10/22 18:11 Labs: Abnormal Lab Results - Last 24 Hours (Table) 02/10/22 02/10/22 02/10/22 Range/Units 18:11 18:11 18:59 WBC 21.0 H (3.8-10.6) k/uL RBC (4.30-5.90) m/uL Hgb 10.4 L (13.0-17.5) gm/dL Hct 36.4 L (39.0-53.0) % MCV 75.2 L (80.0-100.0) fL MCH 21.5 L (25.0-35.0) pg MCHC 28.5 L (31.0-37.0) g/dL RDW 19.6 H (11.5-15.5) % Plt Count 471 H (150-450) k/uL Neutrophils # 18.6 H (1.3-7.7) k/uL Sodium 136 L (137-145) mmol/L Carbon Dioxide 21 L (22-30) mmol/L Glucose 110 H (74-99) mg/dL AST 69 H (17-59) U/L Urine Protein Trace H (Negative) Urine Blood Small H (Negative) Urine RBC 16 H (0-5) /hpf Calcium Oxalate Crystal Occasional H (None) /hpf Urine Mucus Occasional H (None) /hpf 02/11/22 Range/Units 06:02 WBC 11.1 H (3.8-10.6) k/uL RBC 3.83 L (4.30-5.90) m/uL Hgb 8.4 L D (13.0-17.5) gm/dL Hct 28.6 L (39.0-53.0) % MCV 74.8 L (80.0-100.0) fL MCH 22.0 L (25.0-35.0) pg MCHC 29.4 L (31.0-37.0) g/dL RDW 20.0 H (11.5-15.5) % Plt Count (150-450) k/uL Neutrophils # 7.8 H (1.3-7.7) k/uL Sodium (137-145) mmol/L Carbon Dioxide (22-30) mmol/L Glucose (74-99) mg/dL AST (17-59) U/L Urine Protein (Negative) Urine Blood (Negative) Urine RBC (0-5) /hpf Calcium Oxalate Crystal (None) /hpf Urine Mucus (None) /hpf
[2022-02-11] MEDS: ALPRAZolam 0.25 MG TAB PO PRN (11:46)
[2022-02-11 13:55] VITALS: BMI 17.5
[2022-02-11] MEDS: MORPHINE SULFATE 4 MG/ML SYRINGE IVP PRN ×3 (14:20→22:18)
--- NOTE | 2022-02-11 22:16 | P.CONS ---
History of Present Illness - Reason for Consult Consult date: 02/11/22 - History of Present Illness Patient is a 41-year male with a past medical history significant for ulcerative colitis in this patient has been dealing with a nonhealing wound to bilateral lower extremities left greater than the right that has been debrided twice also biopsied however no evidence of pyoderma which was suspected patient was recently admitted to this facility and did have debridement of the wound also he did have upper and lower GI, patient however signed out AMA patient EGD apparently revealed Mylene esophagitis and colonoscopy revealed ulcerated mass and also have a CAT scan with concern for possible splenic abscess for the patient was evaluated by general surgery and plan was for colectomy however the patient left AMA patient now presenting back to the hospital for evaluation of worsening abdominal pain and lower extremity pain patient describing the pain to be more of a sharp especially in the lower extremity intensity is 6-7 out of 10 no radiation patient complains of nausea but no vomiting circumventing abdominal pain no diarrhea blood or mucus in the stool on presentation to the hospital patient was afebrile patient did have white count 21,000 with a left shift kidney function has been normal urine with some hematuria patient was started on Zosyn has been admitted to hospital infectious was consulted for further management Past Medical History Past Medical History: GI Bleed, Skin Disorder Additional Past Medical History / Comment(s): ulcerative colitis, spleen problems, Hep C History of Any Multi-Drug Resistant Organisms: None Reported Past Surgical History: No Surgical Hx Reported Additional Past Surgical History / Comment(s): wound debriedment L leg Past Anesthesia/Blood Transfusion Reactions: No Reported Reaction Past Psychological History: No Psychological Hx Reported Smoking Status: Current every day smoker Past Alcohol Use History: None Reported Past Drug Use History: Heroin, Marijuana, Opiates - Past Family History Father Family Medical History: Seizure Disorder Additional Family Medical History / Comment(s): Father is alive at age 64 with history of seizures and hypertension. Mother Additional Family Medical History / Comment(s): Mother in her late 50s with complications from CABG. Brother(s) Additional Family Medical History / Comment(s): Patient has 2 brothers with no major medical problems. He does not have any sisters. He does not have any children. No family members have ulcerative colitis. Medications and Allergies Home Medications Medication Instructions Recorded Confirmed Type Loperamide [Imodium] 4 mg PO BID cap 01/10/22 02/10/22 Rx Melatonin 6 mg PO HS tab 01/10/22 02/10/22 Rx traZODone HCL 100 mg PO HS PRN 01/23/22 02/10/22 History predniSONE See Taper PO DIRECTED 02/10/22 02/10/22 History Allergies Allergy/AdvReac Type Severity Reaction Status Date / Time No Known Allergies Allergy Verified 02/10/22 22:25 Physical Exam Vitals: Vital Signs Temp Pulse Pulse Resp BP BP Pulse Ox 02/11/22 08:00 98.6 F 61 16 130/81 100 02/11/22 07:04 62 16 131/86 100 02/11/22 03:10 67 16 125/81 100 02/11/22 01:29 63 16 129/89 100 02/10/22 21:13 75 16 124/77 100 02/10/22 17:11 97.5 F L 118 H 20 117/84 100 Intake and Output 02/10/22 02/11/22 02/11/22 22:59 06:59 14:59 Other: Weight 60.328 kg 60.328 kg Results CBC & Chem 7: 02/11/22 06:02 02/10/22 18:11 Labs: Abnormal Lab Results - Last 24 Hours (Table) 02/10/22 02/10/22 02/10/22 Range/Units 18:11 18:11 18:59 WBC 21.0 H (3.8-10.6) k/uL RBC (4.30-5.90) m/uL Hgb 10.4 L (13.0-17.5) gm/dL Hct 36.4 L (39.0-53.0) % MCV 75.2 L (80.0-100.0) fL MCH 21.5 L (25.0-35.0) pg MCHC 28.5 L (31.0-37.0) g/dL RDW 19.6 H (11.5-15.5) % Plt Count 471 H (150-450) k/uL Neutrophils # 18.6 H (1.3-7.7) k/uL Sodium 136 L (137-145) mmol/L Carbon Dioxide 21 L (22-30) mmol/L Glucose 110 H (74-99) mg/dL AST 69 H (17-59) U/L Urine Protein Trace H (Negative) Urine Blood Small H (Negative) Urine RBC 16 H (0-5) /hpf Calcium Oxalate Crystal Occasional H (None) /hpf Urine Mucus Occasional H (None) /hpf 02/11/22 Range/Units 06:02 WBC 11.1 H (3.8-10.6) k/uL RBC 3.83 L (4.30-5.90) m/uL Hgb 8.4 L D (13.0-17.5) gm/dL Hct 28.6 L (39.0-53.0) % MCV 74.8 L (80.0-100.0) fL MCH 22.0 L (25.0-35.0) pg MCHC 29.4 L (31.0-37.0) g/dL RDW 20.0 H (11.5-15.5) % Plt Count (150-450) k/uL Neutrophils # 7.8 H (1.3-7.7) k/uL Sodium (137-145) mmol/L Carbon Dioxide (22-30) mmol/L Glucose (74-99) mg/dL AST (17-59) U/L Urine Protein (Negative) Urine Blood (Negative) Urine RBC (0-5) /hpf Calcium Oxalate Crystal (None) /hpf Urine Mucus (None) /hpf Assessment and Plan Plan: 1patient with bilateral lower extremity wound left greater than the right wound base did have some slough tissue however no significant surrounding redness or any foul-smelling drainage recommend local wound care. 2 Patient with abdominal pain elevated white count and concern for possible splenic area abscess and general surgery has been consulted. 3local wound care with the Medihoney followed by moist dressing to be changed daily. 4continue with Zosyn 3.375 g every 8 hours. We will follow on clinical condition and cultures to further adjust medication if needed Thank you for this consultation will follow this patient along with you Time with Patient: Greater than 30
[2022-02-11] MEDS: traZODone HCL 100 MG TAB PO PRN (23:32)
[2022-02-12] MEDS: ALPRAZolam 0.25 MG TAB PO PRN ×2 (00:40→23:56)
[2022-02-12] MEDS: MORPHINE SULFATE 4 MG/ML SYRINGE IVP PRN ×5 (03:44→21:22)
[2022-02-12] MEDS: PANTOPRAZOLE 40 MG/10 ML VIAL IV SCH (08:43)
[2022-02-12] MEDS: predniSONE 20 MG TAB PO SCH (08:44)
[2022-02-12] MEDS: FLUCONAZOLE 100 MG TAB PO SCH (08:45)
[2022-02-12] MEDS: PIPERACILLIN-TAZOBACTAM 3.375 GM in SODIUM CHLORIDE 0.9% 100 ML IVPB SCH ×3 (08:45→23:56)
[2022-02-12] MEDS: ENOXAPARIN 40 MG/0.4 ML SYRINGE SQ SCH ×2 (09:08→17:31)
--- NOTE | 2022-02-12 21:14 | P.PN ---
Subjective Progress Note Date: 02/12/22 Principal diagnosis: Splenic abscess and bilateral leg wounds Patient is a 41-year-old male with a past medical he significant for ulcerative colitis in this patient with bilateral lower extremity nonhealing wound left greater than right and the patient also have abnormal CT on 02/08/2022 with evidence of possible splenic abscess patient did sign out AMA on last admission and presented back to the hospital abdominal pain and concern for nonhealing wound to the lower extremity. On today's evaluation that is 02/12/2022, the patient denies having any fever or any chills; still complaining of some Abdominal pain no worsening, no nausea vomiting no worsening diarrhea or any worsening pain to bilateral lower extremity wound Objective - Vital Signs Vital signs: Vital Signs Temp 98.3 F 02/12/22 08:00 Pulse 64 02/12/22 08:00 Resp 16 02/12/22 08:00 BP 146/65 02/12/22 08:00 Pulse Ox 98 02/12/22 08:00 FiO2 Intake & Output 02/11/22 02/12/22 02/12/22 18:59 06:59 18:59 Output Total 350 1275 Balance -350 -1275 Weight 60.328 kg Output: Urine 350 600 Stool 675 Other: Voiding Method Urinal Urinal # Voids 1 - Exam GENERAL DESCRIPTION: Middle-aged male lying in bed, no distress. No tachypnea or accessory muscle of respiration use. LUNGS: Unlabored breathing. Clear to auscultation anteriorly. No wheeze or crackle. HEART: S1, S2, regular rate and rhythm. No loud murmur ABDOMEN: Soft, no tenderness , guarding or rigidity, no organomegaly EXTREMITIES: Bilateral lower extremity wounds are currently dressed no drainage on the dressing. - Labs CBC & Chem 7: 02/11/22 06:02 02/10/22 18:11 Assessment and Plan (1) Intra-abdominal abscess Current Visit: Yes Status: Acute Code(s): K65.1 - PERITONEAL ABSCESS SNOMED Code(s): 59940748 (2) Non-pressure chronic ulcer of left calf with fat layer exposed Current Visit: No Status: Acute Code(s): L97.222 - NON-PRESSURE CHRONIC ULCER OF LEFT CALF W FAT LAYER EXPOSED SNOMED Code(s): 62924947681831927 Plan: 1patient with bilateral lower extremity wound left greater than the right wound base did have some slough tissue however no significant surrounding redness or any foul-smelling drainage recommend local wound care. 2 Patient with abdominal pain elevated white count and concern for possible splenic area abscess and general surgery has been consulted.[facility] not able to be evaluated by surgery here 3local wound care with the Medihoney followed by moist dressing to be changed daily. 4Pt to continue with Zosyn 3.375 g every 8 hours. Time with Patient: Less than 30
[2022-02-12] MEDS: MELATONIN 3 MG TABLET PO SCH (23:56)
[2022-02-13] MEDS: MORPHINE SULFATE 4 MG/ML SYRINGE IVP PRN ×6 (01:19→22:03)
[2022-02-13] MEDS: PIPERACILLIN-TAZOBACTAM 3.375 GM in SODIUM CHLORIDE 0.9% 100 ML IVPB SCH ×3 (08:16→23:39)
[2022-02-13] MEDS: predniSONE 20 MG TAB PO SCH (08:17)
[2022-02-13] MEDS: ENOXAPARIN 40 MG/0.4 ML SYRINGE SQ SCH (08:17)
[2022-02-13] MEDS: PANTOPRAZOLE 40 MG/10 ML VIAL IV SCH (08:17)
[2022-02-13] MEDS: FLUCONAZOLE 100 MG TAB PO SCH (08:17)
--- NOTE | 2022-02-13 09:46 | P.GSCN ---
History of Present Illness Consult date: 02/12/22 History of present illness: REASON FOR CONSULTATION: Intra-abdominal abscess HISTORY OF PRESENT ILLNESS: The patient is a 41 year old male who recently left AGAINST MEDICAL ADVICE from his recent hospitalization 2 days ago for abdominal pain. At his last hospitalization, patient had multiple workup including colonoscopy done with findings of ulcerated mass of the hepatic flexure. Additionally, patient has uncontrolled symptoms from ulcerative colitis due to medical noncompliance. Patient was advised to undergo a subtotal colectomy with ileostomy. Patient left due to feeling pressured to undergo surgery. Separately, patient reports severe ulcerative skin infection of his lower legs due to his ulcerative colitis. He has esophageal candidiasis with troubles with swallowing. His main concern includes "I don't want to lose my legs." He has left upper quadrant abdominal pain from intra-abdominal abscess. General surgery is consulted for his chronic abdominal pain. PAST MEDICAL HISTORY: See list and reviewed PAST SURGICAL HISTORY: See list and reviewed MEDICATIONS: See list and reviewed ALLERGIES: See list and reviewed SOCIAL HISTORY: See list and reviewed FAMILY HISTORY: See list and reviewed REVIEW OF ORGAN SYSTEMS: CONSTITUTIONAL: No fevers or chills. Underweight BMI 17.5 EYES: Denies any trouble with vision. No glasses. HEENT: No difficulties with hearing. No nosebleeds. No difficulty swallowing. RESPIRATORY: Tobacco abuse disorder. CARDIOVASCULAR: Denies any chest pain, palpitations, or recent heart attacks. GASTROINTESTINAL: Has hepatitis. Has ulcerative colitis. Past GI bleed. GENITOURINARY: Denies any blood in urine or increased urinary frequency. NEUROLOGICAL: Denies any numbness or tingling along the distal extremities. No seizure disorders or headaches. MUSCULOSKELETAL: Has back pain, stiffness or joint arthritis. SKIN: Has ulcerative skin lesions along the left versus right leg. PSYCHIATRIC: Denies current depression or suicidal thoughts. ENDOCRINE: Denies current thyroid disorders. Denies any blood sugar glucose intolerance. HEME/LYMPHATIC: Denies any lumps and bumps around the neck. No recent deep venous thrombosis. ALLERGY/IMMUNOLOGY: No immunoglobulin therapy. No immune deficiencies. BREAST: Denies current breast lumps, pain or nipple discharge. PHYSICAL EXAM: VITALS: Reviewed CONSTITUTIONAL: Well developed and in no acute distress. EYES: Conjuctivae without sclera icterus. Extraocular movements grossly intact. HEAD, EARS, NOSE, THROAT: Moist buccal mucosa. Head is atraumatic, normocephalic. Hears conversational speech. No nasal drainage. NECK: Supple. No JV distention. No thyroidomegaly. RESPIRATORY: Non-labored respirations and equal bilateral excursions. No gross wheezes. CARDIOVASCULAR: Palpable 2+ radial pulses. ABDOMEN: No peritonitis. Tender at the bilateral upper abdomen. LYMPH: No neck lymphadenopathy. MUSCULOSKELETAL: No clubbing or cyanosis. SKIN: Warm and well perfused with good skin turgor. NEUROLOGIC: Cranial nerves II through XII grossly intact. No focal or lateralizing signs. PSYCH: Appropriate affect. Alert and oriented to person, place and time. Displays appropriate insight. CLINCAL LABS: Reviewed. WBC down 21.o to 11.1, leukocytosis. Hgb down 10.4 to 8.4. Urine analysis with oxalate stones. PATHOLOGY: ESOPHAGUS, BIOPSY: Features consistent with Herpes esophagitis and superimposed Mylene esophagitis. COLON, HEPATIC FLEXURE, BIOPSY: Ulcer with acute and chronic inflammation, granulation tissue and fibrosis. Non-diagnostic of neoplasm. Scanty superficial fragments of benign colonic mucosa IMAGING: Independently reviewed. CT of the abdomen and pelvis reviewed with localized abscess of the left upper quadrant. Mucosal thickening of the hepatic flexure. No bowel obstruction. This is my independent interpretation. RADIOLOGY: Report reviewed with large bowel stricture and localized free air at the splenic flexure chronic changes since 2019. RECORDS: previous old records reviewed from last hospitalization reviewed with colonoscopy report reviewed. Labs for Hep.HIV serology reviewed. ASSESSMENT: 1. Uncontrolled ulcerative colitis 2. Intra-abdominal abscess 3. Hepatic ulcerative mass 4. Ulcerative skin lesions 5. Kidney stones PLAN: 1. Continue IV antibiotics for intra-abdominal abscess 2. Infectious following for multiple skin ulcers 3. Antifungal treatment for herpetic/candiasis of the esophagus. 4. Surgical options also reviewed with complicated presentation. Thank you for this kind consultation. Past Medical History Past Medical History: GI Bleed, Skin Disorder Additional Past Medical History / Comment(s): ulcerative colitis, spleen problems, Hep C History of Any Multi-Drug Resistant Organisms: None Reported Past Surgical History: No Surgical Hx Reported Additional Past Surgical History / Comment(s): wound debriedment L leg Past Anesthesia/Blood Transfusion Reactions: No Reported Reaction Past Psychological History: No Psychological Hx Reported Smoking Status: Current every day smoker Past Alcohol Use History: None Reported Past Drug Use History: Heroin, Marijuana, Opiates - Past Family History Father Family Medical History: Seizure Disorder Additional Family Medical History / Comment(s): Father is alive at age 64 with history of seizures and hypertension. Mother Additional Family Medical History / Comment(s): Mother in her late 50s with complications from CABG. Brother(s) Additional Family Medical History / Comment(s): Patient has 2 brothers with no major medical problems. He does not have any sisters. He does not have any children. No family members have ulcerative colitis. Medications and Allergies Home Medications Medication Instructions Recorded Confirmed Type Loperamide [Imodium] 4 mg PO BID cap 01/10/22 02/10/22 Rx Melatonin 6 mg PO HS tab 01/10/22 02/10/22 Rx traZODone HCL 100 mg PO HS PRN 01/23/22 02/10/22 History predniSONE See Taper PO DIRECTED 02/10/22 02/10/22 History Allergies Allergy/AdvReac Type Severity Reaction Status Date / Time No Known Allergies Allergy Verified 02/10/22 22:25 Surgical - Exam Vital Signs Temp Pulse Resp BP Pulse Ox 97.5 F L 118 H 20 117/84 100 02/10/22 17:11 02/10/22 17:11 02/10/22 17:11 02/10/22 17:11 02/10/22 17:11 Results - Labs 02/11/22 06:02 02/10/22 18:11
[2022-02-13] MEDS: ALPRAZolam 0.25 MG TAB PO PRN (18:09)
--- NOTE | 2022-02-13 21:57 | P.PN ---
Subjective Progress Note Date: 02/13/22 CHIEF COMPLAINT: Intra-abdominal abscess HISTORY OF PRESENT ILLNESS: The patient is a 41 year old male readmitted due to complications with ulcerative colitis as well as colonic stricture, intra-abdominal abscess or localized perforation at hepatic flexure. Patient has cutaneous ulcerative lesions of the leg. He is looking for other surgical options regarding this ulcerative colitis. Tolerating diet. No fevers or chills. REVIEW OF ORGAN SYSTEMS: RESPIRATORY: Tobacco abuse disorder. GASTROINTESTINAL: Has hepatitis. Has ulcerative colitis. Past GI bleed. MUSCULOSKELETAL: Has back pain, stiffness or joint arthritis. PHYSICAL EXAM: VITALS: Reviewed CONSTITUTIONAL: Well developed and in no acute distress. EYES: Conjuctivae without sclera icterus. Extraocular movements grossly intact . HEAD, EARS, NOSE, THROAT: Moist buccal mucosa. Head is atraumatic, normocephalic. Hears conversational speech. No nasal drainage. RESPIRATORY: Non-labored respirations and equal bilateral excursions. No gross wheezes. CARDIOVASCULAR: Palpable 2+ radial pulses. ABDOMEN: No peritonitis. Tender at the bilateral upper abdomen. MUSCULOSKELETAL: No clubbing or cyanosis. SKIN: Warm and well perfused with good skin turgor. NEUROLOGIC: Cranial nerves II through XII grossly intact. No focal or lateralizing signs. PSYCH: Appropriate affect. Alert and oriented to person, place and time. Di splays appropriate insight. CLINCAL LABS: Reviewed. ASSESSMENT: 1. Uncontrolled ulcerative colitis 2. Intra-abdominal abscess 3. Hepatic ulcerative mass 4. Ulcerative skin lesions 5. Kidney stones PLAN: 1. Due to complications from ulcerative colitis, recommend transfer to tertiary care center for colorectal surgeon management of complicated ulcerative colitis 2. Continue IV antibiotics 3. Recommend antifungals and antiviral for candidiasis of the esophagus Objective - Vital Signs Vital signs: Vital Signs Temp 98.4 F 02/13/22 07:55 Pulse 78 02/13/22 07:55 Resp 18 02/13/22 07:55 BP 122/81 02/13/22 07:55 Pulse Ox 100 02/13/22 07:55 FiO2 Intake & Output 02/12/22 02/13/22 02/13/22 18:59 06:59 18:59 Intake Total 1790 Output Total 1999 1999 Balance -1999 Intake: Oral 1790 Output: Urine 1999 1999 Other: Voiding Method Urinal Urinal Urinal # Bowel Movements 2 - Labs CBC & Chem 7: 02/11/22 06:02 02/10/22 18:11
[2022-02-13] MEDS: MELATONIN 3 MG TABLET PO SCH (23:39)
[2022-02-13] MEDS: traZODone HCL 100 MG TAB PO PRN (23:50)
[2022-02-14] MEDS: ALPRAZolam 0.25 MG TAB PO PRN ×2 (01:09→13:52)
--- NOTE | 2022-02-14 02:14 | P.PN ---
Subjective Progress Note Date: 02/12/22 This is a 41-year-old male patient of Dr. Plata with past medical history of ulcerative colitis, tobacco use and dependence, marijuana use, IVheroin use. He has had several admissions in the past for acute ulcerative colitis and that time was seen by GI recommended to be on sulfasalazine as well as follow-up in the office for initiating Remicade. Patient also has chronic left lower extremity ulcer/wound which he was admitted for in December. He subsequently was admitted on 02/03 and left AMA on 02/09. Patient at that time was treated for initially exacerbation of ulcerative colitis but underwent EGD and colonoscopy with Dr. Merlin Gong EGD revealed severe Mylene esophagitis with white plaques throughout the entire esophagus status post biopsy and patient was started on fluconazole for 7 days. Colonoscopy revealed ulcerated mass like area involving the hepatic flexure extending into the right colon status post multiple biopsies to rule out neoplasm. Rest of the colon appeared normal. Patient subsequently underwent CAT scan of the abdomen and pelvis with contrast which revealed suggestion of perforated hollow viscus with left upper quadrant free air around the spleen with early phlegmonous change/abscess formation around the spleen. Some of these findings were seen dating back to 2019 but appears smaller on today's exam. Additional low attenuating areas are seen within the spleen which are indeterminate and could represent splenic abscess given adjacent inflammatory changes around the spleen. Hepatic flexure ulceration wall thickening is again seen and seen back on 05/12/2020. Focal narrowing of the rectum suspicious for stricture. Consult was added for Dr. Merlos and plan was to wait for biopsy report, intention was for surgery most likely colectomy. Patient was requesting a second opinion which was not performed and patient had actually signed out before Dr. Mora was able to see him. At this time, Dr. Mora will not be available to be a second consult if patient requests this. Also patient was seen by vascular surgery on his last admission and debridement of the left lower extremity wound was completed. Patient had a follow-up appointment at Dr. Plata's office Patient presented to [facility] emergency center for evaluation. He was found to be afebrile, heart rate 118, blood pressure 117/84, pulse ox 100% on room air. WBC 21, hemoglobin 10.4, platelet count 371. Sodium 136, potassium 4.6, chloride 100, CO2 21, BUN 14 and creatinine 0.68, blood sugar 110. INR 1.0. AST 69 otherwise liver function tests were normal. Lipase 30. Urinalysis revealed small amount of blood. Acute abdominal series revealed no acute process. Findings chronic. Biopsy report from EGD and colonoscopy: Esophageal biopsy revealed herpes esophagitis superimposed Mylene esophagitis. Right colon biopsy revealed ulcer with acute and chronic inflammation, granulation tissue and fibrosis. Nondiagnostic of neoplasm. Intact colonic mucosa is not identified.: Hepatic flexure biopsy reveals ulcer with acute and chronic inflammation, granulation tissue and fibrosis. Nondiagnostic of neoplasm. Scanty superficialclinical fragments of benign colonic mucosa. 02/12/2022 Patient is currently resting in the bed. Awake alert and oriented x3. Left lower extremity wound is bandaged. Denied any worsening pain. Continued on antibiotics along with Zosyn. Patient is still complaining of abdominal pain and no nausea or vomiting or diarrhea. Patient has been afebrile. No chest pain or shortness of breath. Laboratory data reviewed. Leukocytosis trending down to 11.1. ID is on board. Patient is also on prednisone 30 mg daily. Current medications reviewed. Objective - Vital Signs Vital signs: Vital Signs Temp 98.3 F 02/12/22 19:36 Pulse 79 02/12/22 19:36 Resp 15 02/12/22 19:36 BP 122/72 02/12/22 19:36 Pulse Ox 99 02/12/22 19:36 FiO2 Intake & Output 02/12/22 02/12/22 02/13/22 06:59 18:59 06:59 Output Total 1275 2000 700 Balance -1275 -2000 -700 Output: Urine 600 2000 700 Stool 675 Other: Voiding Method Urinal Urinal # Voids 1 # Bowel Movements 2 - Exam PHYSICAL EXAMINATION Gen: This is a cachectic 41-year-old male, resting in bed in the emergency center. Patient appears to be in no acute distress. HEENT: Head is atraumatic, normocephalic. Pupils equal, round. Sclerae is anicteric. NECK: Supple. No JVD. No lymphadenopathy. No thyromegaly. LUNGS: Clear to auscultation. No wheezes or rhonchi. No intercostal retractions. HEART: Regular rate and rhythm. No murmur. ABDOMEN: Soft. Bowel sounds are present. No masses. Generalized mild tenderness. EXTREMITIES: No pedal edema. No calf tenderness. Dorsalis pedis +2 bila terally. Ulcers to the pretibial area bilateral lower extremities. Please see nursing documentation for details NEUROLOGICAL: Patient is awake, alert and oriented x3. Cranial nerves 2 through 12 are grossly intact. - Labs CBC & Chem 7: 02/11/22 06:02 02/10/22 18:11 Assessment and Plan Assessment: ASSESSMENT AND PLAN 1. Ulcerated mass at the hepatic flexure. Biopsy as above. general surgery is on board. GI is not available this week. IV Zosyn 3.375 g IV piggyback every 8 hours. 2. Mylene esophagitis and herpes esophagitis. 3. Ulcerative colitis. Patient has appointment on Monday to follow up with GI regarding further plan and possibly starting Remicade. Patient will be continued on prednisone 30 mg daily. 4. Possible splenic abscesses on CAT scan. This is of chronic nature, no surgical intervention is needed immediately. 5. 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 Patient failed to follow-up with the wound healing Center. He has had debridement done by vascular surgery on last 2 hospitalizations. 6. IV drug use with heroin. Monitor for withdrawals 7. Tobacco use and dependence. Patient declines need for nicotine patch. 8. Insomnia. Continue melatonin 6 mg at bedtime. 9 Regular marijuana use. 10. History of Hepatitis C. 11. Severe protein calorie malnutrition secondary to ulcerative colitis, IV drug use. 12. GI prophylaxis. Protonix 40 mild grams IV push daily. 13. DVT prophylaxis. Lovenox subcu. Time with Patient: Greater than 30
--- NOTE | 2022-02-14 02:17 | P.PN ---
Subjective Progress Note Date: 02/13/22 This is a 41-year-old male patient of Dr. Plata with past medical history of ulcerative colitis, tobacco use and dependence, marijuana use, IVheroin use. He has had several admissions in the past for acute ulcerative colitis and that time was seen by GI recommended to be on sulfasalazine as well as follow-up in the office for initiating Remicade. Patient also has chronic left lower extremity ulcer/wound which he was admitted for in December. He subsequently was admitted on 02/03 and left AMA on 02/09. Patient at that time was treated for initially exacerbation of ulcerative colitis but underwent EGD and colonoscopy with Dr. Merlin Gong EGD revealed severe Mylene esophagitis with white plaques throughout the entire esophagus status post biopsy and patient was started on fluconazole for 7 days. Colonoscopy revealed ulcerated mass like area involving the hepatic flexure extending into the right colon status post multiple biopsies to rule out neoplasm. Rest of the colon appeared normal. Patient subsequently underwent CAT scan of the abdomen and pelvis with contrast which revealed suggestion of perforated hollow viscus with left upper quadrant free air around the spleen with early phlegmonous change/abscess formation around the spleen. Some of these findings were seen dating back to 2019 but appears smaller on today's exam. Additional low attenuating areas are seen within the spleen which are indeterminate and could represent splenic abscess given adjacent inflammatory changes around the spleen. Hepatic flexure ulceration wall thickening is again seen and seen back on 05/12/2020. Focal narrowing of the rectum suspicious for stricture. Consult was added for Dr. Merlos and plan was to wait for biopsy report, intention was for surgery most likely colectomy. Patient was requesting a second opinion which was not performed and patient had actually signed out before Dr. Mora was able to see him. At this time, Dr. Mora will not be available to be a second consult if patient requests this. Also patient was seen by vascular surgery on his last admission and debridement of the left lower extremity wound was completed. Patient had a follow-up appointment at Dr. Plata's office Patient presented to [facility] emergency center for evaluation. He was found to be afebrile, heart rate 118, blood pressure 117/84, pulse ox 100% on room air. WBC 21, hemoglobin 10.4, platelet count 371. Sodium 136, potassium 4.6, chloride 100, CO2 21, BUN 14 and creatinine 0.68, blood sugar 110. INR 1.0. AST 69 otherwise liver function tests were normal. Lipase 30. Urinalysis revealed small amount of blood. Acute abdominal series revealed no acute process. Findings chronic. Biopsy report from EGD and colonoscopy: Esophageal biopsy revealed herpes esophagitis superimposed Mylene esophagitis. Right colon biopsy revealed ulcer with acute and chronic inflammation, granulation tissue and fibrosis. Nondiagnostic of neoplasm. Intact colonic mucosa is not identified.: Hepatic flexure biopsy reveals ulcer with acute and chronic inflammation, granulation tissue and fibrosis. Nondiagnostic of neoplasm. Scanty superficialclinical fragments of benign colonic mucosa. 02/12/2022 Patient is currently resting in the bed. Awake alert and oriented x3. Left lower extremity wound is bandaged. Denied any worsening pain. Continued on antibiotics along with Zosyn. Patient is still complaining of abdominal pain and no nausea or vomiting or diarrhea. Patient has been afebrile. No chest pain or shortness of breath. Laboratory data reviewed. Leukocytosis trending down to 11.1. ID is on board. Patient is also on prednisone 30 mg daily. 02/13/2022 Patient is currently lying in bed. Awake alert oriented x3. Abdominal pain is better. Left lower extremity pain is also improving. Patient is on antibiotics of Zosyn. Also being continued on prednisone 30 mg daily for ulcerative colitis. Tolerating oral diet. No fever no chills. No nausea vomiting or diarrhea. No chest pain or shortness of breath. General surgery recommends transfer to tertiary care center to be evaluated with colorectal surgeon due to complications of ulcerative colitis. ID is on board. Current medications reviewed. Objective - Vital Signs Vital signs: Vital Signs Temp 98.4 F 02/13/22 20:00 Pulse 92 02/13/22 20:00 Resp 14 02/13/22 20:00 BP 131/79 02/13/22 20:00 Pulse Ox 98 02/13/22 20:00 FiO2 Intake & Output 02/13/22 02/13/22 02/14/22 06:59 18:59 06:59 Intake Total 1790 Output Total 1999 400 Balance -210 -400 Intake: Oral 0 Output: Urine 1999 400 Other: Voiding Method Urinal Urinal # Voids 5 # Bowel Movements 2 - Exam PHYSICAL EXAMINATION Gen: This is a cachectic 41-year-old male, resting in bed in the emergency center. Patient appears to be in no acute distress. HEENT: Head is atraumatic, normocephalic. Pupils equal, round. Sclerae is anicteric. NECK: Supple. No JVD. No lymphadenopathy. No thyromegaly. LUNGS: Clear to auscultation. No wheezes or rhonchi. No intercostal retractions. HEART: Regular rate and rhythm. No murmur. ABDOMEN: Soft. Bowel sounds are present. No masses. Generalized mild tenderness. EXTREMITIES: No pedal edema. No calf tenderness. Dorsalis pedis +2 bilaterally. Ulcers to the pretibial area bilateral lower extremities. Please see nursing documentation for details NEUROLOGICAL: Patient is awake, alert and oriented x3. Cranial nerves 2 through 12 are grossly intact. - Labs CBC & Chem 7: 02/11/22 06:02 02/10/22 18:11 Assessment and Plan Assessment: ASSESSMENT AND PLAN 1. Ulcerated mass at the hepatic flexure. Biopsy as above. general surgery is on board. GI is not available this week. IV Zosyn 3.375 g IV piggyback every 8 hours. 2. Mylene esophagitis and herpes esophagitis. 3. Ulcerative colitis. Patient has appointment on Monday to follow up with GI regarding further plan and possibly starting Remicade. Patient will be continued on prednisone 30 mg daily. 4. Possible splenic abscesses on CAT scan. This is of chronic nature, no surgical intervention is needed immediately. 5. 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 Patient failed to follow-up with the wound healing Center. He has had debridement done by vascular surgery on last 2 hospitalizations. 6. IV drug use with heroin. Monitor for withdrawals 7. Tobacco use and dependence. Patient declines need for nicotine patch. 8. Insomnia. Continue melatonin 6 mg at bedtime. 9 Regular marijuana use. 10. History of Hepatitis C. 11. Severe protein calorie malnutrition secondary to ulcerative colitis, IV drug use. 12. GI prophylaxis. Protonix 40 mild grams IV push daily. 13. DVT prophylaxis. Lovenox subcu. Time with Patient: Greater than 30
[2022-02-14] MEDS: MORPHINE SULFATE 4 MG/ML SYRINGE IVP PRN ×4 (03:01→17:55)
--- NOTE | 2022-02-14 07:30 | P.PN ---
Subjective Progress Note Date: 02/13/22 Principal diagnosis: Splenic abscess and bilateral leg wounds Patient is a 41-year-old male with a past medical he significant for ulcerative colitis in this patient with bilateral lower extremity nonhealing wound left greater than right and the patient also have abnormal CT on 02/08/2022 with evidence of possible splenic abscess patient did sign out AMA on last admission and presented back to the hospital abdominal pain and concern for nonhealing wound to the lower extremity. On today's evaluation that is 02/13/2022, the patient remains to be afebrile, patient denies any worsening Abdominal pain, no nausea vomiting no worsening diarrhea or any worsening pain to bilateral lower extremity wound Objective - Vital Signs Vital signs: Vital Signs Temp 98.4 F 02/13/22 07:55 Pulse 78 02/13/22 07:55 Resp 18 02/13/22 07:55 BP 122/81 02/13/22 07:55 Pulse Ox 100 02/13/22 07:55 FiO2 Intake & Output 02/12/22 02/13/22 02/13/22 18:59 06:59 18:59 Intake Total 1790 Output Total 1999 Intake: Oral 1790 Output: Urine 1999 1999 Other: Voiding Method Urinal Urinal Urinal # Bowel Movements 2 - Exam GENERAL DESCRIPTION: Middle-aged male lying in bed, no distress. No tachypnea or accessory muscle of respiration use. LUNGS: Unlabored breathing. Clear to auscultation anteriorly. No wheeze or crackle. HEART: S1, S2, regular rate and rhythm. No loud murmur ABDOMEN: Soft, no tenderness , guarding or rigidity, no organomegaly EXTREMITIES: Bilateral lower extremity wounds are currently dressed no drainage on the dressing. - Labs CBC & Chem 7: 02/11/22 06:02 02/10/22 18:11 Assessment and Plan (1) Intra-abdominal abscess Current Visit: Yes Status: Acute Code(s): K65.1 - PERITONEAL ABSCESS SNOMED Code(s): 78075885 (2) Non-pressure chronic ulcer of left calf with fat layer exposed Current Visit: No Status: Acute Code(s): L97.222 - NON-PRESSURE CHRONIC ULCER OF LEFT CALF W FAT LAYER EXPOSED SNOMED Code(s): 68531165780633038 Plan: 1patient with bilateral lower extremity wound left greater than the right wound base did have some slough tissue however no significant surrounding redness or any foul-smelling drainage recommend local wound care. 2 Patient with abdominal pain elevated white count and concern for possible splenic area abscess, with recent EGD suspicious for oropharyngeal candidiasis, general surgery has evaluated the patient [facility] 3local wound care with the [facility] followed by moist dressing to be changed daily. 4patient to continue with Zosyn 3.375 g every 8 hours along with oral Diflucan for oropharyngeal candidiasis. Time with Patient: Less than 30
[2022-02-14 07:43] VITALS: RESP 17
[2022-02-14] MEDS: predniSONE 20 MG TAB PO SCH (08:39)
[2022-02-14] MEDS: PIPERACILLIN-TAZOBACTAM 3.375 GM in SODIUM CHLORIDE 0.9% 100 ML IVPB SCH ×2 (08:39→16:17)
[2022-02-14] MEDS: FLUCONAZOLE 100 MG TAB PO SCH (08:39)
[2022-02-14] MEDS: ENOXAPARIN 40 MG/0.4 ML SYRINGE SQ SCH (08:40)
[2022-02-14] MEDS: PANTOPRAZOLE 40 MG/10 ML VIAL IV SCH (08:40)
--- NOTE | 2022-02-14 09:17 | P.TRANS ---
Providers Date of admission: 02/10/22 22:20 Expected date of discharge: 02/14/22 Attending physician: Adalid Plata Consults: 02/10/22 22:19 Consult Physician Routine Consulting Provider: Maria Antonia Gong Consult Reason/Comments: abdominal pain Do you want consulting provider notified?: Yes Consult Physician Routine Consulting Provider: Erick Merols Consult Reason/Comments: abdominal pain Do you want consulting provider notified?: Yes 02/11/22 11:37 Consult Physician Routine Consulting Provider: Maryan Fields Consult Reason/Comments: wounds bilat lower extremities Do you want consulting provider notified?: Yes Primary care physician: Adalid Plata Hospital Course: HISTORY OF PRESENT ILLNESS This is a 41-year-old male patient of Dr. Plata with past medical history of u lcerative colitis, tobacco use and dependence, marijuana use, IVheroin use. He has had several admissions in the past for acute ulcerative colitis and that time was seen by GI recommended to be on sulfasalazine as well as follow-up in the office for initiating Remicade. Patient also has chronic left lower extremity ulcer/wound which he was admitted for in December. He subsequently was admitted on 02/03 and left AMA on 02/09. Patient at that time was treated for initially exacerbation of ulcerative colitis but underwent EGD and colonoscopy with Dr. Merlin Gong EGD revealed severe Mylene esophagitis with white plaques throughout the entire esophagus status post biopsy and patient was started on fluconazole for 7 days. Colonoscopy revealed ulcerated mass like area involving the hepatic flexure extending into the right colon status post multiple biopsies to rule out neoplasm. Rest of the colon appeared normal. Patient subsequently underwent CAT scan of the abdomen and pelvis with contrast which revealed suggestion of perforated hollow viscus with left upper quadrant free air around the spleen with early phlegmonous change/abscess formation around the spleen. Some of these findings were seen dating back to 2019 but appears smaller on today's exam. Additional low attenuating areas are seen within the spleen which are indeterminate and could represent splenic abscess given adjacent infla mmatory changes around the spleen. Hepatic flexure ulceration wall thickening is again seen and seen back on 05/12/2020. Focal narrowing of the rectum suspicious for stricture. Consult was added for Dr. Merlos and plan was to wait for biopsy report, intention was for surgery most likely colectomy. Patient was requesting a second opinion which was not performed and patient had actually signed out before Dr. Mora was able to see him. At this time, Dr. Mora will not be available to be a second consult if patient requests this. Also patient was seen by vascular surgery on his last admission and debridement of the left lower extremity wound was completed. Patient had a follow-up appointment at Dr. Plata's office Patient presented to [facility] emergency center for e valuation. He was found to be afebrile, heart rate 118, blood pressure 117/84, pulse ox 100% on room air. WBC 21, hemoglobin 10.4, platelet count 371. Sodium 136, potassium 4.6, chloride 100, CO2 21, BUN 14 and creatinine 0.68, blood sugar 110. INR 1.0. AST 69 otherwise liver function tests were normal. Lipase 30. Urinalysis revealed small amount of blood. Acute abdominal series revealed no acute process. Findings chronic. Biopsy report from EGD and colonoscopy: Esophageal biopsy revealed herpes esophagitis superimposed Mylene esophagitis. Right colon biopsy revealed ulcer with acute and chronic inflammation, granulation tissue and fibrosis. Nondiagnostic of neoplasm. Intact colonic mucosa is not identified.: Hepatic flexure biopsy reveals ulcer with acute and chronic inflammation, granulation tissue and fibrosis. Nondiagnostic of neoplasm. Scanty superficialclinical fragments of benign colonic mucosa. Patient is waiting in the emergency center for a bed on the [facility] floor. At this time, general surgeons Dr. Mora, Dr. Merlos and Dr. Foster refused to treat this patient. 02/12/2022 Patient is currently resting in the bed. Awake alert and oriented x3. Left lower extremity wound is bandaged. Denied any worsening pain. Continued on antibiotics along with Zosyn. Patient is still complaining of abdominal pain and no nausea or vomiting or diarrhea. Patient has been afebrile. No chest pain or shortness of breath. Laboratory data reviewed. Leukocytosis trending down to 11.1. ID is on board. Patient is also on prednisone 30 mg daily. 02/13/2022 Patient is currently lying in bed. Awake alert oriented x3. Abdominal pain is better. Left lower extremity pain is also improving. Patient is on antibiotics of Zosyn. Also being continued on prednisone 30 mg daily for ulcerative colitis. Tolerating oral diet. No fever no chills. No nausea vomiting or diarrhea. No chest pain or shortness of breath. General surgery recommends transfer to tertiary care center to be evaluated with colorectal surgeon due to complications of ulcerative colitis. ID is on board. 02/14: Patient denies any new complaints today. He is on pain management [id number]. General surgery is recommended transfer to tertiary [facility] center which will be started today. Patient is also seen and followed by Dr. Fields continued on Zosyn and also oral Diflucan for oral pharyngeal candidiasis. Patient remains afebrile, heart rate 74, blood pressure 135/94, pulse ox 100% on room air. Repeat blood work will be ordered today. Patient is continued on oral prednisone at 30 mg daily. Patient will be transferred to [facility] once arrangements are completed. REVIEW OF SYSTEMS Constitutional: No fever, no chills, no night sweats. No weight change. No weakness, fatigue or lethargy. No daytime sleepiness. EENT: No headache. No blurred vision or double vision, no loss of vision. No loss of Hearing, no ringing in the ears, no dizziness. No nasal drainage or congestion. No epistaxis. No sore throat. Reports dental pain. Lungs: No shortness of breath, cough, no sputum production. No wheezing. Cardiovascular: No chest pain, no lower extremity edema. No palpitations. No paroxysmal nocturnal dyspnea. No orthopnea. No lightheadedness or dizziness. No syncopal episodes. Abdominal: Reports abdominal pain. Denies nausea, no vomiting. Denies diarrhea. No constipation. Denies bloody or tarry stools reports loss of appetite. Genitourinary: No dysuria, increased frequency, urgency. No urinary retention. Musculoskeletal: No myalgias. No muscle weakness, no gait dysfunction, no frequent falls. No back pain. No neck pain. Integumentary: Reports lower extremity wounds, no lesions. No rash or pruritus. No unusual bruising. No change in hair or nails. Neurologic: No aphasia. No facial droop. No change in mentation. No head injury. No headache. No paralysis. No paresthesia. Psychiatric: No depression. No anxiety. No mood swings. Endocrine: No abnormal blood sugars. No weight change. No excessive sweating or thirst. No cold intolerance. PHYSICAL EXAMINATION Gen: This is a cachectic 41-year-old male, resting in bed in the emergency center. Patient appears to be in no acute distress. HEENT: Head is atraumatic, normocephalic. Pupils equal, round. Sclerae is anicteric. NECK: Supple. No JVD. No lymphadenopathy. No thyromegaly. LUNGS: Clear to auscultation. No wheezes or rhonchi. No intercostal retractions. HEART: Regular rate and rhythm. No murmur. ABDOMEN: Soft. Bowel sounds are present. No masses. Generalized mild tenderness. EXTREMITIES: No pedal edema. No calf tenderness. Dorsalis pedis +2 bilaterally. Ulcers to the pretibial area bilateral lower extremities. Please see nursing documentation for details NEUROLOGICAL: Patient is awake, alert and oriented x3. Cranial nerves 2 through 12 are grossly intact. ASSESSMENT AND PLAN 1. Ulcerated mass at the hepatic flexure. Biopsy as above. Consult with general surgery appreciated with recommendations for transfer to tertiary care. Consult with ID appreciated. IV Zosyn 3.375 g IV piggyback every 8 hours. 2. Mylene esophagitis and herpes esophagitis. Continue oral Diflucan. 3. Ulcerative colitis. Patient has appointment on Monday to follow up with GI regarding further plan and possibly starting Remicade. Patient will be continued on prednisone 30 mg daily. General surgery recommends transfer to tertiary care. 4. Possible splenic abscesses on CAT scan. This is of chronic nature, no surgical intervention is needed immediately. 5. 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 Patient failed to follow-up with the wound healing Center. He has had debridement done by vascular surgery on last 2 hospitalizations. 6. IV drug use with heroin. Monitor for withdrawals 7. Tobacco use and dependence. Patient declines need for nicotine patch. 8. Insomnia. Continue melatonin 6 mg at bedtime. 9 Regular marijuana use. 10. History of Hepatitis C. 11. Severe protein calorie malnutrition secondary to ulcerative colitis, IV drug use. 12. GI prophylaxis. Protonix 40 mild grams IV push daily. 13. DVT prophylaxis. Lovenox subcu. DISCHARGE PLAN Transfer to [facility] for evaluation by colorectal surgeon, [facility]. Impression and plan of care have been directed as dictated by the signing physician. Teri Walter nurse practitioner acting as scribe for signing physician. Patient Condition at Discharge: Fair Plan - Transfer Summary Transfer Medications: Active Medications Generic Name Dose Route Start Last Admin Trade Name Freq PRN Reason Stop Dose Admin Acetaminophen 650 mg 02/10/22 22:19 02/11/22 09:05 Acetaminophen Tab 325 Mg Tab PO 650 mg Q6HR PRN Administration Mild Pain or Fever > 100.5 Alprazolam 0.25 mg 02/11/22 11:23 02/14/22 01:09 Alprazolam 0.25 Mg Tab PO 0.25 mg BID PRN Administration Anxiety Enoxaparin Sodium 40 mg 02/11/22 09:00 02/14/22 08:40 Enoxaparin 40 Mg/0.4 Ml Syringe SQ 40 mg DAILY ARETHA Administration Fluconazole 200 mg 02/10/22 22:30 02/14/22 08:39 Fluconazole 100 Mg Tab PO 200 mg DAILY ARETHA Administration Protocol Piperacillin Sod/Tazobactam 100 mls @ 25 mls/hr 02/11/22 08:45 02/14/22 08:39 Sod 3.375 gm/ Sodium Chloride IVPB 25 mls/hr Q8HR ARETHA Administration Protocol Loperamide HCl 2 mg 02/10/22 22:19 Loperamide 2 Mg Cap PO Q2HR PRN Loose Stool Melatonin 6 mg 02/10/22 22:30 02/13/22 23:39 Melatonin 3 Mg Tablet PO 6 mg HS ARETHA Administration Morphine Sulfate 4 mg 02/11/22 12:56 02/14/22 08:40 Morphine Sulfate 4 Mg/Ml Syringe IVP 4 mg Q4HR PRN Administration Severe Pain Naloxone HCl 0.2 mg 02/10/22 22:19 Naloxone 0.4 Mg/Ml 1 Ml Vial IV Q2M PRN Opioid Reversal Ondansetron HCl 4 mg 02/10/22 22:19 Ondansetron 4 Mg/2 Ml Vial IVP Q8HR PRN Nausea And Vomiting Pantoprazole Sodium 40 mg 02/11/22 09:00 02/14/22 08:40 Pantoprazole 40 Mg/10 Ml Vial IV 40 mg DAILY ARETHA Administration Prednisone 30 mg 02/10/22 22:30 02/14/22 08:39 Prednisone 20 Mg Tab PO 30 mg DAILY ARETHA Administration Tramadol HCl 50 mg 02/10/22 22:19 02/13/22 19:05 Tramadol 50 Mg Tab PO 50 mg Q6H PRN Administration Moderate Pain Trazodone HCl 100 mg 02/10/22 22:24 02/13/22 23:50 Trazodone Hcl 100 Mg Tab PO 100 mg HS PRN Administration Insomnia Follow up Appointment(s)/Referral(s): Adalid Plata MD [Primary Care Provider] - 1 Week Maria Antonia Gong MD [STAFF PHYSICIAN] - 02/15/22 4:15 pm [facility], [NON-STAFF] - As Needed Discharge Disposition: TRANSFER TO SHORT TERM HOSP
[2022-02-14 09:33] LABS: HCT 35.3 % (39.6-50.0); HGB 10.1 g/dL (13.0-17.0); MCH 21.2 pg (27.0-32.0); MCHC 28.6 g/dL (32.0-37.0); Mean Platelet Volume 8.8 fL (9.5-12.2); NRBC Per 100 WBC 0 /100 WBCS (0.0-0.0); Platelet Count 534 X 10*3/uL (140-440); RBC 4.77 X 10*6/uL (4.40-5.60); RDW 22.2 % (11.5-14.5); WBC 15.98 X 10*3/uL (4.50-10.00)
[2022-02-14 09:47] LABS: African American GFR (CKD) 135.2 (60.0-200.0); Albumin 3.5 g/dL (3.8-4.9); Albumin/Globulin Ratio 1.02 (1.60-3.17); Anion Gap 10.2 mmol/L (10.00-18.00); BUN/Creat Ratio 29.45 Ratio (12.00-20.00); Blood Urea Nitrogen 20.5 mg/dL (9.0-27.0); Calcium 9.5 mg/dL (8.7-10.3); Carbon Dioxide 25.1 mmol/L (20.0-27.5); Globulin 3.4 g/dL (1.6-3.3); Non-African American GFR(CKD) 116.7 (60.0-200.0); Potassium 5.2 mmol/L (3.5-5.5); Total Bilirubin 0.2 mg/dL (0.30-1.20)
[2022-02-14 12:11] LABS: Basophils # (A) 0.09 X 10*3/uL (0.00-0.10); Basophils % (A) 0.6 %; Eosinophils # (A) 0.22 X 10*3/uL (0.04-0.35); Eosinophils % (A) 1.4 %; Immature Grans, Automated 0.8 %; Lymphocytes # (A) 4.71 X 10*3/uL (0.90-5.00); Lymphocytes % (A) 29.5 %; Monocytes # (A) 1.09 X 10*3/uL (0.20-1.00); Monocytes % (A) 6.8 %; Neutrophils # (A) 9.75 X 10*3/uL (1.80-7.70); Neutrophils % (A) 60.9 %
--- NOTE | 2022-02-14 13:54 | P.PN ---
Subjective Progress Note Date: 02/14/22 CHIEF COMPLAINT: Intra-abdominal abscess HISTORY OF PRESENT ILLNESS: The patient is a 41 year old male readmitted due to complications with ulcerative colitis as well as colonic stricture, intra- abdominal abscess or localized perforation at hepatic flexure. Patient has cutaneous ulcerative lesions of the leg. Patient reports slight improvement in his abdominal pain. He states that his leg pain is worse than the abdominal pain. He is having bowel movements. He is tolerating regular diet. He is a waiting transfer to a tertiary care center due to his complicated ulcerative colitis. PHYSICAL EXAM: VITAL SIGNS: Reviewed GENERAL: Well-developed in no acute distress. HEENT: No sclera icterus. Extraocular movements grossly intact. Moist buccal mucosa. Head is atraumatic, normocephalic. Hears conversational speech. No nasal drainage. NECK: Supple without lymphadenopathy. CHEST: Non-labored respirations and equal bilateral excursions. CARDIOVASCULAR: Palpable 2+ radial pulses. ABDOMEN: Soft. Nondistended. Tenderness with palpation of bilateral upper abdomen MUSCULOSKELETAL: No clubbing or cyanosis. NEUROLOGIC: No focal or lateralizing signs. Cranial nerves II through XII melvin ssly intact. PSYCH: Appropriate affect. Alert and oriented to person, place and time. SKIN: Well perfused. Good skin turgor. ASSESSMENT: 1. Uncontrolled ulcerative colitis 2. Intra-abdominal abscess 3. Hepatic ulcerative mass 4. Ulcerative skin lesions 5. Kidney stones PLAN: -Due to complications from ulcerative colitis, recommend transfer to tertiary care center for colorectal surgeon management of complicated ulcerative colitis -Continue IV antibiotics -Recommend antifungals for candidiasis of the esophagus and antiviral for herpes of the esophagus Physician Patient Relations Coordinator note has been reviewed by physician. Signing provider agrees with the documented findings, assessment, and plan of care. Objective - Vital Signs Vital signs: Vital Signs Temp 97.8 F 02/14/22 07:40 Pulse 74 02/14/22 07:40 Resp 17 02/14/22 07:40 BP 135/94 02/14/22 07:40 Pulse Ox 100 02/14/22 07:40 FiO2 Intake & Output 02/13/22 02/14/22 02/14/22 18:59 06:59 18:59 Output Total 2450 350 Balance -2450 -350 Output: Urine 2450 350 Other: Voiding Method Urinal Urinal # Voids 5 1 # Bowel Movements 2 - Labs CBC & Chem 7: 02/14/22 05:55 02/14/22 05:55 Labs: Abnormal Lab Results - Last 24 Hours (Table) 02/14/22 02/14/22 Range/Units 05:55 05:55 WBC 15.98 H (4.50-10.00) X 10*3/uL Hgb 10.1 L (13.0-17.0) g/dL Hct 35.3 L (39.6-50.0) % MCV 74.0 L (80.0-97.0) fL MCH 21.2 L (27.0-32.0) pg MCHC 28.6 L (32.0-37.0) g/dL RDW 22.2 H (11.5-14.5) % Plt Count 534 H (140-440) X 10*3/uL Plt Count Comment INCREASED A MPV 8.8 L (9.5-12.2) fL Immature Gran # 0.12 H (0.00-0.04) X 10*3/uL Neutrophils # 9.75 H (1.80-7.70) X 10*3/uL Monocytes # 1.09 H (0.20-1.00) X 10*3/uL BUN/Creatinine Ratio 29.45 H (12.00-20.00) Ratio Total Bilirubin 0.20 L (0.30-1.20) mg/dL Albumin 3.5 L (3.8-4.9) g/dL Globulin 3.4 H (1.6-3.3) g/dL Albumin/Globulin Ratio 1.02 L (1.60-3.17) g/dL
[2022-02-14 15:20] VITALS: BP 123/76; PULSE 110; TEMP 98.2
== END 2022-02-14 19:33 | disposition short-term general hospital (02) | DRG 385 ==
LOC: EC 16:19 → 4SSUR 22:20
PROVIDERS: ADMIT Internal Medicine; ATTEND Internal Medicine
DX: K51.914 Ulcerative colitis, unspecified with abscess (principal); E43 Unspecified severe protein-calorie malnutrition; K65.1 Peritoneal abscess; B37.89 Other sites of candidiasis; R64 Cachexia; B37.81 Candidal esophagitis; L97.222 Non-pressure chronic ulcer of left calf with fat layer exposed; B00.89 Other herpesviral infection; L88 Pyoderma gangrenosum; Z68.1 Body mass index [BMI] 19.9 or less, adult; F11.20 Opioid dependence, uncomplicated; E86.0 Dehydration; K51.912 Ulcerative colitis, unspecified with intestinal obstruction; Z20.822 Contact with and (suspected) exposure to COVID-19; Z28.310 Unvaccinated for COVID-19; D73.3 Abscess of spleen; K20.80 Other esophagitis without bleeding; D64.9 Anemia, unspecified; G89.29 Other chronic pain; N20.0 Calculus of kidney; M19.90 Unspecified osteoarthritis, unspecified site; G47.00 Insomnia, unspecified; Z91.19 Patient's noncompliance with other medical treatment and regimen; F17.210 Nicotine dependence, cigarettes, uncomplicated; Z79.899 Other long term (current) drug therapy; Z86.19 Personal history of other infectious and parasitic diseases; Z71.3 Dietary counseling and surveillance; Z82.0 Family history of epilepsy and other diseases of the nervous system; Z82.49 Family history of ischemic heart disease and other diseases of the circulatory system
CPT/HCPCS: 36415; 74022; 80053; 81001; 83690; 85025; 85610; 85730; 87635; 96361; 96365; 96375; 96376; 99285

== ENCOUNTER 2022-08-25 19:38 | Emergency (ER) | payer OTHER ==
[2022-08-25] MEDS ORDERED: SODIUM CHLORIDE 0.9% 1,000 ML IV STA (20:08)
--- NOTE | 2022-08-25 20:18 | ED ---
Nausea/Vomiting/Diarrhea HPI - General Chief complaint: Nausea/Vomiting/Diarrhea Stated complaint: Vomiting blood Time Seen by Provider: 08/25/22 19:50 Source: patient, RN notes reviewed Mode of arrival: EMS Limitations: no limitations - History of Present Illness Initial comments: This is a 42-year-old male with a PMHx of ulcerative colitis and IVDU who presents to the emergency department for nausea and vomiting. States that this started yesterday, yesterday he threw up once and today he threw up twice. When he threw up today, he states that he was coughing before and believes that this triggered the vomiting. He is not currently feeling nauseous and denies any changes in bowel habits or blood in the stool. He has minor associated abdominal pain, and states that this feels different from a typical ulcerative colitis flareup. He has not had an ulcerative colitis flare up since January of last year when he was admitted and subsequently transferred to [facility]. States that he was admitted at [facility] for 2 weeks and had IV antibiotics and debridement of the wound on the left prescott, which he was told was related to the UC. He has not followed up with any providers since then and ran out of his ulcerative colitis medication in March, which he was supposed to be taking daily. Additionally, over the last week he has developed a wound on the right prescott that he states is worse than the one he had on the left. This started out as a small cut that got progressively worse. He also has a lump on his left forearm that he states was from trying to use IV heroin 2 days ago. Denies any fevers, chills, sore throat, cough, dyspnea, chest pain, palpitations, diarrhea, back pain, or headaches. MD complaint: nausea, vomiting, abdominal pain Onset/Timin -: days(s) Associated Abdominal Pain: Yes Location: diffuse - Related Data Home Medications Medication Instructions Recorded Confirmed No Known Home Medications 08/25/22 08/25/22 Allergies Allergy/AdvReac Type Severity Reaction Status Date / Time No Known Allergies Allergy Verified 08/25/22 21:45 Review of Systems ROS Statement: Those systems with pertinent positive or pertinent negative responses have been documented in the HPI. ROS Other: All systems not noted in ROS Statement are negative. Past Medical History Past Medical History: GI Bleed, Skin Disorder Additional Past Medical History / Comment(s): ulcerative colitis, spleen problems, Hep C History of Any Multi-Drug Resistant Organisms: None Reported Past Surgical History: No Surgical Hx Reported Additional Past Surgical History / Comment(s): wound debriedment L leg Past Anesthesia/Blood Transfusion Reactions: No Reported Reaction Past Psychological History: No Psychological Hx Reported Smoking Status: Current every day smoker Past Alcohol Use History: None Reported Past Drug Use History: Heroin, Marijuana, Opiates - Past Family History Father Family Medical History: Seizure Disorder Additional Family Medical History / Comment(s): Father is alive at age 64 with history of seizures and hypertension. Mother Additional Family Medical History / Comment(s): Mother in her late 50s with complications from CABG. Brother(s) Additional Family Medical History / Comment(s): Patient has 2 brothers with no major medical problems. He does not have any sisters. He does not have any children. No family members have ulcerative colitis. General Exam Limitations: no limitations General appearance: alert, in no apparent distress Head exam: Present: atraumatic, normocephalic, normal inspection Respiratory exam: Present: normal lung sounds bilaterally. Absent: respiratory distress, wheezes, rales, rhonchi, stridor Cardiovascular Exam: Present: regular rate, normal rhythm, normal heart sounds. Absent: systolic murmur, diastolic murmur, rubs, gallop, clicks GI/Abdominal exam: Present: soft, tenderness (Epigastric), normal bowel sounds. Absent: distended Extremities exam: Present: other (2cm palpable soft lump with centralized ecchymosis in the center of the left forearm. Large 10cm open wound to the center of the right prescott. ) Neurological exam: Present: alert, oriented X3, CN II-XII intact Psychiatric exam: Present: normal affect, normal mood Course Vital Signs 08/25/22 08/26/22 08/26/22 19:42 01:46 01:56 Temperature 98.0 F 98.0 F 97.8 F Pulse Rate 108 H 78 76 Respiratory 18 16 16 Rate Blood Pressure 127/87 116/64 109/72 O2 Sat by Pulse 100 99 100 Oximetry Medical Decision Making - Medical Decision Making This is a 42-year-old male who presents to the emergency department for nausea, vomiting, and a wound to the right prescott. Was pt. sent in by a medical professional or institution? @ -No Did you speak to anyone other than the patient for history? @ -No Did you review nursing and triage notes? @ -Yes, and I agree, it is accurate with regards to the patient's symptoms. Were old charts reviewed? @ -Yes, admission records from 02/03/22-02/09/22 and 02/10/22-02/11/22. Differential Diagnosis? @ - -Differential Nausea and Vomiting: -Gastroenteritis, cholecystitis, appendicitis, pancreatitis, migraine, benign positional vertigo, food borne illness, pyelonephritis, irritable bowel syndrome, UC flare up, influenza, Covid, GERD, incarcerated hernia, intestinal obstruction, this is not meant to be an all-inclusive list. What testing was considered but not performed? (CT, X-rays, U/S, labs)? Why? @ -None What meds were considered but not given? Why? @ -None Did you discuss the management of the patient with other professionals? @ -Yes, I first spoke with GI at [facility], who advised that due to the complexity of the patient's case, and that he is not currently receiving any treatment and has associated IV drug use, he should be transferred to a facility that can provide a higher level of care. I then spoke with Dr. Loco at [facility] who accepts the patient for transfer. Did you reconcile home meds? @ -No Was smoking cessation discussed for >3mins.? @ -No Was critical care preformed (if so, how long)? @ -No Were there social determinants of health that impacted care today? How? (Homelessness, low income, unemployed, alcoholism, drug addiction, transportation, low edu. Level, literacy, decrease access to med. care, [facility], rehab)? @ -Yes, IVDU and poor compliance Was there de-escalation of care discussed even if they declined? (Discuss DNR or withdrawal of care, Hospice)? @ -No What co-morbidities impacted this encounter? (DM, HTN, Smoking, COPD, CAD, Cancer, CVA, Hep., AIDS, mental health diagnosis, sleep apnea, morbid obesity)? @ -Ulcerative colitis Was patient admitted / discharged? @ -Transferred. Lab work obtained revealing mild leukocytosis and a critically low hemoglobin at 6.2. Inflammatory markers are significantly elevated with a CRP of 7 and ESR of 107. Computed tomography scan of the abdomen and pelvis obtained. Left upper quadrant abnormalities are slightly increased from prior in January 2022, including increased parasplenic extraluminal gas and fluid and hepatic flexure inflammatory changes. Additionally, x-ray of the right tib-fib obtained revealing soft tissue emphysema. Findings of the right tib-fib are suspicious for pyoderma gangrenosum related to the ulcerative colitis. Patient was transfused with 1 unit of packed red blood cells and he was given a dose of Zosyn with blood cultures obtained prior. Ofirmev administered for pain. I first spoke with [facility] for transfer, however they requested the patient be sent somewhere where a higher level of care can be provided due to the complexity of the patient's case. I then spoke with Dr. Loco at [facility], who accepts the patient for transfer. Undiagnosed new problem with uncertain prognosis? @ -None Drug Therapy requiring intensive monitoring for toxicity (Heparin, Nitro, Insulin, Cardizem)? @ -None Were any procedures done? @ -None Diagnosis/symptom? @ -Acute blood loss anemia Acute, or Chronic, or Acute on Chronic? @ -Acute Uncomplicated (without systemic symptoms) or Complicated (systemic symptoms)? @ -Complicated Side effects of treatment? @ -None Exacerbation, Progression, or Severe Exacerbation] @ -Not applicable Poses a threat to life or bodily function? @ -Yes Diagnosis/symptom? @ -Ulcerative colitis Acute, or Chronic, or Acute on Chronic? @ -Acute Uncomplicated (without systemic symptoms) or Complicated (systemic symptoms)? @ -Complicated Side effects of treatment? @ -None Exacerbation, Progression, or Severe Exacerbation] @ -Severe exacerbation Poses a threat to life or bodily function? @ -Yes This case was discussed in detail with the attending ED physician, Dr. Manriquez. Presentation, findings, and treatment plan discussed in detail as well. - Lab Data Result diagrams: 08/25/22 20:30 08/25/22 20:30 Lab Results 08/25/22 08/25/22 08/25/22 Range/Units 20:30 20:30 20:30 WBC 13.2 H (3.8-10.6) k/uL RBC 3.34 L (4.30-5.90) m/uL Hgb 6.2 L* (13.0-17.5) gm/dL Hct 21.6 L (39.0-53.0) % MCV 64.8 L (80.0-100.0) fL MCH 18.4 L (25.0-35.0) pg MCHC 28.5 L (31.0-37.0) g/dL RDW 18.1 H (11.5-15.5) % Plt Count 433 (150-450) k/uL MPV 6.9 Neutrophils % 83 % Lymphocytes % 9 % Monocytes % 5 % Eosinophils % 1 % Basophils % 0 % Neutrophils # 11.0 H (1.3-7.7) k/uL Lymphocytes # 1.2 (1.0-4.8) k/uL Monocytes # 0.7 (0-1.0) k/uL Eosinophils # 0.1 (0-0.7) k/uL Basophils # 0.1 (0-0.2) k/uL Hypochromasia Marked Poikilocytosis Slight Anisocytosis Slight Microcytosis Marked ESR 107 H (0-15) mm/hr PT 10.3 (9.0-12.0) sec INR 1.0 (<1.2) APTT 24.1 (22.0-30.0) sec Sodium 141 (137-145) mmol/L Potassium 4.1 (3.5-5.1) mmol/L Chloride 106 (98-107) mmol/L Carbon Dioxide 25 (22-30) mmol/L Anion Gap 10 mmol/L BUN 17 (9-20) mg/dL Creatinine 0.53 L (0.66-1.25) mg/dL Est GFR (CKD-EPI)AfAm >90 (>60 ml/min/1.73 sqM) Est GFR (CKD-EPI)NonAf >90 (>60 ml/min/1.73 sqM) Glucose 122 H (74-99) mg/dL Lactic Ac Sepsis Rflx Plasma Lactic Acid Terence (0.7-2.0) mmol/L Calcium 8.2 L (8.4-10.2) mg/dL Total Bilirubin 0.3 (0.2-1.3) mg/dL AST 24 (17-59) U/L ALT 24 (4-49) U/L Alkaline Phosphatase 69 (38-126) U/L C-Reactive Protein 7.0 H (<1.0) mg/dL Total Protein 7.2 (6.3-8.2) g/dL Albumin 3.2 L (3.5-5.0) g/dL Amylase 31 (30-110) U/L Lipase 13 L (23-300) U/L Blood Type Blood Type Recheck Bld Type Recheck Status Antibody Screen Crossmatch Spec Expiration Date 08/25/22 08/25/22 08/26/22 Range/Units 20:30 21:33 00:00 WBC (3.8-10.6) k/uL RBC (4.30-5.90) m/uL Hgb (13.0-17.5) gm/dL Hct (39.0-53.0) % MCV (80.0-100.0) fL MCH (25.0-35.0) pg MCHC (31.0-37.0) g/dL RDW (11.5-15.5) % Plt Count (150-450) k/uL MPV Neutrophils % % Lymphocytes % % Monocytes % % Eosinophils % % Basophils % % Neutrophils # (1.3-7.7) k/uL Lymphocytes # (1.0-4.8) k/uL Monocytes # (0-1.0) k/uL Eosinophils # (0-0.7) k/uL Basophils # (0-0.2) k/uL Hypochromasia Poikilocytosis Anisocytosis Microcytosis ESR (0-15) mm/hr PT (9.0-12.0) sec INR (<1.2) APTT (22.0-30.0) sec Sodium (137-145) mmol/L Potassium (3.5-5.1) mmol/L Chloride (98-107) mmol/L Carbon Dioxide (22-30) mmol/L Anion Gap mmol/L BUN (9-20) mg/dL Creatinine (0.66-1.25) mg/dL Est GFR (CKD-EPI)AfAm (>60 ml/min/1.73 sqM) Est GFR (CKD-EPI)NonAf (>60 ml/min/1.73 sqM) Glucose (74-99) mg/dL Lactic Ac Sepsis Rflx Y Plasma Lactic Acid Terence 2.4 H* 1.0 (0.7-2.0) mmol/L Calcium (8.4-10.2) mg/dL Total Bilirubin (0.2-1.3) mg/dL AST (17-59) U/L ALT (4-49) U/L Alkaline Phosphatase (38-126) U/L C-Reactive Protein (<1.0) mg/dL Total Protein (6.3-8.2) g/dL Albumin (3.5-5.0) g/dL Amylase (30-110) U/L Lipase (23-300) U/L Blood Type Blood Type Recheck Bld Type Recheck Status Antibody Screen Crossmatch Spec Expiration Date 08/26/22 Range/Units 00:15 WBC (3.8-10.6) k/uL RBC (4.30-5.90) m/uL Hgb (13.0-17.5) gm/dL Hct (39.0-53.0) % MCV (80.0-100.0) fL MCH (25.0-35.0) pg MCHC (31.0-37.0) g/dL RDW (11.5-15.5) % Plt Count (150-450) k/uL MPV Neutrophils % % Lymphocytes % % Monocytes % % Eosinophils % % Basophils % % Neutrophils # (1.3-7.7) k/uL Lymphocytes # (1.0-4.8) k/uL Monocytes # (0-1.0) k/uL Eosinophils # (0-0.7) k/uL Basophils # (0-0.2) k/uL Hypochromasia Poikilocytosis Anisocytosis Microcytosis ESR (0-15) mm/hr PT (9.0-12.0) sec INR (<1.2) APTT (22.0-30.0) sec Sodium (137-145) mmol/L Potassium (3.5-5.1) mmol/L Chloride (98-107) mmol/L Carbon Dioxide (22-30) mmol/L Anion Gap mmol/L BUN (9-20) mg/dL Creatinine (0.66-1.25) mg/dL Est GFR (CKD-EPI)AfAm (>60 ml/min/1.73 sqM) Est GFR (CKD-EPI)NonAf (>60 ml/min/1.73 sqM) Glucose (74-99) mg/dL Lactic Ac Sepsis Rflx Plasma Lactic Acid Terence (0.7-2.0) mmol/L Calcium (8.4-10.2) mg/dL Total Bilirubin (0.2-1.3) mg/dL AST (17-59) U/L ALT (4-49) U/L Alkaline Phosphatase (38-126) U/L C-Reactive Protein (<1.0) mg/dL Total Protein (6.3-8.2) g/dL Albumin (3.5-5.0) g/dL Amylase (30-110) U/L Lipase (23-300) U/L Blood Type O Positive Blood Type Recheck O Pos Bld Type Recheck Status No Antibody Screen NEGATIVE Crossmatch See Detail Spec Expiration Date 08/29/2022 9422 - Radiology Data Radiology results: report reviewed, image reviewed Disposition Clinical Impression: Acute ulcerative colitis with complication, IVDU (intravenous drug user) Disposition: OTHER INSTITUTION NOT DEFINED Referrals: None,Stated [Primary Care Provider] - 1-2 days - Out of Hospital Transfer - Req. Specs Out of Hospital Transfer - Requested Specifics: Other Emergency Center ([facility]
--- NOTE | 2022-08-25 21:11 | XR ---
PROCEDURE: XR tibia fibula RT - 4V DATE AND TIME: 08/25/2022 8:54 PM CLINICAL INDICATION: Infection to right prescott TECHNIQUE: 4 views were obtained for AP and lateral imaging from the knee to the ankle. COMPARISON: None FINDINGS: At the junction of the proximal two thirds and distal one third of the tibial shaft there is medial > anterior soft tissue swelling, which extends over approximately 10 cm jejunal length. The soft tissu e swelling is accompanied with gas bubbles consistent with soft tissue emphysema. The underlying tibi al bone cortex has normal radiographic appearance. The remainder of the skeletal structures and soft tissues are unremarkable. IMPRESSION: Findings consistent with clinically submitted history of soft tissue infection.
[2022-08-25 21:20] LABS: Anisocytosis Slight; Basophils # (A) 0.1 k/uL (0-0.2); Basophils % (A) 0 %; Eosinophils # (A) 0.1 k/uL (0-0.7); Eosinophils % (A) 1 %; HCT 21.6 % (39.0-53.0); Hypochromasia Marked; Lymphocytes # (A) 1.2 k/uL (1.0-4.8); Lymphocytes % (A) 9 %; MCH 18.4 pg (25.0-35.0); MCHC 28.5 g/dL (31.0-37.0); MCV 64.8 fL (80.0-100.0); Mean Platelet Volume 6.9; Microcytosis Marked; Monocytes # (A) 0.7 k/uL (0-1.0); Monocytes % (A) 5 %; Neutrophils % (A) 83 %; Platelet Count 433 k/uL (150-450); Poikilocytosis Slight; RBC 3.34 m/uL (4.30-5.90); RDW 18.1 % (11.5-15.5); WBC 13.2 k/uL (3.8-10.6)
[2022-08-25 21:29] LABS: Partial Thromboplastin Time 24.1 sec (22.0-30.0); Prothrombin Time 10.3 sec (9.0-12.0)
[2022-08-25 21:33] LABS: ALT 24 U/L (4-49); AST 24 U/L (17-59); African American GFR (CKD) >90 (>60 ml/min/1.73 sqM); Albumin 3.2 g/dL (3.5-5.0); Alkaline Phosphatase 69 U/L (38-126); Amylase 31 U/L (30-110); Anion Gap 10 mmol/L; Blood Urea Nitrogen 17 mg/dL (9-20); Calcium 8.2 mg/dL (8.4-10.2); Carbon Dioxide 25 mmol/L (22-30); Chloride 106 mmol/L (98-107); Glucose 122 mg/dL (74-99); Lipase 13 U/L (23-300); Non-African American GFR(CKD) >90 (>60 ml/min/1.73 sqM); Potassium 4.1 mmol/L (3.5-5.1); Sodium 141 mmol/L (137-145); Total Bilirubin 0.3 mg/dL (0.2-1.3); Total Protein 7.2 g/dL (6.3-8.2)
--- NOTE | 2022-08-25 21:52 | CT ---
EXAMINATION TYPE: CT abdomen pelvis w con DATE OF EXAM: 08/25/2022 COMPARISON: 02/08/2022 HISTORY: Abdominal pain, N/V CT DLP: 729.5 mGycm, Automated Exposure Control for Dose Reduction was Utilized. CONTRAST: CT scan of the abdomen and pelvis is performed with oral and with IV Contrast, patient inje cted with 100ml mL of Isovue 300. FINDINGS: LUNG BASES: No significant abnormality is appreciated. LIVER/GB: No significant abnormality is appreciated. PANCREAS: No significant abnormality is seen. LEFT UPPER QUADRANT FINDINGS: There are markedly abnormal left subphrenic findings. The relatively mi ld splenomegaly seen on 02/08/2022 has mildly increased, as have the multifocal splenic hypodense defec ts. Also redemonstrated is the perisplenic extraluminal gas, and fluid, and the hepatic flexure colon ic/pericolonic inflammatory changes, seen on the prior study. ADRENALS: No significant abnormality is seen. KIDNEYS: No significant abnormality is seen. BOWEL: No bowel obstruction. Please see left upper quadrant findings. PELVIC VISCERA: Unremarkable. LYMPH NODES: No greater than 1cm abdominal or pelvic lymph nodes are appreciated. OSSEOUS STRUCTURES: No significant abnormality is seen. OTHER: No acute vascular findings. IMPRESSION: Complex left upper quadrant findings similar to those seen on 02/18/2022. Further characterization can be provided using a thorough oral contrast regimen to opacify the entire alimentary canal prior to I V contrast-enhanced repeat CT imaging.
[2022-08-25 21:53] LABS: HGB 6.2 gm/dL (13.0-17.5)
[2022-08-25] MEDS ORDERED: HYDROmorphone 0.5 MG/0.5 ML SYRINGE IVP STA (22:17)
[2022-08-25] MEDS ORDERED: ACETAMINOPHEN IV (For NPO) 1,000 MG in EMPTY BAG 1 BAG IVPB STA (23:05)
[2022-08-25 23:39] LABS: Erythrocyte Sedimentation Rate 107 mm/hr (0-15)
[2022-08-26] MEDS ORDERED: PIPERACILLIN-TAZOBACTAM 3.375 GM in SODIUM CHLORIDE 0.9% 100 ML IVPB STA (00:58)
[2022-08-26 01:47] VITALS: RESP 16
[2022-08-26 01:59] VITALS: TEMP 97.8
[2022-08-26] MEDS ORDERED: ONDANSETRON 4 MG/2 ML VIAL IVP STA (02:30)
[2022-08-26 02:57] VITALS: BP 125/75; PULSE 80
== END 2022-08-26 02:54 | disposition other institution (70) ==
LOC: EC 19:38
DX: K51.90 Ulcerative colitis, unspecified, without complications (principal); F19.10 Other psychoactive substance abuse, uncomplicated; F17.200 Nicotine dependence, unspecified, uncomplicated; F11.90 Opioid use, unspecified, uncomplicated; F12.90 Cannabis use, unspecified, uncomplicated
CPT/HCPCS: 99285 ×2; 96374 ×2; 96375 ×2; 96361 ×2; 36430 ×2; 36415; 86900; 86901; 80053; 85652; 82150; 83605 ×2; 83690; 85025; 85610; 85730; 86850; 86920; 86140; 87040; 73590; 74177; P9016; J2405; J0131; Q9967

== ENCOUNTER 2023-01-30 21:04 | Observation (INO) | payer OTHER ==
[2023-01-30] MEDS ORDERED: KETOROLAC 15 MG/ML 1 ML VIAL IVP STA (23:12)
[2023-01-30] MEDS ORDERED: SODIUM CHLORIDE 0.9% 1,000 ML IV STA (23:12)
[2023-01-31 00:30] LABS: Anisocytosis Slight; Basophils # (A) 0.1 k/uL (0-0.2); Basophils % (A) 0 %; Eosinophils # (A) 0.2 k/uL (0-0.7); Eosinophils % (A) 2 %; HCT 28.8 % (39.0-53.0); HGB 8.9 gm/dL (13.0-17.5); Hypochromasia Marked; Lymphocytes # (A) 1.8 k/uL (1.0-4.8); Lymphocytes % (A) 16 %; MCHC 31.1 g/dL (31.0-37.0); MCV 64.5 fL (80.0-100.0); Mean Platelet Volume 7.2; Microcytosis Marked; Monocytes # (A) 0.8 k/uL (0-1.0); Monocytes % (A) 7 %; Neutrophils % (A) 73 %; RBC 4.46 m/uL (4.30-5.90); WBC 10.9 k/uL (3.8-10.6)
[2023-01-31 00:44] LABS: ALT 33 U/L (4-49); AST 36 U/L (17-59); African American GFR (CKD) >90 (>60 ml/min/1.73 sqM); Albumin 3.1 g/dL (3.5-5.0); Alkaline Phosphatase 80 U/L (38-126); Anion Gap 8 mmol/L; Blood Urea Nitrogen 8 mg/dL (9-20); C Reactive Protein 5.7 mg/dL (<1.0); Calcium 8.4 mg/dL (8.4-10.2); Carbon Dioxide 20 mmol/L (22-30); Chloride 107 mmol/L (98-107); Glucose 91 mg/dL (74-99); Lipase 33 U/L (23-300); Non-African American GFR(CKD) >90 (>60 ml/min/1.73 sqM); Potassium 4.4 mmol/L (3.5-5.1); Sodium 135 mmol/L (137-145); Total Bilirubin 0.5 mg/dL (0.2-1.3); Total Protein 7.4 g/dL (6.3-8.2)
[2023-01-31] MEDS ORDERED: methylPREDNISolone SOD SUCCI 125 MG/2 ML VIAL IV STA (01:42)
[2023-01-31] MEDS ORDERED: ONDANSETRON 4 MG/2 ML VIAL IVP PRN (01:44)
[2023-01-31] MEDS ORDERED: NALOXONE 0.4 MG/ML 1 ML VIAL IV PRN (01:44)
[2023-01-31] MEDS ORDERED: ACETAMINOPHEN TAB 325 MG TAB PO PRN (01:44)
--- NOTE | 2023-01-31 01:44 | ED ---
General Adult HPI - General Chief complaint: Extremity Injury, Lower Stated complaint: Pain all over Time Seen by Provider: 01/30/23 22:31 Source: patient Mode of arrival: ambulatory Limitations: no limitations - History of Present Illness Initial comments: 42-year-old male with past medical history of Crohn's disease, pyoderma gangrenosum who presents to the emergency department with decreased appetite and joint aches. States that he is not currently on anything for his Crohn's disease. Feels as if he is having a Crohn's flare because he states that this is how his symptoms start. He denies any fevers. Has no abdominal pain. Denies any rectal bleeding. Denies any open wounds at this time. Follows with Dr. Kaplan. No other alleviating, precipitating factors - Related Data Home Medications Medication Instructions Recorded Confirmed No Known Home Medications 08/25/22 08/25/22 Allergies Allergy/AdvReac Type Severity Reaction Status Date / Time No Known Allergies Allergy Verified 08/25/22 21:45 Review of Systems ROS Statement: Those systems with pertinent positive or pertinent negative responses have been documented in the HPI. ROS Other: All systems not noted in ROS Statement are negative. Past Medical History Past Medical History: GI Bleed, Skin Disorder Additional Past Medical History / Comment(s): ulcerative colitis, spleen problems, Hep C History of Any Multi-Drug Resistant Organisms: None Reported Past Surgical History: No Surgical Hx Reported Additional Past Surgical History / Comment(s): wound debriedment L leg Past Anesthesia/Blood Transfusion Reactions: No Reported Reaction Past Psychological History: No Psychological Hx Reported Smoking Status: Current every day smoker Past Alcohol Use History: None Reported Past Drug Use History: Heroin, Marijuana, Opiates - Past Family History Father Family Medical History: Seizure Disorder Additional Family Medical History / Comment(s): Father is alive at age 64 with history of seizures and hypertension. Mother Additional Family Medical History / Comment(s): Mother in her late 50s with complications from CABG. Brother(s) Additional Family Medical History / Comment(s): Patient has 2 brothers with no major medical problems. He does not have any sisters. He does not have any children. No family members have ulcerative colitis. General Exam Limitations: no limitations General appearance: alert, in no apparent distress Head exam: Present: atraumatic, normocephalic, normal inspection Eye exam: Present: normal appearance, PERRL, EOMI. Absent: scleral icterus, conjunctival injection, periorbital swelling ENT exam: Present: normal exam, mucous membranes moist Neck exam: Present: normal inspection. Absent: tenderness, meningismus, lymphadenopathy Respiratory exam: Present: normal lung sounds bilaterally. Absent: respiratory distress, wheezes, rales, rhonchi, stridor Cardiovascular Exam: Present: regular rate, normal rhythm, normal heart sounds. Absent: systolic murmur, diastolic murmur, rubs, gallop, clicks GI/Abdominal exam: Present: soft, normal bowel sounds. Absent: distended, tenderness, guarding, rebound, rigid Extremities exam: Present: normal inspection, full ROM, normal capillary refill. Absent: tenderness, pedal edema, joint swelling, calf tenderness Back exam: Present: normal inspection Neurological exam: Present: alert, oriented X3, CN II-XII intact Psychiatric exam: Present: normal affect, normal mood Skin exam: Present: warm, dry, intact, normal color, other (Patient has well- healed areas to the bilateral anterior shins. No active processes identified). Absent: rash Course Vital Signs 01/30/23 01/30/23 01/31/23 21:34 22:50 02:35 Temperature 98.3 F Pulse Rate 92 Respiratory 16 16 18 Rate Blood Pressure 148/81 115/76 125/74 O2 Sat by Pulse 99 99 97 Oximetry Medical Decision Making - Medical Decision Making Was pt. sent in by a medical professional or institution (, PA, [employer], urgent care, hospital, or prison...) When possible be specific @ -No Did you speak to anyone other than the patient for history (EMS, parent, family, police, friend...)? What history was obtained from this source @ -No Did you review nursing and triage notes (agree or disagree)? Why? @ -I reviewed and agree with nursing and triage notes Were old charts reviewed (outside hosp., previous admission, EMS record, old EKG, old radiological studies, urgent care reports/EKG's, prison records)? Report findings @ -I reviewed patient's previous charts as he was here with similar complaints in January 2022 and August 2022 Differential Diagnosis (chest pain, altered mental status, abdominal pain women, abdominal pain men, vaginal bleeding, weakness, fever, dyspnea, syncope, headache, dizziness, GI bleed, back pain, seizure, CVA, palpatations, mental health, musculoskeletal)? @ -Ulcerative colitis flare, GI bleed, myalgias, viral illness EKG interpreted by me (3pts min.). @ -Not completed X-rays interpreted by me (1pt min.). @ -None done CT interpreted by me (1pt min.). @ -None done U/S interpreted by me (1pt. min.). @ -None done What testing was considered but not performed or refused? (CT, X-rays, U/S, labs)? Why? @ -CT of the abdomen however patient has no abdominal pain or lab abnormalities What meds were considered but not given or refused? Why? @ -None Did you discuss the management of the patient with other professionals (professionals i.e. , PA, [employer], lab, RT, psych nurse, elementary school social worker, cattle shipper, teacher, surveillance dual rate officer, case picker)? Give summary @ -Spoke with Dr. Plata who agreed to admit the patient Was smoking cessation discussed for >3mins.? @ -No Was critical care preformed (if so, how long)? @ -No Were there social determinants of health that impacted care today? How? (Homelessness, low income, unemployed, alcoholism, drug addiction, transportation, low edu. Level, literacy, decrease access to med. care, longterm, rehab)? @ -No Was there de-escalation of care discussed even if they declined (Discuss DNR or withdrawal of care, Hospice)? DNR status @ -No What co-morbidities impacted this encounter? (DM, HTN, Smoking, COPD, CAD, Canc er, CVA, ARF, Chemo, Hep., AIDS, mental health diagnosis, sleep apnea, morbid obesity)? @ -IVDA, ulcerative colitis Was patient admitted / discharged? Hospital course, mention meds given and route, prescriptions, significant lab abnormalities, going to OR and other pertinent info. @ -Arrival patient is placed in room 2. A thorough history and physical exam was performed. Laboratory studies were conducted. Patient was given Toradol for pain control and IV fluids. Laboratory studies are within normal limits. He was given a dose of Solu-Medrol. Spoke with Dr. Plata who agreed to obs the patient for antiemetics, fluids and GI consult Undiagnosed new problem with uncertain prognosis? @ -No Drug Therapy requiring intensive monitoring for toxicity (Heparin, Nitro, Insulin, Cardizem)? @ -No Were any procedures done? @ -No Diagnosis/symptom? @ -Acute myalgias, possible UC exacerbation Acute, or Chronic, or Acute on Chronic? @ -Acute on chronic Uncomplicated (without systemic symptoms) or Complicated (systemic symptoms)? @ -Complicated Side effects of treatment? @ -No Exacerbation, Progression, or Severe Exacerbation? @ -No Poses a threat to life or bodily function? How? (Chest pain, USA, [place], pneumonia, PE, COPD, DKA, ARF, appy, cholecystitis, CVA, Diverticulitis, Homicidal, Suicidal, threat to staff... and all critical care pts) @ -No - Lab Data Result diagrams: 01/30/23 23:17 01/30/23 23:17 Lab Results 01/30/23 01/30/23 01/30/23 Range/Units 23:17 23:17 23:17 WBC 10.9 H (3.8-10.6) k/uL RBC 4.46 (4.30-5.90) m/uL Hgb 8.9 L (13.0-17.5) gm/dL Hct 28.8 L (39.0-53.0) % MCV 64.5 L (80.0-100.0) fL MCH 20.0 L (25.0-35.0) pg MCHC 31.1 (31.0-37.0) g/dL RDW 16.0 H (11.5-15.5) % MPV 7.2 Hypochromasia Marked Anisocytosis Slight Microcytosis Marked ESR Cancelled Sodium 135 L (137-145) mmol/L Potassium 4.4 (3.5-5.1) mmol/L Chloride 107 (98-107) mmol/L Carbon Dioxide 20 L (22-30) mmol/L Anion Gap 8 mmol/L BUN 8 L (9-20) mg/dL Creatinine 0.47 L (0.66-1.25) mg/dL Est GFR (CKD-EPI)AfAm >90 (>60 ml/min/1.73 sqM) Est GFR (CKD-EPI)NonAf >90 (>60 ml/min/1.73 sqM) Glucose 91 (74-99) mg/dL Plasma Lactic Acid Terence 1.2 (0.7-2.0) mmol/L Calcium 8.4 (8.4-10.2) mg/dL Total Bilirubin 0.5 (0.2-1.3) mg/dL AST 36 (17-59) U/L ALT 33 (4-49) U/L Alkaline Phosphatase 80 (38-126) U/L C-Reactive Protein 5.7 H (<1.0) mg/dL Total Protein 7.4 (6.3-8.2) g/dL Albumin 3.1 L (3.5-5.0) g/dL Lipase 33 (23-300) U/L Disposition Clinical Impression: Myalgia, Nausea, Hx of ulcerative colitis Disposition: ADMITTED IP TO THIS [facility] Condition: Stable Is patient prescribed a controlled substance at d/c from ED?: No Time of Disposition: 01:44 Decision to Admit Reason: Admit from EC Decision Date: 01/31/23 Decision Time: 01:44
[2023-01-31] MEDS: MORPHINE SULFATE 4 MG/ML SYRINGE IV PRN ×2 (03:03→11:56)
[2023-01-31] MEDS: SODIUM CHLORIDE 0.9% 1,000 ML IV SCH ×2 (03:06→09:47)
[2023-01-31 09:04] LABS: Anisocytosis Slight; Basophils % (A) 0 %; Eosinophils % (A) 0 %; HCT 29.8 % (39.0-53.0); Hypochromasia Marked; Lymphocytes # (A) 0.8 k/uL (1.0-4.8); Lymphocytes % (A) 8 %; MCHC 30.3 g/dL (31.0-37.0); MCV 65.9 fL (80.0-100.0); Mean Platelet Volume 6.8; Microcytosis Marked; Monocytes # (A) 0.1 k/uL (0-1.0); Monocytes % (A) 1 %; Neutrophils # (A) 8.9 k/uL (1.3-7.7); Neutrophils % (A) 90 %; RBC 4.53 m/uL (4.30-5.90); WBC 9.9 k/uL (3.8-10.6)
[2023-01-31 09:07] LABS: Platelet Count 345 k/uL (150-450)
[2023-01-31 10:20] VITALS: RESP 18
[2023-01-31 10:43] LABS: Erythrocyte Sedimentation Rate 69 mm/hr (0-15)
[2023-01-31 10:56] LABS: Amphetamine Screen,Urine Not Detected (NotDetected); Barbiturate Screen,Urine Not Detected (NotDetected); Benzodiazepines Screen,Urine Not Detected (NotDetected); Cocaine Screen,Urine Not Detected (NotDetected); Methadone Screen, Urine Not Detected (NotDetected); Opiate Screen,Urine Detected (NotDetected); Oxycodone Screen, Urine Not Detected (NotDetected); Phencyclidine Screen,Urine Not Detected (NotDetected); Tricyclic Antidepressant,Urine Not Detected (NotDetected); Urn Cannabinoid Scrn Detected (NotDetected)
[2023-01-31 11:57] VITALS: BP 138/83; PULSE 65; TEMP 97.3
[2023-01-31] MEDS ORDERED: methylPREDNISolone SOD SUCCI 40 MG/ML 1 ML VIAL IV SCH (16:00)
== END 2023-01-31 12:35 | disposition left against medical advice (07) ==
LOC: EC 21:04 → 6NMEDSUR 01-31 01:50
PROVIDERS: ADMIT Internal Medicine; ATTEND Internal Medicine
DX: M79.10 Myalgia, unspecified site (principal); R11.0 Nausea; F17.200 Nicotine dependence, unspecified, uncomplicated; Z86.19 Personal history of other infectious and parasitic diseases; Z87.19 Personal history of other diseases of the digestive system; Z53.9 Procedure and treatment not carried out, unspecified reason
CPT/HCPCS: 96376; 96361; 96374; 96375; 99284; 36415; 80053; 85652; 83605; 83690; 85025; 86140; 80306; G0378; J2270; J2930; J1885

== ENCOUNTER 2023-07-20 12:57 | Emergency (ER) | payer OTHER ==
[2023-07-20 13:51] VITALS: BP 108/73; PULSE 93; RESP 18; TEMP 98.6
--- NOTE | 2023-07-20 14:07 | XR ---
EXAMINATION TYPE: XR tibia fibula RT DATE OF EXAM: 07/20/2023 COMPARISON: NONE HISTORY: Lower extremity infection. TECHNIQUE: Two views are submitted. FINDINGS: The osseous structures are intact. The joint spaces are preserved. Mild osteopenia. There is a soft tissue wound along the distal margin of the right lower extremity suggestive of soft tissue ulcerati on. IMPRESSION: 1. Soft tissue edema and irregularity along the distal margin of the right lower extremity adjacent t o the tibia correlate for ulceration. No diagnostic evidence of osteomyelitis.
--- NOTE | 2023-07-20 14:17 | ED ---
Skin/Abscess/FB HPI - General Chief complaint: Skin/Abscess/Foreign Body Stated complaint: INFECTION R LE Time Seen by Provider: 07/20/23 13:23 Source: patient, RN notes reviewed Mode of arrival: ambulatory Limitations: no limitations - History of Present Illness Initial comments: 43-year-old male presents emergency department she went right leg infection. Patient states he has ulcerative colitis and states and upper legs infections. Patient states uses his wound center. Patient states he is not on any medications currently other than he was taking his friends old amoxicillin. Patient denies fevers chills no chest pain or difficulty in breathing no other complaints. - Related Data Previous Rx's Medication Instructions Recorded Cephalexin [Keflex] 500 mg PO Q6HR #40 cap 07/20/23 Sulfamethox-Tmp 800-160Mg [Bactrim 1 each PO Q12HR #20 tab 07/20/23 Ds] Allergies Allergy/AdvReac Type Severity Reaction Status Date / Time No Known Allergies Allergy Verified 07/20/23 13:55 Review of Systems ROS Statement: Those systems with pertinent positive or pertinent negative responses have been documented in the HPI. ROS Other: All systems not noted in ROS Statement are negative. Past Medical History Past Medical History: GI Bleed, Skin Disorder Additional Past Medical History / Comment(s): ulcerative colitis, spleen problem s, Hep C History of Any Multi-Drug Resistant Organisms: None Reported Past Surgical History: No Surgical Hx Reported Additional Past Surgical History / Comment(s): wound debriedment L leg Past Anesthesia/Blood Transfusion Reactions: No Reported Reaction Past Psychological History: No Psychological Hx Reported Smoking Status: Current every day smoker Past Alcohol Use History: None Reported Past Drug Use History: Heroin, Marijuana, Opiates - Past Family History Father Family Medical History: Seizure Disorder Additional Family Medical History / Comment(s): Father is alive at age 64 with history of seizures and hypertension. Mother Additional Family Medical History / Comment(s): Mother in her late 50s with complications from CABG. Brother(s) Additional Family Medical History / Comment(s): Patient has 2 brothers with no major medical problems. He does not have any sisters. He does not have any children. No family members have ulcerative colitis. General Exam Limitations: no limitations General appearance: alert, in no apparent distress Head exam: Present: atraumatic, normocephalic, normal inspection Respiratory exam: Present: normal lung sounds bilaterally. Absent: respiratory distress, wheezes, rales, rhonchi, stridor Cardiovascular Exam: Present: regular rate, normal rhythm, normal heart sounds. Absent: systolic murmur, diastolic murmur, rubs, gallop, clicks Extremities exam: Present: other (Left lower extremity ulceration, erythema noted pulses are palpable and equal bilaterally old scarring noted) Course Vital Signs 07/20/23 13:00 Temperature 98.6 F Pulse Rate 93 Respiratory 18 Rate Blood Pressure 108/73 O2 Sat by Pulse 100 Oximetry Medical Decision Making - Medical Decision Making Was pt. sent in by a medical professional or institution (, PA, FILM LABORATORY TECHNICIAN, urgent care, hospital, or [facility]...) When possible be specific @ -No Did you speak to anyone other than the patient for history (EMS, parent, family, police, friend...)? What history was obtained from this source @ -No Did you review nursing and triage notes (agree or disagree)? Why? @ -I reviewed and agree with nursing and triage notes Were old charts reviewed (outside hosp., previous admission, EMS record, old EKG, old radiological studies, urgent care reports/EKG's, [facility] records)? Report findings @ -No old charts were reviewed Differential Diagnosis (chest pain, altered mental status, abdominal pain women, abdominal pain men, vaginal bleeding, weakness, fever, dyspnea, syncope, headache, dizziness, GI bleed, back pain, seizure, CVA, palpatations, mental health, musculoskeletal)? @ -Leg ulceration, cellulitis EKG interpreted by me (3pts min.). @ -[None X-rays interpreted by me (1pt min.). @ -X-ray right tib-fib shows soft tissue changes, no osteomyelitis CT interpreted by me (1pt min.). @ -None done U/S interpreted by me (1pt. min.). @ -None done What testing was considered but not performed or refused? (CT, X-rays, U/S, labs)? Why? @ -None What meds were considered but not given or refused? Why? @ -None Did you discuss the management of the patient with other professionals (professionals i.e. , SOHAN, FILM LABORATORY TECHNICIAN, lab, RT, psych nurse, social work faculty member, organ assembler, teacher, service officer, comp field case manager)? Give summary @ -No Was smoking cessation discussed for >3mins.? @ -No Was critical care preformed (if so, how long)? @ -No Were there social determinants of health that impacted care today? How? (H omelessness, low income, unemployed, alcoholism, drug addiction, transportation, low edu. Level, literacy, decrease access to med. care, snf, rehab)? @ -No Was there de-escalation of care discussed even if they declined (Discuss DNR or withdrawal of care, Hospice)? DNR status @ -No What co-morbidities impacted this encounter? (DM, HTN, Smoking, COPD, CAD, Cancer, CVA, ARF, Chemo, Hep., AIDS, mental health diagnosis, sleep apnea, morbid obesity)? @ -Ulcerative colitis Was patient admitted / discharged? Hospital course, mention meds given and route, prescriptions, significant lab abnormalities, going to OR and other pertinent info. @ -Discharged patient has right leg ulceration, cellulitis changes. Patient will follow-up with wound center as he is seen in the past. Patient we discharged on oral antibiotics return parameters were discussed. Undiagnosed new problem with uncertain prognosis? @ -No Drug Therapy requiring intensive monitoring for toxicity (Heparin, Nitro, Insulin, Cardizem)? @ -No Were any procedures done? @ -No Diagnosis/symptom? @ -Right leg ulceration, cellulitis Acute, or Chronic, or Acute on Chronic? @ -Acute Uncomplicated (without systemic symptoms) or Complicated (systemic symptoms)? @ -Uncomplicated Side effects of treatment? @ -No Exacerbation, Progression, or Severe Exacerbation? @ -No Poses a threat to life or bodily function? How? (Chest pain, [place], [place], pneumonia, PE, COPD, DKA, ARF, appy, cholecystitis, CVA, Diverticulitis, Homicidal, Suicidal, threat to staff... and all critical care pts) @ -No Disposition Clinical Impression: Ulcer of right leg, Cellulitis of leg, right Disposition: HOME SELF-CARE Condition: Stable Instructions (If sedation given, give patient instructions): Cellulitis (ED) Additional Instructions: Please return to the Emergency Department if symptoms worsen or any other concerns. Prescriptions: Sulfamethox-Tmp 800-160Mg [Bactrim Ds] 1 each PO Q12HR #20 tab Cephalexin [Keflex] 500 mg PO Q6HR #40 cap Is patient prescribed a controlled substance at d/c from ED?: No Referrals: Adalid Plata MD [Primary Care Provider] - 1-2 days [facility] [NON-STAFF] - 1-2 days Time of Disposition: 14:17
== END 2023-07-20 15:35 | disposition home or self-care (01) ==
LOC: EC 12:57
DX: L03.115 Cellulitis of right lower limb (principal); F17.200 Nicotine dependence, unspecified, uncomplicated; F12.90 Cannabis use, unspecified, uncomplicated
CPT/HCPCS: 99283